=== PATIENT | male | born 1960 | race Caucasian/White ===

== ENCOUNTER 2017-12-27 00:13 | Outpatient (CLI) | payer MEDICAID, SELFPAY ==
--- NOTE | 2017-12-27 11:30 | MERGEMPI_ITS ---
*[facility]* *[facility]* [address] [place] [address] Myocardial Perfusion Imaging - SPECT Regadenoson Date of study: 12/27/2017 *PATIENT PRESENTATION* Height: 172.7cm (68in) Blood Pressure: Weight: 112.7kg (248lb) BSA: 2.37m^2 Referring physician: Gris Dawson Ordering physician: Trevin Kellogg MD Impressions: - Normal perfusion and contraction by Tc99m Sestamibi Imaging. - Poor image quality. Summary: 1. Myocardial perfusion imaging: No myocardial perfusion defects noted. 2. The calculated left ventricular ejection fraction after stress: 58%. LV global systolic function is normal. No left ventricular regional motion abnormality. 3. Stress ECG conclusions: The stress ECG is negative. 4. Stress: The heart rate response to stress is normal. The patient experienced no chest pain during stress. 5. Imaging information: gated. The image quality was poor. Image quality reduced due to mild patient motion and body habitus. Indication: R07.9. History: Patient's presenting symptoms: asymptomatic. Patient's presenting symptoms: asymptomatic. REASON FOR VISIT: PATIENT REPORTS EXPERIENCING 7/10 ACHY STERNAL AND LEFT SIDED CHEST PAIN FOR THE PAST 3-4 MONTHS. CHEST PAIN MOSTLY OCCURS WITH ACTIVITY, THOUGH SOMETIMES AT REST. CHEST PAIN RESOLVES AFTER ABOUT A MINUTE WITHOUT MEDICAL INTERVENTION. PATIENT ALSO NOTICES AN INCREASE IN FATIGUE ALONG WITH CHEST PAIN. PATIENT LAST EXPERIENCED CHEST PAIN YESTERDAY AFTERNOON. STRESS TEST ORDERED FOR FOLLOW UP OF PATIENT SYMPTOMS AND WORKUP FOR PENDING SURGERIES (GASTRIC BIPASS AND LEFT KNEE SURGERY). 09/09/16 ECHOCARDIOGRAM: EF 55-60%. RIGHT VENTRICLE CAVITY SIZE WAS DILATED; SYSTOLIC FUNCTION WAS REDUCED. MODERATE REGURGITATION OF TRICUSPID VALVE. 08/31/16 MPI RESTING AND STRESS TEST: NORMAL MYOCARDIAL PERFUSION AND CONTRACTION AFTER PHARMACOLOGICAL STRESS. LEFT VENTRICULAR EJECTION FRACTION AFTER STRESS 52%. PAST MEDICAL HISTORY: DEPRESSION, CHEST PAIN, KNEE JOINT PAIN, MICROALBUMINURIA, SYNCOPE, DM TYPE II, GOUT, OSTEOARTHRITIS (KNEE), HYPERTENSION, OBESITY, DVT OF RIGHT LEG, BARRETTS ESOPHAGEAL ULCERATION, BILATERAL TOTAL HIP ARTHROPLAYSTY, OBSTRUCTIVE SLEEP APNEA. FAMILY HISTORY: MOTHER, FATHER, AND 2 BROTHERS FROM MYOCARDIAL INFARCTION. THIRD BROTHER HAD MYOCARDIAL INFARCTION. SMOKING STATUS: NEVER SMOKER. EXERCISE ROUTINE: NONE. Risk factors: Family history of coronary artery disease. Hypertension. Diabetes mellitus. Obesity. Dyslipidemia. Cholesterol: 209mg/dl. HDL: 47mg/dl. LDL: 145mg/dl. Triglycerides: 136mg/dl. ALLERGIES: TAGAMET, XARELTO, LATEX, LISINOPRIL. MEDICATIONS: ATORVASTATIN CALCIUM 20MG, HS. TRAZODONE HCL 50MG, HS. MAGNESIUM OXIDE 400MG, DAILY. POTASSIUM CHOLORIDE 20MEQ, BID. HYDROCODONE-ACETAMINOPHEN 10-325MG, PRN. ALLOPURINOL 300MG, DAILY. BUMETANIDE 2MG, BID. INDOMETHACIN 50MG, PRN. RESTATIS 3 DROPS, BID. DICYCLOMINE HCL 10MG, QID. METFORMIN HCL 850MG, BID. LOSARTAN POTASSIUM 25MG, DAILY. GABAPENTIN 300MG, TID. DEXIMANT 60MG, BID. SENEXON 8.6MG, DAILY. NARCAN, PRN. WARFARIN SODIUM, DIRECTED. Imaging Technique: Protocol: Regadenoson. Acquisition: Gated SPECT; 1 day - rest/stress. The patient was imaged in the supine position. Attenuation correction used. Isotope administration: - Rest. Tc[99m]-sestamibi. Dose: 12mCi. Injection time: 11:00 AM. Injection to stress time: 00:45. - Stress. Tc[99m]-sestamibi. Dose: 37mCi. Injection time: 02:00 PM. 1-2 min before end of exercise Baseline ECG: SINUS RHYTHM. HEART RATE 60 BPM. Stress protocol: +--------+--+ + + !Stage !HR!BP (mmHg) !Comments ! +--------+--+ + + !Baseline!60!132/68 (89) ! ! +--------+--+ + + !1 min !80!160/70 (100)!Inject Regadenoson.! +--------+--+ + + !3 min !80!172/80 (111)! ! +--------+--+ + + !6 min !71!152/74 (100)! ! +--------+--+ + + * Stress results: The heart rate response to stress is normal. The rate-pressure product for the peak heart rate and blood pressure was 88790oa Hg/min. The patient experienced no chest pain during stress. Stress ECG: STRESS TEST ENDED IN 6MIN WHEN ALL SYMPTOMS OF REGADENOSON INJECTION SUBSIDED. APPROPRIATE HEART RATE AND BLOOD PRESSURE RESPONSE TO REGADENOSON INJECTION. NO ECTOPY NOTED. NO ANGINA REPORTED. The stress ECG is negative. Myocardial perfusion: Imaging information: gated. The image quality was poor. Image quality reduced due to mild patient motion and body habitus. Left ventricular size is normal. Right ventricular size is normal. No myocardial perfusion defects noted. Ventricular Function (Wall Motion): The calculated left ventricular ejection fraction after stress: 58%. LV global systolic function is normal. No left ventricular regional motion abnormality. Right ventricular function is normal. Study data: Gris Dawson MD supervised and was readily available during the procedure. This study was interpreted by [facility]. Study status: Routine. Consent: The risks, benefits, and alternatives to the procedure were explained to the patient and informed consent was obtained. Procedure: Initial setup. A baseline ECG was recorded. Surface ECG leads and manual cuff blood pressure measurements were monitored. Heart sounds: Normal. Lung sounds: Normal. Regadenoson stress test. Stress testing was performed, with regadenoson by intravenous bolus, for a total dose of 0.4mgover 10.00sec, followed by a 5ml saline flush. The infusion was terminated due to per protocol. Study completion: All catheters inserted during the procedure were removed. The patient tolerated the procedure well and was discharged from the lab. Discharge: The patient left the laboratory in stable condition. Birthdate: Patient birthdate: 1960. Sex: Gender: male. Study date: Study date: 12/27/2017. Study time: 12:30 PM. Signature Documentation: - The imaging portion of this study was interpreted by [facility] Gris Dawson MD. - The Stress ECG portion of this study was interpreted by Gris Dawson MD. Electronically signed by Gris Dawson 12/27/2017 17:30
[2017-12-27] MEDS: Regadenoson 0.4 MG/5 ML SYR IVP (14:15)
== END 2017-12-27 00:33 ==
PROVIDERS: PCP Internal Medicine; Visit Provider Internal Medicine
DX: R07.9 Chest pain, unspecified (principal); E11.9 Type 2 diabetes mellitus without complications; I10 Essential (primary) hypertension; E66.9 Obesity, unspecified; Z82.49 Family history of ischemic heart disease and other diseases of the circulatory system; R53.83 Other fatigue
CPT/HCPCS: 78452; 93017; J2785

== ENCOUNTER 2018-02-02 20:27 | Outpatient (REF) | payer MEDICAID, SELFPAY ==
[2018-02-02 21:54] LABS: Creatinine,Urine 57.72 mg/dL
[2018-02-02 22:00] LABS: Total Volume 2655 ml
[2018-02-05 09:31] LABS: Calcium Urine 12.7 mg/dl; Calcium Urine 24 hr 337 mg/24hr (100-300)
[2018-02-05 09:34] LABS: Uric Acid Urine 20.9 mg/dl; Uric Acid Urine 24hr 555 mg/24h (250-750)
[2018-02-05 17:31] LABS: Oxalate Conc (mmol/L) 0.11 mmol/L; Oxalate Concentration 9.7 mg/L; Oxalate, U 0.29 mmol/24 h (0.11-0.46); Oxalate, U 25.5 mg/24 h (9.7 - 40.5); Urine Volume 2655 mL
== END 2018-02-02 20:47 ==
LOC: NCHCN 20:27
PROVIDERS: PCP Internal Medicine; Visit Provider Internal Medicine
DX: N20.0 Calculus of kidney (principal)
CPT/HCPCS: 81050; 82340; 82570; 83945; 84560

== ENCOUNTER 2022-05-17 15:35 | Inpatient (IN) | payer OTHER, SELFPAY ==
[2022-05-17] VITALS (57 sets, daily range): BP systolic 90–138; BP diastolic 55–81; PULSE 0–81; RESP 10–24; TEMP 36.3–37; O2SAT 95–97
--- NOTE | 2022-05-17 15:52 | RT.EKG_ITS ---
APPROVED REPORT Exam: Resting ECG Reason for Exam: sob Patient Location: E HR:73 bpm ECG Measurements Heart Rate 73 AXIS WV 200 P 37 QRSd 85 QRS 29 QT 398 T 27 QTc 437 Conclusion Sinus rhythm...normal P axis, V-rate 60- 99
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
[2022-05-17 16:41] LABS: Abs Immature Grans 0.04 10^3/uL (0.0-0.06); Absolute Basophil Count 0.07 10^3/uL (0.0-0.2); Absolute Eosinophil Count 0.38 10^3/uL (0.0-0.7); Absolute Lymphocyte Count 2.14 10^3/uL (1.2-3.4); Absolute Monocyte Count 0.59 10^3/uL (0.1-0.8); Basophils % 0.7; Eosinophils % 3.7; HCT 42.7 % (40.0-50.0); HGB 13.9 g/dL (13.5-17.5); Immature Grans % 0.4; Lymphocytes % 20.9; MCHC 32.6 % (32.0-36.0); MCV 89 fL (80-95); MPV 9.3 fL (8.0-11.0); Monocytes % 5.8; Neutrophils % 68.5; Platelet Count 170 10^3/uL (130-400); RDW-SD 49.5 fL; WBC 10.22 10^3/uL (4.4-10.8)
[2022-05-17 16:53] LABS: ALT 16 U/L (16-63); AST 46 U/L (15-37); Alkaline Phosphatase 119 U/L (46-116); Anion Gap 6.3 mmol/L (3-11); BUN 14 mg/dL (7-18); Bilirubin, Direct 0.2 mg/dL (0.0-0.2); Bilirubin, Total 0.6 mg/dL (0.2-1.0); CO2 33.7 mmol/L (21.0-32.0); CREATININE 0.8 mg/dL (0.70-1.30); Calcium 9.5 mg/dL (8.5-10.1); Chloride 101 mmol/L (98-107); Estimated GFR 100.06 (mL/min/1.73m2); Glucose 132 mg/dL (74-106); Magnesium 1.6 mg/dL (1.8-2.4); NT-proBNP 186 pg/mL (<300); Potassium 4.3 mmol/L (3.5-5.1); Sodium 141 mmol/L (136-145); Total Protein 8.4 g/dL (6.4-8.2); Troponin I < 50 ng/L (<or=60)
[2022-05-17 17:01] LABS: INR 1.1 (0.9-1.1); PTT Activated 22.8 sec (21.0-27.5); Prothrombin Time 10.7 sec (9.3-11.0)
[2022-05-17 17:42] LABS: COVID-19 PCR Negative (Negative); Influenza A PCR Negative (Negative); Influenza B PCR Negative (Negative); RSV PCR Negative (Negative)
[2022-05-17 17:44] LABS: Source Nasopharynx
--- NOTE | 2022-05-17 17:58 | DI.CT_ITS ---
Exam(s) CT CHEST PE CTA EXAM: CT CHEST PE CTA CLINICAL HISTORY: Cough, SOB. TECHNIQUE: Imaging Protocol: Axial CT angiography was performed with multi-slice acquisition and mu lti-planar reconstructions as well as axial, coronal and sagittal MIP reconstructions. CONTRAST MATERIAL: Intravenous: Omnipaque 350 Contrast volume:100 ml COMPARISON: No exams were available for comparison FINDINGS: Exam is limited by patient body habitus. Evaluation of the lungs is limited by respiratory motion an d expiratory changes. Pulmonary Arteries: Small branch vessels not well evaluated due to artifact and motion. No evidence of filling defect to suggest pulmonary emboli. Tracheobronchial tree: Patent where visualized. Mediastinum and Ladi: Mild adenopathy, likely reactive.. Pulmonary parenchyma: Bilateral multifocal ground-glass infiltrates. Some areas of air trapping. In terstitial changes. No dominant measurable mass. Pleura: No effusion or pneumothorax. Heart: The heart is mildly dilated. Moderate coronary artery calcifications are seen. Aorta: Thoracic aorta non-dilated. No aneurysm. No dissection. Upper abdomen: Status post cholecystectomy. Liver cyst. Pancreas somewhat atrophic. Bones: Right shoulder prosthesis. Mid thoracic compression fracture appears old. IMPRESSION: Limited exam. No gross evidence of pulmonary embolism. Pulmonary parenchyma limited evaluation due to respiratory motion and expiratory changes. Bilateral infiltrates are suspected. RADIATION DOSE DELIVERED: 616.17mGy.cm Total DLP DATA REPOSITORY: All CT scans at this facility are submitted to the National Radiology Data Registry (NRDR) Dose Index Registry (DIR) with the [employer] (ACR). RADIATION OPTIMIZATION: All CT scans at this facility use at least one of these dose optimization te chniques: automated exposure control; mA and/or kV adjustment per patient size (includes targeted exa ms where dose is matched to clinical indication); or iterative reconstruction.
[2022-05-17] MEDS: Omnipaque 350 MG/ML 100 ML BTL IJ (18:10)
[2022-05-17] MEDS: MAGNESIUM SULFATE 1 GM/100 ML BAG IVPB (18:18)
--- NOTE | 2022-05-17 18:22 | DI.VRAD_ITS ---
PROCEDURE INFORMATION: Exam: CTA Chest With Contrast Exam date and time: 05/17/2022 5:49 PM Age: 61 years old Clinical indication: Other: Cough, SOB TECHNIQUE: Imaging protocol: Computed tomographic angiography of the chest with contrast. 3D rendering (Not supervised by radiologist): MIP and/or 3D reconstructed images were created by the technologist. Radiation optimization: All CT scans at this facility use at least one of these dose optimization techniques: automated exposure control; mA and/or kV adjustment per patient size (includes targeted exams where dose is matched to clinical indication); or iterative reconstruction. Contrast material: OMNIPAQUE 350; Contrast volume: 100 ml; Contrast route: INTRAVENOUS (IV); COMPARISON: No relevant prior studies available. FINDINGS: Pulmonary arteries: No definite pulmonary embolism is seen to the level of the lobar pulmonary arterial branches bilaterally. The heterogeneous or decreased density of some small segmental and subsegmental pulmonary arterial branches may reflect inadequate enhancement, beam hardening, or motion, flow, or partial volume averaging artifact. One or more small segmental or subsegmental pulmonary emboli cannot be excluded. . Aorta: No aortic dissection. No aortic aneurysm. Lungs: Patchy bilateral ground-glass opacities may represent multifocal pneumonia. Pleural spaces: Unremarkable. No pneumothorax. No pleural effusion. Heart: Unremarkable. No cardiomegaly. No pericardial effusion. Coronary arteries: Coronary artery calcifications may indicate coronary artery disease. Lymph nodes: Unremarkable. No enlarged lymph nodes. Bones/joints: Right shoulder arthroplasty. Midthoracic compression fracture of unknown age Soft tissues: Unremarkable. IMPRESSION: 1. No definite pulmonary embolism is seen to the level of the lobar pulmonary arterial branches bilaterally. The heterogeneous or decreased density of some small segmental and subsegmental pulmonary arterial branches may reflect inadequate enhancement, beam hardening, or motion, flow, or partial volume averaging artifact. One or more small segmental or subsegmental pulmonary emboli cannot be excluded. 2. Patchy bilateral ground-glass opacities may represent multifocal pneumonia. 3. No aortic dissection. 4. No aortic aneurysm. Dictated and Authenticated by: Navjot Gutierrez MD. Ordering:ROSELINE Yeh MD
[2022-05-17] MEDS: PIPERACILLIN/TAZO 3.375 GM in Normal Saline 50 ML IVPB (19:27)
--- NOTE | 2022-05-17 19:48 | NUR.NOTE ---
Addendum entered by Radha Justin 05/17/22 19:48: 2nd IV initiated, blood cultures drawn and first antibiotic infusing via pump. Pt provided with meal and drink, awaiting inpatient bed assignment Original Note: Nursing Note:
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
[2022-05-17] MEDS: VANCOMYCIN 2,000 MG in Normal Saline 500 ML 250 MG IVPB (20:47)
[2022-05-17] MEDS: traZODone 50 MG TAB 100 MG PO (22:32)
[2022-05-17] MEDS: Tamsulosin 0.4 MG CAPCR PO (22:32)
[2022-05-17] MEDS: HYDROmorphone 2 MG TAB 1 MG PO (22:33)
[2022-05-17] MEDS: MAGNESIUM SULFATE 2 GM/50 ML BAG IVPB (22:47)
[2022-05-17] MEDS: Zolpidem 5 MG TAB 10 MG PO (22:59)
[2022-05-17] MEDS: Apixaban 5 MG TAB PO (23:00)
[2022-05-18] VITALS (9 sets, daily range): BP systolic 108–153; BP diastolic 64–85; PULSE 63–79; RESP 16–19; TEMP 36.2–37.2; O2SAT 93–95
[2022-05-18] MEDS: Normal Saline 1,000 ML 100 ML IV ×2 (03:02→16:55)
[2022-05-18] MEDS: PIPERACILLIN/TAZO 3.375 GM in Normal Saline 50 ML IVPB ×4 (03:02→20:02)
[2022-05-18] MEDS: Acetaminophen 325 MG TAB PO ×2 (03:48→08:58)
[2022-05-18 06:52] LABS: HCT 37.3 % (40.0-50.0); HGB 12.2 g/dL (13.5-17.5); MCH 29.3 pg (27.0-33.0); MCHC 32.7 % (32.0-36.0); MCV 89 fL (80-95); MPV 8.9 fL (8.0-11.0); Platelet Count 141 10^3/uL (130-400); RBC 4.17 10^6/uL (4.36-5.78); RDW 15.3 % (11.8-14.1); WBC 8.42 10^3/uL (4.4-10.8)
[2022-05-18 07:02] LABS: Prothrombin Time 10.5 sec (9.3-11.0)
[2022-05-18 07:05] LABS: Magnesium 1.9 mg/dL (1.8-2.4)
--- NOTE | 2022-05-18 08:30 | RESPIRATORY ---
RT spoke with patient concerning the use of oxygen at home, patient stated his baseline is 2L and DME is [facility].
[2022-05-18] MEDS: Insulin Aspart 300 UNITS/3 ML PEN SC ×2 (08:38→11:47)
[2022-05-18] MEDS: Multivitamin w/Minerals TAB 1 TAB PO (08:40)
[2022-05-18] MEDS: Apixaban 5 MG TAB PO ×2 (08:40→19:51)
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
[2022-05-18] MEDS: VANCOMYCIN/WATER (PEG) 1.75 GM/350 ML BAG IV ×2 (09:46→21:38)
[2022-05-18] MEDS: Normal Saline Flush 10 ML SYR IVP (11:51)
--- NOTE | 2022-05-18 12:51 | PHA.REVIEW2 ---
Pharmacy Admission Review - Admission Clinical Review (Last Reviewed 05/17/22 @ 21:24 by Wild Black) Compression fracture of lumbar vertebra (Acute) Hypomagnesemia (Acute) Multifocal pneumonia (Acute) cimetidine HCl [From Tagamet] Allergy (Severe, Verified 05/17/22 18:58) Anaphylaxsis rivaroxaban [From Xarelto] Allergy (Severe, Verified 05/17/22 18:58) Latex, Natural Rubber Allergy (Intermediate, Verified 05/17/22 18:58) Skin Rash lisinopril Allergy (Intermediate, Verified 05/17/22 18:58) morphine Allergy (Mild, Verified 05/17/22 18:58) Itching diphenhydramine HCl [From Benadryl] Adverse Reaction (Intermediate, Verified 05/17/22 18:58) palpitations promethazine HCl [From Phenergan] Adverse Reaction (Verified 05/17/22 18:58) Dizziness/Lightheade Resuscitation Status Full Code Height 5 ft 8 in Weight 101.3 kg - Renal Dosing Renal Dosing: BUN 14 mg/dL (7-18) 05/17/22 15:55 Creatinine 0.8 mg/dL (0.70-1.30) 05/17/22 15:55 Medications needing adjustments: Reviewed (Crcl ~88.35 mL/min current meds okay) - Anticoagulation Anticoagulation: Hgb 12.2 g/dL (13.5-17.5) L 05/18/22 06:42 Hct 37.3 % (40.0-50.0) L 05/18/22 06:42 Plt Count 141 10^3/uL (130-400) 05/18/22 06:42 INR 1.0 (0.9-1.1) 05/18/22 06:42 Creatinine 0.8 mg/dL (0.70-1.30) 05/17/22 15:55 DVT Prophylaxis: N/A Therapeutic Anticoagulation: Reviewed Medications: Apixaban - Opiate Usage Evaluate Pain Scale/Pains Meds: Reviewed Scheduled Bowel Reg ordered if on Opiates?: Yes (pts own linzess, prn meds) - Relevant Labs Sodium 141 mmol/L (136-145) 05/17/22 15:55 Potassium 4.3 mmol/L (3.5-5.1) 05/17/22 15:55 Chloride 101 mmol/L (98-107) 05/17/22 15:55 Magnesium 1.9 mg/dL (1.8-2.4) 05/18/22 06:42 Electrolytes, C-Reactive P, ESR: Reviewed - DM Control DM Control: Glucose 132 mg/dL (74-106) H 05/17/22 15:55 Finger Stick Blood Glucose 170 Finger Stick Blood Glucose 170 Finger Stick Blood Glucose 170 Finger Stick Blood Glucose 147 Finger Stick Blood Glucose 147 Finger Stick Blood Glucose 147 Finger Stick Blood Glucose 147 DM Control: Reviewed (sliding scale aspart ordered, pt's home metformin on hold per H&P) - Cardiac Review Cardiac Review: Troponin I < 50 ng/L (<or=60) 05/17/22 15:55 NT-Pro-B Natriuret Pep 186 pg/mL (<300) 05/17/22 15:55 BP, HR, EF%: Reviewed - Qtc Review If Elevated, List meds needing intervention: QTc 437 on admission - IV to PO Switch IV Medications: Reviewed - Home Meds Home Med List reviewed: Reviewed Relevent Home Meds Not ordered & why?: vitamin B complex, metformin (on hold), naloxone (PRN) - Current meds Current Medication Order Review: Intervened (Order for pt's own medihoney to follow pt's home dressing changing instructions. I talked to nursing to see if there was more information so this order could be timed better/adjusted in [facility]. I adjusted the timing of the insulin aspart based on the med surg rn time policy.) - Comments Comments/Follow Ups: Watch VS, BG, labs, for culture results and for med changes. Antibiotic Review - Pharmacy Antibiotic Review Pharmacy Antibiotic Activity: C/S review (BC and MRSA screen pending), Reviewed, no change (Vanco and zosyn ordered to cover for hospital acquired pneumonia per H&P.)
--- NOTE | 2022-05-18 19:10 | W.PM.PROGNOT ---
Date of Service Date of service: 05/18/22 Time of Service: 12:00 Assessment and Plan Assessment and plan (1) Multifocal pneumonia: Status: Acute Assessment and plan: This is a 61-year-old gentleman with a prolonged hospital course at the [facility] over this last year secondary to COVID-19 pneumonia with mechanical ventilation for 4 months of that hospitalization. He more recently had increased cough with sputum production and increased oxygen needs and was found to have multifocal pneumonia on CT scan to rule out PE. Patient is already on Eliquis for previous PE and DVT. He was negative for COVID, RSV or influenza screening in the ED. He will be placed on vancomycin and Zosyn for treatment of hospital-acquired pneumonia. Increased oxygen supplementation as needed and respiratory care as needed. Patient is a full code. (2) Hypomagnesemia: Status: Acute Assessment and plan: Magnesium slightly low with patient to have IV magnesium in the ED and follow-up magnesium level daily with oral supplement if needed as well as IV repletion as indicated. (3) DVT (deep venous thrombosis): Assessment and plan: Continue Eliquis with no evidence of acute DVT or PE. (4) Peripheral neuropathy: Status: Chronic Assessment and plan: Continue pain management as per outpatient. (5) Compression fracture of lumbar vertebra: Status: Acute Assessment and plan: Continue long-acting morphine during the day with Dilaudid at night for pain management. (6) Diabetes mellitus: Assessment and plan: Will hold metformin and check glucometers before meals and at bedtime with short acting insulin coverage as needed. (7) Discharge planning issues: Status: Acute Assessment and plan: SNF v home with HH Discussed with Dr Ramachandran Subjective Subjective Patient reports: no new complaints, pain is less, voiding w/o difficulty, bowel movement and afebrile; denies diarrhea, nausea or vomiting Exam Narrative Exam Narrative: General: Patient appears appropriate for age, short stature and slightly obese having loss a lot of weight over this last year with his illness. He is in no acute distress. He speaks in full sentences. He is alert and oriented x3. HEENT: Normocephalic, eyes with pupils equal and react to light symmetrically, extraocular movement tact and sclera anicteric. Oropharynx with moist mucosa. Good dentition. Neck: Supple without JVD. Back: Stooped posture without CVA tenderness. Lungs: Decreased aeration diffusely with coarse crackles sparsely without focalizing and bilateral. These with inspiration. No expiratory wheeze and no increased expiratory phase. Occasional rhonchi. Heart: Regular rate and rhythm with no murmurs gallops appreciated. Abdomen: Obese contour, soft and nontender except over right lower quadrant intermittently with some guarding but no rebound. No palpable masses. No palpable hepatosplenomegaly. Genitalia/rectal: Exam deferred. Extremity: Without clubbing, cyanosis or pitting edema. Good capillary refill. Skin: Normal color, warm and dry. Neuro: Cranial nerves II through XII gross intact, no focalized motor deficits. Patient does have hyperesthesias over lower extremities especially. Psych: Normal affect and mood. Remote and recent memory intact. No abnormal thought processes. Objective Last Vital Signs Temp 36.9 C 05/18/22 15:30 Pulse 67 05/18/22 15:30 Resp 16 05/18/22 15:30 BP 146/82 H 05/18/22 15:30 Pulse Ox 95 05/18/22 15:30 Laboratory Results - last 24 hr 05/18/22 05/18/22 05/18/22 06:42 06:42 06:42 WBC 8.42 RBC 4.17 L Hgb 12.2 L Hct 37.3 L MCV 89 MCH 29.3 MCHC 32.7 RDW 15.3 H Plt Count 141 MPV 8.9 PT 10.5 INR 1.0 Magnesium 1.9 Time Spent with Patient Time Spent with Patient: 25-34 minutes Time was spent: preparing to see the patient(eg.review tests), obtaining and/or reviewing separately otained hiistory, ordering medications,tests, procedures, referring, communicating with other health acute care certified nursing assistant, indepentently interpreting results, counseling the patient and care coordination
[2022-05-18] MEDS: HYDROmorphone 2 MG TAB 1 MG PO (21:36)
[2022-05-18] MEDS: Tamsulosin 0.4 MG CAPCR PO (21:37)
[2022-05-18] MEDS: Zolpidem 5 MG TAB 10 MG PO (21:37)
[2022-05-18] MEDS: traZODone 50 MG TAB 100 MG PO (21:38)
[2022-05-18] MEDS: guaiFENesin/D-METHORPHAN HB 5 ML CUP 10 ML PO (21:48)
[2022-05-19] VITALS (10 sets, daily range): BP systolic 122–168; BP diastolic 74–82; PULSE 63–85; RESP 16–22; TEMP 36.5–37; O2SAT 81–97
[2022-05-19] MEDS: PIPERACILLIN/TAZO 3.375 GM in Normal Saline 50 ML IVPB ×4 (02:35→21:19)
[2022-05-19] MEDS: Normal Saline 1,000 ML 100 ML IV (05:39)
[2022-05-19 06:24] LABS: Abs Immature Grans 0.04 10^3/uL (0.0-0.06); Absolute Basophil Count 0.05 10^3/uL (0.0-0.2); Absolute Eosinophil Count 0.53 10^3/uL (0.0-0.7); Absolute Lymphocyte Count 2.47 10^3/uL (1.2-3.4); Absolute Monocyte Count 0.64 10^3/uL (0.1-0.8); Basophils % 0.6; Eosinophils % 6.4; HCT 37.8 % (40.0-50.0); HGB 12.3 g/dL (13.5-17.5); Immature Grans % 0.5; Lymphocytes % 29.7; MCHC 32.5 % (32.0-36.0); MCV 89 fL (80-95); MPV 9.2 fL (8.0-11.0); Monocytes % 7.7; Neutrophils % 55.1; Platelet Count 151 10^3/uL (130-400); RBC 4.24 10^6/uL (4.36-5.78); RDW 15.3 % (11.8-14.1); RDW-SD 50.4 fL; WBC 8.33 10^3/uL (4.4-10.8)
[2022-05-19 06:39] LABS: Anion Gap 5.4 mmol/L (3-11); BUN 11 mg/dL (7-18); CO2 30.6 mmol/L (21.0-32.0); CREATININE 0.8 mg/dL (0.70-1.30); Calcium 8.5 mg/dL (8.5-10.1); Chloride 106 mmol/L (98-107); Estimated GFR 100.06 (mL/min/1.73m2); Glucose 117 mg/dL (74-106); Magnesium 1.9 mg/dL (1.8-2.4); Potassium 3.9 mmol/L (3.5-5.1); Sodium 142 mmol/L (136-145)
[2022-05-19 08:09] LABS: Lab Add On Test DONE
[2022-05-19 08:53] LABS: Procalcitonin < 0.1 ng/mL
[2022-05-19] MEDS: Apixaban 5 MG TAB PO ×2 (09:04→20:35)
[2022-05-19] MEDS: Multivitamin w/Minerals TAB 1 TAB PO (09:04)
[2022-05-19] MEDS: Benzonatate 200 MG CAP PO ×3 (09:04→20:37)
[2022-05-19] MEDS: VANCOMYCIN/WATER (PEG) 1.75 GM/350 ML BAG IV (11:01)
--- NOTE | 2022-05-19 14:01 | CHAPLAIN ---
I visited with Vinay yesterday to introduce myself and explain my role. He is from [place] and has been dealing with COVID for the past year. He spent four months on a vent at the [facility]. I will continue to visit.
--- NOTE | 2022-05-19 16:46 | CMPROGNOTE_ITS ---
- If Service Date Differs Date of service: 05/19/22 Time of Service: 16:47 Care Management Progress Note S/O: Vinay was sitting up in his chair when CM met with him. He stated that he is feeling ok, but not at his baseline. He reported that he is on 2LO2 at home, which he is currently on here. He stated that he feels weak. PT has been consulted to work with him while he is at [facility]. CM will continue to follow. A: Vinay is a 61 year old male admitted to [facility] on 05/17/22 with multifocal pn eumonia. P: Vinay is being closely monitored and treated. Anticipate, he will discharge home with resumption of [facility] RN/PT/OT services, when medically cleared per provider. Vinay will follow up with his community providers and discharge plan of care as prescribed. CM will support pt and his discharge considerations.
[2022-05-19] MEDS: Insulin Aspart 300 UNITS/3 ML PEN SC (17:55)
--- NOTE | 2022-05-19 19:06 | TELEP.MEDR_ITS ---
Date of service: 05/19/22 Time of Service: 19:06 Telepharmacy Home Med Rec Allergies Allergies: cimetidine HCl [From Tagamet] Allergy (Severe, Verified 05/17/22 18:58) Anaphylaxsis rivaroxaban [From Xarelto] Allergy (Severe, Verified 05/17/22 18:58) Latex, Natural Rubber Allergy (Intermediate, Verified 05/17/22 18:58) Skin Rash lisinopril Allergy (Intermediate, Verified 05/17/22 18:58) morphine Allergy (Mild, Verified 05/17/22 18:58) Itching diphenhydramine HCl [From Benadryl] Adverse Reaction (Intermediate, Verified 05/17/22 18:58) palpitations promethazine HCl [From Phenergan] Adverse Reaction (Verified 05/17/22 18:58) Dizziness/Lightheade Interview Person Interviewed: * No interview, med list updated from [facility] list and hand written list taken by [facility] staff (as reported by pt's ) Quality Quality of Interview/Accuracy of Medication List: Good Sources Sources used to compile medication list: [employer] Medication List, Patient List and Other ([facility] list) Changes made to Home Medication List: ADDITIONS: * MVI 1 tab PO daily * Senna 8.6mg PO BID * Trazodone 100mg PO qHS * Citalopram 20mg PO daily * Vit C -1000mg PO daily * Tamsulosin 0.4mg PO daily * Apixaban 5mg PO BID * Hydromorphone 1mg PO TID PRN * Morphine ER 45mg PO BID * Atorvastatin 20mg PO qHS * Tums 2 tab PO TID PRN * Carbidopa/Levodopa (25/100mg) - 1 tab PO TID * Cyclobenzaprine 5-10mg PO qHS PRN * Famotidine 20mg PO BID * Meloxicam 15mg PO daily * Metformin 500mg PO BID * Zolpidem 10mg PO qHS * Vit D3 - 2000 units PO daily * Gabapentin 600mg PO TID * Calcium citrate 400mg PO BID * Acetaminophen 650mg PO q4h * Alendronate 70mg PO weekly (SAT) * Calcitonin Nasal- 1 spray daily (alternating nostrils) * Acidophilus 1 cap PO BID * Bisacodyl 10mg PO daily PRN DELETIONS: * none CHANGES: * none Additional Notes Additional Notes: * Bowel regimen discrepancies- miralax and milk of magnesia were on VA list, but not on the 's list (these were not added to [facility]). 's list did have bisacodyl PRN, so [facility] * Ondansetron- not on 's list, but on VA list (Not added to [facility]) * Acetaminophen: per VA it's PRN, per its q4h scheduled * Sinemet- per VA list 1 tab PO TID, per 's list 1.5 tabs * Gabepentin: per VA list: 600mg AM, 600mg q afternoon & 900mg qHS, per 's list: 600mg TID Recommended Changes Recommended Changes(reason for recommendation): * none Attestation: The home medication list is now updated to the best of my knowledge and is ready to be reconciled by the provider. Please contact the TelePharmacy Medication Reconciliation Pharmacist at for any questions.
--- NOTE | 2022-05-19 19:06 | TELEP.MEDREC ---
Date of service: 05/19/22 Time of Service: 19:06 Telepharmacy Home Med Rec Allergies Allergies: cimetidine HCl [From Tagamet] Allergy (Severe, Verified 05/17/22 18:58) Anaphylaxsis rivaroxaban [From Xarelto] Allergy (Severe, Verified 05/17/22 18:58) Latex, Natural Rubber Allergy (Intermediate, Verified 05/17/22 18:58) Skin Rash lisinopril Allergy (Intermediate, Verified 05/17/22 18:58) morphine Allergy (Mild, Verified 05/17/22 18:58) Itching diphenhydramine HCl [From Benadryl] Adverse Reaction (Intermediate, Verified 05/17/22 18:58) palpitations promethazine HCl [From Phenergan] Adverse Reaction (Verified 05/17/22 18:58) Dizziness/Lightheade Interview Person Interviewed: No interview, med list updated from VA list and hand written list taken by [facility] staff (as reported by pt's ) Quality Quality of Interview/Accuracy of Medication List: Good Sources Sources used to compile medication list: [employer] Medication List, Patient List and Other ([facility] list) Changes made to Home Medication List: ADDITIONS: MVI 1 tab PO daily Senna 8.6mg PO BID Trazodone 100mg PO qHS Citalopram 20mg PO daily Vit C -1000mg PO daily Tamsulosin 0.4mg PO daily Apixaban 5mg PO BID Hydromorphone 1mg PO TID PRN Morphine ER 45mg PO BID Atorvastatin 20mg PO qHS Tums 2 tab PO TID PRN Carbidopa/Levodopa (25/100mg) - 1 tab PO TID Cyclobenzaprine 5-10mg PO qHS PRN Famotidine 20mg PO BID Meloxicam 15mg PO daily Metformin 500mg PO BID Zolpidem 10mg PO qHS Vit D3 - 2000 units PO daily Gabapentin 600mg PO TID Calcium citrate 400mg PO BID Acetaminophen 650mg PO q4h Alendronate 70mg PO weekly (SAT) Calcitonin Nasal- 1 spray daily (alternating nostrils) Acidophilus 1 cap PO BID Bisacodyl 10mg PO daily PRN DELETIONS: none CHANGES: none Additional Notes Additional Notes: Bowel regimen discrepancies- miralax and milk of magnesia were on VA list, but not on the 's list (these were not added to [employer]). 's list did have bisacodyl PRN, so this was added to [facility] Ondansetron- not on 's list, but on VA list (Not added to [facility]) Acetaminophen: per VA it's PRN, per its q4h scheduled Sinemet- per VA list 1 tab PO TID, per 's list 1.5 tabs Gabepentin: per VA list: 600mg AM, 600mg q afternoon & 900mg qHS, per 's list: 600mg TID Recommended Changes Recommended Changes(reason for recommendation): none Attestation: The home medication list is now updated to the best of my knowledge and is ready to be reconciled by the provider. Please contact the TelePharmacy Medication Reconciliation Pharmacist at for any questions.
--- NOTE | 2022-05-19 19:45 | W.PM.PROGNOT ---
Date of Service Date of service: 05/19/22 Time of Service: 13:00 Assessment and Plan Assessment and plan (1) Multifocal pneumonia: Status: Acute Assessment and plan: This is a 61-year-old gentleman with a prolonged hospital course at the [facility] over this last year secondary to COVID-19 pneumonia with mechanical ventilation for 4 months of that hospitalization. He more recently had increased cough with sputum production and increased oxygen needs and was found to have multifocal pneumonia on CT scan to rule out PE. Patient is already on Eliquis for previous PE and DVT. He was negative for COVID, RSV or influenza screening in the ED. He will be placed on vancomycin and Zosyn for treatment of hospital-acquired pneumonia. Increased oxygen supplementation as needed and respiratory care as needed. Patient is a full code. (2) Hypomagnesemia: Status: Resolved Assessment and plan: Magnesium slightly low with patient to have IV magnesium in the ED and follow-up magnesium level daily with oral supplement if needed as well as IV repletion as indicated. (3) DVT (deep venous thrombosis): Assessment and plan: Continue Eliquis with no evidence of acute DVT or PE. (4) Peripheral neuropathy: Status: Chronic Assessment and plan: Continue pain management as per outpatient. (5) Compression fracture of lumbar vertebra: Status: Acute Assessment and plan: Continue long-acting morphine during the day with Dilaudid at night for pain management. (6) Diabetes mellitus: Assessment and plan: Will hold metformin and check glucometers before meals and at bedtime with short acting insulin coverage as needed. discussed with Dr Yost Subjective Subjective Patient reports: no new complaints, pain is less, voiding w/o difficulty, bowel movement and afebrile; denies nausea Exam Narrative Exam Narrative: General: Patient appears appropriate for age, short stature and slightly obese having loss a lot of weight over this last year with his illness. He is in no acute distress. He speaks in full sentences. He is alert and oriented x3. HEENT: Normocephalic, eyes with pupils equal and react to light symmetrically, extraocular movement tact and sclera anicteric. Oropharynx with moist mucosa. Good dentition. Neck: Supple without JVD. Back: Stooped posture without CVA tenderness. Lungs: Decreased aeration diffusely with coarse crackles sparsely without focalizing and bilateral. These with inspiration. No expiratory wheeze and no increased expiratory phase. Occasional rhonchi. Heart: Regular rate and rhythm with no murmurs gallops appreciated. Abdomen: Obese contour, soft and nontender except over right lower quadrant intermittently with some guarding but no rebound. No palpable masses. No palpable hepatosplenomegaly. Genitalia/rectal: Exam deferred. Extremity: Without clubbing, cyanosis or pitting edema. Good capillary refill. Skin: Normal color, warm and dry. Neuro: Cranial nerves II through XII gross intact, no focalized motor deficits. Patient does have hyperesthesias over lower extremities especially. Psych: Normal affect and mood. Remote and recent memory intact. No abnormal thought processes. Objective Last Vital Signs Temp 37.0 C 05/19/22 19:30 Pulse 64 05/19/22 19:30 Resp 18 05/19/22 19:30 BP 168/82 H 05/19/22 19:30 Pulse Ox 94 05/19/22 19:30 Laboratory Results - last 24 hr 05/19/22 05/19/22 05/19/22 06:05 06:05 06:05 WBC 8.33 RBC 4.24 L Hgb 12.3 L Hct 37.8 L MCV 89 MCH 29.0 MCHC 32.5 RDW 15.3 H Plt Count 151 MPV 9.2 Immature Gran % 0.5 Neutrophils % 55.1 Lymphocytes % 29.7 Monocytes % 7.7 Eosinophils % 6.4 Basophils % 0.6 Nucleated RBC % 0.0 Absolute Neutrophils 4.60 Absolute Lymphocytes 2.47 Absolute Monocytes 0.64 Absolute Eosinophils 0.53 Absolute Basophils 0.05 Sodium 142 Potassium 3.9 Chloride 106 Carbon Dioxide 30.6 Anion Gap 5.4 BUN 11 Creatinine 0.8 Est GFR (CKD-EPI 2020) 100.06 Glucose 117 H Calcium 8.5 Magnesium 1.9 Procalcitonin Add-On Test Request DONE 05/19/22 06:05 WBC RBC Hgb Hct MCV MCH MCHC RDW Plt Count MPV Immature Gran % Neutrophils % Lymphocytes % Monocytes % Eosinophils % Basophils % Nucleated RBC % Absolute Neutrophils Absolute Lymphocytes Absolute Monocytes Absolute Eosinophils Absolute Basophils Sodium Potassium Chloride Carbon Dioxide Anion Gap BUN Creatinine Est GFR (CKD-EPI 2020) Glucose Calcium Magnesium Procalcitonin < 0.1 Add-On Test Request Time Spent with Patient Time Spent with Patient: 25-34 minutes Time was spent: preparing to see the patient(eg.review tests), obtaining and/or reviewing separately otained hiistory, ordering medications,tests, procedures, referring, communicating with other health health care sanitary technician, indepentently interpreting results, counseling the patient and care coordination
[2022-05-19] MEDS: HYDROmorphone 2 MG TAB 1 MG PO (20:35)
[2022-05-19] MEDS: Tamsulosin 0.4 MG CAPCR PO (20:37)
[2022-05-19] MEDS: Docusate Sodium 100 MG CAP PO (21:18)
[2022-05-19] MEDS: Zolpidem 5 MG TAB 10 MG PO (21:55)
[2022-05-19] MEDS: traZODone 50 MG TAB 100 MG PO (21:55)
--- NOTE | 2022-05-19 21:56 | WOUNDCONS_ITS ---
- If Service Date Differs Date of service: 05/19/22 Time of Service: 21:57 Wound Initial Evaluation Narrative: 61 year old male that has received prolonged care at the [facility], over the last year, secondary to covid-19 pneumonia with mechanical ventalation, for 4 months of that hospitalization. Pt seen at bedside and consents to a wound care consult, consent signed. H &P reviewed labs reviewed. aware that we will be checking this wound. Pt states the wound is healing and does review this with is . Amarjit at the [facility],in the wound team, gave them specific instructions for the care. Partial thickness wound. No open areas. NO redness outside of the wound margins. - Wound right gluteal fold Wound Type: Partial Thickness Pressure Ulcer Stage: II (unknown staging from initial wound available at this time. pt and do not know) Wound General Appearance: Well Approximated, Clean/Dry, Healing Well Wound Surrounding Tissue Appearance: [place], Normal/Healthy Wound Length: 1.57 in Wound Width: 2.36 in Wound Depth: 0.04 in (wound appears closed. with pink scar tissue.) Wound Drainage Amount: None Wound Drainage Odor: None/Absent Wound Drainage Description: No drainage Wound Topical Solution/Irrigant: Other (anasept) - Circulation, Sensation, Motion Skin Temperature: Warm Skin Color: [place] - Pain Pain Level: 0 - Treatment/Dressing Change Topicals/Ointments: Other (medihoney) Cleanse With: Anasept Dressing Types: Mepilex w/Border - Recomendation Recomendation:: Every three days or PRN soiled dressing Remove old dressing Cleanse the wound with anasept. Pat dry. Apply medihoney to the wound. Skin prep around the outer wound edge. Cover with bordered mepilex. Physcian/Nurse Practioner Notified: Yes (email about recomendation) Treatment Time - Time Total Time Spent with Patient: 30
[2022-05-20] MEDS: PIPERACILLIN/TAZO 3.375 GM in Normal Saline 50 ML IVPB ×3 (02:13→14:55)
[2022-05-20] MEDS: Normal Saline 1,000 ML 100 ML IV (02:13)
[2022-05-20 06:32] LABS: Abs Immature Grans 0.03 10^3/uL (0.0-0.06); Absolute Basophil Count 0.07 10^3/uL (0.0-0.2); Absolute Eosinophil Count 0.75 10^3/uL (0.0-0.7); Absolute Lymphocyte Count 2.46 10^3/uL (1.2-3.4); Absolute Monocyte Count 0.69 10^3/uL (0.1-0.8); Absolute Neutrophil Count 5.31 10^3/uL (1.2-6.7); Basophils % 0.8; Eosinophils % 8.1; HGB 12.4 g/dL (13.5-17.5); Immature Grans % 0.3; Lymphocytes % 26.4; MCH 28.6 pg (27.0-33.0); MCHC 31.8 % (32.0-36.0); MCV 90 fL (80-95); MPV 8.6 fL (8.0-11.0); Monocytes % 7.4; Platelet Count 144 10^3/uL (130-400); RBC 4.33 10^6/uL (4.36-5.78); RDW 15.3 % (11.8-14.1); RDW-SD 50.6 fL; WBC 9.31 10^3/uL (4.4-10.8)
[2022-05-20 06:56] LABS: BUN 10 mg/dL (7-18); CREATININE 0.8 mg/dL (0.70-1.30); Calcium 8.8 mg/dL (8.5-10.1); Chloride 104 mmol/L (98-107); Estimated GFR 100.06 (mL/min/1.73m2); Glucose 165 mg/dL (74-106); Magnesium 1.9 mg/dL (1.8-2.4); Potassium 3.6 mmol/L (3.5-5.1); Sodium 141 mmol/L (136-145)
[2022-05-20 07:29] VITALS: BP 126/76; PULSE 66; RESP 16; TEMP 36.5; O2SAT 94
[2022-05-20] MEDS: Apixaban 5 MG TAB PO (07:43)
[2022-05-20] MEDS: Multivitamin w/Minerals TAB 1 TAB PO (07:43)
[2022-05-20] MEDS: Benzonatate 200 MG CAP PO ×2 (07:43→14:45)
--- NOTE | 2022-05-20 10:15 | CMPROGNOTE_ITS ---
- If Service Date Differs Date of service: 05/20/22 Time of Service: 10:15 Care Management Progress Note S/O: Vinay was lying in bed when CM met with him. He reports sob with exertion otherwise he is starting to feel better, but not at his baseline. PT has been consulted to work with him while he is at [facility]. CM will continue to follow. A: Vinay is a 61 year old male admitted to [facility] on 05/17/22 with multifocal pneumonia. P: Vinay is being closely monitored and treated. Anticipate, he will discharge home with resumption of [facility] RN/PT/OT services, when medically cleared per provider. Vinay will follow up with his community providers and discharge plan of care as prescribed. CM will support pt and his discharge considerations.
[2022-05-20] MEDS: Calcium Carbonate *TUMS* 500 MG CHEW PO ×2 (10:28→14:45)
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
[2022-05-20 11:32] VITALS: BP 135/73; PULSE 68; RESP 18; TEMP 37; O2SAT 92
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
--- NOTE | 2022-05-20 12:54 | CHAPLAIN ---
Vinay was resting in bed when I visited. He easily engaged in a conversation. Being at [facility] is different for him as he usually gets his care at the [facility]. He spent a lot of time there last year and was intubated for four months because of COVID. [facility] is closer to his home in [place], so the trip to visit has been easier for his . Vinay said he takes things day by day and with a grain of salt. 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
--- NOTE | 2022-05-20 13:26 | PDOC.CMDIS ---
- If Service Date Differs Date of service: 05/20/22 Time of Service: 13:26 LACE Index Scoring Tool - Questions: Length of Stay (in days): 3 Acuity (Admit via E.D.?): Yes Comorbidities: Cerebrovascular Disease (HX stroke r/t vascular stenosis), Diabetes w/o Complication E.D. Visits: 1 - Answers: Total Score: 9 Risk of Readmission: Low Risk Care Management Discharge Reason for Hospitalization: Multifocal Pneumonia Discharge Plan: Vinay is discharged home with resumption of [facility] services. He is driven via private vehicle with . [facility] and [facility] plan of care as prescribed. Patient/Family Education Needs: Review discharge instructions, limitations, medications and plan to follow up with community providers. Discuss ask me three and goals of self care. Services Needed at Discharge: Home Health Care Services (Resumption O/E [facility] RN/PT/OT. CM notified [facility].)
== END 2022-05-20 16:09 | disposition home or self-care (01) | DRG 195 ==
LOC: ER 20:05 → MS 21:07
PROVIDERS: Internal Medicine; Nurse Practitioner Family; Admitting Provider Family Medicine; Emergency Provider Emergency Medicine; PCP Nurse Practitioner Family; Visit Provider Family Medicine
DX: J18.9 Pneumonia, unspecified organism (principal); E83.42 Hypomagnesemia; I10 Essential (primary) hypertension; E11.42 Type 2 diabetes mellitus with diabetic polyneuropathy; G47.30 Sleep apnea, unspecified; Z86.718 Personal history of other venous thrombosis and embolism; Z79.01 Long term (current) use of anticoagulants; Y95 Nosocomial condition; Z79.84 Long term (current) use of oral hypoglycemic drugs; Z96.643 Presence of artificial hip joint, bilateral; K22.70 Barrett's esophagus without dysplasia; K21.9 Gastro-esophageal reflux disease without esophagitis; F32.A Depression, unspecified; M10.9 Gout, unspecified; Z86.73 Personal history of transient ischemic attack (TIA), and cerebral infarction without residual deficits; Z96.651 Presence of right artificial knee joint; Z96.611 Presence of right artificial shoulder joint; S32.000D Wedge compression fracture of unspecified lumbar vertebra, subsequent encounter for fracture with routine healing; X58.XXXD Exposure to other specified factors, subsequent encounter; L89.312 Pressure ulcer of right buttock, stage 2
CPT/HCPCS: 36415; 71275; 80048; 80053; 80076; 84145; 85027; 87040; 87081; 87637; 93005; 94618; 96365; 96367; 97162; 97530; 99285; 83735; 83880; 84484; 85025; 85610; 85730; 93010; 94640; 99223; 99232; 99239; J2543; J3475; J3490

== ENCOUNTER 2022-07-06 09:15 | Emergency (ER) | payer OTHER, SELFPAY ==
[2022-07-06] VITALS (9 sets, daily range): BP systolic 101–135; BP diastolic 67–79; PULSE 72–88; RESP 4–20; TEMP 36.6–36.9; O2SAT 89–97
--- NOTE | 2022-07-06 09:15 | RT.EKG_ITS ---
APPROVED REPORT Exam: Resting ECG Reason for Exam: dyspnea Patient Location: E HR:69 bpm ECG Measurements Heart Rate 69 AXIS WA 198 P 36 QRSd 94 QRS 22 QT 409 T 31 QTc 440 Conclusion Sinus rhythm...normal P axis, V-rate 60- 99
--- NOTE | 2022-07-06 09:30 | DI.CT_ITS ---
Exam(s) CT CHEST PE ABD PELVIS W EXAM: CT CHEST PE ABD PELVIS W CLINICAL HISTORY: difficulty breathing, upper abdominal discomfort. TECHNIQUE: Imaging Protocol: Axial CT angiography was performed with multi-slice acquisition and mu lti-planar and/or 3D reconstructions. CONTRAST MATERIAL: Intravenous: Omnipaque 350contrast volume:100 mL COMPARISON: CR BILATERAL HIPS ADULT from 07/30/[address] CHEST PE CTA from 05/17/2022 FINDINGS: CHEST: Tracheobronchial tree: Patent where visualized. Pulmonary parenchyma: There are multifocal ground-glass infiltrates again seen without significant ch diego. No focal consolidations are seen. No architectural distortion. Pulmonary Arteries: The segmental and subsegmental pulmonary arteries are inadequately opacified for evaluation of peripheral pulmonary emboli. No large central pulmonary emboli are present. Mediastinum and Ladi: There are enlarged mediastinal and hilar lymph nodes. This is similar to the p rior examination. The esophagus is unremarkable. Visualized thyroid gland: Unremarkable. Pleura: No effusion or pneumothorax. Heart: The heart is not dilated. Coronary artery calcifications are present. No pericardial effusion . There is a normal RV to LV ratio of less than 1. Aorta: Thoracic aorta non-dilated. No evidence of dissection. Bones: Within normal limits for the patient's age. The patient has a right shoulder replacement. Soft tissues: Unremarkable. ABDOMEN: Liver: Normal density. There is again seen a simple cyst in the posterior segment of the right lobe o f the liver. No suspicious hepatic masses are present. Portal, Superior Mesenteric, and Splenic Veins: Unremarkable. Gallbladder and Biliary Tract: Status post cholecystectomy. No biliary ductal dilatation. Pancreas: Normal density, no abnormal calcifications or inflammatory process. Spleen: Normal. Adrenals: No masses seen. Kidneys: Normal size, contour and axis. There are a couple of 2 mm nonobstructing stones in the right kidney. There is a simple 7 mm cyst in the left kidney. No follow-up is recommended. There is no hydronephrosis. Abdominal Aorta: Abdominal portion non-dilated. Atherosclerosis is present. Bowel: There is diverticulosis of the colon, but no evidence of acute diverticulitis. There is no ev idence of bowel obstruction or wall thickening. No evidence of appendicitis. Peritoneal Cavity: No ascites, collection or mesenteric inflammatory response. No free air. Lymph Nodes: Within normal limits. Bones: Within normal limits for the patient's age. There are bilateral total hip replacements. Soft Tissues: There is a small fat containing umbilical hernia. PELVIS: There is limited visualization of the pelvis due to artifact from the patient's orthopedic sullivan rdware. Bladder: Symmetric distention, no gross wall thickening. There is a 2.7 x 1.1 cm urinary bladder ston e. Reproductive Organs: Not well appreciated secondary to artifact from the patient's bilateral hip repl acements. Lymph Nodes: Within normal limits. Bones: Within normal limits. IMPRESSION: 1. No evidence pulmonary embolism, thoracic aortic dissection or aneurysm. 2. Persistent bilateral pulmonary ground-glass infiltrates and in lung mediastinal lymph nodes which are likely reactive. This may represent a pneumonia. 3. No acute abdominal or pelvic process. 4. Findings were discussed with Dr. Harkins of the emergency department at 11:57 a.m. on 07/06/2022. RADIATION DOSE DELIVERED: 2,210.03mGy.cm Total DLP DATA REPOSITORY: All CT scans at this facility are submitted to the National Radiology Data Registry (NRDR) Dose Index Registry (DIR) with the [employer] (ACR). RADIATION OPTIMIZATION: All CT scans at this facility use at least one of these dose optimization te chniques: automated exposure control; mA and/or kV adjustment per patient size (includes targeted exa ms where dose is matched to clinical indication); or iterative reconstruction.
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
[2022-07-06 10:00] LABS: Abs Immature Grans 0.06 10^3/uL (0.0-0.06); Absolute Basophil Count 0.04 10^3/uL (0.0-0.2); Absolute Lymphocyte Count 2.01 10^3/uL (1.2-3.4); Absolute Neutrophil Count 7.68 10^3/uL (1.2-6.7); BE (Venous) 11 mmol/L (-2-3); Basophils % 0.4; Eosinophils % 4.5; HCO3 (Venous) 37 mmol/L (23-28); HCT 42.9 % (40.0-50.0); HGB 13.2 g/dL (13.5-17.5); Immature Grans % 0.5; Lymphocytes % 18.3; MCH 28.8 pg (27.0-33.0); MCHC 30.8 % (32.0-36.0); MCV 94 fL (80-95); Monocytes % 6.5; Neutrophils % 69.8; O2 Sat (Venous) 55 %; Platelet Count 181 10^3/uL (130-400); RBC 4.59 10^6/uL (4.36-5.78); RDW 14.8 % (11.8-14.1); RDW-SD 50.9 fL; TCO2 (Venous) 34 mmol/L (24-29); pH (Venous) 7.31 (7.31-7.41); pO2 (Venous) 31 mmHg
[2022-07-06 10:01] LABS: Absolute Monocyte Count 0.72 10^3/uL (0.1-0.8)
[2022-07-06 10:03] LABS: pCO2 (Venous) 73 mmHg (41-51)
[2022-07-06] MEDS: Albuterol/Ipratropium 3 ML UPD VIAL UPD (10:03)
[2022-07-06] MEDS: methylPREDNISolone SUCC 125 MG VIAL IVP (10:03)
[2022-07-06 10:16] LABS: Lipase 15 U/L (16-77)
[2022-07-06 10:20] LABS: PTT Activated 27.4 sec (21.5-31.9); Prothrombin Time 10.5 sec (9.3-11.0)
[2022-07-06 10:27] LABS: ALT 20 U/L (16-63); AST 33 U/L (15-37); Albumin 3.8 g/dL (3.4-5.0); Alkaline Phosphatase 111 U/L (46-116); Anion Gap 5.2 mmol/L (3-11); BUN 13 mg/dL (7-18); Bilirubin, Total 0.8 mg/dL (0.2-1.0); CO2 36.8 mmol/L (21.0-32.0); CREATININE 0.9 mg/dL (0.70-1.30); Calcium 9.2 mg/dL (8.5-10.1); Chloride 98 mmol/L (98-107); Estimated GFR 95.97 (mL/min/1.73m2); Glucose 185 mg/dL (74-106); Magnesium 1.7 mg/dL (1.8-2.4); NT-proBNP 60 pg/mL (<300); Sodium 140 mmol/L (136-145); TSH (W/Ref FT4) 3.06 uIU/mL (0.36-3.74); Total Protein 7.8 g/dL (6.4-8.2); Troponin I < 50 ng/L (<or=60)
[2022-07-06 10:42] LABS: COVID-19 PCR Negative (Negative); Influenza A PCR Negative (Negative); Influenza B PCR Negative (Negative); RSV PCR Negative (Negative)
[2022-07-06 10:43] LABS: Source Nasopharynx
[2022-07-06 10:49] LABS: Procalcitonin < 0.1 ng/mL
[2022-07-06] MEDS: Omnipaque 350 MG/ML 100 ML BTL IJ (10:59)
[2022-07-06] MEDS: Normal Saline - Diluent 50 ML VIAL IJ (11:00)
[2022-07-06] MEDS: Normal Saline Flush 10 ML SYR IVP (11:01)
[2022-07-06] MEDS: Normal Saline 1,000 ML 1000 ML IV (12:13)
[2022-07-06 12:51] LABS: Bilirubin Negative (Negative); Blood Moderate (Negative); Clarity Clear (Clear); Glucose Negative (Negative); Ketones Negative (Negative); Leukocyte Esterase Negative (Negative); Nitrite Positive (Negative); Urobilinogen 0.2 mg/dL (Up to 0.2)
[2022-07-06 13:09] LABS: Bacteria Rare HPF (Negative); C & S Indicated? Yes; Casts Negative LPF (Negative); Crystals Negative HPF (Negative); Epithelial Cells Rare HPF (Negative); Mucus Trace (Negative)
[2022-07-06 13:30] LABS: Troponin I < 50 ng/L (<or=60)
[2022-07-06] MEDS: levoFLOXacin 500 MG, levoFLOXacin 250 MG 750 MG PO (13:43)
== END 2022-07-06 14:08 | disposition home or self-care (01) ==
PROVIDERS: Emergency Provider Emergency Medicine; PCP Nurse Practitioner Family
DX: N39.0 Urinary tract infection, site not specified (principal); R06.02 Shortness of breath; R10.10 Upper abdominal pain, unspecified; I10 Essential (primary) hypertension; E11.9 Type 2 diabetes mellitus without complications; Z86.73 Personal history of transient ischemic attack (TIA), and cerebral infarction without residual deficits; Z86.718 Personal history of other venous thrombosis and embolism; Z86.711 Personal history of pulmonary embolism; Z79.01 Long term (current) use of anticoagulants; Z20.822 Contact with and (suspected) exposure to COVID-19
CPT/HCPCS: 36415; 71275; 74177; 80053; 82805; 83690; 84145; 87040; 87637; 93005; 94640; 96361; 96374; 99285; 81003; 81015; 83735; 83880; 84443; 84484; 85025; 85610; 85730; 87086; 93010; J2930; J3490; J7620

== ENCOUNTER 2022-10-10 11:25 | Emergency (ER) | payer OTHER, SELFPAY ==
[2022-10-10] VITALS (14 sets, daily range): BP systolic 119–143; BP diastolic 71–107; PULSE 56–68; RESP 16–22; TEMP 36.4–37.3; O2SAT 90–94
--- NOTE | 2022-10-10 11:45 | DI.CT_ITS ---
Exam(s) CT RENAL COLIC WO EXAM: CT RENAL COLIC WO CLINICAL HISTORY: right flank pain. TECHNIQUE: Imaging Protocol: Axial computed tomography images with coronal and sagittal reformatted images were created and reviewed. CONTRAST MATERIAL: Noncontrast COMPARISON: CR BILATERAL HIPS ADULT from 07/30/[address] CHEST PE ABD PELVIS W from 07/06/2022 FINDINGS: ABDOMEN: Lung Bases: Mild scarring and interstitial prominence. Clearing of previously noted infiltrates. Mi ld respiratory motion. Liver: Fatty. Cyst. Gallbladder and biliary tract: Status post cholecystectomy. No radiodense calculus or dilation. Pancreas: Somewhat atrophic., no calcifications or inflammatory process. Spleen: Normal. Kidneys: Moderate right hydronephrosis. Small stone visual visualized in lower right ureter. Stone could be partially obscured by artifact from bilateral hip prostheses. Question all tiny nonobstruct ing stones noted. Mild right perinephric stranding.. No masses seen. Adrenal glands: No masses seen. Abdominal Aorta: Abdominal portion non-dilated. Soft tissues: Unremarkable. PELVIS: Bladder: Obscured by artifact. Question of high density material within the bladder which could repr esent hemorrhage versus previously administered IV contrast.. The large stone seen previously in the longer identified. Bowel: No obstruction or bowel wall thickening. Sigmoid diverticulosis. Increased stool noted in rec martínez. Reproductive: Unremarkable. Peritoneal cavity: No ascites, collection or mesenteric inflammatory response. Bones: Bilateral hip prostheses create artifact in the pelvis. Stable appearance of L4 and T11 compr ession fractures. IMPRESSION: Moderate the right hydronephrosis secondary to a small stone at the distal ureter. The stone may be partially obscured by artifact from the hip prostheses. High-density material within the bladder cou ld represent contrast versus hemorrhage. Previously noted stone in the bladder no longer visible Findings called to Christian Mendoza of the emergency department. RADIATION DOSE DELIVERED: 1,416.68mGy.cm Total DLP DATA REPOSITORY: All CT scans at this facility are submitted to the National Radiology Data Registry (NRDR) Dose Index Registry (DIR) with the [employer] ([employer]). RADIATION OPTIMIZATION: All CT scans at this facility use at least one of these dose optimization te chniques: automated exposure control; mA and/or kV adjustment per patient size (includes targeted exa ms where dose is matched to clinical indication); or iterative reconstruction.
[2022-10-10] MEDS: Acetaminophen 325 MG TAB 650 MG PO (12:28)
[2022-10-10] MEDS: HYDROmorphone 2 MG/ML SYR 1 MG IVP (12:28)
[2022-10-10 12:29] LABS: Abs Immature Grans 0.07 10^3/uL (0.0-0.06); Absolute Basophil Count 0.06 10^3/uL (0.0-0.2); Absolute Lymphocyte Count 1.97 10^3/uL (1.2-3.4); Absolute Monocyte Count 0.67 10^3/uL (0.1-0.8); Basophils % 0.5; Eosinophils % 2.3; HCT 47.7 % (40.0-50.0); HGB 15.6 g/dL (13.5-17.5); Immature Grans % 0.6; Lymphocytes % 15.9; MCH 29.1 pg (27.0-33.0); MCHC 32.7 % (32.0-36.0); MCV 89 fL (80-95); MPV 8.6 fL (8.0-11.0); Monocytes % 5.4; Neutrophils % 75.3; Platelet Count 187 10^3/uL (130-400); RBC 5.37 10^6/uL (4.36-5.78); RDW 13.2 % (11.8-14.1); RDW-SD 42.6 fL; WBC 12.36 10^3/uL (4.4-10.8)
[2022-10-10 12:30] LABS: Absolute Eosinophil Count 0.28 10^3/uL (0.0-0.7); Absolute Neutrophil Count 9.31 10^3/uL (1.2-6.7)
[2022-10-10 12:55] LABS: ALT 25 U/L (16-63); AST 40 U/L (15-37); Albumin 4.1 g/dL (3.4-5.0); Alkaline Phosphatase 121 U/L (46-116); Anion Gap 9.6 mmol/L (3-11); BUN 18 mg/dL (7-18); Bilirubin, Total 0.5 mg/dL (0.2-1.0); CO2 31.4 mmol/L (21.0-32.0); Calcium 9.5 mg/dL (8.5-10.1); Chloride 101 mmol/L (98-107); Estimated GFR 84.57 (mL/min/1.73m2); Glucose 218 mg/dL (74-106); Potassium 4.5 mmol/L (3.5-5.1); Sodium 142 mmol/L (136-145); Total Protein 8.5 g/dL (6.4-8.2)
[2022-10-10] MEDS: fentaNYL 100 MCG/2 ML VIAL IVP (13:00)
[2022-10-10] MEDS: Normal Saline 1,000 ML 1000 ML IV ×2 (14:11→16:55)
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
[2022-10-10 15:51] LABS: Bilirubin Color Interference (Negative); Blood Color Interference (Negative); Clarity Cloudy (Clear); Glucose Color Interference mg/dL (Negative); Ketones Color Interference mg/dL (Negative); Leukocyte Esterase Color Interference (Negative); Nitrite Color Interference (Negative); Specific Gravity 1.025 (1.005-1.025); Urobilinogen Color Interference mg/dL (Up to 0.2)
[2022-10-10 15:58] LABS: C & S Indicated? Yes; RBC >50 HPF (0-2)
[2022-10-10] MEDS: cefTRIAXone 1 GM/50 ML BAG IVPB (16:55)
[2022-10-10] MEDS: fentaNYL 100 MCG/2 ML VIAL 50 MCG IVP (16:55)
[2022-10-10 19:19] LABS: Procalcitonin < 0.1 ng/mL
[2022-10-10 20:34] LABS: Lactate 1.7 mmol/L (0.6-1.4); Source Nasal/Nares
[2022-10-10 20:35] LABS: Abs Immature Grans 0.05 10^3/uL (0.0-0.06); Absolute Basophil Count 0.04 10^3/uL (0.0-0.2); Absolute Eosinophil Count 0.16 10^3/uL (0.0-0.7); Absolute Lymphocyte Count 2.67 10^3/uL (1.2-3.4); Absolute Monocyte Count 0.61 10^3/uL (0.1-0.8); Basophils % 0.4; Eosinophils % 1.4; HCT 39.2 % (40.0-50.0); HGB 12.9 g/dL (13.5-17.5); Immature Grans % 0.4; Lymphocytes % 23.8; MCH 29.4 pg (27.0-33.0); MCHC 32.9 % (32.0-36.0); MCV 89 fL (80-95); MPV 8.9 fL (8.0-11.0); Monocytes % 5.4; Neutrophils % 68.6; Platelet Count 152 10^3/uL (130-400); RBC 4.39 10^6/uL (4.36-5.78); RDW 13.2 % (11.8-14.1); RDW-SD 42.8 fL; WBC 11.22 10^3/uL (4.4-10.8)
[2022-10-10] MEDS: Tamsulosin 0.4 MG CAPCR PO (20:35)
[2022-10-10 20:48] LABS: Bilirubin Negative (Negative); Blood Large (Negative); Clarity Clear (Clear); Glucose Negative (Negative); Ketones Negative (Negative); Leukocyte Esterase Negative (Negative); Nitrite Negative (Negative); Urobilinogen 0.2 mg/dL (Up to 0.2); pH 5.5 (5-8)
[2022-10-10 20:57] LABS: Bacteria Negative HPF (Negative); C & S Indicated? No; Casts Negative LPF (Negative); Crystals Negative HPF (Negative); Epithelial Cells Rare HPF (Negative); Mucus Trace (Negative); RBC >50 HPF (0-2); WBC Negative HPF (0-5)
[2022-10-10 21:13] LABS: COVID-19 PCR Negative (Negative)
--- NOTE | 2022-10-10 22:32 | NUR.NOTE ---
[facility]
--- NOTE | 2022-10-11 10:41 | NUR.NOTE ---
Nursing Note: [facility]
== END 2022-10-10 23:14 | disposition short-term general hospital (02) ==
PROVIDERS: Nurse Practitioner Family; Emergency Provider Physician Assistant; PCP Nurse Practitioner Family
DX: N20.1 Calculus of ureter (principal); N39.0 Urinary tract infection, site not specified
CPT/HCPCS: 80053; 84145; 87635; 96361; 96365; 96375; 99285; 74176; 81003; 81015; 83605; 83735; 84484; 85025; 87086; J0696; J1170; J3010

== ENCOUNTER 2022-11-21 11:20 | Emergency (ER) | payer OTHER, SELFPAY ==
[2022-11-21] VITALS (30 sets, daily range): BP systolic 128–145; BP diastolic 63–92; PULSE 65–74; RESP 15–21; TEMP 36.8; O2SAT 92–98
--- NOTE | 2022-11-21 11:15 | RT.EKG_ITS ---
APPROVED REPORT Exam: Resting ECG Reason for Exam: CP/SOB Patient Location: E HR:72 bpm ECG Measurements Heart Rate 72 AXIS NH 178 P 38 QRSd 87 QRS 7 QT 387 T 42 QTc 425 Conclusion Sinus rhythm...normal P axis, V-rate 60- 99
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
[2022-11-21] MEDS: Albuterol/Ipratropium 3 ML UPD VIAL UPD (12:04)
[2022-11-21 12:34] LABS: Abs Immature Grans 0.01 10^3/uL (0.0-0.06); Absolute Basophil Count 0.03 10^3/uL (0.0-0.2); Absolute Lymphocyte Count 2.57 10^3/uL (1.2-3.4); Absolute Monocyte Count 0.44 10^3/uL (0.1-0.8); Absolute Neutrophil Count 6.27 10^3/uL (1.2-6.7); Basophils % 0.3; Eosinophils % 1.1; HCT 45.2 % (40.0-50.0); HGB 14.7 g/dL (13.5-17.5); Immature Grans % 0.1; Lymphocytes % 27.3; MCH 29.3 pg (27.0-33.0); MCHC 32.5 % (32.0-36.0); MCV 90 fL (80-95); MPV 8.7 fL (8.0-11.0); Monocytes % 4.7; Neutrophils % 66.5; Platelet Count 153 10^3/uL (130-400); RBC 5.01 10^6/uL (4.36-5.78); RDW 13.6 % (11.8-14.1); RDW-SD 45.3 fL; WBC 9.42 10^3/uL (4.4-10.8)
[2022-11-21 12:57] LABS: ALT 60 U/L (16-63); AST 50 U/L (15-37); Albumin 4.1 g/dL (3.4-5.0); Alkaline Phosphatase 131 U/L (46-116); Anion Gap 7.7 mmol/L (3-11); BUN 20 mg/dL (7-18); Bilirubin, Total 0.4 mg/dL (0.2-1.0); CO2 33.3 mmol/L (21.0-32.0); Calcium 9.8 mg/dL (8.5-10.1); Chloride 101 mmol/L (98-107); Estimated GFR 84.57 (mL/min/1.73m2); Glucose 252 mg/dL (74-106); Magnesium 2.1 mg/dL (1.8-2.4); Potassium 4.4 mmol/L (3.5-5.1); Sodium 142 mmol/L (136-145); Total Protein 8.4 g/dL (6.4-8.2); Troponin I < 50 ng/L (<or=60)
[2022-11-21] MEDS: Normal Saline 1,000 ML 250 ML IV (12:59)
[2022-11-21 13:09] LABS: D-Dimer 340 ng/mlFEU (<500)
--- NOTE | 2022-11-21 14:00 | DI.RAD_ITS ---
Exam(s) XR CHEST 2V PA LATERAL EXAM: XR CHEST 2V PA LATERAL CLINICAL HISTORY: SOB. TECHNIQUE: 2D digital imaging was performed. COMPARISON: CT CT RENAL COLIC WO from 10/10/2022 FINDINGS: 2 views: Size upper normal. Mediastinum is not widened. Not increased interstitial markings in the lung fiel ds. No Maya B lines. No pleural effusions. Right shoulder prosthesis noted. No obvious fractures. IMPRESSION: Increased markings throughout both lung waite. No air bronchograms. No pleural effusions. Right shoulder prosthesis. DATA REPOSITORY: RADIATION DOSE DELIVERED:
--- NOTE | 2022-11-21 15:30 | DI.CT_ITS ---
Exam(s) CT CHEST WO EXAM: CT CHEST WO CLINICAL HISTORY: cough. TECHNIQUE: Multi planar reconstructions were performed. CONTRAST MATERIAL: None COMPARISON: CT CT CHEST PE ABD PELVIS W from 07/06/2022 FINDINGS: CHEST: LUNGS: There are still extensive increased markings throughout both lung waite. Mild improvement in some of the ground-glass infiltrates previously described, such as anteriorly in the right upper lob e. No new areas of infiltrate and there are no pleural effusions. MEDIASTINUM: Slightly prominent subcarinal lymph nodes are again noted. Also minimally prominent ant erior mediastinal lymph nodes. Difficult to assess the amount of hilar adenopathy without IV contras t but appears similar to previous. Visualized thyroid unremarkable.No obvious axillary adenopathy CARDIAC: Heart size is normal. There is no pericardial effusion.Caliber of the thoracic aorta is wit hin normal limits. VISUALIZED UPPER ABDOMEN:No adrenal masses. Cyst in the posterior aspect of the right hepatic lobe a gain noted. OSSEOUS: No significant osseous lesions.New fractures.. IMPRESSION: 1. Mild improvement when compared to CT scan 07/06/2022 but there are still extensive increased vladimir ngs throughout both lung waite. Also mildly prominent mediastinal and subcarinal lymph nodes. 2. There are no pleural effusions. RADIATION DOSE DELIVERED: 859.64mGy.cm Total DLP DATA REPOSITORY: All CT scans at this facility are submitted to the National Radiology Data Registry (NRDR) Dose Index Registry (DIR) with the [employer] (ACR). RADIATION OPTIMIZATION: All CT scans at this facility use at least one of these dose optimization te chniques: automated exposure control; mA and/or kV adjustment per patient size (includes targeted exa ms where dose is matched to clinical indication); or iterative reconstruction.
== END 2022-11-21 16:53 | disposition home or self-care (01) ==
PROVIDERS: Emergency Provider Physician Assistant; PCP Nurse Practitioner Family
DX: R06.00 Dyspnea, unspecified (principal); R05.9 Cough, unspecified; I10 Essential (primary) hypertension; E11.9 Type 2 diabetes mellitus without complications; F32.A Depression, unspecified; K21.9 Gastro-esophageal reflux disease without esophagitis; Z86.718 Personal history of other venous thrombosis and embolism; Z86.711 Personal history of pulmonary embolism; Z79.01 Long term (current) use of anticoagulants; Z99.81 Dependence on supplemental oxygen; Z86.73 Personal history of transient ischemic attack (TIA), and cerebral infarction without residual deficits
CPT/HCPCS: 36415; 71250; 80053; 93005; 94640; 96360; 96361; 99284; 71046; 83735; 84484; 85025; 85379; 93010; J7620

== ENCOUNTER 2022-12-11 11:56 | Inpatient (IN) | payer OTHER, SELFPAY ==
[2022-12-11] VITALS (38 sets, daily range): BP systolic 100–132; BP diastolic 62–96; PULSE 75–112; RESP 1–26; TEMP 36.4–36.9; O2SAT 88–98
--- NOTE | 2022-12-11 11:45 | RT.EKG_ITS ---
APPROVED REPORT Exam: Resting ECG Reason for Exam: sob, chest pain Patient Location: E HR:76 bpm ECG Measurements Heart Rate 76 AXIS RI 182 P 45 QRSd 84 QRS 29 QT 372 T 34 QTc 418 Conclusion Sinus rhythm...normal P axis, V-rate 60- 99 sinus rhythm, normal axis, normal intervals, non ischemic
[2022-12-11] MEDS: Albuterol 2.5 MG/3 ML INH SOLN VIAL UPD (12:37)
[2022-12-11 12:39] LABS: Abs Immature Grans 0.05 10^3/uL (0.0-0.06); Absolute Basophil Count 0.06 10^3/uL (0.0-0.2); Absolute Eosinophil Count 0.24 10^3/uL (0.0-0.7); Absolute Monocyte Count 0.88 10^3/uL (0.1-0.8); Absolute Neutrophil Count 9.31 10^3/uL (1.2-6.7); Basophils % 0.5; Eosinophils % 1.9; HCT 45.9 % (40.0-50.0); HGB 15.4 g/dL (13.5-17.5); Immature Grans % 0.4; Lymphocytes % 16.9; MCH 29.9 pg (27.0-33.0); MCHC 33.6 % (32.0-36.0); MCV 89 fL (80-95); Monocytes % 6.9; Neutrophils % 73.4; RBC 5.15 10^6/uL (4.36-5.78); RDW 14.1 % (11.8-14.1); RDW-SD 45.6 fL; WBC 12.69 10^3/uL (4.4-10.8)
[2022-12-11 12:52] LABS: Absolute Lymphocyte Count 2.14 10^3/uL (1.2-3.4)
[2022-12-11 12:57] LABS: Diff Comment Diff Reviewed; RBC Morphology Normal
--- NOTE | 2022-12-11 13:30 | DI.CT_ITS ---
Exam(s) CT CHEST PE CTA EXAM: CT CHEST PE CTA CLINICAL HISTORY: hx of PE, shortness of breath. TECHNIQUE: Imaging Protocol: CT angiography of the chest was performed using pulmonary embolus denisha col. Multi planar reconstructions were performed. CONTRAST MATERIAL: Intravenous: Omnipaque 350 Contrast volume: 100 cc COMPARISON: CT CT CHEST PE CTA from 05/17/[address] RENAL COLIC WO from 10/10/2022 CR XR CHEST 2V PA LATERAL from 11/21/[address] CHEST WO from 11/21/2022 FINDINGS: CHEST: PULMONARY ARTERIES: There are no intraluminal filling defects to suggest acute pulmonary emboli. LUNGS: There are persistent bilateral interstitial-type infiltrates which do not exhibit improvement when compared to 11/21/2022.. There is an element of chronicity here as the appearance is quite madhavi lar to the CT scan of 05/17/2022. There are no new additional prominent areas of infiltrate, new mas s, nor pleural effusions. There is no cavitation. No pneumothorax. No significant mucous in the tr achea and mainstem bronchi. MEDIASTINUM: Slightly prominent bilateral hilar lymph nodes noted. Similar to April 2022. There i s also some mild adenopathy in the sub carinal region of the mediastinum, unchanged. There is no ashvin nopathy in the anterior mediastinal fat and no pretracheal adenopathy. Visualized thyroid unremarkab le. CARDIAC: Mild cardiomegaly. No pericardial effusion.Diameter of the ascending thoracic aorta is enla rged at 4 cm, unchanged. There is no dissection. The left vertebral artery is again noted to arise as an independent vessel off the aortic arch, a common variant. There is no significant shift of th e interventricular septum. PARTIALLY VISUALIZED UPPERMOST ABDOMEN: No adrenal masses. No splenomegaly. Gallbladder surgically absent. There is a cyst in the right hepatic lobe which is unchanged from the CT scan of April, measuring 2.8 x 2.3 cm. OSSEOUS: Right shoulder prosthesis. No acute fractures. No significant osseous lesions. Prominent Schmorl's node invagination T11 noted this has increased in size from CT scan of April 2022. Compr ession fracture of T7 unchanged.. IMPRESSION: 1. No evidence of acute pulmonary emboli nor pulmonary infarction..Dilated 4 cm diameter ascending th oracic aorta again noted, unchanged. There is no evidence of aortic dissection. There is no pericar dial effusion. 2. Persistent bilateral interstitial type infiltrates with an element of chronicity as findings are b asically unchanged from CT scan of 05/17/2022. no evidence of lung mass nor pleural effusions. 3. Increasing size probable Schmorl's node invagination superior endplate of T11. Stable T7 compress ion fracture. RADIATION DOSE DELIVERED: 781.55mGy.cm Total DLP DATA REPOSITORY: All CT scans at this facility are submitted to the National Radiology Data Registry (NRDR) Dose Index Registry (DIR) with the [employer] (ACR). RADIATION OPTIMIZATION: All CT scans at this facility use at least one of these dose optimization te chniques: automated exposure control; mA and/or kV adjustment per patient size (includes targeted exa ms where dose is matched to clinical indication); or iterative reconstruction.
[2022-12-11] MEDS: Albuterol/Ipratropium 3 ML UPD VIAL UPD ×2 (13:47→19:36)
[2022-12-11 13:51] LABS: ALT 34 U/L (16-63); AST 66 U/L (15-37); Alkaline Phosphatase 106 U/L (46-116); Anion Gap 9.9 mmol/L (3-11); BUN 15 mg/dL (7-18); Bilirubin, Total 0.7 mg/dL (0.2-1.0); C-Reactive Protein 0.21 mg/dL (0.0-0.3); CO2 28.1 mmol/L (21.0-32.0); CREATININE 0.9 mg/dL (0.70-1.30); Calcium 9.6 mg/dL (8.5-10.1); Chloride 100 mmol/L (98-107); Estimated GFR 95.97 (mL/min/1.73m2); Glucose 178 mg/dL (74-106); NT-proBNP 19 pg/mL (<300); Potassium 4.3 mmol/L (3.5-5.1); Sodium 138 mmol/L (136-145); Total Protein 7.8 g/dL (6.4-8.2); Troponin I < 50 ng/L (<or=60)
[2022-12-11] MEDS: Omnipaque 350 MG/ML 100 ML BTL IJ (14:23)
[2022-12-11] MEDS: Normal Saline - Diluent 50 ML VIAL IJ (14:26)
[2022-12-11] MEDS: Normal Saline Flush 10 ML SYR IVP (14:27)
--- NOTE | 2022-12-11 14:56 | DI.VRAD_ITS ---
PROCEDURE INFORMATION: Exam: CTA Chest With Contrast Exam date and time: 12/11/2022 2:22 PM Age: 62 years old Clinical indication: Other: HX of pe, shortness of breath TECHNIQUE: Imaging protocol: Computed tomographic angiography of the chest with contrast. Exam focused on the arteries. 3D rendering (Not supervised by radiologist): MIP and/or 3D reconstructed images were created by the technologist. Contrast material: OMNIPAQUE 350; Contrast volume: 100 ml; Contrast route: INTRAVENOUS (IV); COMPARISON: CT CHEST PE ABD PELVIS W 07/06/2022 10:58 AM FINDINGS: Pulmonary arteries: Normal. No pulmonary emboli. Aorta: Unremarkable. No aortic aneurysm. No aortic dissection. Lungs: There are patchy ground-glass densities in the bilateral lungs with mild interstitial septal thickening. There are subpleural linear bands and ground-glass densities in the bilateral lungs which may be sequela of chronic interstitial changes. Pleural spaces: No pneumothorax. No pleural effusion. Heart: The heart at the upper limits of normal in size. Coronary arteries: Mild coronary artery calcifications. Lymph nodes: No enlarged lymph nodes. Diaphragm: There is a small hiatal hernia. Liver: 2.5 x 2.5 cm hypodensity in the posterior right lobe of the liver in segment 7 which may represent cyst. Gallbladder and bile ducts: There is cholecystectomy. Bones/joints: There is minimal loss height of superior endplate of C7, T1, T2, unchanged.. Mild stable loss of height of superior endplate of T7. There is compression fracture of T11 with a focal Schmorl's node in the superior endplate, similar to prior. There is a right-sided shoulder arthroplasty. Soft tissues: Unremarkable. IMPRESSION: 1. No pulmonary embolism or aortic dissection. 2. Interstitial septal thickening and patchy ground-glass densities in the bilateral lungs may represent pulmonary edema versus mild bilateral infiltrate. 3. Stable predominantly subpleural peripheral reticulation and linear bands may represent chronic interstitial changes and could be sequela of post inflammatory scarring. Dictated and Authenticated by: Margarito Tai MD. Ordering:NATALY Gonzalez MD
[2022-12-11 15:23] LABS: Source Nasal/Nares
[2022-12-11 15:41] LABS: Lactate 3.4 mmol/L (0.6-1.4)
[2022-12-11] MEDS: methylPREDNISolone SUCC 125 MG VIAL 80 MG IVP (15:48)
[2022-12-11] MEDS: cefTRIAXone 1 GM/50 ML BAG IVPB ×2 (15:49→18:30)
[2022-12-11] MEDS: Doxycycline Hyclate 100 MG CAP PO (15:50)
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
[2022-12-11 15:52] LABS: COVID-19 PCR Negative (Negative)
[2022-12-11 15:59] LABS: Troponin I < 50 ng/L (<or=60)
[2022-12-11] MEDS: Lactated Ringers 1,000 ML 200 ML IV (16:02)
[2022-12-11 16:51] LABS: Procalcitonin < 0.1 ng/mL
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
[2022-12-11] MEDS: Carbidopa 25/Levodopa 100 TAB PO (18:02)
[2022-12-11 18:47] LABS: Lactate 4.6 mmol/L (0.6-1.4)
[2022-12-11] MEDS: Famotidine 20 MG TAB PO (19:54)
[2022-12-11] MEDS: Gabapentin 300 MG CAP 600 MG PO (19:54)
[2022-12-11] MEDS: Apixaban 5 MG TAB PO (19:54)
[2022-12-11] MEDS: Senna TAB 1 TAB PO (19:54)
[2022-12-11] MEDS: Lactobacillus Acidophilus CAP 1 CAP PO (19:54)
[2022-12-11] MEDS: Lactated Ringers 1,000 ML 150 ML IV (20:43)
[2022-12-11] MEDS: Calcium Citrate 950 MG TAB PO (20:44)
[2022-12-11 21:32] LABS: COVID-19 PCR Negative (Negative); Influenza A PCR Negative (Negative); Influenza B PCR Negative (Negative); RSV PCR Negative (Negative)
[2022-12-11 21:35] LABS: Source Nasopharynx
[2022-12-11] MEDS: Insulin Aspart 300 UNITS/3 ML PEN SC (22:07)
[2022-12-11] MEDS: Atorvastatin 20 MG TAB PO (22:08)
[2022-12-11] MEDS: Zolpidem 10 MG TAB PO (22:08)
[2022-12-11] MEDS: traZODone 100 MG TAB PO (22:08)
[2022-12-11] MEDS: Tamsulosin 0.4 MG CAPCR PO (22:08)
[2022-12-11 22:43] LABS: Lactate 6.1 mmol/L (0.6-1.4)
[2022-12-12] VITALS (15 sets, daily range): BP systolic 107–142; BP diastolic 62–81; PULSE 56–96; RESP 1–20; TEMP 35.6–36.7; O2SAT 94–100
[2022-12-12 01:42] LABS: Lactate 4.7 mmol/L (0.6-1.4)
[2022-12-12] MEDS: DOXYCYCLINE 100 MG in Normal Saline 100 ML IVPB ×2 (03:00→14:09)
[2022-12-12 06:45] LABS: Abs Immature Grans 0.09 10^3/uL (0.0-0.06); Absolute Lymphocyte Count 1.43 10^3/uL (1.2-3.4); Absolute Monocyte Count 0.45 10^3/uL (0.1-0.8); Basophils % 0.2; HCT 40.2 % (40.0-50.0); HGB 13.3 g/dL (13.5-17.5); Immature Grans % 0.7; Lymphocytes % 10.8; MCH 29.4 pg (27.0-33.0); MCHC 33.1 % (32.0-36.0); MCV 89 fL (80-95); Monocytes % 3.4; Neutrophils % 84.9; Platelet Count 161 10^3/uL (130-400); RBC 4.52 10^6/uL (4.36-5.78); RDW 13.9 % (11.8-14.1); RDW-SD 45.3 fL; WBC 13.28 10^3/uL (4.4-10.8)
[2022-12-12 06:49] LABS: Absolute Basophil Count 0.03 10^3/uL (0.0-0.2); Absolute Neutrophil Count 11.27 10^3/uL (1.2-6.7); Lactate 3.2 mmol/L (0.6-1.4)
[2022-12-12 07:10] LABS: Anion Gap 11.9 mmol/L (3-11); BUN 18 mg/dL (7-18); CO2 26.1 mmol/L (21.0-32.0); Chloride 96 mmol/L (98-107); Estimated GFR 84.57 (mL/min/1.73m2); Glucose 295 mg/dL (74-106); Magnesium 1.8 mg/dL (1.8-2.4); Potassium 4.7 mmol/L (3.5-5.1); Sodium 134 mmol/L (136-145)
--- NOTE | 2022-12-12 08:00 | DI.US_ITS ---
APPROVED REPORT EXAM: Comprehensive 2D, Doppler, and color-flow Echocardiogram Patient Location: In-Patient Room/Bed: [facility] Director Of Cath Lab: Shanda Dixon RDCS (AE) Indications: Dyspne, Chest pain, Evaluate LV and RV function, Pulmonary Embolism, HTN Other Information Study Quality: Fair. Technically limited study due to body habitus, inability to position patient exa m done supine. Conclusion Normal left ventricular wall thickness and chamber size. Ejection fraction is 55 to 60%. Wall motio n is normal Right ventricle appears normal in size and systolic function Both atria are normal in size The aortic valve is sclerotic and trileaflet without stenosis or regurgitation Mild mitral annular calcification Right ventricular systolic pressure could not be estimated Dilated ascending aorta measuring 3.84 cm Wall motion Left Ventricle The left ventricle is normal size. The overall left ventricular systolic function appears normal. T here is normal left ventricular wall thickness. There is normal LV segmental wall motion. There is no ventricular septal defect visualized. LVEF is 55%. Right Ventricle Right ventricle is grossly normal in size. Right ventricular systolic function is grossly normal. Atria The left atrium size is normal. The right atrium size is normal. The interatrial septum is intact wit h no evidence for an atrial septal defect. Aortic Valve The Aortic valve is sclerotic. Aortic valve is trileaflet. There is no aortic valvular stenosis. No a ortic regurgitation is present. Mitral Valve Mild mitral annular calcification. No evidence of mitral valve stenosis. Trace mitral regurgitation. Tricuspid Valve The tricuspid valve is normal in structure. There is no tricuspid valve stenosis. Trace tricuspid reg urgitation. Unable to assess PA pressure. Pulmonic Valve The pulmonary valve is normal in structure. There is no pulmonic valvular stenosis. Trace pulmonic re gurgitation. Great Vessels The aortic root is normal in size. The ascending aorta is mildly dilated. Aortic arch is not well vis ualized. The IVC collapses <50% with inspiration. Pericardium There is no pericardial effusion. 2D Dimensions IVSD d PLAX 1.06 cm M: 0.6-1.2 LVPW d PLAX 1.08 cm M: 0.6 - 1.2 LVID d PLAX 4.89 cm M: 4.2 - 5.8 LVDs 3.45 cm M: 2.5 - 4.0 Ao Root d 3.35 cm M: 3.1 - 3.7 RA Area A4C 11.09 cm2 Ao Asc Diam d 3.84 cm M: 2.6 - 3.4 LV EF Paragichholvarsha 55.9 % FS 29.15 % LV Diastology MV E' medial 0.070 (>0.07 m/s) E/A Ratio 0.8 LV E/e MED 7.87 (<14) MV E Vmax 0.55 (0.4-1.3 m/s) MV E' lateral 0.090 (>0.1 m/s) MV A Vmax 0.70 (0.4-1.3 m/s) LV E/e LAT 6.12 (<14) MV E/E' medial 7.87 MV E/E' lateral 6.12 MV (E/E' average) 6.88 Aortic Valve LVOT Vmax 1.08 m/s AoV Area Vmax 1.82 cm2 LVOT Peak Grad 4.7 mmHg LVOT Mean Grad 2.5 mmHg LVOT Diam s 2.00 cm AoV Peak Grad 14.5 mmHg LVOT SV 54.66 mL AoV Mean Grad 7.0 mmHg AoV Area VTI 1.82 cm2 Mitral Valve MV DT 231 (160-240 msec) MV Vmax TIPS 0.64 m/s MV Mean Grad 0.8 (<2mmHg) MV VTI 0.157 m Pulmonary Valve PV Mean Grad 4.6 mmHg RVOT Peak Gr. 4.11 mmHg RVOT Mean Gr. 2.30 mmHg RVOT VTI 0.177 m RVOT Vmax 1.01 m/s
[2022-12-12] MEDS: Lactobacillus Acidophilus CAP 1 CAP PO ×2 (08:08→20:27)
[2022-12-12] MEDS: Apixaban 5 MG TAB PO ×2 (08:09→20:27)
[2022-12-12] MEDS: Famotidine 20 MG TAB PO ×2 (08:09→20:27)
[2022-12-12] MEDS: Multivitamin TAB 1 TAB PO (08:09)
[2022-12-12] MEDS: Carbidopa 25/Levodopa 100 TAB PO ×3 (08:10→17:07)
[2022-12-12] MEDS: Citalopram 20 MG TAB PO (08:10)
[2022-12-12] MEDS: Cholecalciferol (Vitamin D3) 1,000 UNIT TAB 2000 UNITS PO (08:10)
[2022-12-12] MEDS: Gabapentin 300 MG CAP 600 MG PO ×3 (08:10→20:26)
[2022-12-12] MEDS: Senna TAB 1 TAB PO ×2 (08:10→20:27)
[2022-12-12] MEDS: predniSONE 20 MG TAB 40 MG PO (08:10)
[2022-12-12] MEDS: Insulin Aspart 300 UNITS/3 ML PEN SC ×5 (08:11→21:54)
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
[2022-12-12] MEDS: Albuterol/Ipratropium 3 ML UPD VIAL UPD ×4 (08:34→19:08)
[2022-12-12] MEDS: Insulin NPH-Human 300 UNITS/3 ML PEN 20 UNIT SC (10:52)
[2022-12-12] MEDS: Calcium Citrate 950 MG TAB PO ×2 (10:52→20:26)
[2022-12-12] MEDS: Meloxicam 15 MG TAB PO (10:52)
--- NOTE | 2022-12-12 12:37 | RESPIRATORY ---
Patient uses an [id number] VAUTO IPAP 12/ EPAP 5 with 2L of oxygen bled in at night. Patient uses an AirFit F20 size Medium mask and [facility] D[facility] is [facility].
--- NOTE | 2022-12-12 15:25 | W.PM.PROGNOT ---
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 Presents with worsening dyspnea and exertional hypoxemia but no fever and with negative acute inflammatory markers. Patient's white cell count was minimally elevated on admission at 12,000 today is 13,000. I did start him on steroids he was given Solu-Medrol 125 mg IV yesterday I started him on prednisone 40 mg daily today. Per radiologist interpretation of his chest CT he has no evidence of pulmonary emboli or infarction he has an unchanged dilated ascending thoracic aorta 4 cm without dissection no pericardial effusion he has persistent bilateral interstitial type infiltrates that appear to be unchanged since prior CT scan of 05/17/2022. His procalcitonin was less than 0.1 and his CRP was 0.21. Troponin I was negative at less than 50x2 sets yesterday. An echocardiogram was performed today and demonstrated normal left ventricular size and wall thickness with normal wall motion with an EF of 55 to 60%. RV appeared to be normal in size and systolic function atria are normal in size. He has no significant valvular heart disease. Based on his CT findings and lack of evidence for infection I think the most likely explanation is that he is having acute flareup of his COVID lung. I would like pulmonary to see him unfortunately Dr. Howard is off this week. Case management marketing secretary myself with made extensive attempts to try to find his certified hyperbaric technologist. We have been unsuccessful. I did come up with the name of a PCP at the [facility] Rosendo Culver, whom I will reach out to tomorrow morning. For now we will continue the Rocephin and doxycycline and prednisone and recheck his inflammatory markers including CRP and procalcitonin and CBC tomorrow. If CRP and procalcitonin remain normal then I will consider discontinuing antibiotics. The remainder of his studies are still pending including his Fungitell and urine strep antigen as well as his urine histoplasma antigen and Blastomyces antigen. His nasal swab for COVID-19 was negative as was the influenza and RSV. Extended respiratory viral panel is pending and his sputum has been reordere isd. If I am unable to establish that he has a certified hyperbaric technologist through the [facility] or [facility] that I will reach out to either [facility] pulmonary group or to [facility] pulmonary group to discuss his CT findings and obtain their recommendations for further work-up and treatment. (2) Acute and chronic respiratory failure with hypoxia: Status: Acute Assessment and plan: As above (3) Diffuse lung disease: Status: Acute Assessment and plan: As above (4) Pulmonary embolism on long-term anticoagulation therapy: Status: Acute Assessment and plan: on lifelong apixaban in setting of multiple DVT and PE but no evidence of acute PE (5) Benign hypertension: Status: Active Assessment and plan: not currently on any antihypertensives, will monitor but not intiate treatment (6) Gastroesophageal reflux disease: Status: Active Assessment and plan: continue pepcid (7) Diabetes mellitus: Assessment and plan: Continue to withhold his metformin in light of his elevated lactate level. I have adjusted his sliding scale to cover for insulin resistance and have added NPH to compensate for his prednisone. We will also start him on carbohydrate coverage and put him on low-dose Lantus at night. Patient should not resume metformin in light of his elevated blood lactate level which is now declining. (8) Sleep apnea: Status: Active Assessment and plan: patient will use our BIPAP for tonight but his will bring in his own tomorrow Subjective Subjective Interval history since last seen: Patient states that he has been having a rough day. He gets dyspneic w/ very little activity. He says that he is now coughing up some purulent sputum. He showed me a sample but he allowed this to sit in a sputum container for the past 4 hours. I told him that he needs to collect a fresh specimen and to put his call light on immediately so this can be sent to the lab. His WBC, CRP and procalcitonin were normal which suggests that he does not have a bacterial pneumonia. I told him that I will repeat his CRP and procalcitonin tomorrow and if normal then I will dc his antibiotics. I think he is has acute flare up of his COVID lung. I think he would benefit from a short course of high dose corticosteroids but I would want to be sure that he has no fungal or TB involvement before hitting him w/ high dose steroids. I told him that I would have had our certified hyperbaric technologist see him today but she is off all week until . He indicated that he sees a certified hyperbaric technologist at the [facility] in [place], he gave me the name of a Dr. Kenny Woodard but when I have the marketing secretary go through the [facility] she could not find such a certified hyperbaric technologist. She came up with the name of a Dr. Felicia Musa at [facility] [phone], fax [phone]. However, when I called the pulmonary clinic at [facility] they said that Dr. Musa no longer practices at [facility]. The marketing secretary could not find Mr. Sorto listed w/ any certified hyperbaric technologist at [facility]. [facility], the lye peel operator indicated that the pulmonary clinic was closed and eventually I got an RN on the patient call line who looked Mr. Sorto in the system and could not find any pulmonary office visits for him. She did give me the name of his PCP, Rosendo Culver at [phone]. She said that she would forward a message to him and he will return my call tomorrow, otherwise I can call the [facility] back tomorrow. Exam Narrative Exam Narrative: Vinay sitting up at the bedside he is able to talk in complete sentences but he gets dyspneic with any kind of physical activity. Lungs with bronchovesicular sounds at the bases along with fine cellophane type gutierrez no rhonchi or wheezing Heart regular rate and rhythm Abdomen obese soft nontender Extremities with no pitting edema Objective Last Vital Signs Temp 36.4 C L 12/12/22 14:47 Pulse 78 12/12/22 14:47 Resp 20 12/12/22 12:33 BP 120/71 12/12/22 14:47 Pulse Ox 94 12/12/22 14:47 Laboratory Results - last 24 hr 12/11/22 12/11/22 12/11/22 15:18 15:25 15:25 WBC RBC Hgb Hct MCV MCH MCHC RDW Plt Count MPV Immature Gran % Neutrophils % Lymphocytes % Monocytes % Eosinophils % Basophils % Nucleated RBC % Absolute Neutrophils Absolute Lymphocytes Absolute Monocytes Absolute Eosinophils Absolute Basophils VBG Lactate Sodium Potassium Chloride Carbon Dioxide Anion Gap BUN Creatinine Est GFR (CKD-EPI 2020) Glucose Calcium Magnesium Troponin I < 50 Procalcitonin < 0.1 TSH COVID-19 Source SARS-CoV-2 (PCR) Negative Influenza Type A (PCR) Influenza Type B (PCR) RSV (PCR) 12/11/22 12/11/22 12/11/22 15:35 18:36 20:30 WBC RBC Hgb Hct MCV MCH MCHC RDW Plt Count MPV Immature Gran % Neutrophils % Lymphocytes % Monocytes % Eosinophils % Basophils % Nucleated RBC % Absolute Neutrophils Absolute Lymphocytes Absolute Monocytes Absolute Eosinophils Absolute Basophils VBG Lactate 3.4 H* 4.6 H* Sodium Potassium Chloride Carbon Dioxide Anion Gap BUN Creatinine Est GFR (CKD-EPI 2020) Glucose Calcium Magnesium Troponin I Procalcitonin TSH COVID- Source Nasopharynx SARS-CoV-2 (PCR) Negative Influenza Type A (PCR) Negative Influenza Type B (PCR) Negative RSV (PCR) Negative 12/11/22 12/12/22 12/12/22 22:32 01:25 06:30 WBC RBC Hgb Hct MCV MCH MCHC RDW Plt Count MPV Immature Gran % Neutrophils % Lymphocytes % Monocytes % Eosinophils % Basophils % Nucleated RBC % Absolute Neutrophils Absolute Lymphocytes Absolute Monocytes Absolute Eosinophils Absolute Basophils VBG Lactate 6.1 H* 4.7 H* Sodium 134 L Potassium 4.7 Chloride 96 L Carbon Dioxide 26.1 Anion Gap 11.9 H BUN 18 Creatinine 1.0 Est GFR (CKD-EPI 2020) 84.57 Glucose 295 H Calcium 9.0 Magnesium 1.8 Troponin I Procalcitonin TSH 1.10 COVID-19 Source SARS-CoV-2 (PCR) Influenza Type A (PCR) Influenza Type B (PCR) RSV (PCR) 12/12/22 12/12/22 06:30 06:30 WBC 13.28 H RBC 4.52 Hgb 13.3 L D Hct 40.2 MCV 89 MCH 29.4 MCHC 33.1 RDW 13.9 Plt Count 161 MPV 9.0 Immature Gran % 0.7 Neutrophils % 84.9 Lymphocytes % 10.8 Monocytes % 3.4 Eosinophils % 0.0 Basophils % 0.2 Nucleated RBC % 0.0 Absolute Neutrophils 11.27 H Absolute Lymphocytes 1.43 Absolute Monocytes 0.45 Absolute Eosinophils 0.00 Absolute Basophils 0.03 VBG Lactate 3.2 H* Sodium Potassium Chloride Carbon Dioxide Anion Gap BUN Creatinine Est GFR (CKD-EPI 2020) Glucose Calcium Magnesium Troponin I Procalcitonin TSH COVID-19 Source SARS-CoV-2 (PCR) Influenza Type A (PCR) Influenza Type B (PCR) RSV (PCR) Time Spent with Patient Time Spent with Patient: >50 minutes Time was spent: preparing to see the patient(eg.review tests), obtaining and/or reviewing separately otained hiistory, ordering medications,tests, procedures, referring, communicating with other health health care attorney, indepentently interpreting results, counseling the patient and care coordination
[2022-12-12] MEDS: cefTRIAXone 2 GM/50 ML BAG IVPB (17:43)
[2022-12-12] MEDS: Atorvastatin 20 MG TAB PO (21:51)
[2022-12-12] MEDS: Tamsulosin 0.4 MG CAPCR PO (21:51)
[2022-12-12] MEDS: traZODone 100 MG TAB PO (21:52)
[2022-12-12] MEDS: Insulin Glargine 300 UNITS/3 ML PEN 10 UNITS SC (21:52)
[2022-12-12] MEDS: Zolpidem 10 MG TAB PO (21:52)
[2022-12-12 23:28] LABS: Legionella Ag Detection Urine Negative (Negative)
[2022-12-12] MEDS: oxyCODONE 15 MG TAB PO (23:31)
[2022-12-13] VITALS (13 sets, daily range): BP systolic 124–146; BP diastolic 63–79; PULSE 54–86; RESP 1–20; TEMP 35.4–37.2; O2SAT 92–99
[2022-12-13] MEDS: DOXYCYCLINE 100 MG in Normal Saline 100 ML IVPB ×3 (01:52→21:36)
[2022-12-13 07:08] LABS: Abs Immature Grans 0.06 10^3/uL (0.0-0.06); Absolute Basophil Count 0.04 10^3/uL (0.0-0.2); Absolute Eosinophil Count 0.08 10^3/uL (0.0-0.7); Absolute Lymphocyte Count 2.56 10^3/uL (1.2-3.4); Absolute Neutrophil Count 10.15 10^3/uL (1.2-6.7); Basophils % 0.3; Eosinophils % 0.6; HCT 39.6 % (40.0-50.0); Immature Grans % 0.4; Lymphocytes % 18.6; MCH 29.5 pg (27.0-33.0); MCHC 32.8 % (32.0-36.0); MCV 90 fL (80-95); MPV 8.9 fL (8.0-11.0); Monocytes % 6.5; Neutrophils % 73.6; Platelet Count 167 10^3/uL (130-400); RDW 14.1 % (11.8-14.1); RDW-SD 46.5 fL; WBC 13.79 10^3/uL (4.4-10.8)
[2022-12-13 07:09] LABS: Lactate 2.2 mmol/L (0.6-1.4)
[2022-12-13 07:26] LABS: Anion Gap 4.9 mmol/L (3-11); BUN 20 mg/dL (7-18); C-Reactive Protein 0.22 mg/dL (0.0-0.3); CO2 33.1 mmol/L (21.0-32.0); CREATININE 0.9 mg/dL (0.70-1.30); Calcium 9.3 mg/dL (8.5-10.1); Chloride 102 mmol/L (98-107); Estimated GFR 95.97 (mL/min/1.73m2); Glucose 202 mg/dL (74-106); Potassium 4.6 mmol/L (3.5-5.1); Sodium 140 mmol/L (136-145)
[2022-12-13 07:53] LABS: Procalcitonin < 0.1 ng/mL
[2022-12-13] MEDS: Famotidine 20 MG TAB PO ×2 (08:05→19:44)
[2022-12-13] MEDS: Gabapentin 300 MG CAP 600 MG PO ×3 (08:05→19:44)
[2022-12-13] MEDS: Lactobacillus Acidophilus CAP 1 CAP PO ×2 (08:05→19:44)
[2022-12-13] MEDS: Meloxicam 15 MG TAB PO (08:05)
[2022-12-13] MEDS: predniSONE 20 MG TAB 40 MG PO (08:06)
[2022-12-13] MEDS: Apixaban 5 MG TAB PO ×2 (08:06→19:44)
[2022-12-13] MEDS: Carbidopa 25/Levodopa 100 TAB PO ×4 (08:06→21:38)
[2022-12-13] MEDS: Calcium Citrate 950 MG TAB PO ×2 (08:06→19:45)
[2022-12-13] MEDS: Citalopram 20 MG TAB PO (08:06)
[2022-12-13] MEDS: Senna TAB 1 TAB PO ×2 (08:06→19:45)
[2022-12-13] MEDS: Cholecalciferol (Vitamin D3) 1,000 UNIT TAB 2000 UNITS PO (08:10)
[2022-12-13] MEDS: Multivitamin TAB 1 TAB PO (08:10)
[2022-12-13] MEDS: Insulin NPH-Human 300 UNITS/3 ML PEN 20 UNIT SC (08:12)
[2022-12-13] MEDS: Insulin Aspart 300 UNITS/3 ML PEN SC ×7 (08:19→21:40)
[2022-12-13] MEDS: Albuterol/Ipratropium 3 ML UPD VIAL UPD ×4 (08:47→19:48)
--- NOTE | 2022-12-13 10:30 | CMPROGNOTE_ITS ---
Date of service: 12/13/22 Time of Service: 10:30 Care Management Progress Note Progress Note Text Progress Note Text: S/O:Deonte was sitting up in bed visiting with his Christelle when CM met with him. When asked, he stated that he is not feeling any better. He informed CM that he has been told by the provider that he will be transferred to [facility] today for further evaluation. While he admitted that he likes the care at [facility], he understands that there are services and specialists at [facility] that are not available in a critical access hospital. Dr. Dave did contact Pulmonology at [facility] who made some recommendations for changes to his treatment plan. As Dr. Paniagua will return in a couple of days, she will be asked to see Deonte in consultation at that time A: Deonte is a 62 year old man admitted on 12/11/22 with Respiratory failure P: Anticipate Deonte will return home with a resumption of his OP PT. He may need new home health services at first as he is weak and desaturates easily with any activity. Deonte will follow up with his community providers at the [facility] and transport with family. CM will continue to support Deonte and assess for discharge concerns.
--- NOTE | 2022-12-13 11:32 | PHA.REVIEW2 ---
Pharmacy Admission Review - Admission Clinical Review (Last Updated 12/11/22 @ 19:55 by Jurgen Dave MD) Pulmonary embolism on long-term anticoagulation therapy (Acute) Diffuse lung disease (Acute) Acute and chronic respiratory failure with hypoxia (Acute) Dyspnea (Acute) Benign hypertension (Active) Sleep apnea (Active) Gastroesophageal reflux disease (Active) cimetidine HCl [From Tagamet] Allergy (Severe, Verified 12/11/22 12:04) Anaphylaxsis rivaroxaban [From Xarelto] Allergy (Severe, Verified 12/11/22 12:04) Latex, Natural Rubber Allergy (Intermediate, Verified 12/11/22 12:04) Skin Rash lisinopril Allergy (Intermediate, Verified 12/11/22 12:04) morphine Allergy (Mild, Verified 12/11/22 12:04) Itching diphenhydramine HCl [From Benadryl] Adverse Reaction (Intermediate, Verified 12/11/22 12:04) palpitations promethazine HCl [From Phenergan] Adverse Reaction (Verified 12/11/22 12:04) Dizziness/Lightheade Resuscitation Status Full Code Height 5 ft 8 in Weight 103 kg - Comments Comments/Follow Ups: Likely a flare-up from COVID lung vs an infectious process - Renal Dosing Renal Dosing: BUN 20 mg/dL (7-18) H 12/13/22 06:50 Creatinine 0.9 mg/dL (0.70-1.30) 12/13/22 06:50 Medications needing adjustments: Reviewed List of meds needing interventions: eCrCl 88 ml/min, no adjustments needed - Anticoagulation Anticoagulation: Hgb 13.0 g/dL (13.5-17.5) L 12/13/22 06:50 Hct 39.6 % (40.0-50.0) L 12/13/22 06:50 Plt Count 167 10^3/uL (130-400) 12/13/22 06:50 Creatinine 0.9 mg/dL (0.70-1.30) 12/13/22 06:50 Therapeutic Anticoagulation: Reviewed Medications: Apixaban - Opiate Usage Evaluate Pain Scale/Pains Meds: Reviewed Scheduled Bowel Reg ordered if on Opiates?: No (prn only) - Relevant Labs Sodium 140 mmol/L (136-145) 12/13/22 06:50 Potassium 4.6 mmol/L (3.5-5.1) 12/13/22 06:50 Chloride 102 mmol/L (98-107) 12/13/22 06:50 Magnesium 1.8 mg/dL (1.8-2.4) 12/12/22 06:30 C-Reactive Protein 0.22 mg/dL (0.0-0.3) 12/13/22 06:50 Electrolytes, C-Reactive P, ESR: Reviewed - DM Control DM Control: Glucose 202 mg/dL (74-106) H 12/13/22 06:50 Finger Stick Blood Glucose 176 Finger Stick Blood Glucose 176 Finger Stick Blood Glucose 176 Finger Stick Blood Glucose 176 DM Control: Reviewed Insulin Dosing, Diabetic Medication: aspart per SS, lantus, NPH for steroid coverage (all started here, is on metformin at home but that is being held due to elevated lactate) - Cardiac Review Cardiac Review: Troponin I < 50 ng/L (<or=60) 12/11/22 15:25 NT-Pro-B Natriuret Pep 19 pg/mL (<300) 12/11/22 13:17 BP, HR, EF%: Reviewed - Qtc Review QTc: N/A - IV to PO Switch IV Medications: Reviewed - Home Meds Home Med List reviewed: Reviewed Relevent Home Meds Not ordered & why?: metformin (elevated lactate) - Current meds Current Medication Order Review: Reviewed (ceftriaxone + doxy continue day 3, anticipate discontinuation if inflammatory markers remain wnl)
--- NOTE | 2022-12-13 13:44 | PGE_ITS ---
Date of Service Date of service: 12/13/22 Time of Service: 13:45 Assessment and Plan Assessment and plan (1) Dyspnea: Status: Acute Assessment and plan: I discussed the case with [facility] spoke with staff software engineer Dr. Heaton who discussed the patient's case w/ her attending, Dr. Roxane Loza. Their recommendations was to stop the prednisone, treat him for CAP w/ doxycycline and Rocephin and if he does not improve get CTA to rule out PE and call them back if he does not improve in a few days. I explained to them that he is already on apixaban, he had a CTA on admission (which they allegedly looked at and said that there was not change from his prior CT) and that clinically he is not behaving as a CAP, i.e, no purulent sputum, no fever, normal CRP and normal procalcitonin. I thanked them for their opinion. I will continue empiric antibiotic treatment for 5 days (todays is day #3) and repeat inflammatory markers again in couple days and wait for Dr. Paniagua to return on and ask for her consultation. I am still awaiting his fungal and atypical studies i.e. legionella urine antigen, mycoplasma PCR, Fungitell, urine histoplasmosis and extended viral PCR (his Fluvid was negative). I am not stopping the prednisone and in fact have increased to 60 mg daily. I added TMP/SMX for PJP prophylaxis I have explained to the pulmonology fellow that he is not in fluid overload either clinically nor radiologically and his echo is normal but his RVSP could not be estimated. I have reviewed his reports faxed to me from his [facility] in [place], [place]. According to the pulmonology telephone visit the patient had cor pulmonale on his echo from 03/10/21 in which his RV was severely dilated w/ moderate RV systolic dysfunction, akinetic RV free wall and septal dyskinetics and dilated RA w/ RVSP of 35mm However [facility] showed improved RV function (reportedly normal systolic fxn. (2) Acute and chronic respiratory failure with hypoxia: Status: Acute Assessment and plan: As above (3) Diffuse lung disease: Status: Acute Assessment and plan: As above (4) Pulmonary embolism on long-term anticoagulation therapy: Status: Acute Assessment and plan: on lifelong apixaban in setting of multiple DVT and PE but no evidence of acute PE (5) Benign hypertension: Status: Active Assessment and plan: not currently on any antihypertensives, will monitor but not intiate treatment (6) Gastroesophageal reflux disease: Status: Active Assessment and plan: continue pepcid (7) Diabetes mellitus: Assessment and plan: Continue to withhold his metformin in light of his elevated lactate level. I have adjusted his sliding scale to cover for insulin resistance and have added NPH to compensate for his prednisone. We will also start him on carbohydrate coverage and put him on low-dose Lantus at night. Patient should not resume metformin in light of his elevated blood lactate level which is now declining. (8) Sleep apnea: Status: Active Assessment and plan: patient will use our BIPAP for tonight but his will bring in his own tomorrow Subjective Subjective Interval history since last seen: Patient is having a better day. Not dyspneic at rest, SPO2 94% at rest but still desaturates into the 80's w/ activity. Cough is minimally productive. allegedly green mucous but his sputum has scant growth of NOF and gram stain showed few WBC, rare epithelial cells and few mixed gram positive tess and non predominant. His repeat CRP and procalcitonin have been normal. (CRP 0.21, 0.22; procalcitonin <0.1 twice now). I do not feel that clinically nor radiologically nor lab calderon does he have a bacterial CAP. I have made multiple attempts to reach out to the [place] in [facility]. I have not been able to reach the pulmonary clinic. I did reach the [place] [facility] in [place], [place] and spoke w/ the nurse for Rosendo Culver. She reviewed his chart and faxed me his office notes. Apparently the patient is followed by pulmonary at [place]. He had his last visit as telephone follow up on 07/14/22 as the patient could not get ride down to [facility]. Per the note he was hospitalized from 02/03/21 to 08/04/21 for hyoxic respiratory failure from COVID-19 pneumonia. He was not vacccinated either before nor since this for flu or for SARS-COV2. Since his recovery he has suffered from pulmonary fibrosis and has been oxygen dependent. He has had two other hospitalizations since his recovery, 04/2022 at [facility] for Klebsiella pneumonia and another bout of COVID-19 in May 2022 in which he was hospitalized at [facility] for generalized weakness. I have not been able to reach any photographic laboratory supervisor at [facility] but reached out to [facility] [place] and spoke w/ the staff software engineer, Dr. Heaton who consulted w/ her attending Dr. Roxane Loza. Exam Narrative Exam Narrative: Vinay is sitting up in bed he is alert and oriented to person place time circumstance Chest is barrel chested lungs with fine cellophane type rales both bases no rhonchi or wheezing Heart is regular rate and rhythm Abdomen obese soft nontender Neck veins are nondistended Lower extremities without peripheral cyanosis or edema Objective Last Vital Signs Temp 36.7 C 12/13/22 11:12 Pulse 72 12/13/22 11:12 Resp 18 12/13/22 11:12 BP 133/79 12/13/22 11:12 Pulse Ox 96 12/13/22 11:12 Laboratory Results - last 24 hr 12/11/22 12/12/22 12/13/22 22:00 23:37 06:50 WBC RBC Hgb Hct MCV MCH MCHC RDW Plt Count MPV Immature Gran % Neutrophils % Lymphocytes % Monocytes % Eosinophils % Basophils % Nucleated RBC % Absolute Neutrophils Absolute Lymphocytes Absolute Monocytes Absolute Eosinophils Absolute Basophils VBG Lactate Sodium 140 Potassium 4.6 Chloride 102 Carbon Dioxide 33.1 H Anion Gap 4.9 BUN 20 H Creatinine 0.9 Est GFR (CKD-EPI 2020) 95.97 Glucose 202 H Calcium 9.3 C-Reactive Protein 0.22 Procalcitonin Adenovirus DNA Cancelled Human Metapneumovir RNA Cancelled Urine Legionella Ag Negative Parainfluenza 1 (PCR) Cancelled Parainfluenza 2 (PCR) Cancelled Parainfluenza 3 (PCR) Cancelled Parainfluenza 4 (PCR) Cancelled Resp Viral Spec Desc Cancelled Rhinovirus (PCR) Cancelled 12/13/22 12/13/22 12/13/22 06:50 06:50 06:50 WBC 13.79 H RBC 4.40 Hgb 13.0 L Hct 39.6 L MCV 90 MCH 29.5 MCHC 32.8 RDW 14.1 Plt Count 167 MPV 8.9 Immature Gran % 0.4 Neutrophils % 73.6 Lymphocytes % 18.6 Monocytes % 6.5 Eosinophils % 0.6 Basophils % 0.3 Nucleated RBC % 0.0 Absolute Neutrophils 10.15 H Absolute Lymphocytes 2.56 Absolute Monocytes 0.90 H Absolute Eosinophils 0.08 Absolute Basophils 0.04 VBG Lactate 2.2 H* Sodium Potassium Chloride Carbon Dioxide Anion Gap BUN Creatinine Est GFR (CKD-EPI 2020) Glucose Calcium C-Reactive Protein Procalcitonin < 0.1 Adenovirus DNA Human Metapneumovir RNA Urine Legionella Ag Parainfluenza 1 (PCR) Parainfluenza 2 (PCR) Parainfluenza 3 (PCR) Parainfluenza 4 (PCR) Resp Viral Spec Desc Rhinovirus (PCR) Time Spent with Patient Time Spent with Patient: >50 minutes Time was spent: preparing to see the patient(eg.review tests), referring, communicating with other health director day care center (multiple phone conversations / [facility], [facility], and [facility] [place] [place] pulmonology), indepentently interpreting results, counseling the patient and care coordination
[2022-12-13] MEDS: predniSONE 20 MG TAB PO (15:10)
[2022-12-13] MEDS: Pantoprazole 40 MG TABCR PO (15:10)
[2022-12-13] MEDS: Sulfameth/Trimeth DS TAB 1 TAB PO (15:10)
[2022-12-13] MEDS: cefTRIAXone 2 GM/50 ML BAG IVPB (17:00)
[2022-12-13] MEDS: guaiFENesin 600 MG TABCR PO (19:45)
[2022-12-13] MEDS: Atorvastatin 20 MG TAB PO (21:38)
[2022-12-13] MEDS: Zolpidem 10 MG TAB PO (21:38)
[2022-12-13] MEDS: Tamsulosin 0.4 MG CAPCR PO (21:38)
[2022-12-13] MEDS: traZODone 100 MG TAB PO (21:39)
[2022-12-13] MEDS: Insulin Glargine 300 UNITS/3 ML PEN 15 UNITS SC (21:39)
[2022-12-13 23:12] LABS: Streptococcus Pneumoniae Ag, U Negative (Negative)
[2022-12-14] VITALS (16 sets, daily range): BP systolic 117–145; BP diastolic 67–78; PULSE 65–78; RESP 1–22; TEMP 36.5–36.7; O2SAT 93–98
[2022-12-14] MEDS: Gabapentin 300 MG CAP 600 MG PO ×3 (07:49→20:18)
[2022-12-14] MEDS: Citalopram 20 MG TAB PO (07:49)
[2022-12-14] MEDS: Multivitamin TAB 1 TAB PO (07:50)
[2022-12-14] MEDS: Meloxicam 15 MG TAB PO (07:50)
[2022-12-14] MEDS: Calcium Citrate 950 MG TAB PO ×2 (07:50→20:17)
[2022-12-14] MEDS: predniSONE 20 MG TAB 60 MG PO (07:50)
[2022-12-14] MEDS: Cholecalciferol (Vitamin D3) 1,000 UNIT TAB 2000 UNITS PO (07:50)
[2022-12-14] MEDS: Apixaban 5 MG TAB PO (07:51)
[2022-12-14] MEDS: Lactobacillus Acidophilus CAP 1 CAP PO ×2 (07:51→20:17)
[2022-12-14] MEDS: Pantoprazole 20 MG TABCR PO (07:51)
[2022-12-14] MEDS: guaiFENesin 600 MG TABCR PO ×2 (07:51→20:17)
[2022-12-14] MEDS: Senna TAB 1 TAB PO (07:51)
[2022-12-14] MEDS: Famotidine 20 MG TAB PO ×2 (07:51→20:18)
[2022-12-14] MEDS: Sulfameth/Trimeth DS TAB 1 TAB PO (07:51)
[2022-12-14] MEDS: DOXYCYCLINE 100 MG in Normal Saline 100 ML IVPB ×2 (07:52→21:01)
[2022-12-14] MEDS: Calcitonin-Salmon, Synthetic 3.7 ML BTL NS (07:52)
[2022-12-14] MEDS: Carbidopa 25/Levodopa 100 TAB PO ×4 (07:52→21:52)
[2022-12-14] MEDS: Insulin NPH-Human 300 UNITS/3 ML PEN 25 UNIT SC (08:06)
[2022-12-14] MEDS: Insulin Aspart 300 UNITS/3 ML PEN SC ×7 (08:07→23:00)
[2022-12-14] MEDS: Albuterol/Ipratropium 3 ML UPD VIAL UPD ×3 (08:12→20:11)
--- NOTE | 2022-12-14 09:11 | CMPROGNOTE_ITS ---
Date of service: 12/14/22 Time of Service: 09:11 Care Management Progress Note Progress Note Text Progress Note Text: S/O:Deonte was sitting up in bed when CM met with him. He informed CM that he still does not feel any better and that he continues to desaturate with any activity. At rest his oxygen saturation is in the mid to upper 90s on room air. Deonte expressed frustration about not being able to transfer to [facility]. He feels he is not improving here. He does have a consultation with Dr. Paniagua tomorrow and a bronchoscopy is planned to obtain specimens for culture and testing. Deonte did state that he is glad that that will be done. A: Deonte is a 62 year old man admitted on 12/11/22 with Respiratory failure P: Anticipate Deonte will return home with a resumption of his OP PT. He may need new home health services at first as he is weak and desaturates easily with any activity. Deonte will follow up with his community providers at the [place] and transport with family. CM will continue to support Deonte and assess for discharge concerns.
--- NOTE | 2022-12-14 12:48 | W.PM.PROGNOT ---
Date of Service Date of service: 12/14/22 Time of Service: 12:48 Assessment and Plan Assessment and plan (1) Acute and chronic respiratory failure with hypoxia: Status: Acute Assessment and plan: Patient has ILD w/ pulmonary fibrosis diffusely on his CT secondary to his prior COVID-19 infection but has had recent worsening of his symptoms and having increased oxygen requirements. It does not appear to be a typical CAP bacterial pneumonia. His Fluvid was negative. I am still awaiting the rest of his fungal and atypical studies. I texted w/ Dr. Paniagua yesterday and she thinks he would be appropriate for bronchoscopy and she plans to perform this tomorrow. I have orderd him to be NPO after midnight tonight and I have written for his NPH and Novolog to be put on hold after midnight tonight. He remains on prednisone w/ PJP prophylaxis, Ceftriaxone and doxycycline. (2) Dyspnea: Status: Acute (3) Diffuse lung disease: Status: Acute Assessment and plan: As above (4) Pulmonary embolism on long-term anticoagulation therapy: Status: Acute Assessment and plan: on lifelong apixaban in setting of multiple DVT and PE but no evidence of acute PE. will continue apixaban periprocedure as Dr. Paniagua is not planning on any biopsies but is performing a BAL (5) Benign hypertension: Status: Active Assessment and plan: not currently on any antihypertensives, will monitor but not intiate treatment (6) Gastroesophageal reflux disease: Status: Active Assessment and plan: continue pepcid (7) Diabetes mellitus: Assessment and plan: continue basal/bolus insulin and NPH for prednisone coverage. hold sliding scale and NPH tomorrow for procedure (8) Sleep apnea: Status: Active Assessment and plan: patient told to have his bring his BIPAP back in to hospital for his use Subjective Subjective Interval history since last seen: No new complaints. Cough is nonproductive. No fevers overnight. Patient misunderstood thinking that when I called [facility] [place] [facility] pulmonology yesterday that he was going to be transferred so he sent his home BIPAP to his home w/ his . I explained to him that our sweatband flanger, Dr. Paniagua will be back tomorrow and that she and I have conversed about his case and she thinks that he ought to have a bronchoscopy for BAL to rule out opportunistic infections, cancer, etc. He is agreeable to having this done. I told him he will be NPO after midnight tonight. Exam Narrative Exam Narrative: Vinay is sitting up in bed, he does not appear to be acutely dyspneic w/ conversation with either me or his who was on his cell phone Lungs: bilateral fine cellophane rales at his bases; no rhonchi or wheezing Heart: RRR, no m,r,g Abdomen: obese, soft, nontender Extremities: no edema Objective Last Vital Signs Temp 36.5 C 12/14/22 11:14 Pulse 70 12/14/22 11:14 Resp 16 12/14/22 11:14 BP 117/70 12/14/22 11:14 Pulse Ox 95 12/14/22 11:14 Laboratory Results - last 24 hr 12/11/22 22:00 Ur Strep pneumoniae Ag Negative Time Spent with Patient Time Spent with Patient: 25-34 minutes Time was spent: preparing to see the patient(eg.review tests), ordering medications,tests, procedures, referring, communicating with other health day care home provider, indepentently interpreting results, counseling the patient and care coordination
[2022-12-14 15:52] LABS: Fungitell Qualitative Negative (Negative); Fungitell Quantitative Value <31 pg/mL (<60 pg/mL)
[2022-12-14] MEDS: cefTRIAXone 2 GM/50 ML BAG IVPB (15:57)
[2022-12-14] MEDS: oxyCODONE 15 MG TAB PO (18:03)
[2022-12-14] MEDS: Acetaminophen 325 MG TAB PO (20:16)
[2022-12-14] MEDS: Cyclobenzaprine 10 MG TAB 5 MG PO (20:18)
[2022-12-14 21:38] LABS: Adenovirus DNA Result Negative (Negative); Metapneumovirus RNA Result Negative (Negative); Parainfluenza Type1 RNA Result Negative (Negative); Parainfluenza Type2 RNA Result Negative (Negative); Parainfluenza Type3 RNA Result Negative (Negative); Parainfluenza Type4 RNA Result Negative (Negative); Rhinovirus RNA Result Negative (Negative)
[2022-12-14] MEDS: Zolpidem 10 MG TAB PO (21:51)
[2022-12-14] MEDS: Atorvastatin 20 MG TAB PO (21:52)
[2022-12-14] MEDS: Tamsulosin 0.4 MG CAPCR PO (21:52)
[2022-12-14] MEDS: traZODone 100 MG TAB PO (21:52)
[2022-12-14] MEDS: Insulin Glargine 300 UNITS/3 ML PEN 15 UNITS SC (23:00)
--- NOTE | 2022-12-14 23:49 | RESPIRATORY ---
PT PLACED ON BIPAP THIS EVENING WITH SETTINGS 10/5 RR 12 FIO2 30%. TOLERATED WELL WITHOUT ADVERSE REACTION.
[2022-12-15] VITALS (23 sets, daily range): BP systolic 102–148; BP diastolic 57–78; PULSE 57–109; RESP 1–22; TEMP 36–37.6; O2SAT 91–98; BMI 34.7
[2022-12-15] MEDS: DEXTROSE 5%-LACTATED RINGERS 1,000 ML 30 ML IV (01:30)
[2022-12-15] MEDS: LORazepam 1 MG TAB PO (02:09)
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
[2022-12-15 07:02] LABS: C-Reactive Protein < 0.05 mg/dL (0.0-0.3)
[2022-12-15 07:24] LABS: Procalcitonin < 0.1 ng/mL
[2022-12-15] MEDS: Albuterol/Ipratropium 3 ML UPD VIAL UPD ×2 (08:03→15:31)
[2022-12-15] MEDS: Apixaban 5 MG TAB PO ×2 (08:31→19:53)
[2022-12-15] MEDS: Gabapentin 300 MG CAP 600 MG PO ×3 (08:31→19:52)
[2022-12-15] MEDS: predniSONE 20 MG TAB 60 MG PO (08:31)
[2022-12-15] MEDS: Citalopram 20 MG TAB PO (08:31)
[2022-12-15] MEDS: Sulfameth/Trimeth DS TAB 1 TAB PO (08:31)
[2022-12-15] MEDS: Calcitonin-Salmon, Synthetic 3.7 ML BTL NS (08:31)
[2022-12-15] MEDS: Meloxicam 15 MG TAB PO (08:31)
[2022-12-15] MEDS: Famotidine 20 MG TAB PO ×2 (08:32→19:52)
[2022-12-15] MEDS: Carbidopa 25/Levodopa 100 TAB PO ×4 (08:32→21:10)
--- NOTE | 2022-12-15 10:31 | W.PM.PROGNOT ---
Date of Service Date of service: 12/15/22 Time of Service: 10:32 Assessment and Plan Assessment and plan (1) Acute and chronic respiratory failure with hypoxia: Status: Acute Assessment and plan: Patient has ILD w/ pulmonary fibrosis diffusely on his CT secondary to his prior COVID-19 infection but has had recent worsening of his symptoms and having increased oxygen requirements. It does not appear to be a typical CAP bacterial pneumonia. His Fluvid was negative. Fungi tell was negative. Histoplasmosis antigen was negative. Legionella and urine strep antigens were negative. Patient remains on doxycycline and Rocephin pending bronchoscopy and BAL later today. Continue prednisone 60 mg daily along with PJP prophylaxis with Bactrim. Further recommendations per Dr. Howard pending BAL. (2) Dyspnea: Status: Acute Assessment and plan: As above (3) Diffuse lung disease: Status: Acute Assessment and plan: As above (4) Pulmonary embolism on long-term anticoagulation therapy: Status: Acute Assessment and plan: on lifelong apixaban in setting of multiple DVT and PE but no evidence of acute PE. will continue apixaban periprocedure as Dr. Paniagua is not planning on any biopsies but is performing a BAL (5) Benign hypertension: Status: Active Assessment and plan: not currently on any antihypertensives, will monitor but not intiate treatment (6) Gastroesophageal reflux disease: Status: Active Assessment and plan: continue pepcid (7) Diabetes mellitus: Assessment and plan: continue basal/bolus insulin and NPH for prednisone coverage. hold sliding scale and NPH this morning for his bronchoscopy. Resume insulin orders post bronchoscopy. (8) Sleep apnea: Status: Active Assessment and plan: patient told to have his bring his BIPAP back in to hospital for his use Subjective Subjective Interval history since last seen: Patient has no new complaints. Minimal sputum production. No fevers overnight. Currently on baseline oxygen requirements of 2 L/min per nasal cannula at rest. Awaiting bronchoscopy. Exam Narrative Exam Narrative: He is alert and oriented x3 although he was sleeping when I walked in the room but woke up easily. Lungs with bibasilar fine cellophane rales no rhonchi or wheezing Heart is regular rate and rhythm Abdomen obese soft and nontender Extremities without edema Objective Last Vital Signs Temp 36.4 C L 12/15/22 07:15 Pulse 71 12/15/22 08:18 Resp 16 12/15/22 08:18 BP 126/76 12/15/22 07:15 Pulse Ox 98 12/15/22 08:18 Laboratory Results - last 24 hr 12/11/22 12/11/22 12/13/22 17:43 22:00 15:15 C-Reactive Protein Procalcitonin Adenovirus DNA Negative Urine Histoplasma Ag Not Detected U Histoplasma Ag Index Not Detected Human Metapneumovir RNA Negative Parainfluenza 1 (PCR) Negative Parainfluenza 2 (PCR) Negative Parainfluenza 3 (PCR) Negative Parainfluenza 4 (PCR) Negative Resp Viral Spec Desc Not Applicable Rhinovirus (PCR) Negative B-(1,3)-D-Glucan Quant <31 B-(1,3)-D-Glucan Qual Negative 12/15/22 12/15/22 06:15 06:15 C-Reactive Protein < 0.05 Procalcitonin < 0.1 Adenovirus DNA Urine Histoplasma Ag U Histoplasma Ag Index Human Metapneumovir RNA Parainfluenza 1 (PCR) Parainfluenza 2 (PCR) Parainfluenza 3 (PCR) Parainfluenza 4 (PCR) Resp Viral Spec Desc Rhinovirus (PCR) B-(1,3)-D-Glucan Quant B-(1,3)-D-Glucan Qual Time Spent with Patient Time Spent with Patient: 25-34 minutes Time was spent: preparing to see the patient(eg.review tests), ordering medications,tests, procedures, referring, communicating with other health home care specialist (Dr. Paniagua), indepentently interpreting results, counseling the patient and care coordination
--- NOTE | 2022-12-15 10:46 | ANES.PREOP_ITS ---
General Info Date of Service Date Performed: 12/15/22 Height: 5 ft 8 in Weight: 103.6 kg Body Mass Index (BMI): 34.7 Surgical Procedure: Operation Date: 12/15/22 12:10 Proposed Procedure Side Surgeon p Bronchoscopy w/CHIQUITA Paniagua MD Meds Allergies and Home Medications Allergies Allergy/AdvReac Type Severity Reaction Status Date / Time cimetidine HCl [From Tagamet] Allergy Severe Anaphylaxsi Verified 12/11/22 12:04 s rivaroxaban [From Xarelto] Allergy Severe Verified 12/11/22 12:04 Latex, Natural Rubber Allergy Intermediate Skin Rash Verified 12/11/22 12:04 lisinopril Allergy Intermediate Verified 12/11/22 12:04 morphine Allergy Mild Itching Verified 12/11/22 12:04 diphenhydramine HCl AdvReac Intermediate palpitation Verified 12/11/22 12:04 [From Benadryl] s promethazine HCl AdvReac Dizziness/L Verified 12/11/22 12:04 [From Phenergan] ightheade Home Medication Medication Instructions Recorded linaclotide 290 mcg capsule 290 mg PO DAILY 02/04/14 (Linzess) morphine 15 mg tablet,extended 45 mg PO BID 05/17/22 release multivitamin no.51-ferrous 1 cap PO DAILY 05/17/22 fumarate 106.5 mg-folic acid 1 mg capsule naloxone 4 mg/actuation nasal 4 mg intranasal Q2-3M PRN 05/17/22 spray (Narcan) tamsulosin 0.4 mg capsule 0.4 mg PO QHS 05/17/22 zolpidem 10 mg tablet (Ambien) 10 mg PO QHS 05/17/22 Lactobacillus acidophilus 1 cap PO BID 05/19/22 (Acidophilus capsule) acetaminophen 325 mg tablet 650 mg PO Q4H 05/19/22 alendronate 70 mg tablet 70 mg PO QWEEK 05/19/22 apixaban 5 mg tablet 5 mg PO BID 05/19/22 ascorbic acid (vitamin C) 500 mg 1,000 mg PO DAILY 05/19/22 tablet atorvastatin 20 mg tablet 20 mg PO QHS 05/19/22 bisacodyl 5 mg tablet 10 mg PO DAILY PRN 05/19/22 calcitonin (salmon) 200 1 spray intranasal (ALT) DAILY 05/19/22 unit/actuation nasal spray calcium carbonate 400 mg calcium 400 mg PO TID PRN 05/19/22 (1,000 mg) chewable tablet calcium citrate 200 mg (950 mg) 400 mg PO BID 05/19/22 tablet carbidopa 25 mg-levodopa 100 mg 1 tab PO QID 05/19/22 tablet cholecalciferol (vitamin D3) 50 50 mcg PO DAILY 05/19/22 mcg (2,000 unit) tablet citalopram 40 mg tablet 20 mg PO DAILY 05/19/22 cyclobenzaprine 10 mg tablet 5 - 10 mg PO HS PRN 05/19/22 famotidine 20 mg tablet 20 mg PO BID 05/19/22 gabapentin 300 mg capsule 600 mg PO TID 05/19/22 meloxicam 15 mg tablet 15 mg PO DAILY 05/19/22 metformin 500 mg tablet 500 mg PO BIDWMEAL 05/19/22 sennosides 8.6 mg tablet (senna) 8.6 mg PO BID 05/19/22 trazodone 100 mg tablet 100 mg PO HS 05/19/22 oxycodone 15 mg tablet 15 mg TID PRN 11/21/22 Current Visit Medications: Current Medications Generic Name Dose Route Start Last Admin Trade Name Freq PRN Reason Stop Dose Admin Acetaminophen 0 mg 12/11/22 17:21 12/14/22 20:16 Acetaminophen 325 Mg Tab PO 650 mg Q4H PRN PRN Administration Acidophilus/Pectin 1 cap 12/11/22 20:00 12/14/22 20:17 Lactobacillus Acidophilus Cap PO 1 cap BID KANE Administration Al Hydrox/Mg Hydrox/Simethicone 30 ml 12/11/22 17:21 Mylanta Suspension 30 Ml Cup PO Q2H PRN PRN Albuterol Sulfate 2.5 mg 12/11/22 17:21 Albuterol 2.5 Mg/3 Ml Inh Soln Vial UPD Q2H PRN PRN Albuterol/Ipratropium 3 ml 12/11/22 20:00 12/15/22 08:03 Albuterol/Ipratropium 3 Ml Upd Vial UPD 3 ml QID KANE Administration Alendronate Sodium 70 mg 12/17/22 06:00 Alendronate 70 Mg Tab PO Sa@0600 KANE Apixaban 5 mg 12/11/22 20:00 12/15/22 08:31 Apixaban 5 Mg Tab PO 5 mg BID KANE Administration Atorvastatin Calcium 20 mg 12/11/22 22:00 12/14/22 21:52 Atorvastatin 20 Mg Tab PO 20 mg HS [facility] Administration Bisacodyl 10 mg 12/11/22 17:38 Bisacodyl 5 Mg Tabec PO DAILY PRN PRN Calcitonin [place] 0 ml 12/12/22 08:30 12/15/22 08:31 Calcitonin-[place], Synthetic 3.7 Ml Btl NS 1 spray DAILY KANE Administration Calcium Carbonate 500 mg 12/11/22 18:15 Calcium Carbonate *Tums* 500 Mg Chew CH TID PRN PRN Calcium Citrate 950 mg 12/11/22 20:00 12/14/22 20:17 Calcium Citrate 950 Mg Tab PO 950 mg BID KANE Administration Carbidopa/Levodopa 1 tab 12/13/22 17:00 12/15/22 08:32 Carbidopa 25/Levodopa 100 Tab PO 1 tab 0800,1200,1700,2200 KANE Administration Cholecalciferol 2,000 units 12/12/22 08:30 12/14/22 07:50 Cholecalciferol (Vitamin D3) 1,000 Unit Tab PO 2,000 units DAILY [facility] Administration Citalopram Hydrobromide 20 mg 12/12/22 08:30 12/15/22 08:31 Citalopram 20 Mg Tab PO 20 mg DAILY KANE Administration Cyclobenzaprine HCl 5 mg 12/11/22 17:29 12/14/22 20:18 Cyclobenzaprine 10 Mg Tab PO 5 mg HS PRN PRN Administration Muscle Spasm Device 1 each 12/11/22 13:00 Inhaler, Assist Device MC DIRECTED [facility] Dextrose 0 gm 12/11/22 17:54 Glucose Oral Gel 15 Gm/37.5 Gm Tube PO DIRECTED PRN Dextrose/Water 0 gm 12/11/22 17:54 Dextrose 50%-Water 25 Gm/50 Ml Syr IVP DIRECTED PRN Docusate Sodium 100 mg 12/11/22 17:21 Docusate Sodium 100 Mg Cap PO TID PRN PRN Famotidine 20 mg 12/11/22 20:00 12/15/22 08:32 Famotidine 20 Mg Tab PO 20 mg BID KANE Administration Gabapentin 600 mg 12/11/22 20:00 12/15/22 08:31 Gabapentin 300 Mg Cap PO 600 mg TID KANE Administration Guaifenesin 600 mg 12/13/22 20:00 12/14/22 20:17 Guaifenesin 600 Mg Tabcr PO 600 mg BID KANE Administration Sodium Chloride 500 mls @ 0 mls/hr 12/11/22 17:21 Saline 500ml Bag IV PRN PRN As Directed Ceftriaxone Sodium/Dextrose 2 gm in 50 mls @ 100 mls/hr 12/13/22 16:00 12/14/22 21:01 Rocephin IVPB Infused Q24H KANE Infusion Dextrose/Lactated Ringer's 1,000 mls @ 30 mls/hr 12/15/22 01:00 12/15/22 01:30 Dextrose 5%-Lr IV 30 mls/hr INFUSION [facility] Administration Doxycycline Hyclate 100 mg/ 100 mls @ 100 mls/hr 12/15/22 10:00 Sodium Chloride IVPB Q12H [facility] IV Miscellaneous Supplies 1 each 12/11/22 17:30 Iv Access IV DIRECTED [facility] Insulin Aspart 0 units 12/11/22 22:00 12/14/22 23:00 Insulin Aspart 300 Units/3 Ml Pen SC 12 units 0800,1200,1700,2200 [facility] Administration Protocol Insulin Aspart 0 units 12/12/22 17:00 12/14/22 17:31 Insulin Aspart 300 Units/3 Ml Pen SC 16 unit 0800,1200,1700 KANE Administration Insulin Glargine 15 units 12/13/22 22:00 12/14/22 23:00 Insulin Glargine 300 Units/3 Ml Pen SC 15 units HS KANE Administration Insulin Human NPH 25 unit 12/14/22 08:30 12/14/22 08:06 Insulin Nph-Human 300 Units/3 Ml Pen SC 25 units DAILY [facility] Administration Magnesium Hydroxide 30 ml 12/11/22 17:21 Milk Of Magnesia 30 Ml Cup PO DAILY PRN PRN Meloxicam 15 mg 12/12/22 08:30 12/15/22 08:31 Meloxicam 15 Mg Tab PO 15 mg DAILY KANE Administration Morphine Sulfate 45 mg 12/11/22 20:00 12/14/22 20:16 Morphine C.R. 15 Mg Tabcr PO 45 mg BID KANE Administration Multivitamins 1 tab 12/12/22 08:30 12/14/22 07:50 Multivitamin Tab PO 1 tab DAILY KANE Administration Naloxone HCl 4 mg 12/11/22 17:29 Naloxone Nasal 4 Mg/[place] Inhn-Vdh NS PRN PRN Oxycodone HCl 15 mg 12/11/22 17:29 12/14/22 18:03 Oxycodone 15 Mg Tab PO 15 mg TID PRN PRN Administration Pantoprazole Sodium 20 mg 12/14/22 07:30 12/14/22 07:51 Pantoprazole 20 Mg Tabcr PO 20 mg DAILY@0730 KANE Administration Patient's Own 1 each 12/13/22 07:30 12/15/22 08:31 Medication (Linzess PO 1 each 290 Mg Capsule) DAILY@0730 KANE Administration Polyethylene Glycol 17 gm 12/11/22 17:21 Polyethylene Glycol 3350 17 Gm Packet PO DAILY PRN PRN Constipation Prednisone 60 mg 12/14/22 08:30 12/15/22 08:31 Prednisone 20 Mg Tab PO 60 mg DAILY KANE Administration Sennosides 1 tab 12/11/22 20:00 12/14/22 21:46 Senna Tab PO Not Given BID KANE Sodium Chloride 0 ml 12/11/22 17:21 Normal Saline Flush 10 Ml Syr IVP PRN PRN Tamsulosin HCl 0.4 mg 12/11/22 22:00 12/14/22 21:52 Tamsulosin 0.4 Mg Capcr PO 0.4 mg HS KANE Administration Trazodone HCl 100 mg 12/11/22 22:00 12/14/22 21:52 Trazodone 100 Mg Tab PO 100 mg HS KANE Administration Trimethoprim/Sulfamethoxazole 1 tab 12/14/22 08:30 12/15/22 08:31 Sulfameth/Trimeth Ds Tab PO 1 tab DAILY KANE Administration Zolpidem Tartrate 10 mg 12/11/22 22:00 12/14/22 21:51 Zolpidem 10 Mg Tab PO 10 mg HS KANE Administration PFSH Active Problems Active Problems: Problem Status Onset Code History of recurrent pulmonary infection Z86.19 Chronic interstitial lung disease J84.9 Restrictive lung disease J98.4 Pulmonary embolism on long-term anticoagulation therapy I26.99, Z79.01 Diffuse lung disease J98.4 Acute and chronic respiratory failure with hypoxia J96.21 Dyspnea R06.00 Compression fracture of lumbar vertebra S32.000A Multifocal pneumonia J18.9 Osteoarthritis of hip 07/16/12 M16.9 Benign hypertension I10 Sleep apnea G47.30 Gastroesophageal reflux disease K21.9 Cullen's esophagus K22.70 History of surgery Z98.89 Right knee pain M25.561 Peripheral neuropathy G62.9 Medical History Medical History (Updated 12/15/22 @ 08:15 by Ale Paniagua MD) Benign hypertension Depression Diabetes mellitus DVT (deep venous thrombosis) R leg x2; unprovoked Gastroesophageal reflux disease Gout H/O ETOH abuse Stroke due to vascular stenosis Unknown when suspected stroke patient was last well 2017 while on coumadin; had episode of LOC followed by vision loss in one eye lasting 16 hours; work-up included TTE and stress test. Medical History Comments:: H/O tracheostomy. Since removed. Surgical History Surgical History Status post replacement of right shoulder joint 2018 Status post right knee replacement 2016 at [facility]; revision in 2017 at same Total replacement of hip (07/16/12) RIGHT HIP 2012; LEFT DONE ON 08/22/11 Tobacco Smoking/Tobacco Use Status: Never Alcohol Alcohol Intake: former Substance Use Substance use: Never Substance use type: does not use Vital Signs and Lab Results Vital Signs Most Recent Vital Signs in EMR: Most Recent Vital Signs Temp Pulse Resp BP Pulse Ox 36.4 C L 71 16 126/76 98 12/15/22 07:15 12/15/22 08:18 12/15/22 08:18 12/15/22 07:15 12/15/22 08:18 Point of Care Results Point of Care Results: Finger Stick Blood Glucose 135 12/15/22 07:51 Lab Results 12/13/22 06:50 12/13/22 06:50 Blood Type / Crossmatch: No Data to Display Complete Blood Count: White Blood Count 13.79 10^3/uL (4.4-10.8) H 12/13/22 06:50 Red Blood Count 4.40 10^6/uL (4.36-5.78) 12/13/22 06:50 Hemoglobin 13.0 g/dL (13.5-17.5) L 12/13/22 06:50 Hematocrit 39.6 % (40.0-50.0) L 12/13/22 06:50 Platelet Count 167 10^3/uL (130-400) 12/13/22 06:50 Venous Blood Lactate 2.2 mmol/L (0.6-1.4) H* 12/13/22 06:50 Complete Metabolic Panel: Sodium 140 mmol/L (136-145) 12/13/22 06:50 Potassium 4.6 mmol/L (3.5-5.1) 12/13/22 06:50 Chloride 102 mmol/L (98-107) 12/13/22 06:50 Carbon Dioxide 33.1 mmol/L (21.0-32.0) H 12/13/22 06:50 BUN 20 mg/dL (7-18) H 12/13/22 06:50 Creatinine 0.9 mg/dL (0.70-1.30) 12/13/22 06:50 Est GFR (CKD-EPI 2020) 95.97 (mL/min/1.73m2) 12/13/22 06:50 Magnesium 1.8 mg/dL (1.8-2.4) 12/12/22 06:30 Calcium 9.3 mg/dL (8.5-10.1) 12/13/22 06:50 Albumin 4.0 g/dL (3.4-5.0) 12/11/22 13:17 Glucose 202 mg/dL (74-106) H 12/13/22 06:50 C-Reactive Protein < 0.05 mg/dL (0.0-0.3) 12/15/22 06:15 Liver Function Panel: Alanine Aminotransferase (ALT/SGPT) 34 U/L (16-63) 12/11/22 13: 17 Aspartate Amino Transf (AST/SGOT) 66 U/L (15-37) H 12/11/22 13: 17 Coagulation Panel: D-Dimer 340 ng/mlFEU (<500) 11/21/22 12:29 Cardiac Panel: Troponin I < 50 ng/L (<or=60) 12/11/22 NT-Pro-B Natriuret Pep 19 pg/mL (<300) 12/11/22 Arterial Blood Gas: No Data to Display Venous Blood Gas: No Data to Display Pancreas Panel: No Data to Display Thyroid Panel: Thyroid Stimulating Hormone (TSH) 1.10 uIU/mL (0.36-3.74) 12/12 06:30 Infectious Disease: Coronavirus (COVID-19)(PCR) Negative (Negative) 12/11/22 20:30 Coronavirus 2019 Source Nasopharynx 12/11/22 20:30 Influenza Virus Type A (PCR) Negative (Negative) 12/11/22 20:3 0 Influenza Virus Type B (PCR) Negative (Negative) 12/11/22 20:3 0 Respiratory Syncytial Virus (PCR) Negative (Negative) 12/11/22 20:30 HIV (1&2) Ag and Ab, 4th Generation Pending 12/15/22 23: 59 Blood Cultures: No Data to Display Toxicology Panel: No Data to Display Imaging and Studies Imaging and Studies Study information below may be from another EMR and interpreted by another provider. Please see original notes in EMR for more complete details. EKG Summary: EKG PATIENT NAME: Anastasia Sorto SUNIT #: [id number] ORDERING PROVIDER: Joaquin Vargas M.D. PRIMARY CARE PROVIDER:INNA MCCAULEY APRN DATE/TIME OF SERVICE: 12/11/22 1203 : 1960PERFORMING LOCATION: [place] APPROVED REPORT Exam: Resting ECG Reason for Exam: sob, chest pain Patient Location: E HR:76 bpm ECG Measurements Heart Rate 76 AXIS LA 182 P 45 QRSd 84 QRS 29 QT 372 T34 QTc 418 Conclusion Sinus rhythm...normal P axis, V-rate 60- 99 sinus rhythm, normal axis, normal intervals, non ischemic <Electronically signed by Joaquin Vargas M.D. in OV> E-Sign Date: 12/14/22 E-Sign Time: 1611 ADDENDUM APPROVED REPORT Exam: Resting ECG Reason for Exam: sob, chest pain Patient Location: E HR:76 bpm ECG Measurements Heart Rate 76 AXIS LA 182 P 45 QRSd 84 QRS 29 QT 372 T34 QTc 418 Conclusion Sinus rhythm...normal P axis, V-rate 60- 99 sinus rhythm, normal axis, normal intervals, non ischemic I have reviewed and I agree with the emergency room physician's ECG interpretation. Electronically signed by: <Electronically signed by Zabrina Snider M.D. in OV> 12/15/22 0844 Cosigned by: Stress Test Summary: Patient Name: ANASTASIA SORTO #: [id number]: DI Ordering Provider: Trevin Kellogg EAccount #: [id number]: DANISH CLI Primary Care Provider: Trevin Kellogg EDate of Exam: 12/27/17ex: M : 1960Age: 57 Exam(s) a NM:NM MPI rest & stress grp *[facility]* *[facility]* [address] [place] [address] Myocardial Perfusion Imaging - SPECT Regadenoson Date of study: 12/27/2017 *PATIENT PRESENTATION* Height: 172.7cm (68in) Blood Pressure: Weight: 112.7kg (248lb) BSA: 2.37m^2 Referring physician: Jakob Dawson Ordering physician: Trevin Kellogg MD Impressions: - Normal perfusion and contraction by Tc99m Sestamibi Imaging. - Poor image quality. Summary: 1. Myocardial perfusion imaging: No myocardial perfusion defects noted. 2. The calculated left ventricular ejection fraction after stress: 58%. LV global systolic function is normal. No left ventricular regional motion abnormality. 3. Stress ECG conclusions: The stress ECG is negative. 4. Stress: The heart rate response to stress is normal. The patient experienced no chest pain during stress. 5. Imaging information: gated. The image quality was poor. Image quality reduced due to mild patient motion and body habitus. Indication: R07.9. History: Patient's presenting symptoms: asymptomatic. Patient's presenting symptoms: asymptomatic. REASON FOR VISIT: PATIENT REPORTS EXPERIENCING 7/10 ACHY STERNAL AND LEFT SIDED CHEST PAIN FOR THE PAST 3-4 MONTHS. CHEST PAIN MOSTLY OCCURS WITH ACTIVITY, THOUGH SOMETIMES AT REST. CHEST PAIN RESOLVES AFTER ABOUT A MINUTE WITHOUT MEDICAL INTERVENTION. PATIENT ALSO NOTICES AN INCREASE IN FATIGUE ALONG WITH CHEST PAIN. PATIENT LAST EXPERIENCED CHEST PAIN YESTERDAY AFTERNOON. STRESS TEST ORDERED FOR FOLLOW UP OF PATIENT SYMPTOMS AND WORKUP FOR PENDING SURGERIES (GASTRIC BIPASS AND LEFT KNEE SURGERY). 09/09/16 ECHOCARDIOGRAM: EF 55-60%. RIGHT VENTRICLE CAVITY SIZE WAS DILATED; SYSTOLIC FUNCTION WAS REDUCED. MODERATE REGURGITATION OF TRICUSPID VALVE. 08/31/16 MPI RESTING AND STRESS TEST: NORMAL MYOCARDIAL PERFUSION AND CONTRACTION AFTER PHARMACOLOGICAL STRESS. LEFT VENTRICULAR EJECTION FRACTION AFTER STRESS 52%. PAST MEDICAL HISTORY: DEPRESSION, CHEST PAIN, KNEE JOINT PAIN, MICROALBUMINURIA, SYNCOPE, DM TYPE II, GOUT, OSTEOARTHRITIS (KNEE), HYPERTENSION, OBESITY, DVT OF RIGHT LEG, BARRETTS ESOPHAGEAL ULCERATION, BILATERAL TOTAL HIP ARTHROPLAYSTY, OBSTRUCTIVE SLEEP APNEA. FAMILY HISTORY: MOTHER, FATHER, AND 2 BROTHERS FROM MYOCARDIAL INFARCTION. THIRD BROTHER HAD MYOCARDIAL INFARCTION. SMOKING STATUS: NEVER SMOKER. EXERCISE ROUTINE: NONE. Risk factors: Family history of coronary artery disease. Hypertension. Diabetes mellitus. Obesity. Dyslipidemia. Cholesterol: 209mg/dl. HDL: 47mg/dl. LDL: 145mg/dl. Triglycerides: 136mg/dl. ALLERGIES: TAGAMET, XARELTO, LATEX, LISINOPRIL. MEDICATIONS: ATORVASTATIN CALCIUM 20MG, HS. TRAZODONE HCL 50MG, HS. MAGNESIUM OXIDE 400MG, DAILY. POTASSIUM CHOLORIDE 20MEQ, BID. HYDROCODONE-ACETAMINOPHEN 10-325MG, PRN. ALLOPURINOL 300MG, DAILY. BUMETANIDE 2MG, BID. INDOMETHACIN 50MG, PRN. RESTATIS 3 DROPS, BID. DICYCLOMINE HCL 10MG, QID. METFORMIN HCL 850MG, BID. LOSARTAN POTASSIUM 25MG, DAILY. GABAPENTIN 300MG, TID. DEXIMANT 60MG, BID. SENEXON 8.6MG, DAILY. NARCAN, PRN. WARFARIN SODIUM, DIRECTED. Imaging Technique: Protocol: Regadenoson. Acquisition: Gated SPECT; 1 day - rest/stress. The patient was imaged in the supine position. Attenuation correction used. Isotope administration: - Rest. Tc[99m]-sestamibi. Dose: 12mCi. Injection time: 11:00 AM. Injection to stress time: 00:45. - Stress. Tc[99m]-sestamibi. Dose: 37mCi. Injection time: 02:00 PM. 1-2 min before end of exercise Baseline ECG: SINUS RHYTHM. HEART RATE 60 BPM. Stress protocol: +--------+--+ + + !Stage !HR!BP (mmHg) !Comments ! +--------+--+ + + !Baseline!60!132/68 (89) ! ! +--------+--+ + + !1 min !80!160/70 (100)!Inject Regadenoson.! +--------+--+ + + !3 min !80!172/80 (111)! ! +--------+--+ + + !6 min !71!152/74 (100)! ! +--------+--+ + + * Stress results: The heart rate response to stress is normal. The rate-pressure product for the peak heart rate and blood pressure was 03366oy Hg/min. The patient experienced no chest pain during stress. Stress ECG: STRESS TEST ENDED IN 6MIN WHEN ALL SYMPTOMS OF REGADENOSON INJECTION SUBSIDED. APPROPRIATE HEART RATE AND BLOOD PRESSURE RESPONSE TO REGADENOSON INJECTION. NO ECTOPY NOTED. NO ANGINA REPORTED. The stress ECG is negative. Myocardial perfusion: Imaging information: gated. The image quality was poor. Image quality reduced due to mild patient motion and body habitus. Left ventricular size is normal. Right ventricular size is normal. No myocardial perfusion defects noted. Ventricular Function (Wall Motion): The calculated left ventricular ejection fraction after stress: 58%. LV global systolic function is normal. No left ventricular regional motion abnormality. Right ventricular function is normal. Study data: Jakob Dawson MD supervised and was readily available during the procedure. This study was interpreted by [facility]. Study status: Routine. Consent: The risks, benefits, and alternatives to the procedure were explained to the patient and informed consent was obtained. Procedure: Initial setup. A baseline ECG was recorded. Surface ECG leads and manual cuff blood pressure measurements were monitored. Heart sounds: Normal. Lung sounds: Normal. Regadenoson stress test. Stress testing was performed, with regadenoson by intravenous bolus, for a total dose of 0.4mgover 10.00sec, followed by a 5ml saline flush. The infusion was terminated due to per protocol. Study completion: All catheters inserted during the procedure were removed. The patient tolerated the procedure well and was discharged from the lab. Discharge: The patient left the laboratory in stable condition. Birthdate: Patient birthdate: 1960. Sex: Gender: male. Study date: Study date: 12/27/2017. Study time: 12:30 PM. Signature Documentation: - The imaging portion of this study was interpreted by [facility] Rn Jakob Dawson MD. - The Stress ECG portion of this study was interpreted by Jakob Dawson MD. Electronically signed by Jakob Dawson 12/27/2017 17:30 Ordering provider: Trevin Kellogg CC: JAKOB DAWSON MD Dictated by: Liliya Engle M.D.12/28/17 1233 <Electronically signed by Liliya Engle M.D.>12/28/17 1699 Disclaimer: The [facility] radiologist is signing only the Nuclear Medicine MPI Imaging exam portion of the report. Transcribed by: Toan Garvey12/28/17 8618 This is privileged, confidential information intended only for the provider [facility]. Any use or distribution by any person other than this provider is strictly prohibited. If you receive this report in error, please notify us immediately at [phone] and return the original report to us at the address above. Thank- you. Echocardiogram Summary: Patient Name: Anastasia Sorto SUnit #: [id number]: MS Ordering Provider: Jurgen Dave M.D. : ADM IN Primary Care Provider: Julia Mccauley of Exam: 12/12/22Sex: M Admission Date: 12/11/22 : 1960 Age: 62 APPROVED REPORT EXAM: Comprehensive 2D, Doppler, and color-flow Echocardiogram Patient Location: In-Patient Room/Bed: [facility] Loan Collector: Shanda Dixon RDCS (AE) Indications: Dyspne, Chest pain, Evaluate LV and RV function, Pulmonary Embolism, HTN Other Information Study Quality: Fair. Technically limited study due to body habitus, inability to position patient exam done supine. Conclusion Normal left ventricular wall thickness and chamber size. Ejection fraction is 55 to 60%. Wall motion is normal Right ventricle appears normal in size and systolic function Both atria are normal in size The aortic valve is sclerotic and trileaflet without stenosis or regurgitation Mild mitral annular calcification Right ventricular systolic pressure could not be estimated Dilated ascending aorta measuring 3.84 cm Wall motion Left Ventricle The left ventricle is normal size. The overall left ventricular systolic function appears normal. There is normal left ventricular wall thickness. There is normal LV segmental wall motion. There is no ventricular septal defect visualized. LVEF is 55%. Right Ventricle Right ventricle is grossly normal in size. Right ventricular systolic function is grossly normal. Atria The left atrium size is normal. The right atrium size is normal. The interatrial septum is intact with no evidence for an atrial septal defect. Aortic Valve The Aortic valve is sclerotic. Aortic valve is trileaflet. There is no aortic valvular stenosis. No aortic regurgitation is present. Mitral Valve Mild mitral annular calcification. No evidence of mitral valve stenosis. Trace mitral regurgitation. Tricuspid Valve The tricuspid valve is normal in structure. There is no tricuspid valve stenosis. Trace tricuspid regurgitation. Unable to assess PA pressure. Pulmonic Valve The pulmonary valve is normal in structure. There is no pulmonic valvular stenosis. Trace pulmonic regurgitation. Great Vessels The aortic root is normal in size. The ascending aorta is mildly dilated. Aortic arch is not well visualized. The IVC collapses <50% with inspiration. Pericardium There is no pericardial effusion. 2D Dimensions IVSD d PLAX 1.06 cm M: 0.6-1.2 LVPW d PLAX 1.08 cm M: 0.6 - 1.2 LVID d PLAX 4.89 cm M: 4.2 - 5.8 LVDs 3.45 cm M: 2.5 - 4.0 Ao Root d 3.35 cm M: 3.1 - 3.7 RA Area A4C11.09 cm2 Ao Asc Diam d 3.84 cm M: 2.6 - 3.4 LV EF Teichholz 55.9 % FS29.15 % LV Diastology MV E' medial0.070 (>0.07 m/s)E/A Ratio 0.8 LV E/e MED7.87 (<14)MV E Vmax 0.55 (0.4-1.3 m/s) MV E' lateral0.090 (>0.1 m/s)MV A Vmax 0.70 (0.4-1.3 m/s) LV E/e LAT6.12 (<14) MV E/E' medial 7.87 MV E/E' lateral6.12 MV (E/E' average)6.88 Aortic Valve LVOT Vmax 1.08 m/sAoV Area Vmax1.82 cm2 LVOT Peak Grad 4.7 mmHg LVOT Mean Grad 2.5 mmHg LVOT Diam s 2.00 cm AoV Peak Grad14.5 mmHg LVOT SV 54.66 mL AoV Mean Grad7.0 mmHg AoV Area VTI1.82 cm2 Mitral Valve MV DT 231 (160-240 msec) MV Vmax TIPS 0.64 m/s MV Mean Grad 0.8 (<2mmHg) MV VTI 0.157 m Pulmonary Valve PV Mean Grad 4.6 mmHgRVOT Peak Gr.4.11 mmHg RVOT Mean Gr.2.30 mmHg RVOT VTI0.177 m RVOT Vmax 1.01 m/s Ordered By: Jurgen Dave M.D. CC: Dictated By: Zabrina Snider M.D. 12/12/22 1035 <Electronically signed by Zabrina Snider M.D. in OV> 12/12/22 1040 Transcribed By: Zabrina Snider MD Anesthesia Assessment and Plan Anesthesia History Personal History: No History of Anesthesia Complications Family History: No Family History of Anesthesia Complications Exercise Tolerance Exercise Tolerance: Metabolic Equivalents<4 Pertinent Negatives Pertinent Negatives: No Symptoms of GERD Cardiac & Pulmonary Exam Cardiac Exam: Normal S1/S2 [facility] Pulmonary Exam: Rales Present Implantable Cardiac Device Does patient have a Pacemaker or an ICD?: No Airway Exam Known Difficult Airway: No Mallampati Class: 2 Mouth Opening: Normal (> 3cm) Thyromental Distance: Greater than 3 cm Neck Range of Motion: Full ROM Neck Circumference: Normal Teeth Condition: Normal Dentition and Generalized Poor Dentition ASA Classification ASA Score: ASA 3 Emergency Case?: No NPO Status NPO Status: NPO Clears >2 hours, Solids >8 hours Anesthesia Plan Resuscitation Status: Full Code Anesthesia Technique: General Anesthesia Airway Planned: Endotracheal Tube Monitors Used: Standard Monitors Preoperative Comments:: History of tracheostomy in 01/2021. Has not been intubated since his trach was removed in 2021 (glide, bronch, bougie and downsized OETT in room)
--- NOTE | 2022-12-15 10:58 | PDOC.CMPRO ---
Date of service: 12/15/22 Time of Service: 10:58 Care Management Progress Note Progress Note Text Progress Note Text: S/O: Deonte reportedly was frustrated about not being able to transfer to [facility]. Dr. Paniagua consult and bronchoscopy planned today to obtain specimens for culture and testing. CM continues to follow. A: Deonte is a 62 year old man admitted on 12/11/22 with Respiratory failure P: Anticipate Deonte will return home with a resumption of his OP PT. He may need new home health services at first as he is weak and de-saturates easily with any activity; evaluations continue. Deonte will follow [facility] with [facility] and transport with family. CM will continue to support Deonte and assess for discharge concerns.
[2022-12-15] MEDS: DOXYCYCLINE 100 MG in Normal Saline 100 ML IVPB ×2 (11:02→21:14)
--- NOTE | 2022-12-15 11:46 | W.ANESCON ---
General Height: 5 ft 8 in Weight: 103.6 kg Body Mass Index (BMI): 34.7 Meds Allergies and Home Medications Allergies Allergy/AdvReac Type Severity Reaction Status Date / Time cimetidine HCl [From Tagamet] Allergy Severe Anaphylaxsi Verified 12/11/22 12:04 s rivaroxaban [From Xarelto] Allergy Severe Verified 12/11/22 12:04 Latex, Natural Rubber Allergy Intermediate Skin Rash Verified 12/11/22 12:04 lisinopril Allergy Intermediate Verified 12/11/22 12:04 morphine Allergy Mild Itching Verified 12/11/22 12:04 diphenhydramine HCl AdvReac Intermediate palpitation Verified 12/11/22 12:04 [From Benadryl] s promethazine HCl AdvReac Dizziness/L Verified 12/11/22 12:04 [From Phenergan] ightheade Home Medication Medication Instructions Recorded linaclotide 290 mcg capsule 290 mg PO DAILY 02/04/14 (Linzess) morphine 15 mg tablet,extended 45 mg PO BID 05/17/22 release multivitamin no.51-ferrous 1 cap PO DAILY 05/17/22 fumarate 106.5 mg-folic acid 1 mg capsule naloxone 4 mg/actuation nasal 4 mg intranasal Q2-3M PRN 05/17/22 spray (Narcan) tamsulosin 0.4 mg capsule 0.4 mg PO QHS 05/17/22 zolpidem 10 mg tablet (Ambien) 10 mg PO QHS 05/17/22 Lactobacillus acidophilus 1 cap PO BID 05/19/22 (Acidophilus capsule) acetaminophen 325 mg tablet 650 mg PO Q4H 05/19/22 alendronate 70 mg tablet 70 mg PO QWEEK 05/19/22 apixaban 5 mg tablet 5 mg PO BID 05/19/22 ascorbic acid (vitamin C) 500 mg 1,000 mg PO DAILY 05/19/22 tablet atorvastatin 20 mg tablet 20 mg PO QHS 05/19/22 bisacodyl 5 mg tablet 10 mg PO DAILY PRN 05/19/22 calcitonin (salmon) 200 1 spray intranasal (ALT) DAILY 05/19/22 unit/actuation nasal spray calcium carbonate 400 mg calcium 400 mg PO TID PRN 05/19/22 (1,000 mg) chewable tablet calcium citrate 200 mg (950 mg) 400 mg PO BID 05/19/22 tablet carbidopa 25 mg-levodopa 100 mg 1 tab PO QID 05/19/22 tablet cholecalciferol (vitamin D3) 50 50 mcg PO DAILY 05/19/22 mcg (2,000 unit) tablet citalopram 40 mg tablet 20 mg PO DAILY 05/19/22 cyclobenzaprine 10 mg tablet 5 - 10 mg PO HS PRN 05/19/22 famotidine 20 mg tablet 20 mg PO BID 05/19/22 gabapentin 300 mg capsule 600 mg PO TID 05/19/22 meloxicam 15 mg tablet 15 mg PO DAILY 05/19/22 metformin 500 mg tablet 500 mg PO BIDWMEAL 05/19/22 sennosides 8.6 mg tablet (senna) 8.6 mg PO BID 05/19/22 trazodone 100 mg tablet 100 mg PO HS 05/19/22 oxycodone 15 mg tablet 15 mg TID PRN 11/21/22 Current Visit Medications: Current Medications Generic Name Dose Route Start Last Admin Trade Name Freq PRN Reason Stop Dose Admin Acetaminophen 0 mg 12/11/22 17:21 12/14/22 20:16 Acetaminophen 325 Mg Tab PO 650 mg Q4H PRN PRN Administration Acidophilus/Pectin 1 cap 12/11/22 20:00 12/15/22 11:22 Lactobacillus Acidophilus Cap PO Not Given BID KANE Al Hydrox/Mg Hydrox/Simethicone 30 ml 12/11/22 17:21 Mylanta Suspension 30 Ml Cup PO Q2H PRN PRN Albuterol Sulfate 2.5 mg 12/11/22 17:21 Albuterol 2.5 Mg/3 Ml Inh Soln Vial UPD Q2H PRN PRN Albuterol/Ipratropium 3 ml 12/11/22 20:00 12/15/22 08:03 Albuterol/Ipratropium 3 Ml Upd Vial UPD 3 ml QID KANE Administration Alendronate Sodium 70 mg 12/17/22 06:00 Alendronate 70 Mg Tab PO Sa@0600 KANE Apixaban 5 mg 12/11/22 20:00 12/15/22 08:31 Apixaban 5 Mg Tab PO 5 mg BID KANE Administration Atorvastatin Calcium 20 mg 12/11/22 22:00 12/14/22 21:52 Atorvastatin 20 Mg Tab PO 20 mg HS KANE Administration Bisacodyl 10 mg 12/11/22 17:38 Bisacodyl 5 Mg Tabec PO DAILY PRN PRN Calcitonin Campo 0 ml 12/12/22 08:30 12/15/22 08:31 Calcitonin-Campo, Synthetic 3.7 Ml Btl NS 1 spray DAILY KANE Administration Calcium Carbonate 500 mg 12/11/22 18:15 Calcium Carbonate *Tums* 500 Mg Chew CH TID PRN PRN Calcium Citrate 950 mg 12/11/22 20:00 12/15/22 11:21 Calcium Citrate 950 Mg Tab PO Not Given BID KANE Carbidopa/Levodopa 1 tab 12/13/22 17:00 12/15/22 08:32 Carbidopa 25/Levodopa 100 Tab PO 1 tab 0800,1200,1700,2200 KANE Administration Cholecalciferol 2,000 units 12/12/22 08:30 12/15/22 11:21 Cholecalciferol (Vitamin D3) 1,000 Unit Tab PO Not Given DAILY KANE Citalopram Hydrobromide 20 mg 12/12/22 08:30 12/15/22 08:31 Citalopram 20 Mg Tab PO 20 mg DAILY KANE Administration Cyclobenzaprine HCl 5 mg 12/11/22 17:29 12/14/22 20:18 Cyclobenzaprine 10 Mg Tab PO 5 mg HS PRN PRN Administration Muscle Spasm Device 1 each 12/11/22 13:00 Inhaler, Assist Device MC DIRECTED KANE Dextrose 0 gm 12/11/22 17:54 Glucose Oral Gel 15 Gm/37.5 Gm Tube PO DIRECTED PRN Dextrose/Water 0 gm 12/11/22 17:54 Dextrose 50%-Water 25 Gm/50 Ml Syr IVP DIRECTED PRN Docusate Sodium 100 mg 12/11/22 17:21 Docusate Sodium 100 Mg Cap PO TID PRN PRN Famotidine 20 mg 12/11/22 20:00 12/15/22 08:32 Famotidine 20 Mg Tab PO 20 mg BID KANE Administration Gabapentin 600 mg 12/11/22 20:00 12/15/22 08:31 Gabapentin 300 Mg Cap PO 600 mg TID KANE Administration Guaifenesin 600 mg 12/13/22 20:00 12/15/22 11:21 Guaifenesin 600 Mg Tabcr PO Not Given BID [facility] Sodium Chloride 500 mls @ 0 mls/hr 12/11/22 17:21 Saline 500ml Bag IV PRN PRN As Directed Ceftriaxone Sodium/Dextrose 2 gm in 50 mls @ 100 mls/hr 12/13/22 16:00 12/14/22 21:01 Rocephin IVPB Infused Q24H [facility] Infusion Dextrose/Lactated Ringer's 1,000 mls @ 30 mls/hr 12/15/22 01:00 12/15/22 01:30 Dextrose 5%-Lr IV 30 mls/hr INFUSION [facility] Administration Doxycycline Hyclate 100 mg/ 100 mls @ 100 mls/hr 12/15/22 10:00 12/15/22 11:02 Sodium Chloride IVPB 100 mls/hr Q12H [facility] Administration IV Miscellaneous Supplies 1 each 12/11/22 17:30 Iv Access IV DIRECTED [facility] Insulin Aspart 0 units 12/11/22 22:00 12/14/22 23:00 Insulin Aspart 300 Units/3 Ml Pen SC 12 units 0800,1200,1700,2200 [facility] Administration Protocol Insulin Aspart 0 units 12/12/22 17:00 12/15/22 11:20 Insulin Aspart 300 Units/3 Ml Pen SC Not Given 0800,1200,1700 [facility] Insulin Glargine 15 units 12/13/22 22:00 12/14/22 23:00 Insulin Glargine 300 Units/3 Ml Pen SC 15 units [facility] Administration Insulin Human NPH 25 unit 12/14/22 08:30 12/14/22 08:06 Insulin Nph-Human 300 Units/3 Ml Pen SC 25 units DAILY [facility] Administration Magnesium Hydroxide 30 ml 12/11/22 17:21 Milk Of Magnesia 30 Ml Cup PO DAILY PRN PRN Meloxicam 15 mg 12/12/22 08:30 12/15/22 08:31 Meloxicam 15 Mg Tab PO 15 mg DAILY KANE Administration Morphine Sulfate 45 mg 12/11/22 20:00 12/15/22 11:09 Morphine C.R. 15 Mg Tabcr PO 45 mg BID [facility] Administration Multivitamins 1 tab 12/12/22 08:30 12/15/22 11:22 Multivitamin Tab PO Not Given DAILY KANE Naloxone HCl 4 mg 12/11/22 17:29 Naloxone Nasal 4 Mg/Alto Inhn-Vdh NS PRN PRN Oxycodone HCl 15 mg 12/11/22 17:29 12/14/22 18:03 Oxycodone 15 Mg Tab PO 15 mg TID PRN PRN Administration Pantoprazole Sodium 20 mg 12/14/22 07:30 12/15/22 11:22 Pantoprazole 20 Mg Tabcr PO Not Given DAILY@0730 [facility] Patient's Own 1 each 12/13/22 07:30 12/15/22 08:31 Medication (Linzess PO 1 each 290 Mg Capsule) DAILY@0730 [facility] Administration Polyethylene Glycol 17 gm 12/11/22 17:21 Polyethylene Glycol 3350 17 Gm Packet PO DAILY PRN PRN Constipation Prednisone 60 mg 12/14/22 08:30 12/15/22 08:31 Prednisone 20 Mg Tab PO 60 mg DAILY [facility] Administration Sennosides 1 tab 12/11/22 20:00 12/15/22 11:22 Senna Tab PO Not Given BID [facility] Sodium Chloride 0 ml 12/11/22 17:21 Normal Saline Flush 10 Ml Syr IVP PRN PRN Tamsulosin HCl 0.4 mg 12/11/22 22:00 12/14/22 21:52 Tamsulosin 0.4 Mg Capcr PO 0.4 mg HS [facility] Administration Trazodone HCl 100 mg 12/11/22 22:00 12/14/22 21:52 Trazodone 100 Mg Tab PO 100 mg HS [facility] Administration Trimethoprim/Sulfamethoxazole 1 tab 12/14/22 08:30 12/15/22 08:31 Sulfameth/Trimeth Ds Tab PO 1 tab DAILY KANE Administration Zolpidem Tartrate 10 mg 12/11/22 22:00 12/14/22 21:51 Zolpidem 10 Mg Tab PO 10 mg HS [facility] Administration PFSH Active Problems Active Problems: Problem Status Onset Code History of recurrent pulmonary infection Z86.19 Chronic interstitial lung disease J84.9 Restrictive lung disease J98.4 Pulmonary embolism on long-term anticoagulation therapy I26.99, Z79.01 Diffuse lung disease J98.4 Acute and chronic respiratory failure with hypoxia J96.21 Dyspnea R06.00 Compression fracture of lumbar vertebra S32.000A Multifocal pneumonia J18.9 Osteoarthritis of hip 07/16/12 M16.9 Benign hypertension I10 Sleep apnea G47.30 Gastroesophageal reflux disease K21.9 Cullen's esophagus K22.70 History of surgery Z98.89 Right knee pain M25.561 Peripheral neuropathy G62.9 Medical History Medical History (Updated 12/15/22 @ 08:15 by Ale Paniagua MD) Benign hypertension Depression Diabetes mellitus DVT (deep venous thrombosis) R leg x2; unprovoked Gastroesophageal reflux disease Gout H/O ETOH abuse Stroke due to vascular stenosis Unknown when suspected stroke patient was last well 2017 while on coumadin; had episode of LOC followed by vision loss in one eye lasting 16 hours; work-up included TTE and stress test. Surgical History Surgical History Status post replacement of right shoulder joint 2018 Status post right knee replacement 2015 at [facility]; revision in 2017 at same Total replacement of hip (07/16/12) RIGHT HIP 2012; LEFT DONE ON 08/22/11 Tobacco Smoking/Tobacco Use Status: Never Alcohol Alcohol Intake: former Substance Use Substance use: Never Substance use type: does not use Vital Signs & Lab Results Vital Signs Most Recent Vital Signs: Most Recent Vital Signs Temp Pulse Resp BP Pulse Ox 36.0 C L 67 20 124/75 98 12/15/22 11:05 12/15/22 11:05 12/15/22 11:05 12/15/22 11:05 12/15/22 11:05 Point of Care Results Nursing Point of Care Results: Finger Stick Blood Glucose 199 H (70 - 120) 12/15/22 11:20 Lab Results 12/13/22 06:50 12/13/22 06:50 Blood Type / Crossmatch: No Data to Display Complete Blood Count: White Blood Count 13.79 10^3/uL (4.4-10.8) H 12/13/22 06:50 Red Blood Count 4.40 10^6/uL (4.36-5.78) 12/13/22 06:50 Hemoglobin 13.0 g/dL (13.5-17.5) L 12/13/22 06:50 Hematocrit 39.6 % (40.0-50.0) L 12/13/22 06:50 Platelet Count 167 10^3/uL (130-400) 12/13/22 06:50 Venous Blood Lactate 2.2 mmol/L (0.6-1.4) H* 12/13/22 06:50 Complete Metabolic Panel: Sodium 140 mmol/L (136-145) 12/13/22 06:50 Potassium 4.6 mmol/L (3.5-5.1) 12/13/22 06:50 Chloride 102 mmol/L (98-107) 12/13/22 06:50 Carbon Dioxide 33.1 mmol/L (21.0-32.0) H 12/13/22 06:50 BUN 20 mg/dL (7-18) H 12/13/22 06:50 Creatinine 0.9 mg/dL (0.70-1.30) 12/13/22 06:50 Est GFR (CKD-EPI 2020) 95.97 (mL/min/1.73m2) 12/13/22 06:50 Magnesium 1.8 mg/dL (1.8-2.4) 12/12/22 06:30 Calcium 9.3 mg/dL (8.5-10.1) 12/13/22 06:50 Albumin 4.0 g/dL (3.4-5.0) 12/11/22 13:17 Glucose 202 mg/dL (74-106) H 12/13/22 06:50 C-Reactive Protein < 0.05 mg/dL (0.0-0.3) 12/15/22 06:15 Liver Function Panel: Alanine Aminotransferase (ALT/SGPT) 34 U/L (16-63) 12/11/22 13:17 Aspartate Amino Transf (AST/SGOT) 66 U/L (15-37) H 12/11/22 13:17 Coagulation Panel: D-Dimer 340 ng/mlFEU (<500) 11/21/22 12:29 Cardiac Panel: Troponin I < 50 ng/L (<or=60) 12/11/22 NT-Pro-B Natriuret Pep 19 pg/mL (<300) 12/11/22 Arterial Blood Gas: No Data to Display Venous Blood Gas: No Data to Display Pancreas Panel: No Data to Display Thyroid Panel: Thyroid Stimulating Hormone (TSH) 1.10 uIU/mL (0.36-3.74) 12/12/22 06:30 Infectious Disease: Coronavirus (COVID-19)(PCR) Negative (Negative) 12/11/22 20:30 Coronavirus 2019 Source Nasopharynx 12/11/22 20:30 Influenza Virus Type A (PCR) Negative (Negative) 12/11/22 20:30 Influenza Virus Type B (PCR) Negative (Negative) 12/11/22 20:30 Respiratory Syncytial Virus (PCR) Negative (Negative) 12/11/22 20:30 HIV (1&2) Ag and Ab, 4th Generation Pending 12/15/22 23:59 Blood Cultures: No Data to Display Toxicology Panel: No Data to Display Imaging and Studies Imaging and Studies EKG Summary: EKG PATIENT NAME: Anastasia Sorto SUNIT #: [id number] ORDERING PROVIDER: Joaquin Vargas M.D. PRIMARY CARE PROVIDER:INNA MCCAULEY APRN DATE/TIME OF SERVICE: 12/11/22 1203 : 1960PERFORMING LOCATION: [place] APPROVED REPORT Exam: Resting ECG Reason for Exam: sob, chest pain Patient Location: E HR:76 bpm ECG Measurements Heart Rate 76 AXIS WI 182 P 45 QRSd 84 QRS 29 QT 372 T34 QTc 418 Conclusion Sinus rhythm...normal P axis, V-rate 60- 99 sinus rhythm, normal axis, normal intervals, non ischemic <Electronically signed by Joaquin Vargas M.D. in [place]> E-Sign Date: 12/14/22 E-Sign Time: 1611 ADDENDUM APPROVED REPORT Exam: Resting ECG Reason for Exam: sob, chest pain Patient Location: E HR:76 bpm ECG Measurements Heart Rate 76 AXIS WI 182 P 45 QRSd 84 QRS 29 QT 372 T34 QTc 418 Conclusion Sinus rhythm...normal P axis, V-rate 60- 99 sinus rhythm, normal axis, normal intervals, non ischemic I have reviewed and I agree with the emergency room physician's ECG interpretation. Electronically signed by: <Electronically signed by Zabrina Snider M.D. in [place]> 12/15/22 0844 Cosigned by: Stress Test Summary: Patient Name: ANASTASIA SORTO #: [id number]: DI Ordering Provider: Trevin Kellogg EAccount #: [id number]: REG CLI Primary Care Provider: Trevin Kellogg EDate of Exam: 12/27/17ex: M : 1960Age: 57 Exam(s) a NM:NM MPI rest & stress grp *[facility]* *[facility]* [address] [place] [address] Myocardial Perfusion Imaging - SPECT Regadenoson Date of study: 12/27/2017 *PATIENT PRESENTATION* Height: 172.7cm (68in) Blood Pressure: Weight: 112.7kg (248lb) BSA: 2.37m^2 Referring physician: Jakob Dawson Ordering physician: Trevin Kellogg MD Impressions: - Normal perfusion and contraction by Tc99m Sestamibi Imaging. - Poor image quality. Summary: 1. Myocardial perfusion imaging: No myocardial perfusion defects noted. 2. The calculated left ventricular ejection fraction after stress: 58%. LV global systolic function is normal. No left ventricular regional motion abnormality. 3. Stress ECG conclusions: The stress ECG is negative. 4. Stress: The heart rate response to stress is normal. The patient experienced no chest pain during stress. 5. Imaging information: gated. The image quality was poor. Image quality reduced due to mild patient motion and body habitus. Indication: R07.9. History: Patient's presenting symptoms: asymptomatic. Patient's presenting symptoms: asymptomatic. REASON FOR VISIT: PATIENT REPORTS EXPERIENCING 7/10 ACHY STERNAL AND LEFT SIDED CHEST PAIN FOR THE PAST 3-4 MONTHS. CHEST PAIN MOSTLY OCCURS WITH ACTIVITY, THOUGH SOMETIMES AT REST. CHEST PAIN RESOLVES AFTER ABOUT A MINUTE WITHOUT MEDICAL INTERVENTION. PATIENT ALSO NOTICES AN INCREASE IN FATIGUE ALONG WITH CHEST PAIN. PATIENT LAST EXPERIENCED CHEST PAIN YESTERDAY AFTERNOON. STRESS TEST ORDERED FOR FOLLOW UP OF PATIENT SYMPTOMS AND WORKUP FOR PENDING SURGERIES (GASTRIC BIPASS AND LEFT KNEE SURGERY). 09/09/16 ECHOCARDIOGRAM: EF 55-60%. RIGHT VENTRICLE CAVITY SIZE WAS DILATED; SYSTOLIC FUNCTION WAS REDUCED. MODERATE REGURGITATION OF TRICUSPID VALVE. 08/31/16 MPI RESTING AND STRESS TEST: NORMAL MYOCARDIAL PERFUSION AND CONTRACTION AFTER PHARMACOLOGICAL STRESS. LEFT VENTRICULAR EJECTION FRACTION AFTER STRESS 52%. PAST MEDICAL HISTORY: DEPRESSION, CHEST PAIN, KNEE JOINT PAIN, MICROALBUMINURIA, SYNCOPE, DM TYPE II, GOUT, OSTEOARTHRITIS (KNEE), HYPERTENSION, OBESITY, DVT OF RIGHT LEG, BARRETTS ESOPHAGEAL ULCERATION, BILATERAL TOTAL HIP ARTHROPLAYSTY, OBSTRUCTIVE SLEEP APNEA. FAMILY HISTORY: MOTHER, FATHER, AND 2 BROTHERS FROM MYOCARDIAL INFARCTION. THIRD BROTHER HAD MYOCARDIAL INFARCTION. SMOKING STATUS: NEVER SMOKER. EXERCISE ROUTINE: NONE. Risk factors: Family history of coronary artery disease. Hypertension. Diabetes mellitus. Obesity. Dyslipidemia. Cholesterol: 209mg/dl. HDL: 47mg/dl. LDL: 145mg/dl. Triglycerides: 136mg/dl. ALLERGIES: TAGAMET, XARELTO, LATEX, LISINOPRIL. MEDICATIONS: ATORVASTATIN CALCIUM 20MG, HS. TRAZODONE HCL 50MG, HS. MAGNESIUM OXIDE 400MG, DAILY. POTASSIUM CHOLORIDE 20MEQ, BID. HYDROCODONE-ACETAMINOPHEN 10-325MG, PRN. ALLOPURINOL 300MG, DAILY. BUMETANIDE 2MG, BID. INDOMETHACIN 50MG, PRN. RESTATIS 3 DROPS, BID. DICYCLOMINE HCL 10MG, QID. METFORMIN HCL 850MG, BID. LOSARTAN POTASSIUM 25MG, DAILY. GABAPENTIN 300MG, TID. DEXIMANT 60MG, BID. SENEXON 8.6MG, DAILY. NARCAN, PRN. WARFARIN SODIUM, DIRECTED. Imaging Technique: Protocol: Regadenoson. Acquisition: Gated SPECT; 1 day - rest/stress. The patient was imaged in the supine position. Attenuation correction used. Isotope administration: - Rest. Tc[99m]-sestamibi. Dose: 12mCi. Injection time: 11:00 AM. Injection to stress time: 00:45. - Stress. Tc[99m]-sestamibi. Dose: 37mCi. Injection time: 02:00 PM. 1-2 min before end of exercise Baseline ECG: SINUS RHYTHM. HEART RATE 60 BPM. Stress protocol: +--------+--+ + + !Stage !HR!BP (mmHg) !Comments ! +--------+--+ + + !Baseline!60!132/68 (89) ! ! +--------+--+ + + !1 min !80!160/70 (100)!Inject Regadenoson.! +--------+--+ + + !3 min !80!172/80 (111)! ! +--------+--+ + + !6 min !71!152/74 (100)! ! +--------+--+ + + * Stress results: The heart rate response to stress is normal. The rate-pressure product for the peak heart rate and blood pressure was 10937kw Hg/min. The patient experienced no chest pain during stress. Stress ECG: STRESS TEST ENDED IN 6MIN WHEN ALL SYMPTOMS OF REGADENOSON INJECTION SUBSIDED. APPROPRIATE HEART RATE AND BLOOD PRESSURE RESPONSE TO REGADENOSON INJECTION. NO ECTOPY NOTED. NO ANGINA REPORTED. The stress ECG is negative. Myocardial perfusion: Imaging information: gated. The image quality was poor. Image quality reduced due to mild patient motion and body habitus. Left ventricular size is normal. Right ventricular size is normal. No myocardial perfusion defects noted. Ventricular Function (Wall Motion): The calculated left ventricular ejection fraction after stress: 58%. LV global systolic function is normal. No left ventricular regional motion abnormality. Right ventricular function is normal. Study data: Jakob Dawson MD supervised and was readily available during the procedure. This study was interpreted by [facility]. Study status: Routine. Consent: The risks, benefits, and alternatives to the procedure were explained to the patient and informed consent was obtained. Procedure: Initial setup. A baseline ECG was recorded. Surface ECG leads and manual cuff blood pressure measurements were monitored. Heart sounds: Normal. Lung sounds: Normal. Regadenoson stress test. Stress testing was performed, with regadenoson by intravenous bolus, for a total dose of 0.4mgover 10.00sec, followed by a 5ml saline flush. The infusion was terminated due to per protocol. Study completion: All catheters inserted during the procedure were removed. The patient tolerated the procedure well and was discharged from the lab. Discharge: The patient left the laboratory in stable condition. Birthdate: Patient birthdate: 1960. Sex: Gender: male. Study date: Study date: 12/27/2017. Study time: 12:30 PM. Signature Documentation: - The imaging portion of this study was interpreted by Nuclear Registered Nurse Obstetrics Jakob Dawson MD. - The Stress ECG portion of this study was interpreted by Jakob Dawson MD. Electronically signed by Jakob Dawson 12/27/2017 17:30 Ordering provider: Trevin Kellogg CC: JAKOB DAWSON MD Dictated by: Liliya Engle M.D.12/28/17 1233 <Electronically signed by Liliya Engle M.D.>12/28/17 5633 Disclaimer: The [facility] radiologist is signing only the Nuclear Medicine MPI Imaging exam portion of the report. Transcribed by: Toan Garvey12/28/17 1314 This is privileged, confidential information intended only for the provider named. Any use or distribution by any person other than this provider is strictly prohibited. If you receive this report in error, please notify us immediately at [phone] and return the original report to us at the address above. Thank-you. Echocardiogram Summary: Patient Name: Anastasia Sorto SUnit #: [id number]: MS Ordering Provider: Jurgen Dave M.D. : ADM IN Primary Care Provider: Julia Mccauley of Exam: 12/12/22Sex: M Admission Date: 12/11/22 : 1960 Age: 62 APPROVED REPORT EXAM: Comprehensive 2D, Doppler, and color-flow Echocardiogram Patient Location: In-Patient Room/Bed: [facility] [employer] Chief: Shanda Dixon RDCS (AE) Indications: Dyspne, Chest pain, Evaluate LV and RV function, Pulmonary Embolism, HTN Other Information Study Quality: Fair. Technically limited study due to body habitus, inability to position patient exam done supine. Conclusion Normal left ventricular wall thickness and chamber size. Ejection fraction is 55 to 60%. Wall motion is normal Right ventricle appears normal in size and systolic function Both atria are normal in size The aortic valve is sclerotic and trileaflet without stenosis or regurgitation Mild mitral annular calcification Right ventricular systolic pressure could not be estimated Dilated ascending aorta measuring 3.84 cm Wall motion Left Ventricle The left ventricle is normal size. The overall left ventricular systolic function appears normal. There is normal left ventricular wall thickness. There is normal LV segmental wall motion. There is no ventricular septal defect visualized. LVEF is 55%. Right Ventricle Right ventricle is grossly normal in size. Right ventricular systolic function is grossly normal. Atria The left atrium size is normal. The right atrium size is normal. The interatrial septum is intact with no evidence for an atrial septal defect. Aortic Valve The Aortic valve is sclerotic. Aortic valve is trileaflet. There is no aortic valvular stenosis. No aortic regurgitation is present. Mitral Valve Mild mitral annular calcification. No evidence of mitral valve stenosis. Trace mitral regurgitation. Tricuspid Valve The tricuspid valve is normal in structure. There is no tricuspid valve stenosis. Trace tricuspid regurgitation. Unable to assess PA pressure. Pulmonic Valve The pulmonary valve is normal in structure. There is no pulmonic valvular stenosis. Trace pulmonic regurgitation. Great Vessels The aortic root is normal in size. The ascending aorta is mildly dilated. Aortic arch is not well visualized. The IVC collapses <50% with inspiration. Pericardium There is no pericardial effusion. 2D Dimensions IVSD d PLAX 1.06 cm M: 0.6-1.2 LVPW d PLAX 1.08 cm M: 0.6 - 1.2 LVID d PLAX 4.89 cm M: 4.2 - 5.8 LVDs 3.45 cm M: 2.5 - 4.0 Ao Root d 3.35 cm M: 3.1 - 3.7 RA Area A4C11.09 cm2 Ao Asc Diam d 3.84 cm M: 2.6 - 3.4 LV EF [facility] 55.9 % FS29.15 % LV Diastology MV E' medial0.070 (>0.07 m/s)E/A Ratio 0.8 LV E/e MED7.87 (<14)MV E Vmax 0.55 (0.4-1.3 m/s) MV E' lateral0.090 (>0.1 m/s)MV A Vmax 0.70 (0.4-1.3 m/s) LV E/e LAT6.12 (<14) MV E/E' medial 7.87 MV E/E' lateral6.12 MV (E/E' average)6.88 Aortic Valve LVOT Vmax 1.08 m/sAoV Area Vmax1.82 cm2 LVOT Peak Grad 4.7 mmHg LVOT Mean Grad 2.5 mmHg LVOT Diam s 2.00 cm AoV Peak Grad14.5 mmHg LVOT SV 54.66 mL AoV Mean Grad7.0 mmHg AoV Area VTI1.82 cm2 Mitral Valve MV DT 231 (160-240 msec) MV Vmax TIPS 0.64 m/s MV Mean Grad 0.8 (<2mmHg) MV VTI 0.157 m Pulmonary Valve PV Mean Grad 4.6 mmHgRVOT Peak Gr.4.11 mmHg RVOT Mean Gr.2.30 mmHg RVOT VTI0.177 m RVOT Vmax 1.01 m/s Ordered By: Jurgen Dave M.D. CC: Dictated By: Zabrina Snider M.D. 12/12/22 1035 <Electronically signed by Zabrina Snider M.D. in [place]> 12/12/22 1040 Transcribed By: Zabrina Snider MD Anesthesia Assessment and Plan Anesthesia History Personal History: No History of Anesthesia Complications Family History: No Family History of Anesthesia Complications Exercise Tolerance Exercise Tolerance: Metabolic Equivalents<4 Pertinent Negatives Pertinent Negatives: No Major Cardiovascular Symptoms or Complaints Cardiac & Pulmonary Exam Cardiac Exam: Normal S1/S2 Heart Sounds Pulmonary Exam: Rales Present Does patient have a Pacemaker or an ICD?: No Airway Exam Known Difficult Airway: No Mallampati Class: 2 Mouth Opening: Normal (> 3cm) Thyromental Distance: Greater than 3 cm Neck Range of Motion: Full ROM Neck Circumference: Normal Teeth Condition: Normal Dentition ASA Classification ASA Score: ASA 2 NPO Status NPO Status: NPO Clears >2 hours, Solids >8 hours Anesthesia Plan Resuscitation Status: Full Code Anesthesia Technique: General Anesthesia Airway Planned: Endotracheal Tube Monitors Used: Standard Monitors
[2022-12-15] MEDS: Lactated Ringers 1,000 ML 30 ML IV (12:16)
[2022-12-15] MEDS: Lidocaine 1% Pres-Free 30 ML VIAL (12:30)
--- NOTE | 2022-12-15 12:37 | PAPNONF_PTH ---
PATIENT: Vinay Sorto LOC: U#:[id number] AGE/SX: 62/M [facility]: Jurgen Dave : 1960 BED: A DIS: 12/20/2022 SPEC #: [id number] RECD: 12/15/22 13:14 STATUS: JANKI REQ #: [id number] TEENA: 12/15/22 12:[address]: Jurgen Dave DEPT: [facility] Cytology RECD BY: Lisa Burleson ENTERED: 12/15/22 13:20 SP TYPE: SANDY MOSS DR: MD Abiola Enriquez John Tissues: 1 - BODY FLUID CYTO(NOT S/U/N/EM)[facility] Procedures: BODY FLUID CYTO(NOT SPU/UR/NIP/ENDOM)[facility] Comments: [id number] (TOTAL VOLUME = 20 ml, SENT FRESH) (REFRIGERATED)
--- NOTE | 2022-12-15 12:52 | W.PM.OP ---
Date of service: 12/15/22 Time of Service: 12:15 Operative Note Operative Note PRE-OP DIAGNOSIS: Non resolving pneumonia Refer to Anesthesia Record Procedure Description: Bronchoscopy Indication:Non-resolving PNA, ILD Procedure performed: Flexible bronchoscopy with BAL Sedation plan: General Informed consent was obtained after the risks and benefits or the procedure were discussed. A proper and complete OR compliant time out was performed. The therapeutic 6.2mm Olympus bronchoscope was inserted into the airways, were 3cc in total of 1% topical lidocaine was used the anesthetize the airways. The trachea was midline and without lesion or injury. The mucosa appeared normal and there were no signs of tracheomalacia. The syeda was sharp. All bronchial subsegments were visualized within each lobe and showed no lesions, injuries or abnormalities. There was minimal white, thick secretions more predominantly in the RLL. A bronchoalveolar lavage was performed in the RUL . A total of 120 cc of saline was administered with a return of 60 cc. The fluid was slightly cloudy in appearance with visible mucus plugs. The bronchoscope was then removed and the case terminated. The patient was taken to PACU in stable condition. Samples collected:RUL BAL, bronchial washings Testing ordered:cell diff, bacterial, fungal and AFB cultures, cytopathology, extended viral panel, silver stain Complications:None Ale Paniagua MD Pulmonary & Critical Care Medicine
--- NOTE | 2022-12-15 13:49 | W.ANESPOSTOP ---
Postoperative Evaluation Date, Time and Location Date Performed: 12/15/22 Time Performed: 13:49 Patient Location: Day Surgery Unit Vital Signs Most Recent Imported Vital Signs: Most Recent Vital Signs Temp Pulse Resp BP Pulse Ox 37 C 74 15 128/66 94 12/15/22 13:45 12/15/22 13:45 12/15/22 13:45 12/15/22 13:45 12/15/22 13:45 Pain Score Most Recent Pain Score: Most Recent Pain Score Pain Level [substernal] 5 12/14/22 08:00 Pain Level 5 12/15/22 11:05 Assessment Mental Status: Awake (Alert & Oriented to Patient Baseline) Airway and Respiratory Function: Abnormal Respiratory exam (See explanation) (Patient remains on higher O2 requirements than prior to bronchoscopy (4lpm). Titratable O2 order is in place and can be continued to be downtitrated on the floor. ) and Patient has been admitted and is receiving care as an inpatient Cardiovascular Function: Hemodynamically Stable Hydration Status: Adequately Hydrated Nausea & Vomiting: No Nausea or Vomiting Pain: Pain is tolerable per patient Peripheral Nerve Block: Patient did not receive a nerve block
[2022-12-15 15:13] LABS: Blastomyces Ag Result Not Detected; Blastomyces Ag Value Not Detected
[2022-12-15] MEDS: cefTRIAXone 2 GM/50 ML BAG IVPB (15:13)
[2022-12-15] MEDS: Insulin Aspart 300 UNITS/3 ML PEN SC ×3 (17:19→21:14)
[2022-12-15] MEDS: Cyclobenzaprine 10 MG TAB 5 MG PO (19:52)
[2022-12-15] MEDS: guaiFENesin 600 MG TABCR PO (19:52)
[2022-12-15] MEDS: Lactobacillus Acidophilus CAP 1 CAP PO (19:52)
[2022-12-15] MEDS: Acetaminophen 325 MG TAB PO (19:52)
[2022-12-15] MEDS: Senna TAB 1 TAB PO (19:52)
[2022-12-15] MEDS: Calcium Citrate 950 MG TAB PO (19:52)
[2022-12-15] MEDS: traZODone 100 MG TAB PO (21:10)
[2022-12-15] MEDS: Tamsulosin 0.4 MG CAPCR PO (21:10)
[2022-12-15] MEDS: Zolpidem 10 MG TAB PO (21:11)
[2022-12-15] MEDS: Atorvastatin 20 MG TAB PO (21:11)
[2022-12-15] MEDS: Insulin Glargine 300 UNITS/3 ML PEN 15 UNITS SC (21:14)
[2022-12-16] VITALS (10 sets, daily range): BP systolic 113–126; BP diastolic 63–75; PULSE 62–81; RESP 1–19; TEMP 36–36.9; O2SAT 92–97
[2022-12-16] MEDS: Carbidopa 25/Levodopa 100 TAB PO ×4 (07:29→21:16)
[2022-12-16] MEDS: Pantoprazole 20 MG TABCR PO (07:29)
[2022-12-16] MEDS: predniSONE 20 MG TAB 60 MG PO (07:49)
[2022-12-16] MEDS: guaiFENesin 600 MG TABCR PO ×2 (07:50→20:05)
[2022-12-16] MEDS: Lactobacillus Acidophilus CAP 1 CAP PO ×2 (07:50→20:05)
[2022-12-16] MEDS: Cholecalciferol (Vitamin D3) 1,000 UNIT TAB 2000 UNITS PO (07:50)
[2022-12-16] MEDS: Apixaban 5 MG TAB PO ×2 (07:50→20:05)
[2022-12-16] MEDS: Calcium Citrate 950 MG TAB PO ×2 (07:50→20:05)
[2022-12-16] MEDS: Gabapentin 300 MG CAP 600 MG PO ×3 (07:50→20:04)
[2022-12-16] MEDS: Citalopram 20 MG TAB PO (07:51)
[2022-12-16] MEDS: Multivitamin TAB 1 TAB PO (07:52)
[2022-12-16] MEDS: Sulfameth/Trimeth DS TAB 1 TAB PO (07:52)
[2022-12-16] MEDS: Meloxicam 15 MG TAB PO (07:52)
[2022-12-16] MEDS: Famotidine 20 MG TAB PO ×2 (07:52→20:04)
[2022-12-16] MEDS: Albuterol/Ipratropium 3 ML UPD VIAL UPD ×3 (08:27→20:38)
--- NOTE | 2022-12-16 08:32 | W.PULMPROG ---
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 He is not clinically improving despite being on ceftriaxone and doxycycline. His bronchoscopy did not find anything anatomically concerning. There were minimal secretions, certainly an exam that is not consistent with a pneumonia. I have sent a BAL and bronchial washings for analysis. The only result thus fair is no bacteria on gram stain, which is not surprising. he significantly desaturated with any movement - I will get an ABG today to assess his A-a gradient to help narrow down the cause for his worsening exertional hypoxia. ILD - CYN, RF, anti-CCP - prednisone 60mg daily - Bactrim for PJP ppx - f/u bronchoscopy results Hypoxic respiratory failure - at rest on home O2, but desaturating with exertion - ABG today Recurrent respiratory infections - immunoglobulins pending - HIV pending ALEX - on BiPAP General Date Of Service Date of service: 12/16/22 Time of Service: 08:32 Reason for Consult: Pneumonia, ILD Subjective Note Note: He is feeling well after his procedure. He does have a sore throat today. He has coughed up blood streaked sputum, but no clots or large volumes. He is still getting very short of breath and hypoxic with ambulation. Exam Narrative Exam Narrative: Gen:?NAD, normal respiratory effort, well-nourished HENT:?PERRL Chest:?No respiratory distress, normal appearance of chest, bilateral crackles Heart:?regular rate and rhythym, no murmurs, rubs or gallops Abdomen:?Non-distended, soft, non tender Extremities:?No clubbing, edema, cyanosis, rashes Neuro:?AAOx3 , non focal Psych:?cooperative, appropriate mental affect Objective Last Vital Signs Temp 36.0 C L 12/16/22 07:19 Pulse 62 12/16/22 08:27 Resp 18 12/16/22 08:27 BP 115/71 12/16/22 07:19 Pulse Ox 96 12/16/22 08:27 Laboratory Results - last 24 hr 12/11/22 22:00 Blastomyces Ag Result Not Detected Blastomyces Ag Comment Not Detected Results Medications Medications: Active Medications Generic Name Dose Route Start Last Admin Trade Name Freq PRN Reason Stop Dose Admin Acetaminophen 0 mg 12/11/22 17:21 12/15/22 19:52 Acetaminophen 325 Mg Tab PO 650 mg Q4H PRN PRN Administration Acidophilus/Pectin 1 cap 12/11/22 20:00 12/16/22 07:50 Lactobacillus Acidophilus Cap PO 1 cap BID KANE Administration Al Hydrox/Mg Hydrox/Simethicone 30 ml 12/11/22 17:21 Mylanta Suspension 30 Ml Cup PO Q2H PRN PRN Albuterol Sulfate 2.5 mg 12/11/22 17:21 Albuterol 2.5 Mg/3 Ml Inh Soln Vial UPD Q2H PRN PRN Albuterol/Ipratropium 3 ml 12/11/22 20:00 12/16/22 08:27 Albuterol/Ipratropium 3 Ml Upd Vial UPD 3 ml QID KANE Administration Albuterol/Ipratropium 3 ml 12/15/22 12:38 12/15/22 15:31 Albuterol/Ipratropium 3 Ml Upd Vial UPD 3 ml .X1 DOSE PRN Administration Alendronate Sodium 70 mg 12/17/22 06:00 Alendronate 70 Mg Tab PO Sa@0600 [facility] Apixaban 5 mg 12/11/22 20:00 12/16/22 07:50 Apixaban 5 Mg Tab PO 5 mg BID KANE Administration Atorvastatin Calcium 20 mg 12/11/22 22:00 12/15/22 21:11 Atorvastatin 20 Mg Tab PO 20 mg HS KANE Administration Benzocaine/Menthol 1 each 12/15/22 15:58 12/16/22 07:53 Benzocaine/Menthol-Sf Lozg 16/Box SUC 1 lozenge Q4H PRN PRN Administration Bisacodyl 10 mg 12/11/22 17:38 Bisacodyl 5 Mg Tabec PO DAILY PRN PRN Calcitonin Dobson 0 ml 12/12/22 08:30 12/15/22 08:31 Calcitonin-Dobson, Synthetic 3.7 Ml Btl NS 1 spray DAILY KANE Administration Calcium Carbonate 500 mg 12/11/22 18:15 Calcium Carbonate *Tums* 500 Mg Chew CH TID PRN PRN Calcium Citrate 950 mg 12/11/22 20:00 12/16/22 07:50 Calcium Citrate 950 Mg Tab PO 950 mg BID KANE Administration Carbidopa/Levodopa 1 tab 12/13/22 17:00 12/16/22 07:29 Carbidopa 25/Levodopa 100 Tab PO 1 tab 0800,1200,1700,2200 KANE Administration Cholecalciferol 2,000 units 12/12/22 08:30 12/16/22 07:50 Cholecalciferol (Vitamin D3) 1,000 Unit Tab PO 2,000 units DAILY KANE Administration Citalopram Hydrobromide 20 mg 12/12/22 08:30 12/16/22 07:51 Citalopram 20 Mg Tab PO 20 mg DAILY KANE Administration Cyclobenzaprine HCl 5 mg 12/11/22 17:29 12/15/22 19:52 Cyclobenzaprine 10 Mg Tab PO 5 mg HS PRN PRN Administration Muscle Spasm Device 1 each 12/11/22 13:00 Inhaler, Assist Device MC DIRECTED KANE Dextrose 0 gm 12/11/22 17:54 Glucose Oral Gel 15 Gm/37.5 Gm Tube PO DIRECTED PRN Dextrose/Water 0 gm 12/11/22 17:54 Dextrose 50%-Water 25 Gm/50 Ml Syr IVP DIRECTED PRN Docusate Sodium 100 mg 12/11/22 17:21 Docusate Sodium 100 Mg Cap PO TID PRN PRN Famotidine 20 mg 12/11/22 20:00 12/16/22 07:52 Famotidine 20 Mg Tab PO 20 mg BID KANE Administration Gabapentin 600 mg 12/11/22 20:00 12/16/22 07:50 Gabapentin 300 Mg Cap PO 600 mg TID KANE Administration Guaifenesin 600 mg 12/13/22 20:00 12/16/22 07:50 Guaifenesin 600 Mg Tabcr PO 600 mg BID KANE Administration Sodium Chloride 500 mls @ 0 mls/hr 12/11/22 17:21 Saline 500ml Bag IV PRN PRN As Directed Ceftriaxone Sodium/Dextrose 2 gm in 50 mls @ 100 mls/hr 12/13/22 16:00 12/15/22 18:29 Rocephin IVPB Infused Q24H KANE Infusion Doxycycline Hyclate 100 mg/ 100 mls @ 100 mls/hr 12/15/22 10:00 12/15/22 22:30 Sodium Chloride IVPB Infused Q12H [facility] Infusion IV Miscellaneous Supplies 1 each 12/11/22 17:30 Iv Access IV DIRECTED KANE Insulin Aspart 0 units 12/11/22 22:00 12/16/22 07:32 Insulin Aspart 300 Units/3 Ml Pen SC Not Given 0800,1200,1700,2200 [facility] Protocol Insulin Aspart 0 units 12/12/22 17:00 12/15/22 18:29 Insulin Aspart 300 Units/3 Ml Pen SC 8 unit 0800,1200,1700 [facility] Administration Insulin Glargine 15 units 12/13/22 22:00 12/15/22 21:14 Insulin Glargine 300 Units/3 Ml Pen SC 15 units HS KANE Administration Insulin Human NPH 25 unit 12/14/22 08:30 12/16/22 07:32 Insulin Nph-Human 300 Units/3 Ml Pen SC 25 units DAILY KANE Administration Lorazepam 0.5 mg 12/15/22 12:38 Lorazepam 2 Mg/Ml Vial IVP DIRECTED PRN Magnesium Hydroxide 30 ml 12/11/22 17:21 Milk Of Magnesia 30 Ml Cup PO DAILY PRN PRN Meloxicam 15 mg 12/12/22 08:30 12/16/22 07:52 Meloxicam 15 Mg Tab PO 15 mg DAILY KANE Administration Morphine Sulfate 45 mg 12/11/22 20:00 12/15/22 19:52 Morphine C.R. 15 Mg Tabcr PO 45 mg BID KANE Administration Multivitamins 1 tab 12/12/22 08:30 12/16/22 07:52 Multivitamin Tab PO 1 tab DAILY KANE Administration Naloxone HCl 4 mg 12/11/22 17:29 Naloxone Nasal 4 Mg/Cameron Inhn-Vdh NS PRN PRN Oxycodone HCl 15 mg 12/11/22 17:29 12/14/22 18:03 Oxycodone 15 Mg Tab PO 15 mg TID PRN PRN Administration Pantoprazole Sodium 20 mg 12/14/22 07:30 12/16/22 07:29 Pantoprazole 20 Mg Tabcr PO 20 mg DAILY@0730 KANE Administration Patient's Own 1 each 12/13/22 07:30 12/16/22 07:30 Medication (Linzess PO 1 each 290 Mg Capsule) DAILY@0730 KANE Administration Polyethylene Glycol 17 gm 12/11/22 17:21 Polyethylene Glycol 3350 17 Gm Packet PO DAILY PRN PRN Constipation Prednisone 60 mg 12/14/22 08:30 12/16/22 07:49 Prednisone 20 Mg Tab PO 60 mg DAILY KANE Administration Sennosides 1 tab 12/11/22 20:00 12/15/22 19:52 Senna Tab PO 1 tab BID KANE Administration Sodium Chloride 0 ml 12/11/22 17:21 Normal Saline Flush 10 Ml Syr IVP PRN PRN Tamsulosin HCl 0.4 mg 12/11/22 22:00 12/15/22 21:10 Tamsulosin 0.4 Mg Capcr PO 0.4 mg HS KANE Administration Trazodone HCl 100 mg 12/11/22 22:00 12/15/22 21:10 Trazodone 100 Mg Tab PO 100 mg HS KANE Administration Trimethoprim/Sulfamethoxazole 1 tab 12/14/22 08:30 12/16/22 07:52 Sulfameth/Trimeth Ds Tab PO 1 tab DAILY KANE Administration Zolpidem Tartrate 10 mg 12/11/22 22:00 12/15/22 21:11 Zolpidem 10 Mg Tab PO 10 mg HS KANE Administration Allergies cimetidine HCl [From Tagamet] Allergy (Severe, Verified 12/11/22 12:04) Anaphylaxsis rivaroxaban [From Xarelto] Allergy (Severe, Verified 12/11/22 12:04) Latex, Natural Rubber Allergy (Intermediate, Verified 12/11/22 12:04) Skin Rash lisinopril Allergy (Intermediate, Verified 12/11/22 12:04) morphine Allergy (Mild, Verified 12/11/22 12:04) Itching diphenhydramine HCl [From Benadryl] Adverse Reaction (Intermediate, Verified 12/11/22 12:04) palpitations promethazine HCl [From Phenergan] Adverse Reaction (Verified 12/11/22 12:04) Dizziness/Lightheade Labs 12/13/22 06:50 12/13/22 06:50 Labs: 12/11/22 15:35 Blood Blood Culture - Preliminary NO GROWTH 96 HOURS 12/11/22 15:25 Blood Blood Culture - Preliminary NO GROWTH 96 HOURS 12/12/22 19:25 Sputum Sputum Culture - Final Normal Anitra 12/12/22 19:25 Sputum Gram Stain - Final Laboratory Tests Range/Units 12/11/22 12/11/22 12/11/22 12:30 12:30 13:17 WBC (4.4-10.8) 10^3/uL 12.69 H RBC (4.36-5.78) 10^6/uL 5.15 Hgb (13.5-17.5) g/dL 15.4 Hct (40.0-50.0) % 45.9 MCV (80-95) fL 89 MCH (27.0-33.0) pg 29.9 MCHC (32.0-36.0) % 33.6 RDW (11.8-14.1) % 14.1 Plt Count (130-400) 10^3/uL MPV (8.0-11.0) fL Immature Gran % 0.4 Neutrophils % 73.4 Lymphocytes % 16.9 Monocytes % 6.9 Eosinophils % 1.9 Basophils % 0.5 Nucleated RBC % (0.0-0.3) % 0.0 Absolute Neutrophils (1.2-6.7) 10^3/uL 9.31 H Absolute Lymphocytes (1.2-3.4) 10^3/uL 2.14 Absolute Monocytes (0.1-0.8) 10^3/uL 0.88 H Absolute Eosinophils (0.0-0.7) 10^3/uL 0.24 Absolute Basophils (0.0-0.2) 10^3/uL 0.06 RBC Morphology Normal VBG Lactate (0.6-1.4) mmol/L Sodium Cancelled 138 Potassium Cancelled 4.3 Chloride Cancelled 100 Carbon Dioxide Cancelled 28.1 Anion Gap Cancelled 9.9 BUN Cancelled 15 Creatinine Cancelled 0.9 Est GFR (CKD-EPI 2020) Cancelled 95.97 Glucose Cancelled 178 H Calcium Cancelled 9.6 Magnesium (1.8-2.4) mg/dL Total Bilirubin Cancelled 0.7 AST Cancelled 66 H ALT Cancelled 34 Alkaline Phosphatase Cancelled 106 Troponin I Cancelled < 50 C-Reactive Protein Cancelled 0.21 NT-Pro-B Natriuret Pep Cancelled 19 Total Protein Cancelled 7.8 Albumin Cancelled 4.0 Procalcitonin ng/mL TSH (0.36-3.74) uIU/mL Adenovirus DNA Blastomyces Ag Result Blastomyces Ag Comment ng/mL COVID-19 Source SARS-CoV-2 (PCR) (Negative) Urine Histoplasma Ag U Histoplasma Ag Index ng/mL Human Metapneumovir RNA Influenza Type A (PCR) (Negative) Influenza Type B (PCR) (Negative) Urine Legionella Ag (Negative) Parainfluenza 1 (PCR) Parainfluenza 2 (PCR) Parainfluenza 3 (PCR) Parainfluenza 4 (PCR) RSV (PCR) (Negative) Resp Viral Spec Desc Rhinovirus (PCR) Ur Strep pneumoniae Ag (Negative) B-(1,3)-D-Glucan Quant (<60 pg/mL) pg/mL B-(1,3)-D-Glucan Qual (Negative) Range/Units 12/11/22 12/11/22 12/11/22 15:18 15:25 15:25 WBC (4.4-10.8) 10^3/uL RBC (4.36-5.78) 10^6/uL Hgb (13.5-17.5) g/dL Hct (40.0-50.0) % MCV (80-95) fL MCH (27.0-33.0) pg MCHC (32.0-36.0) % RDW (11.8-14.1) % Plt Count (130-400) 10^3/uL MPV (8.0-11.0) fL Immature Gran % Neutrophils % Lymphocytes % Monocytes % Eosinophils % Basophils % Nucleated RBC % (0.0-0.3) % Absolute Neutrophils (1.2-6.7) 10^3/uL Absolute Lymphocytes (1.2-3.4) 10^3/uL Absolute Monocytes (0.1-0.8) 10^3/uL Absolute Eosinophils (0.0-0.7) 10^3/uL Absolute Basophils (0.0-0.2) 10^3/uL RBC Morphology VBG Lactate (0.6-1.4) mmol/L Sodium Potassium Chloride Carbon Dioxide Anion Gap BUN Creatinine Est GFR (CKD-EPI 2020) Glucose Calcium Magnesium (1.8-2.4) mg/dL Total Bilirubin AST ALT Alkaline Phosphatase Troponin I < 50 C-Reactive Protein NT-Pro-B Natriuret Pep Total Protein Albumin Procalcitonin ng/mL < 0.1 TSH (0.36-3.74) uIU/mL Adenovirus DNA Blastomyces Ag Result Blastomyces Ag Comment ng/mL COVID-19 Source Nasal/Nares SARS-CoV-2 (PCR) (Negative) Negative Urine Histoplasma Ag U Histoplasma Ag Index ng/mL Human Metapneumovir RNA Influenza Type A (PCR) (Negative) Influenza Type B (PCR) (Negative) Urine Legionella Ag (Negative) Parainfluenza 1 (PCR) Parainfluenza 2 (PCR) Parainfluenza 3 (PCR) Parainfluenza 4 (PCR) RSV (PCR) (Negative) Resp Viral Spec Desc Rhinovirus (PCR) Ur Strep pneumoniae Ag (Negative) B-(1,3)-D-Glucan Quant (<60 pg/mL) pg/mL B-(1,3)-D-Glucan Qual (Negative) Range/Units 12/11/22 12/11/22 12/11/22 15:35 17:43 18:36 WBC (4.4-10.8) 10^3/uL RBC (4.36-5.78) 10^6/uL Hgb (13.5-17.5) g/dL Hct (40.0-50.0) % MCV (80-95) fL MCH (27.0-33.0) pg MCHC (32.0-36.0) % RDW (11.8-14.1) % Plt Count (130-400) 10^3/uL MPV (8.0-11.0) fL Immature Gran % Neutrophils % Lymphocytes % Monocytes % Eosinophils % Basophils % Nucleated RBC % (0.0-0.3) % Absolute Neutrophils (1.2-6.7) 10^3/uL Absolute Lymphocytes (1.2-3.4) 10^3/uL Absolute Monocytes (0.1-0.8) 10^3/uL Absolute Eosinophils (0.0-0.7) 10^3/uL Absolute Basophils (0.0-0.2) 10^3/uL RBC Morphology VBG Lactate (0.6-1.4) mmol/L 3.4 H* 4.6 H* Sodium Potassium Chloride Carbon Dioxide Anion Gap BUN Creatinine Est GFR (CKD-EPI 2020) Glucose Calcium Magnesium (1.8-2.4) mg/dL Total Bilirubin AST ALT Alkaline Phosphatase Troponin I C-Reactive Protein NT-Pro-B Natriuret Pep Total Protein Albumin Procalcitonin ng/mL TSH (0.36-3.74) uIU/mL Adenovirus DNA Blastomyces Ag Result Blastomyces Ag Comment ng/mL COVID-19 Source SARS-CoV-2 (PCR) (Negative) Urine Histoplasma Ag U Histoplasma Ag Index ng/mL Human Metapneumovir RNA Influenza Type A (PCR) (Negative) Influenza Type B (PCR) (Negative) Urine Legionella Ag (Negative) Parainfluenza 1 (PCR) Parainfluenza 2 (PCR) Parainfluenza 3 (PCR) Parainfluenza 4 (PCR) RSV (PCR) (Negative) Resp Viral Spec Desc Rhinovirus (PCR) Ur Strep pneumoniae Ag (Negative) B-(1,3)-D-Glucan Quant (<60 pg/mL) pg/mL <31 B-(1,3)-D-Glucan Qual (Negative) Negative Range/Units 12/11/22 12/11/22 12/11/22 20:30 22:00 22:00 WBC (4.4-10.8) 10^3/uL RBC (4.36-5.78) 10^6/uL Hgb (13.5-17.5) g/dL Hct (40.0-50.0) % MCV (80-95) fL MCH (27.0-33.0) pg MCHC (32.0-36.0) % RDW (11.8-14.1) % Plt Count (130-400) 10^3/uL MPV (8.0-11.0) fL Immature Gran % Neutrophils % Lymphocytes % Monocytes % Eosinophils % Basophils % Nucleated RBC % (0.0-0.3) % Absolute Neutrophils (1.2-6.7) 10^3/uL Absolute Lymphocytes (1.2-3.4) 10^3/uL Absolute Monocytes (0.1-0.8) 10^3/uL Absolute Eosinophils (0.0-0.7) 10^3/uL Absolute Basophils (0.0-0.2) 10^3/uL RBC Morphology VBG Lactate (0.6-1.4) mmol/L Sodium Potassium Chloride Carbon Dioxide Anion Gap BUN Creatinine Est GFR (CKD-EPI 2020) Glucose Calcium Magnesium (1.8-2.4) mg/dL Total Bilirubin AST ALT Alkaline Phosphatase Troponin I C-Reactive Protein NT-Pro-B Natriuret Pep Total Protein Albumin Procalcitonin ng/mL TSH (0.36-3.74) uIU/mL Adenovirus DNA Blastomyces Ag Result Not Detected Blastomyces Ag Comment ng/mL Not Detected COVID-19 Source Nasopharynx SARS-CoV-2 (PCR) (Negative) Negative Urine Histoplasma Ag U Histoplasma Ag Index ng/mL Human Metapneumovir RNA Influenza Type A (PCR) (Negative) Negative Influenza Type B (PCR) (Negative) Negative Urine Legionella Ag (Negative) Negative Parainfluenza 1 (PCR) Parainfluenza 2 (PCR) Parainfluenza 3 (PCR) Parainfluenza 4 (PCR) RSV (PCR) (Negative) Negative Resp Viral Spec Desc Rhinovirus (PCR) Ur Strep pneumoniae Ag (Negative) Negative B-(1,3)-D-Glucan Quant (<60 pg/mL) pg/mL B-(1,3)-D-Glucan Qual (Negative) Range/Units 12/11/22 12/11/22 12/12/22 22:00 22:32 01:25 WBC (4.4-10.8) 10^3/uL RBC (4.36-5.78) 10^6/uL Hgb (13.5-17.5) g/dL Hct (40.0-50.0) % MCV (80-95) fL MCH (27.0-33.0) pg MCHC (32.0-36.0) % RDW (11.8-14.1) % Plt Count (130-400) 10^3/uL MPV (8.0-11.0) fL Immature Gran % Neutrophils % Lymphocytes % Monocytes % Eosinophils % Basophils % Nucleated RBC % (0.0-0.3) % Absolute Neutrophils (1.2-6.7) 10^3/uL Absolute Lymphocytes (1.2-3.4) 10^3/uL Absolute Monocytes (0.1-0.8) 10^3/uL Absolute Eosinophils (0.0-0.7) 10^3/uL Absolute Basophils (0.0-0.2) 10^3/uL RBC Morphology VBG Lactate (0.6-1.4) mmol/L 6.1 H* 4.7 H* Sodium Potassium Chloride Carbon Dioxide Anion Gap BUN Creatinine Est GFR (CKD-EPI 2020) Glucose Calcium Magnesium (1.8-2.4) mg/dL Total Bilirubin AST ALT Alkaline Phosphatase Troponin I C-Reactive Protein NT-Pro-B Natriuret Pep Total Protein Albumin Procalcitonin ng/mL TSH (0.36-3.74) uIU/mL Adenovirus DNA Blastomyces Ag Result Blastomyces Ag Comment ng/mL COVID-19 Source SARS-CoV-2 (PCR) (Negative) Urine Histoplasma Ag Not Detected U Histoplasma Ag Index ng/mL Not Detected Human Metapneumovir RNA Influenza Type A (PCR) (Negative) Influenza Type B (PCR) (Negative) Urine Legionella Ag (Negative) Parainfluenza 1 (PCR) Parainfluenza 2 (PCR) Parainfluenza 3 (PCR) Parainfluenza 4 (PCR) RSV (PCR) (Negative) Resp Viral Spec Desc Rhinovirus (PCR) Ur Strep pneumoniae Ag (Negative) B-(1,3)-D-Glucan Quant (<60 pg/mL) pg/mL B-(1,3)-D-Glucan Qual (Negative) Range/Units 12/12/22 12/12/22 12/12/22 06:30 06:30 06:30 WBC (4.4-10.8) 10^3/uL 13.28 H RBC (4.36-5.78) 10^6/uL 4.52 Hgb (13.5-17.5) g/dL 13.3 L D Hct (40.0-50.0) % 40.2 MCV (80-95) fL 89 MCH (27.0-33.0) pg 29.4 MCHC (32.0-36.0) % 33.1 RDW (11.8-14.1) % 13.9 Plt Count (130-400) 10^3/uL 161 MPV (8.0-11.0) fL 9.0 Immature Gran % 0.7 Neutrophils % 84.9 Lymphocytes % 10.8 Monocytes % 3.4 Eosinophils % 0.0 Basophils % 0.2 Nucleated RBC % (0.0-0.3) % 0.0 Absolute Neutrophils (1.2-6.7) 10^3/uL 11.27 H Absolute Lymphocytes (1.2-3.4) 10^3/uL 1.43 Absolute Monocytes (0.1-0.8) 10^3/uL 0.45 Absolute Eosinophils (0.0-0.7) 10^3/uL 0.00 Absolute Basophils (0.0-0.2) 10^3/uL 0.03 RBC Morphology VBG Lactate (0.6-1.4) mmol/L 3.2 H* Sodium 134 L Potassium 4.7 Chloride 96 L Carbon Dioxide 26.1 Anion Gap 11.9 H BUN 18 Creatinine 1.0 Est GFR (CKD-EPI 2020) 84.57 Glucose 295 H Calcium 9.0 Magnesium (1.8-2.4) mg/dL 1.8 Total Bilirubin AST ALT Alkaline Phosphatase Troponin I C-Reactive Protein NT-Pro-B Natriuret Pep Total Protein Albumin Procalcitonin ng/mL TSH (0.36-3.74) uIU/mL 1.10 Adenovirus DNA Blastomyces Ag Result Blastomyces Ag Comment ng/mL COVID-19 Source SARS-CoV-2 (PCR) (Negative) Urine Histoplasma Ag U Histoplasma Ag Index ng/mL Human Metapneumovir RNA Influenza Type A (PCR) (Negative) Influenza Type B (PCR) (Negative) Urine Legionella Ag (Negative) Parainfluenza 1 (PCR) Parainfluenza 2 (PCR) Parainfluenza 3 (PCR) Parainfluenza 4 (PCR) RSV (PCR) (Negative) Resp Viral Spec Desc Rhinovirus (PCR) Ur Strep pneumoniae Ag (Negative) B-(1,3)-D-Glucan Quant (<60 pg/mL) pg/mL B-(1,3)-D-Glucan Qual (Negative) Range/Units 12/12/22 12/13/22 12/13/22 23:37 06:50 06:50 WBC (4.4-10.8) 10^3/uL RBC (4.36-5.78) 10^6/uL Hgb (13.5-17.5) g/dL Hct (40.0-50.0) % MCV (80-95) fL MCH (27.0-33.0) pg MCHC (32.0-36.0) % RDW (11.8-14.1) % Plt Count (130-400) 10^3/uL MPV (8.0-11.0) fL Immature Gran % Neutrophils % Lymphocytes % Monocytes % Eosinophils % Basophils % Nucleated RBC % (0.0-0.3) % Absolute Neutrophils (1.2-6.7) 10^3/uL Absolute Lymphocytes (1.2-3.4) 10^3/uL Absolute Monocytes (0.1-0.8) 10^3/uL Absolute Eosinophils (0.0-0.7) 10^3/uL Absolute Basophils (0.0-0.2) 10^3/uL RBC Morphology VBG Lactate (0.6-1.4) mmol/L Sodium 140 Potassium 4.6 Chloride 102 Carbon Dioxide 33.1 H Anion Gap 4.9 BUN 20 H Creatinine 0.9 Est GFR (CKD-EPI 2020) 95.97 Glucose 202 H Calcium 9.3 Magnesium (1.8-2.4) mg/dL Total Bilirubin AST ALT Alkaline Phosphatase Troponin I C-Reactive Protein 0.22 NT-Pro-B Natriuret Pep Total Protein Albumin Procalcitonin ng/mL < 0.1 TSH (0.36-3.74) uIU/mL Adenovirus DNA Cancelled Blastomyces Ag Result Blastomyces Ag Comment ng/mL COVID-19 Source SARS-CoV-2 (PCR) (Negative) Urine Histoplasma Ag U Histoplasma Ag Index ng/mL Human Metapneumovir RNA Cancelled Influenza Type A (PCR) (Negative) Influenza Type B (PCR) (Negative) Urine Legionella Ag (Negative) Parainfluenza 1 (PCR) Cancelled Parainfluenza 2 (PCR) Cancelled Parainfluenza 3 (PCR) Cancelled Parainfluenza 4 (PCR) Cancelled RSV (PCR) (Negative) Resp Viral Spec Desc Cancelled Rhinovirus (PCR) Cancelled Ur Strep pneumoniae Ag (Negative) B-(1,3)-D-Glucan Quant (<60 pg/mL) pg/mL B-(1,3)-D-Glucan Qual (Negative) Range/Units 12/13/22 12/13/22 12/13/22 06:50 06:50 15:15 WBC (4.4-10.8) 10^3/uL 13.79 H RBC (4.36-5.78) 10^6/uL 4.40 Hgb (13.5-17.5) g/dL 13.0 L Hct (40.0-50.0) % 39.6 L MCV (80-95) fL 90 MCH (27.0-33.0) pg 29.5 MCHC (32.0-36.0) % 32.8 RDW (11.8-14.1) % 14.1 Plt Count (130-400) 10^3/uL 167 MPV (8.0-11.0) fL 8.9 Immature Gran % 0.4 Neutrophils % 73.6 Lymphocytes % 18.6 Monocytes % 6.5 Eosinophils % 0.6 Basophils % 0.3 Nucleated RBC % (0.0-0.3) % 0.0 Absolute Neutrophils (1.2-6.7) 10^3/uL 10.15 H Absolute Lymphocytes (1.2-3.4) 10^3/uL 2.56 Absolute Monocytes (0.1-0.8) 10^3/uL 0.90 H Absolute Eosinophils (0.0-0.7) 10^3/uL 0.08 Absolute Basophils (0.0-0.2) 10^3/uL 0.04 RBC Morphology VBG Lactate (0.6-1.4) mmol/L 2.2 H* Sodium Potassium Chloride Carbon Dioxide Anion Gap BUN Creatinine Est GFR (CKD-EPI 2020) Glucose Calcium Magnesium (1.8-2.4) mg/dL Total Bilirubin AST ALT Alkaline Phosphatase Troponin I C-Reactive Protein NT-Pro-B Natriuret Pep Total Protein Albumin Procalcitonin ng/mL TSH (0.36-3.74) uIU/mL Adenovirus DNA Negative Blastomyces Ag Result Blastomyces Ag Comment ng/mL COVID-19 Source SARS-CoV-2 (PCR) (Negative) Urine Histoplasma Ag U Histoplasma Ag Index ng/mL Human Metapneumovir RNA Negative Influenza Type A (PCR) (Negative) Influenza Type B (PCR) (Negative) Urine Legionella Ag (Negative) Parainfluenza 1 (PCR) Negative Parainfluenza 2 (PCR) Negative Parainfluenza 3 (PCR) Negative Parainfluenza 4 (PCR) Negative RSV (PCR) (Negative) Resp Viral Spec Desc Not Applicable Rhinovirus (PCR) Negative Ur Strep pneumoniae Ag (Negative) B-(1,3)-D-Glucan Quant (<60 pg/mL) pg/mL B-(1,3)-D-Glucan Qual (Negative) Range/Units 12/15/22 12/15/22 06:15 06:15 WBC (4.4-10.8) 10^3/uL RBC (4.36-5.78) 10^6/uL Hgb (13.5-17.5) g/dL Hct (40.0-50.0) % MCV (80-95) fL MCH (27.0-33.0) pg MCHC (32.0-36.0) % RDW (11.8-14.1) % Plt Count (130-400) 10^3/uL MPV (8.0-11.0) fL Immature Gran % Neutrophils % Lymphocytes % Monocytes % Eosinophils % Basophils % Nucleated RBC % (0.0-0.3) % Absolute Neutrophils (1.2-6.7) 10^3/uL Absolute Lymphocytes (1.2-3.4) 10^3/uL Absolute Monocytes (0.1-0.8) 10^3/uL Absolute Eosinophils (0.0-0.7) 10^3/uL Absolute Basophils (0.0-0.2) 10^3/uL RBC Morphology VBG Lactate (0.6-1.4) mmol/L Sodium Potassium Chloride Carbon Dioxide Anion Gap BUN Creatinine Est GFR (CKD-EPI 2020) Glucose Calcium Magnesium (1.8-2.4) mg/dL Total Bilirubin AST ALT Alkaline Phosphatase Troponin I C-Reactive Protein < 0.05 NT-Pro-B Natriuret Pep Total Protein Albumin Procalcitonin ng/mL < 0.1 TSH (0.36-3.74) uIU/mL Adenovirus DNA Blastomyces Ag Result Blastomyces Ag Comment ng/mL COVID-19 Source SARS-CoV-2 (PCR) (Negative) Urine Histoplasma Ag U Histoplasma Ag Index ng/mL Human Metapneumovir RNA Influenza Type A (PCR) (Negative) Influenza Type B (PCR) (Negative) Urine Legionella Ag (Negative) Parainfluenza 1 (PCR) Parainfluenza 2 (PCR) Parainfluenza 3 (PCR) Parainfluenza 4 (PCR) RSV (PCR) (Negative) Resp Viral Spec Desc Rhinovirus (PCR) Ur Strep pneumoniae Ag (Negative) B-(1,3)-D-Glucan Quant (<60 pg/mL) pg/mL B-(1,3)-D-Glucan Qual (Negative)
--- NOTE | 2022-12-16 09:29 | PDOC.CMPRO ---
Date of service: 12/16/22 Time of Service: 09:29 Care Management Progress Note Progress Note Text Progress Note Text: S/O: Deonte was sitting up in bed when CM met with him. He continues to desaturate with any activity and becomes short of breath. He had a bronchoscopy yesterday and specimens were sent for analysis. Dr. Paniagua also ordered ABGs to be done today. CM will follow. A: Deonte is a 62 year old man admitted on 12/11/22 with Respiratory failure P: Anticipate Deonte will return home with a resumption of his OP PT. He may need new home health services at first as he is weak and de-saturates easily with any activity; evaluations continue. De[facility] and [facility] with [facility]. CM will continue to support Deonte and assess for discharge concerns.
[2022-12-16] MEDS: Insulin Aspart 300 UNITS/3 ML PEN SC ×6 (09:33→21:26)
[2022-12-16] MEDS: Calcitonin-Salmon, Synthetic 3.7 ML BTL NS (09:34)
--- NOTE | 2022-12-16 09:50 | NUR.NOTE ---
Nursing Note: Patient is AO x 4. scheduled for morphine po this morning, verified w/ him because morphine is one of his allergies on his lists, Patient stated that it's been a long time ago, I'd been morphine few years now Charge Nurse made aware and with go signal to give morphine as scheduled with a pain level of 6/10. Also patient requested to have a shower but discussed w/ other nurses, since unable to stand on shower room without oxygen r/t SOB. Shower will not be rendered atthis time. We will continue to monitor his respiratory issues. Call bright at reach.
[2022-12-16] MEDS: DOXYCYCLINE 100 MG in Normal Saline 100 ML IVPB ×2 (09:51→21:25)
[2022-12-16 10:44] LABS: BE 4 mmol/L (-2-3); HCO3 29 mmol/L (22-26); pCO2 50 mmHg (35-45); pH 7.38 (7.35-7.45); pO2 46 mmHg (80-105); sO2 83 % (95-98); tCO2 27 mmol/L (23-27)
[2022-12-16 10:46] LABS: Site Right Radial
[2022-12-16 10:47] LABS: FIO2L 2 L
[2022-12-16 11:22] LABS: Adenovirus DNA Result Negative (Negative); Metapneumovirus RNA Result Negative (Negative); Parainfluenza Type1 RNA Result Negative (Negative); Parainfluenza Type2 RNA Result Negative (Negative); Parainfluenza Type3 RNA Result Negative (Negative); Parainfluenza Type4 RNA Result Negative (Negative); Rhinovirus RNA Result Negative (Negative)
[2022-12-16] MEDS: cefTRIAXone 2 GM/50 ML BAG IVPB (15:31)
--- NOTE | 2022-12-16 17:58 | PGE_ITS ---
Date of Service Date of service: 12/16/22 Time of Service: 17:58 Assessment and Plan Assessment and plan (1) Acute and chronic respiratory failure with hypoxia: Status: Acute Assessment and plan: Patient has ILD w/ pulmonary fibrosis diffusely on his CT secondary to his prior COVID-19 infection but has had recent worsening of his symptoms and having increased oxygen requirements. It does not appear to be a typical CAP bacterial pneumonia. His Fluvid was negative. Fungi tell was negative. Histoplasmosis antigen was negative. Legionella and urine strep antigens were negative. Patient remains on doxycycline and Rocephin. Bronchoscopy: Yesterday. BAL pending. Continue prednisone 60 mg daily along with PJP prophylaxis with Bactrim. Further recommendations per Dr. Howard pending BAL. (2) Dyspnea: Status: Acute Assessment and plan: As above (3) Diffuse lung disease: Status: Acute Assessment and plan: As above (4) Pulmonary embolism on long-term anticoagulation therapy: Status: Acute Assessment and plan: on lifelong apixaban in setting of multiple DVT and PE but no evidence of acute PE. will continue apixaban periprocedure as Dr. Paniagua is not planning on any biopsies but is performing a BAL (5) Benign hypertension: Status: Active Assessment and plan: not currently on any antihypertensives, will monitor but not intiate treatment (6) Gastroesophageal reflux disease: Status: Active Assessment and plan: continue pepcid (7) Diabetes mellitus: Assessment and plan: continue basal/bolus insulin and NPH for prednisone coverage. Adjust as necessary. (8) Sleep apnea: Status: Active Assessment and plan: patient told to have his bring his BIPAP back in to hospital for his use Subjective Subjective Patient reports: no new complaints, shortness of breath and afebrile; denies nausea or vomiting Exam Narrative Exam Narrative: Gen: sitting up in bed. Conversant. Lungs with bibasilar fine rales no rhonchi or wheezing Heart is regular rate and rhythm Abdomen obese soft and nontender Extremities without edema Objective Last Vital Signs Temp 36.9 C 12/16/22 15:15 Pulse 74 12/16/22 16:05 Resp 16 12/16/22 16:05 BP 126/71 12/16/22 15:15 Pulse Ox 97 12/16/22 16:05 Laboratory Results - last 24 hr 12/12/22 12/15/22 12/16/22 19:25 12:37 10:35 ABG Sample Site Right Radial ABG pH 7.38 ABG pCO2 50 H ABG pO2 46 L ABG HCO3 29 H ABG Total CO2 27 ABG O2 Saturation 83 L ABG Base Excess 4 H Oxygen Liter Flow 2 Adenovirus DNA Negative Human Metapneumovir RNA Negative M. pneumoniae Source Not Applicable M. pneumoniae (PCR) TNP Parainfluenza 1 (PCR) Negative Parainfluenza 2 (PCR) Negative Parainfluenza 3 (PCR) Negative Parainfluenza 4 (PCR) Negative Resp Viral Spec Desc Not Applicable Rhinovirus (PCR) Negative Time Spent with Patient Time Spent with Patient: 25-34 minutes Time was spent: preparing to see the patient(eg.review tests), obtaining and/or reviewing separately otained hiistory, ordering medications,tests, procedures, referring, communicating with other health urgent care nurse practitioner, indepentently interpreting results and counseling the patient
[2022-12-16 18:49] LABS: Rheumatoid Factor 10.6 IU/mL (<12.0)
[2022-12-16] MEDS: oxyCODONE 15 MG TAB PO (20:04)
[2022-12-16] MEDS: Cyclobenzaprine 10 MG TAB 5 MG PO (20:05)
[2022-12-16] MEDS: Tamsulosin 0.4 MG CAPCR PO (21:16)
[2022-12-16] MEDS: Atorvastatin 20 MG TAB PO (21:16)
[2022-12-16] MEDS: traZODone 100 MG TAB PO (21:16)
[2022-12-16] MEDS: Zolpidem 10 MG TAB PO (21:16)
[2022-12-16] MEDS: Insulin Glargine 300 UNITS/3 ML PEN 20 UNITS SC (21:27)
[2022-12-17] VITALS (9 sets, daily range): BP systolic 111–125; BP diastolic 61–81; PULSE 60–74; RESP 1–18; TEMP 35.7–37; O2SAT 93–99
[2022-12-17 06:58] LABS: Absolute Basophil Count 0.04 10^3/uL (0.0-0.2); Absolute Lymphocyte Count 3.03 10^3/uL (1.2-3.4); Absolute Monocyte Count 0.88 10^3/uL (0.1-0.8); Absolute Neutrophil Count 8.24 10^3/uL (1.2-6.7); Basophils % 0.3; Eosinophils % 1.4; HCT 37.8 % (40.0-50.0); HGB 12.4 g/dL (13.5-17.5); Immature Grans % 1.6; Lymphocytes % 24.1; MCH 29.5 pg (27.0-33.0); MCHC 32.8 % (32.0-36.0); MCV 90 fL (80-95); Neutrophils % 65.6; Platelet Count 151 10^3/uL (130-400); RBC 4.21 10^6/uL (4.36-5.78); RDW 14.6 % (11.8-14.1); RDW-SD 47.5 fL; WBC 12.56 10^3/uL (4.4-10.8)
[2022-12-17 07:08] LABS: Absolute Eosinophil Count 0.18 10^3/uL (0.0-0.7)
[2022-12-17 07:09] LABS: Anion Gap 7.5 mmol/L (3-11); BUN 27 mg/dL (7-18); CO2 30.5 mmol/L (21.0-32.0); CREATININE 0.8 mg/dL (0.70-1.30); Calcium 8.9 mg/dL (8.5-10.1); Chloride 101 mmol/L (98-107); Estimated GFR 99.44 (mL/min/1.73m2); Glucose 130 mg/dL (74-106); Potassium 4.1 mmol/L (3.5-5.1); Sodium 139 mmol/L (136-145)
[2022-12-17] MEDS: Alendronate 70 MG TAB PO (07:26)
[2022-12-17] MEDS: Albuterol/Ipratropium 3 ML UPD VIAL UPD (07:28)
[2022-12-17 07:48] LABS: Gram Smear Result Neutrophils Present
[2022-12-17] MEDS: Gabapentin 300 MG CAP 600 MG PO ×3 (08:01→21:16)
[2022-12-17] MEDS: Calcium Citrate 950 MG TAB PO ×2 (08:02→21:16)
[2022-12-17] MEDS: Cholecalciferol (Vitamin D3) 1,000 UNIT TAB 2000 UNITS PO (08:03)
[2022-12-17] MEDS: Calcitonin-Salmon, Synthetic 3.7 ML BTL NS (08:03)
[2022-12-17] MEDS: Carbidopa 25/Levodopa 100 TAB PO ×4 (08:04→21:16)
[2022-12-17] MEDS: Lactobacillus Acidophilus CAP 1 CAP PO ×2 (08:04→21:17)
[2022-12-17] MEDS: Famotidine 20 MG TAB PO ×2 (08:04→21:16)
[2022-12-17] MEDS: Meloxicam 15 MG TAB PO (08:04)
[2022-12-17] MEDS: guaiFENesin 600 MG TABCR PO ×2 (08:04→21:17)
[2022-12-17] MEDS: Multivitamin TAB 1 TAB PO (08:04)
[2022-12-17] MEDS: Pantoprazole 20 MG TABCR PO (08:05)
[2022-12-17] MEDS: Apixaban 5 MG TAB PO ×2 (08:05→21:17)
[2022-12-17] MEDS: predniSONE 20 MG TAB 60 MG PO (08:05)
[2022-12-17] MEDS: Citalopram 20 MG TAB PO (08:05)
[2022-12-17] MEDS: Sulfameth/Trimeth DS TAB 1 TAB PO (08:05)
[2022-12-17] MEDS: Insulin NPH-Human 300 UNITS/3 ML PEN 25 UNIT SC (08:10)
[2022-12-17] MEDS: Insulin Aspart 300 UNITS/3 ML PEN SC ×6 (08:44→21:17)
[2022-12-17] MEDS: Normal Saline Flush 10 ML SYR IVP ×2 (09:37→15:28)
[2022-12-17] MEDS: DOXYCYCLINE 100 MG in Normal Saline 100 ML IVPB ×2 (09:39→21:16)
[2022-12-17 11:05] LABS: HIV-1/2 Ag & Ab Screen Negative (Negative)
[2022-12-17] MEDS: cefTRIAXone 2 GM/50 ML BAG IVPB (15:30)
--- NOTE | 2022-12-17 16:04 | PGE_ITS ---
Date of Service Date of service: 12/17/22 Time of Service: 16:05 Assessment and Plan Assessment and plan (1) Acute and chronic respiratory failure with hypoxia: Status: Acute Assessment and plan: Patient has ILD w/ pulmonary fibrosis diffusely on his CT secondary to his prior COVID-19 infection but has had recent worsening of his symptoms and having increased oxygen requirements. Now stable back on his baseline supplemental O2 needs of 2L per NC. He does desaturate with walking in room to bathroom. It does not appear to be a typical CAP bacterial pneumonia. His Fluvid was negative. Fungi tell was negative. Histoplasmosis antigen was negative. Legionella and urine strep antigens were negative. Patient remains on doxycycline and Rocephin. Bronchoscopy: Yesterday. BAL pending. Continue prednisone 60 mg daily along with PJP prophylaxis with Bactrim. Further recommendations per Dr. Howard pending BAL. (2) Dyspnea: Status: Acute Assessment and plan: As above (3) Diffuse lung disease: Status: Acute Assessment and plan: As above (4) Pulmonary embolism on long-term anticoagulation therapy: Status: Acute Assessment and plan: Continue on lifelong apixaban in setting of multiple DVT and PE but no evidence of acute PE. (5) Benign hypertension: Status: Active Assessment and plan: not currently on any antihypertensives, will monitor but not intiate treatment (6) Gastroesophageal reflux disease: Status: Active Assessment and plan: continue pepcid (7) Diabetes mellitus: Assessment and plan: continue basal/bolus insulin and NPH for prednisone coverage. Improved control today Adjust as necessary. (8) Sleep apnea: Status: Active Assessment and plan: patient told to have his bring his BIPAP back in to hospital for his use Subjective Subjective Patient reports: no new complaints, feels better, tolerating a regular diet, shortness of breath (with ambulating to bathroom.) and afebrile; denies nausea or vomiting Exam Narrative Exam Narrative: Gen: sitting up in bed. Conversant. Friends and family in room. NAD Lungs with bibasilar fine rales no rhonchi or wheezing Heart is regular rate and rhythm Abdomen obese soft and nontender Extremities without edema Objective Last Vital Signs Temp 35.7 C L 12/17/22 15:31 Pulse 65 12/17/22 15:31 Resp 17 12/17/22 07:30 BP 111/61 12/17/22 15:31 Pulse Ox 93 12/17/22 15:31 Laboratory Results - last 24 hr 12/17/22 12/17/22 06:40 06:40 WBC 12.56 H RBC 4.21 L Hgb 12.4 L Hct 37.8 L MCV 90 MCH 29.5 MCHC 32.8 RDW 14.6 H Plt Count 151 MPV 9.0 Immature Gran % 1.6 Neutrophils % 65.6 Lymphocytes % 24.1 Monocytes % 7.0 Eosinophils % 1.4 Basophils % 0.3 Nucleated RBC % 0.0 Absolute Neutrophils 8.24 H Absolute Lymphocytes 3.03 Absolute Monocytes 0.88 H Absolute Eosinophils 0.18 Absolute Basophils 0.04 Sodium 139 Potassium 4.1 Chloride 101 Carbon Dioxide 30.5 Anion Gap 7.5 BUN 27 H Creatinine 0.8 Est GFR (CKD-EPI 2020) 99.44 Glucose 130 H Calcium 8.9 Magnesium 2.0 Time Spent with Patient Time Spent with Patient: 25-34 minutes Time was spent: preparing to see the patient(eg.review tests), obtaining and/or reviewing separately otained hiistory, ordering medications,tests, procedures, referring, communicating with other health residential care officer, indepentently interpreting results and counseling the patient
[2022-12-17] MEDS: Tamsulosin 0.4 MG CAPCR PO (21:16)
[2022-12-17] MEDS: Atorvastatin 20 MG TAB PO (21:16)
[2022-12-17] MEDS: Zolpidem 10 MG TAB PO (21:17)
[2022-12-17] MEDS: Senna TAB 1 TAB PO (21:17)
[2022-12-17] MEDS: traZODone 100 MG TAB PO (21:17)
[2022-12-17] MEDS: Insulin Glargine 300 UNITS/3 ML PEN 20 UNITS SC (21:18)
[2022-12-18] VITALS (8 sets, daily range): BP systolic 99–137; BP diastolic 64–73; PULSE 60–75; RESP 10–18; TEMP 36.1–36.8; O2SAT 86–97
[2022-12-18 07:05] LABS: Abs Immature Grans 0.25 10^3/uL (0.0-0.06); Absolute Basophil Count 0.04 10^3/uL (0.0-0.2); Absolute Eosinophil Count 0.11 10^3/uL (0.0-0.7); Absolute Lymphocyte Count 2.53 10^3/uL (1.2-3.4); Absolute Monocyte Count 0.95 10^3/uL (0.1-0.8); Absolute Neutrophil Count 9.37 10^3/uL (1.2-6.7); Basophils % 0.3; Eosinophils % 0.8; HCT 37.3 % (40.0-50.0); HGB 12.3 g/dL (13.5-17.5); Immature Grans % 1.9; Lymphocytes % 19.1; MCH 29.8 pg (27.0-33.0); MCV 90 fL (80-95); MPV 9.2 fL (8.0-11.0); Monocytes % 7.2; Neutrophils % 70.7; Platelet Count 160 10^3/uL (130-400); RBC 4.13 10^6/uL (4.36-5.78); RDW 14.6 % (11.8-14.1); RDW-SD 48.5 fL; WBC 13.25 10^3/uL (4.4-10.8)
[2022-12-18] MEDS: Calcitonin-Salmon, Synthetic 3.7 ML BTL NS (08:25)
[2022-12-18] MEDS: Insulin NPH-Human 300 UNITS/3 ML PEN 25 UNIT SC (08:26)
[2022-12-18] MEDS: Normal Saline Flush 10 ML SYR IVP (08:26)
[2022-12-18] MEDS: Insulin Aspart 300 UNITS/3 ML PEN SC ×7 (08:27→21:32)
[2022-12-18] MEDS: Apixaban 5 MG TAB PO ×2 (08:31→21:18)
[2022-12-18] MEDS: predniSONE 20 MG TAB 60 MG PO (08:31)
[2022-12-18] MEDS: Senna TAB 1 TAB PO ×2 (08:31→21:21)
[2022-12-18] MEDS: Cholecalciferol (Vitamin D3) 1,000 UNIT TAB 2000 UNITS PO (08:31)
[2022-12-18] MEDS: guaiFENesin 600 MG TABCR PO ×2 (08:31→21:18)
[2022-12-18] MEDS: Lactobacillus Acidophilus CAP 1 CAP PO ×2 (08:31→21:18)
[2022-12-18] MEDS: Sulfameth/Trimeth DS TAB 1 TAB PO (08:31)
[2022-12-18] MEDS: Multivitamin TAB 1 TAB PO (08:32)
[2022-12-18] MEDS: Citalopram 20 MG TAB PO (08:32)
[2022-12-18] MEDS: Meloxicam 15 MG TAB PO (08:32)
[2022-12-18] MEDS: Gabapentin 300 MG CAP 600 MG PO ×3 (08:32→21:18)
[2022-12-18] MEDS: Calcium Citrate 950 MG TAB PO ×2 (08:32→21:18)
[2022-12-18] MEDS: Carbidopa 25/Levodopa 100 TAB PO ×4 (08:32→21:18)
[2022-12-18] MEDS: Pantoprazole 20 MG TABCR PO (08:33)
[2022-12-18] MEDS: Famotidine 20 MG TAB PO ×2 (08:33→21:18)
[2022-12-18] MEDS: DOXYCYCLINE 100 MG in Normal Saline 100 ML IVPB ×2 (10:03→21:18)
[2022-12-18] MEDS: Albuterol/Ipratropium 3 ML UPD VIAL UPD (12:43)
[2022-12-18] MEDS: cefTRIAXone 2 GM/50 ML BAG IVPB (14:46)
[2022-12-18] MEDS: Magic Mouthwash 119 ML BTL 10 ML PO (14:47)
--- NOTE | 2022-12-18 15:23 | PGE_ITS ---
Date of Service Date of service: 12/18/22 Time of Service: 15:34 Assessment and Plan Assessment and plan (1) Acute and chronic respiratory failure with hypoxia: Status: Acute Assessment and plan: Patient has ILD w/ pulmonary fibrosis diffusely on his CT secondary to his prior COVID-19 infection but has had recent worsening of his symptoms and having increased oxygen requirements. Now stable back on his baseline supplemental O2 needs of 2L per NC. He does desaturate with walking in room to bathroom. It does not appear to be a typical CAP bacterial pneumonia. His Fluvid was negative. Fungi tell was negative. Histoplasmosis antigen was negative. Legionella and urine strep antigens were negative. Patient remains on doxycycline and Rocephin. Bronchoscopy: BAL pending. Continue prednisone taper along with PJP prophylaxis with Bactrim. Day 1 of 50mg/daily. Further recommendations per Dr. Howard pending BAL. (2) Dyspnea: Status: Acute Assessment and plan: As above (3) Diffuse lung disease: Status: Acute Assessment and plan: As above (4) Pulmonary embolism on long-term anticoagulation therapy: Status: Acute Assessment and plan: Continue on lifelong apixaban in setting of multiple DVT and PE but no evidence of acute PE. (5) Benign hypertension: Status: Active Assessment and plan: not currently on any antihypertensives, will monitor but not intiate treatment (6) Gastroesophageal reflux disease: Status: Active Assessment and plan: continue pepcid Episode of distal substernal pressure. GI cocktail did not relieve the discomfort. Troponin neg. (7) Diabetes mellitus: Assessment and plan: continue basal/bolus insulin and NPH for prednisone coverage. Adjust as necessary. (8) Sleep apnea: Status: Active Assessment and plan: patient told to have his bring his BIPAP back in to hospital for his use Subjective Subjective Patient reports: tolerating a regular diet and afebrile; denies nausea or vomiting Interval history since last seen: Substernal pressure today. Exam Narrative Exam Narrative: Gen: sitting up in bed. Conversant. NAD Lungs with bibasilar fine rales no rhonchi or wheezing Heart is regular rate and rhythm Abdomen obese soft and nontender Extremities without edema Objective Last Vital Signs Temp 36.8 C 12/18/22 14:50 Pulse 75 12/18/22 14:50 Resp 18 12/18/22 06:30 BP 123/68 12/18/22 14:50 Pulse Ox 95 12/18/22 14:54 Laboratory Results - last 24 hr 12/18/22 06:16 WBC 13.25 H RBC 4.13 L Hgb 12.3 L Hct 37.3 L MCV 90 MCH 29.8 MCHC 33.0 RDW 14.6 H Plt Count 160 MPV 9.2 Immature Gran % 1.9 Neutrophils % 70.7 Lymphocytes % 19.1 Monocytes % 7.2 Eosinophils % 0.8 Basophils % 0.3 Nucleated RBC % 0.0 Absolute Neutrophils 9.37 H Absolute Lymphocytes 2.53 Absolute Monocytes 0.95 H Absolute Eosinophils 0.11 Absolute Basophils 0.04 Time Spent with Patient Time Spent with Patient: 25-34 minutes Time was spent: preparing to see the patient(eg.review tests), obtaining and/or reviewing separately otained hiistory, ordering medications,tests, procedures, referring, communicating with other health nursing care attendant, indepentently interpreting results and counseling the patient
[2022-12-18 16:41] LABS: Troponin I < 50 ng/L (<or=60)
[2022-12-18] MEDS: oxyCODONE 15 MG TAB PO (18:36)
[2022-12-18] MEDS: traZODone 100 MG TAB PO (21:18)
[2022-12-18] MEDS: Tamsulosin 0.4 MG CAPCR PO (21:18)
[2022-12-18] MEDS: Atorvastatin 20 MG TAB PO (21:18)
[2022-12-18] MEDS: Zolpidem 10 MG TAB PO (21:18)
[2022-12-18] MEDS: Insulin Glargine 300 UNITS/3 ML PEN 20 UNITS SC (21:19)
[2022-12-19] VITALS (10 sets, daily range): BP systolic 116–132; BP diastolic 66–82; PULSE 62–81; RESP 1–25; TEMP 36.1–36.9; O2SAT 86–98
[2022-12-19 07:48] LABS: Abs Immature Grans 0.24 10^3/uL (0.0-0.06); Absolute Basophil Count 0.04 10^3/uL (0.0-0.2); Absolute Lymphocyte Count 2.89 10^3/uL (1.2-3.4); Absolute Monocyte Count 0.91 10^3/uL (0.1-0.8); Basophils % 0.3; Eosinophils % 0.7; HCT 38.2 % (40.0-50.0); HGB 12.7 g/dL (13.5-17.5); Immature Grans % 1.8; Lymphocytes % 21.2; MCH 29.7 pg (27.0-33.0); MCHC 33.2 % (32.0-36.0); MCV 90 fL (80-95); MPV 9.3 fL (8.0-11.0); Monocytes % 6.7; Neutrophils % 69.3; Platelet Count 165 10^3/uL (130-400); RBC 4.27 10^6/uL (4.36-5.78); RDW 14.6 % (11.8-14.1); RDW-SD 47.3 fL; WBC 13.61 10^3/uL (4.4-10.8)
[2022-12-19 07:58] LABS: Absolute Neutrophil Count 9.43 10^3/uL (1.2-6.7)
[2022-12-19 08:13] LABS: ALT 86 U/L (16-63); AST 71 U/L (15-37); Albumin 3.1 g/dL (3.4-5.0); Alkaline Phosphatase 80 U/L (46-116); Anion Gap 4.6 mmol/L (3-11); BUN 22 mg/dL (7-18); Bilirubin, Total 0.4 mg/dL (0.2-1.0); CO2 31.4 mmol/L (21.0-32.0); CREATININE 0.9 mg/dL (0.70-1.30); Calcium 8.8 mg/dL (8.5-10.1); Chloride 102 mmol/L (98-107); Estimated GFR 95.97 (mL/min/1.73m2); Glucose 151 mg/dL (74-106); Potassium 4.3 mmol/L (3.5-5.1); Sodium 138 mmol/L (136-145); Total Protein 6.1 g/dL (6.4-8.2)
[2022-12-19 08:27] LABS: Cyclic Citrullinated Peptide <2.5 U/mL (<5.0)
[2022-12-19] MEDS: Normal Saline Flush 10 ML SYR IVP (08:36)
[2022-12-19 08:37] LABS: IgA 296 mg/dL (85-499); IgG 817 mg/dL (610-1616); IgM 80 mg/dL (35-242)
[2022-12-19] MEDS: Apixaban 5 MG TAB PO ×2 (08:37→20:50)
[2022-12-19] MEDS: Calcitonin-Salmon, Synthetic 3.7 ML BTL NS (08:38)
[2022-12-19] MEDS: Cholecalciferol (Vitamin D3) 1,000 UNIT TAB 2000 UNITS PO (08:38)
[2022-12-19] MEDS: Gabapentin 300 MG CAP 600 MG PO ×3 (08:38→20:53)
[2022-12-19] MEDS: Calcium Citrate 950 MG TAB PO ×2 (08:38→20:49)
[2022-12-19] MEDS: guaiFENesin 600 MG TABCR PO ×2 (08:38→20:50)
[2022-12-19] MEDS: Famotidine 20 MG TAB PO ×2 (08:38→20:50)
[2022-12-19] MEDS: Insulin Aspart 300 UNITS/3 ML PEN SC ×7 (08:38→22:44)
[2022-12-19] MEDS: Citalopram 20 MG TAB PO (08:38)
[2022-12-19] MEDS: Carbidopa 25/Levodopa 100 TAB PO ×4 (08:38→20:50)
[2022-12-19] MEDS: Insulin NPH-Human 300 UNITS/3 ML PEN 30 UNIT SC (08:39)
[2022-12-19] MEDS: Multivitamin TAB 1 TAB PO (08:40)
[2022-12-19] MEDS: Pantoprazole 20 MG TABCR PO (08:40)
[2022-12-19] MEDS: predniSONE 10 MG, predniSONE 40 MG 50 MG PO (08:40)
[2022-12-19] MEDS: Senna TAB 1 TAB PO ×2 (08:40→20:49)
[2022-12-19] MEDS: Meloxicam 15 MG TAB PO (08:40)
[2022-12-19] MEDS: Lactobacillus Acidophilus CAP 1 CAP PO ×2 (08:40→20:49)
[2022-12-19] MEDS: Sulfameth/Trimeth DS TAB 1 TAB PO (08:41)
[2022-12-19] MEDS: DOXYCYCLINE 100 MG in Normal Saline 100 ML IVPB ×2 (09:22→22:00)
--- NOTE | 2022-12-19 09:55 | PDOC.CMPRO ---
Date of service: 12/19/22 Time of Service: 09:55 Care Management Progress Note Progress Note Text Progress Note Text: S/O: Deonte was sitting up in bed when CM met with him. He informed CM that there has been no change in his tendency to desaturate with activity. The provider ordered and exercise oximetry test today and it documented that Deonte's baseline need for oxygen is now 3L/min instead of the 2L/min he has been on. RT completed the appropriate paperwork [facility]. A: Deonte is a 62 year old man admitted on 12/11/22 with Respiratory failure P: Anticipate Deonte will return home with a resumption of his OP PT. He may need new home health services at first as he is weak and de-saturates easily with any activity; evaluations continue. Deonte will follow up with his community providers at the [place] and transport with family. CM will continue to support Deonte and assess for discharge concerns.
[2022-12-19 10:06] LABS: IgE 96 IU/mL (<158)
[2022-12-19 10:57] LABS: Myeloperoxidase Ab IgG <0.2 U; Proteinase 3 Ab (PR3) <0.2 U
[2022-12-19 10:59] LABS: Lymphocytes Fluid Relative 5 %; Mono/Macrophage Fluid Relative 79 %; Neutrophils Fluid Relative 5 %
[2022-12-19 11:00] LABS: Other Cells Fluid Relative 11 %
[2022-12-19] MEDS: Albuterol/Ipratropium 3 ML UPD VIAL UPD (11:00)
[2022-12-19 14:24] LABS: ANA Interpretation Negative (Negative)
[2022-12-19] MEDS: cefTRIAXone 2 GM/50 ML BAG IVPB (16:59)
--- NOTE | 2022-12-19 17:45 | PGE_ITS ---
Date of Service Date of service: 12/19/22 Time of Service: 17:45 Assessment and Plan Assessment and plan (1) Acute and chronic respiratory failure with hypoxia: Status: Acute Assessment and plan: Patient has ILD w/ pulmonary fibrosis diffusely on his CT secondary to his prior COVID-19 infection but has had recent worsening of his symptoms and having increased oxygen requirements. Now stable back on his baseline supplemental O2 needs of 2L per [place]. He does desaturate with walking in room to bathroom. It does not appear to be a typical CAP bacterial pneumonia. His Fluvid was negative. Fungi tell was negative. Histoplasmosis antigen was negative. Legionella and urine strep antigens were negative. Patient remains on doxycycline and Rocephin. Bronchoscopy: BAL unremarkable. Continue prednisone taper along with PJP prophylaxis with Bactrim. Day 2 of 50mg/daily. Planning d/c tomorrow. (2) Dyspnea: Status: Acute Assessment and plan: As above (3) Diffuse lung disease: Status: Acute Assessment and plan: As above (4) Pulmonary embolism on long-term anticoagulation therapy: Status: Acute Assessment and plan: Continue on lifelong apixaban in setting of multiple DVT and PE but no evidence of acute PE. (5) Benign hypertension: Status: Active Assessment and plan: not currently on any antihypertensives, will monitor but not intiate treatment (6) Gastroesophageal reflux disease: Status: Active Assessment and plan: continue pepcid Episode of distal substernal pressure. GI cocktail did not relieve the discomfort. Troponin neg. (7) Diabetes mellitus: Assessment and plan: Afternoon readings running high. D/C NPH and change glargine to BID. Cont bolus dosing. Monitor. (8) Sleep apnea: Status: Active Assessment and plan: patient told to have his bring his BIPAP back in to hospital for his use; this hasn't occured as of yet. Subjective Subjective Patient reports: no new complaints, tolerating a regular diet, shortness of breath (With exertion / similar to his baseline status now) and afebrile; denies nausea or vomiting Exam Narrative Exam Narrative: Gen: sitting up in bed. Conversant. NAD Lungs with bibasilar fine rales no rhonchi or wheezing Heart is regular rate and rhythm Abdomen obese soft and nontender Extremities without edema Objective Last Vital Signs Temp 36.9 C 12/19/22 14:56 Pulse 71 12/19/22 14:56 Resp 18 12/19/22 11:27 BP 116/66 12/19/22 14:56 Pulse Ox 93 12/19/22 14:56 Laboratory Results - last 24 hr 12/15/22 12/15/22 12/15/22 06:15 12:37 12:53 WBC RBC Hgb Hct MCV MCH MCHC RDW Plt Count MPV Immature Gran % Neutrophils % Lymphocytes % Monocytes % Eosinophils % Basophils % Nucleated RBC % Absolute Neutrophils Absolute Lymphocytes Absolute Monocytes Absolute Eosinophils Absolute Basophils Sodium Potassium Chloride Carbon Dioxide Anion Gap BUN Creatinine Est GFR (CKD-EPI 2020) Glucose Calcium Total Bilirubin AST ALT Alkaline Phosphatase Total Protein Albumin Bronchial Other Cells 11 BAL Neutrophils 5 BAL Lymphocytes 5 BAL Eosinophils Not Applicable BAL Monocyte/Macrophage 79 IgG IgA IgM IgE Rheumatoid Factor Cyclic Citrull Peptide <2.5 CYN Titer Not Applicable CYN Titer 2 Not Applicable CYN Titer 3 Not Applicable CYN Interpretation Negative Proteinase 3 (PR3) Myeloperoxidase Ab Gram Stain Neutrophils Present A No Neutrophils Seen HIV 1&2 Ag/Ab, 4th Gen Aerobic Culture No Growth No Growth Ref Test Specimen Type Not Applicable Not Applicable Ref Report Verification Not Applicable Not Applicable 12/15/22 12/15/22 12/15/22 20:12 20:12 20:12 WBC RBC Hgb Hct MCV MCH MCHC RDW Plt Count MPV Immature Gran % Neutrophils % Lymphocytes % Monocytes % Eosinophils % Basophils % Nucleated RBC % Absolute Neutrophils Absolute Lymphocytes Absolute Monocytes Absolute Eosinophils Absolute Basophils Sodium Potassium Chloride Carbon Dioxide Anion Gap BUN Creatinine Est GFR (CKD-EPI 2020) Glucose Calcium Total Bilirubin AST ALT Alkaline Phosphatase Total Protein Albumin Bronchial Other Cells BAL Neutrophils BAL Lymphocytes BAL Eosinophils BAL Monocyte/Macrophage IgG 817 IgA 296 IgM 80 IgE 96 Rheumatoid Factor 10.6 Cyclic Citrull Peptide CYN Titer CYN Titer 2 CYN Titer 3 CYN Interpretation Proteinase 3 (PR3) <0.2 Myeloperoxidase Ab <0.2 Gram Stain HIV 1&2 Ag/Ab, 4th Gen Negative Aerobic Culture Ref Test Specimen Type Ref Report Verification 12/19/22 12/19/22 06:57 06:57 WBC 13.61 H RBC 4.27 L Hgb 12.7 L Hct 38.2 L MCV 90 MCH 29.7 MCHC 33.2 RDW 14.6 H Plt Count 165 MPV 9.3 Immature Gran % 1.8 Neutrophils % 69.3 Lymphocytes % 21.2 Monocytes % 6.7 Eosinophils % 0.7 Basophils % 0.3 Nucleated RBC % 0.0 Absolute Neutrophils 9.43 H Absolute Lymphocytes 2.89 Absolute Monocytes 0.91 H Absolute Eosinophils 0.10 Absolute Basophils 0.04 Sodium 138 Potassium 4.3 Chloride 102 Carbon Dioxide 31.4 Anion Gap 4.6 BUN 22 H Creatinine 0.9 Est GFR (CKD-EPI 2020) 95.97 Glucose 151 H Calcium 8.8 Total Bilirubin 0.4 AST 71 H ALT 86 H Alkaline Phosphatase 80 Total Protein 6.1 L Albumin 3.1 L Bronchial Other Cells BAL Neutrophils BAL Lymphocytes BAL Eosinophils BAL Monocyte/Macrophage IgG IgA IgM IgE Rheumatoid Factor Cyclic Citrull Peptide CYN Titer CYN Titer 2 CYN Titer 3 CYN Interpretation Proteinase 3 (PR3) Myeloperoxidase Ab Gram Stain HIV 1&2 Ag/Ab, 4th Gen Aerobic Culture Ref Test Specimen Type Ref Report Verification Time Spent with Patient Time Spent with Patient: 25-34 minutes Time was spent: preparing to see the patient(eg.review tests), obtaining and/or reviewing separately otained hiistory, ordering medications,tests, procedures, referring, communicating with other health career center advisor, indepentently interpreting results, counseling the patient and care coordination
[2022-12-19] MEDS: Zolpidem 10 MG TAB PO (20:49)
[2022-12-19] MEDS: Cyclobenzaprine 10 MG TAB 5 MG PO (20:50)
[2022-12-19] MEDS: Atorvastatin 20 MG TAB PO (20:50)
[2022-12-19] MEDS: traZODone 100 MG TAB PO (20:50)
[2022-12-19] MEDS: Tamsulosin 0.4 MG CAPCR PO (20:50)
[2022-12-19] MEDS: Insulin Glargine 300 UNITS/3 ML PEN 20 UNITS SC (22:56)
[2022-12-20 06:32] VITALS: BP 119/72; PULSE 57; RESP 16; TEMP 36.3; O2SAT 95
--- NOTE | 2022-12-20 06:40 | W.PULMPROG ---
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 His bronchoscopy BAL results were bland with no indication for infection. It seems most likely that he is having an ILD flare. He will continue with a taper and he should follow up with his granulating machine operator at the [place]. We discussed increasing his Inogen setting until he can have a titration study with the Inogen completed with his granulating machine operator as an outpatient. ILD - CYN, RF, anti-CCP negative - prednisone 50mg - recommend to decrease dose by 10mg per week until he is off - Bactrim for PJP ppx while on 20mg of prednisone or greater - follow up with his [place] granulating machine operator Hypoxic respiratory failure - adjust O2 with exertion to maintain sats 88% or higher - recommend using level 5 on Inogen until he can have an Inogen titrate walk test completed with his granulating machine operator Recurrent respiratory infections - immunoglobulins normal - HIV negative ALEX - on BiPAP General Date Of Service Date of service: 12/20/22 Time of Service: 06:40 Reason for Consult: Pneumonia, ILD Subjective 24 Hour Events: BAL returned bland with a normal cell diff. Silver stain negative, no malignant cells seen, negative cultures and negative respiratory viral panel. Note Note: He is feeling well today and thinks he is getting better. He is using the VibraPEP which he states works very well and he is able to clear out yellow secretions with it. He mentions that he bought an Inogen at home that is a pulse dose but he was setting it to only 2LPM with exertion as well. We discussed how with the pulse dose concentrators, they need to be set usually 2 levels higher than what is needed continuous. Exam Narrative Exam Narrative: Gen:?NAD, normal respiratory effort, well-nourished HENT:?PERRL Chest:?No respiratory distress, normal appearance of chest, bilateral crackles Heart:?regular rate and rhythym, no murmurs, rubs or gallops Abdomen:?Non-distended, soft, non tender Extremities:?No clubbing, edema, cyanosis, rashes Neuro:?AAOx3 , non focal Psych:?cooperative, appropriate mental affect Objective Last Vital Signs Temp 36.3 C L 12/20/22 06:32 Pulse 57 L 12/20/22 06:32 Resp 16 12/20/22 06:32 BP 119/72 12/20/22 06:32 Pulse Ox 95 12/20/22 06:32 Laboratory Results - last 24 hr 12/15/22 12/15/22 12/15/22 06:15 12:37 12:53 WBC RBC Hgb Hct MCV MCH MCHC RDW Plt Count MPV Immature Gran % Neutrophils % Lymphocytes % Monocytes % Eosinophils % Basophils % Nucleated RBC % Absolute Neutrophils Absolute Lymphocytes Absolute Monocytes Absolute Eosinophils Absolute Basophils Sodium Potassium Chloride Carbon Dioxide Anion Gap BUN Creatinine Est GFR (CKD-EPI 2020) Glucose Calcium Total Bilirubin AST ALT Alkaline Phosphatase Total Protein Albumin Bronchial Other Cells 11 BAL Neutrophils 5 BAL Lymphocytes 5 BAL Eosinophils Not Applicable BAL Monocyte/Macrophage 79 IgG IgA IgM IgE Rheumatoid Factor Cyclic Citrull Peptide <2.5 CYN Titer Not Applicable CYN Titer 2 Not Applicable CYN Titer 3 Not Applicable CYN Interpretation Negative Proteinase 3 (PR3) Myeloperoxidase Ab Gram Stain Neutrophils Present A No Neutrophils Seen HIV 1&2 Ag/Ab, 4th Gen Aerobic Culture No Growth No Growth Ref Test Specimen Type Not Applicable Not Applicable Ref Report Verification Not Applicable Not Applicable 12/15/22 12/15/22 12/15/22 20:12 20:12 20:12 WBC RBC Hgb Hct MCV MCH MCHC RDW Plt Count MPV Immature Gran % Neutrophils % Lymphocytes % Monocytes % Eosinophils % Basophils % Nucleated RBC % Absolute Neutrophils Absolute Lymphocytes Absolute Monocytes Absolute Eosinophils Absolute Basophils Sodium Potassium Chloride Carbon Dioxide Anion Gap BUN Creatinine Est GFR (CKD-EPI 2020) Glucose Calcium Total Bilirubin AST ALT Alkaline Phosphatase Total Protein Albumin Bronchial Other Cells BAL Neutrophils BAL Lymphocytes BAL Eosinophils BAL Monocyte/Macrophage IgG 817 IgA 296 IgM 80 IgE 96 Rheumatoid Factor 10.6 Cyclic Citrull Peptide CYN Titer CYN Titer 2 CYN Titer 3 CYN Interpretation Proteinase 3 (PR3) <0.2 Myeloperoxidase Ab <0.2 Gram Stain HIV 1&2 Ag/Ab, 4th Gen Negative Aerobic Culture Ref Test Specimen Type Ref Report Verification 12/19/22 12/19/22 06:57 06:57 WBC 13.61 H RBC 4.27 L Hgb 12.7 L Hct 38.2 L MCV 90 MCH 29.7 MCHC 33.2 RDW 14.6 H Plt Count 165 MPV 9.3 Immature Gran % 1.8 Neutrophils % 69.3 Lymphocytes % 21.2 Monocytes % 6.7 Eosinophils % 0.7 Basophils % 0.3 Nucleated RBC % 0.0 Absolute Neutrophils 9.43 H Absolute Lymphocytes 2.89 Absolute Monocytes 0.91 H Absolute Eosinophils 0.10 Absolute Basophils 0.04 Sodium 138 Potassium 4.3 Chloride 102 Carbon Dioxide 31.4 Anion Gap 4.6 BUN 22 H Creatinine 0.9 Est GFR (CKD-EPI 2020) 95.97 Glucose 151 H Calcium 8.8 Total Bilirubin 0.4 AST 71 H ALT 86 H Alkaline Phosphatase 80 Total Protein 6.1 L Albumin 3.1 L Bronchial Other Cells BAL Neutrophils BAL Lymphocytes BAL Eosinophils BAL Monocyte/Macrophage IgG IgA IgM IgE Rheumatoid Factor Cyclic Citrull Peptide CYN Titer CYN Titer 2 CYN Titer 3 CYN Interpretation Proteinase 3 (PR3) Myeloperoxidase Ab Gram Stain HIV 1&2 Ag/Ab, 4th Gen Aerobic Culture Ref Test Specimen Type Ref Report Verification Results Medications Medications: Active Medications Generic Name Dose Route Start Last Admin Trade Name Freq PRN Reason Stop Dose Admin Acetaminophen 0 mg 12/11/22 17:21 12/15/22 19:52 Acetaminophen 325 Mg Tab PO 650 mg Q4H PRN PRN Administration Acidophilus/Pectin 1 cap 12/11/22 20:00 12/19/22 20:49 Lactobacillus Acidophilus Cap PO 1 cap BID KANE Administration Al Hydrox/Mg Hydrox/Simethicone 30 ml 12/11/22 17:21 Mylanta Suspension 30 Ml Cup PO Q2H PRN PRN Albuterol Sulfate 2.5 mg 12/11/22 17:21 Albuterol 2.5 Mg/3 Ml Inh Soln Vial UPD Q2H PRN PRN Albuterol/Ipratropium 3 ml 12/17/22 09:15 12/19/22 11:00 Albuterol/Ipratropium 3 Ml Upd Vial UPD 3 ml Q6H PRN PRN Administration Alendronate Sodium 70 mg 12/17/22 06:00 12/17/22 07:26 Alendronate 70 Mg Tab PO 70 mg Sa@0600 KANE Administration Apixaban 5 mg 12/11/22 20:00 12/19/22 20:50 Apixaban 5 Mg Tab PO 5 mg BID KANE Administration Atorvastatin Calcium 20 mg 08/20/23 22:00 12/19/22 20:50 Atorvastatin 20 Mg Tab PO 20 mg HS KANE Administration Benzocaine/Menthol 1 each 12/15/22 15:58 12/18/22 08:34 Benzocaine/Menthol-Sf Lozg 16/Box SUC 1 lozenge Q4H PRN PRN Administration Bisacodyl 10 mg 12/11/22 17:38 Bisacodyl 5 Mg Tabec PO DAILY PRN PRN Calcitonin [place] 0 ml 12/12/22 08:30 12/19/22 08:38 Calcitonin-[place], Synthetic 3.7 Ml Btl NS 1 spray DAILY KANE Administration Calcium Carbonate 500 mg 12/11/22 18:15 Calcium Carbonate *Tums* 500 Mg Chew CH TID PRN PRN Calcium Citrate 950 mg 12/11/22 20:00 12/19/22 20:49 Calcium Citrate 950 Mg Tab PO 950 mg BID KANE Administration Carbidopa/Levodopa 1 tab 12/13/22 17:00 12/19/22 20:50 Carbidopa 25/Levodopa 100 Tab PO 1 tab 0800,1200,1700,2200 KANE Administration Cholecalciferol 2,000 units 12/12/22 08:30 12/19/22 08:38 Cholecalciferol (Vitamin D3) 1,000 Unit Tab PO 2,000 units DAILY KANE Administration Citalopram Hydrobromide 20 mg 12/12/22 08:30 12/19/22 08:38 Citalopram 20 Mg Tab PO 20 mg DAILY KANE Administration Cyclobenzaprine HCl 5 mg 12/11/22 17:29 12/19/22 20:50 Cyclobenzaprine 10 Mg Tab PO 5 mg HS PRN PRN Administration Muscle Spasm Device 1 each 12/11/22 13:00 Inhaler, Assist Device MC DIRECTED KANE Dextrose 0 gm 12/11/22 17:54 Glucose Oral Gel 15 Gm/37.5 Gm Tube PO DIRECTED PRN Dextrose/Water 0 gm 12/11/22 17:54 Dextrose 50%-Water 25 Gm/50 Ml Syr IVP DIRECTED PRN Docusate Sodium 100 mg 12/11/22 17:21 Docusate Sodium 100 Mg Cap PO TID PRN PRN Famotidine 20 mg 12/11/22 20:00 12/19/22 20:50 Famotidine 20 Mg Tab PO 20 mg BID KANE Administration Gabapentin 600 mg 12/11/22 20:00 12/19/22 20:53 Gabapentin 300 Mg Cap PO 600 mg TID KANE Administration Guaifenesin 600 mg 12/13/22 20:00 12/19/22 20:50 Guaifenesin 600 Mg Tabcr PO 600 mg BID KANE Administration Sodium Chloride 500 mls @ 0 mls/hr 12/11/22 17:21 Saline 500ml Bag IV PRN PRN As Directed Ceftriaxone Sodium/Dextrose 2 gm in 50 mls @ 100 mls/hr 12/13/22 16:00 12/19/22 16:59 Rocephin IVPB 100 mls/hr Q24H [facility] Administration Doxycycline Hyclate 100 mg/ 100 mls @ 100 mls/hr 12/15/22 10:00 12/19/22 23:30 Sodium Chloride IVPB Infused Q12H KANE Infusion IV Miscellaneous Supplies 1 each 12/11/22 17:30 Iv Access IV DIRECTED KANE Insulin Aspart 0 units 12/11/22 22:00 12/19/22 22:44 Insulin Aspart 300 Units/3 Ml Pen SC 6 units 0800,1200,1700,2200 [facility] Administration Protocol Insulin Aspart 0 units 12/12/22 17:00 12/19/22 17:01 Insulin Aspart 300 Units/3 Ml Pen SC 8 unit 0800,1200,1700 [facility] Administration Insulin Glargine 20 units 12/19/22 20:00 12/19/22 22:56 Insulin Glargine 300 Units/3 Ml Pen SC 20 units BID [facility] Administration Magnesium Hydroxide 30 ml 12/11/22 17:21 Milk Of Magnesia 30 Ml Cup PO DAILY PRN PRN Meloxicam 15 mg 12/12/22 08:30 12/19/22 08:40 Meloxicam 15 Mg Tab PO 15 mg DAILY KANE Administration Morphine Sulfate 45 mg 12/11/22 20:00 12/19/22 20:52 Morphine C.R. 15 Mg Tabcr PO 45 mg BID [facility] Administration Multivitamins 1 tab 12/12/22 08:30 12/19/22 08:40 Multivitamin Tab PO 1 tab DAILY KANE Administration Naloxone HCl 4 mg 12/11/22 17:29 Naloxone Nasal 4 Mg/[facility] Inhn-Vdh NS PRN PRN Oxycodone HCl 15 mg 12/11/22 17:29 12/18/22 18:36 Oxycodone 15 Mg Tab PO 15 mg TID PRN PRN Administration Pantoprazole Sodium 20 mg 12/14/22 07:30 12/19/22 08:40 Pantoprazole 20 Mg Tabcr PO 20 mg DAILY@0730 KANE Administration Patient's Own 1 each 12/13/22 07:30 12/19/22 08:40 Medication (Linzess PO 1 each 290 Mg Capsule) DAILY@0730 KANE Administration Polyethylene Glycol 17 gm 12/11/22 17:21 Polyethylene Glycol 3350 17 Gm Packet PO DAILY PRN PRN Constipation Prednisone 10 mg/ Prednisone 50 mg 12/19/22 08:30 12/19/22 08:40 40 mg PO 50 mg DAILY KANE Administration Sennosides 1 tab 12/11/22 20:00 12/19/22 20:49 Senna Tab PO 1 tab BID KANE Administration Sodium Chloride 0 ml 12/11/22 17:21 12/19/22 08:36 Normal Saline Flush 10 Ml Syr IVP 10 ml PRN PRN Administration Tamsulosin HCl 0.4 mg 12/11/22 22:00 12/19/22 20:50 Tamsulosin 0.4 Mg Capcr PO 0.4 mg HS KANE Administration Trazodone HCl 100 mg 12/11/22 22:00 12/19/22 20:50 Trazodone 100 Mg Tab PO 100 mg HS KANE Administration Trimethoprim/Sulfamethoxazole 1 tab 12/14/22 08:30 12/19/22 08:41 Sulfameth/Trimeth Ds Tab PO 1 tab DAILY KANE Administration Zolpidem Tartrate 10 mg 12/11/22 22:00 12/19/22 20:49 Zolpidem 10 Mg Tab PO 10 mg HS KANE Administration Allergies cimetidine HCl [From Tagamet] Allergy (Severe, Verified 12/11/22 12:04) Anaphylaxsis rivaroxaban [From Xarelto] Allergy (Severe, Verified 12/11/22 12:04) Latex, Natural Rubber Allergy (Intermediate, Verified 12/11/22 12:04) Skin Rash lisinopril Allergy (Intermediate, Verified 12/11/22 12:04) morphine Allergy (Mild, Verified 12/11/22 12:04) Itching diphenhydramine HCl [From Benadryl] Adverse Reaction (Intermediate, Verified 12/11/22 12:04) palpitations promethazine HCl [From Phenergan] Adverse Reaction (Verified 12/11/22 12:04) Dizziness/Lightheade Labs 12/19/22 06:57 12/20/22 06:04 Labs: 12/11/22 15:35 Blood Blood Culture - Final NO GROWTH 120 HOURS 12/11/22 15:25 Blood Blood Culture - Final NO GROWTH 120 HOURS 12/12/22 19:25 Sputum Sputum Culture - Final Normal Anitra 12/12/22 19:25 Sputum Gram Stain - Final Laboratory Tests Range/Units 12/11/22 12/11/22 12/11/22 12:30 12:30 13:17 WBC (4.4-10.8) 10^3/uL 12.69 H RBC (4.36-5.78) 10^6/uL 5.15 Hgb (13.5-17.5) g/dL 15.4 Hct (40.0-50.0) % 45.9 MCV (80-95) fL 89 MCH (27.0-33.0) pg 29.9 MCHC (32.0-36.0) % 33.6 RDW (11.8-14.1) % 14.1 Plt Count (130-400) 10^3/uL MPV (8.0-11.0) fL Immature Gran % 0.4 Neutrophils % 73.4 Lymphocytes % 16.9 Monocytes % 6.9 Eosinophils % 1.9 Basophils % 0.5 Nucleated RBC % (0.0-0.3) % 0.0 Absolute Neutrophils (1.2-6.7) 10^3/uL 9.31 H Absolute Lymphocytes (1.2-3.4) 10^3/uL 2.14 Absolute Monocytes (0.1-0.8) 10^3/uL 0.88 H Absolute Eosinophils (0.0-0.7) 10^3/uL 0.24 Absolute Basophils (0.0-0.2) 10^3/uL 0.06 RBC Morphology Normal ABG Sample Site ABG pH (7.35-7.45) ABG pCO2 (35-45) mmHg ABG pO2 (80-105) mmHg ABG HCO3 (22-26) mmol/L ABG Total CO2 (23-27) mmol/L ABG O2 Saturation (95-98) % ABG Base Excess (-2-3) mmol/L VBG Lactate (0.6-1.4) mmol/L Oxygen Liter Flow L Sodium Cancelled 138 Potassium Cancelled 4.3 Chloride Cancelled 100 Carbon Dioxide Cancelled 28.1 Anion Gap Cancelled 9.9 BUN Cancelled 15 Creatinine Cancelled 0.9 Est GFR (CKD-EPI 2020) Cancelled 95.97 Glucose Cancelled 178 H Calcium Cancelled 9.6 Magnesium (1.8-2.4) mg/dL Total Bilirubin Cancelled 0.7 AST Cancelled 66 H ALT Cancelled 34 Alkaline Phosphatase Cancelled 106 Troponin I Cancelled < 50 C-Reactive Protein Cancelled 0.21 NT-Pro-B Natriuret Pep Cancelled 19 Total Protein Cancelled 7.8 Albumin Cancelled 4.0 Procalcitonin ng/mL TSH (0.36-3.74) uIU/mL Bronchial Other Cells % BAL Neutrophils % BAL Lymphocytes % BAL Eosinophils BAL Monocyte/Macrophage % IgG (610-1616) mg/dL IgA (85-499) mg/dL IgM (35-242) mg/dL IgE (<158) IU/mL Rheumatoid Factor (<12.0) IU/mL Cyclic Citrull Peptide (<5.0) U/mL CYN Titer CYN Titer 2 CYN Titer 3 CYN Interpretation (Negative) Proteinase 3 (PR3) U Myeloperoxidase Ab U Gram Stain Adenovirus DNA Blastomyces Ag Result Blastomyces Ag Comment ng/mL COVID-19 Source SARS-CoV-2 (PCR) (Negative) Urine Histoplasma Ag U Histoplasma Ag Index ng/mL HIV 1&2 Ag/Ab, 4th Gen (Negative) Human Metapneumovir RNA Influenza Type A (PCR) (Negative) Influenza Type B (PCR) (Negative) Urine Legionella Ag (Negative) M. pneumoniae Source M. pneumoniae (PCR) Parainfluenza 1 (PCR) Parainfluenza 2 (PCR) Parainfluenza 3 (PCR) Parainfluenza 4 (PCR) RSV (PCR) (Negative) Resp Viral Spec Desc Rhinovirus (PCR) Ur Strep pneumoniae Ag (Negative) Aerobic Culture B-(1,3)-D-Glucan Quant (<60 pg/mL) pg/mL B-(1,3)-D-Glucan Qual (Negative) Ref Test Specimen Type Ref Report Verification Range/Units 12/11/22 12/11/22 12/11/22 15:18 15:25 15:25 WBC (4.4-10.8) 10^3/uL RBC (4.36-5.78) 10^6/uL Hgb (13.5-17.5) g/dL Hct (40.0-50.0) % MCV (80-95) fL MCH (27.0-33.0) pg MCHC (32.0-36.0) % RDW (11.8-14.1) % Plt Count (130-400) 10^3/uL MPV (8.0-11.0) fL Immature Gran % Neutrophils % Lymphocytes % Monocytes % Eosinophils % Basophils % Nucleated RBC % (0.0-0.3) % Absolute Neutrophils (1.2-6.7) 10^3/uL Absolute Lymphocytes (1.2-3.4) 10^3/uL Absolute Monocytes (0.1-0.8) 10^3/uL Absolute Eosinophils (0.0-0.7) 10^3/uL Absolute Basophils (0.0-0.2) 10^3/uL RBC Morphology ABG Sample Site ABG pH (7.35-7.45) ABG pCO2 (35-45) mmHg ABG pO2 (80-105) mmHg ABG HCO3 (22-26) mmol/L ABG Total CO2 (23-27) mmol/L ABG O2 Saturation (95-98) % ABG Base Excess (-2-3) mmol/L VBG Lactate (0.6-1.4) mmol/L Oxygen Liter Flow L Sodium Potassium Chloride Carbon Dioxide Anion Gap BUN Creatinine Est GFR (CKD-EPI 2020) Glucose Calcium Magnesium (1.8-2.4) mg/dL Total Bilirubin AST ALT Alkaline Phosphatase Troponin I < 50 C-Reactive Protein NT-Pro-B Natriuret Pep Total Protein Albumin Procalcitonin ng/mL < 0.1 TSH (0.36-3.74) uIU/mL Bronchial Other Cells % BAL Neutrophils % BAL Lymphocytes % BAL Eosinophils BAL Monocyte/Macrophage % IgG (610-1616) mg/dL IgA (85-499) mg/dL IgM (35-242) mg/dL IgE (<158) IU/mL Rheumatoid Factor (<12.0) IU/mL Cyclic Citrull Peptide (<5.0) U/mL CYN Titer CYN Titer 2 CYN Titer 3 CYN Interpretation (Negative) Proteinase 3 (PR3) U Myeloperoxidase Ab U Gram Stain Adenovirus DNA Blastomyces Ag Result Blastomyces Ag Comment ng/mL COVID-19 Source Nasal/Nares SARS-CoV-2 (PCR) (Negative) Negative Urine Histoplasma Ag U Histoplasma Ag Index ng/mL HIV 1&2 Ag/Ab, 4th Gen (Negative) Human Metapneumovir RNA Influenza Type A (PCR) (Negative) Influenza Type B (PCR) (Negative) Urine Legionella Ag (Negative) M. pneumoniae Source M. pneumoniae (PCR) Parainfluenza 1 (PCR) Parainfluenza 2 (PCR) Parainfluenza 3 (PCR) Parainfluenza 4 (PCR) RSV (PCR) (Negative) Resp Viral Spec Desc Rhinovirus (PCR) Ur Strep pneumoniae Ag (Negative) Aerobic Culture B-(1,3)-D-Glucan Quant (<60 pg/mL) pg/mL B-(1,3)-D-Glucan Qual (Negative) Ref Test Specimen Type Ref Report Verification Range/Units 12/11/22 12/11/22 12/11/22 15:35 17:43 18:36 WBC (4.4-10.8) 10^3/uL RBC (4.36-5.78) 10^6/uL Hgb (13.5-17.5) g/dL Hct (40.0-50.0) % MCV (80-95) fL MCH (27.0-33.0) pg MCHC (32.0-36.0) % RDW (11.8-14.1) % Plt Count (130-400) 10^3/uL MPV (8.0-11.0) fL Immature Gran % Neutrophils % Lymphocytes % Monocytes % Eosinophils % Basophils % Nucleated RBC % (0.0-0.3) % Absolute Neutrophils (1.2-6.7) 10^3/uL Absolute Lymphocytes (1.2-3.4) 10^3/uL Absolute Monocytes (0.1-0.8) 10^3/uL Absolute Eosinophils (0.0-0.7) 10^3/uL Absolute Basophils (0.0-0.2) 10^3/uL RBC Morphology ABG Sample Site ABG pH (7.35-7.45) ABG pCO2 (35-45) mmHg ABG pO2 (80-105) mmHg ABG HCO3 (22-26) mmol/L ABG Total CO2 (23-27) mmol/L ABG O2 Saturation (95-98) % ABG Base Excess (-2-3) mmol/L VBG Lactate (0.6-1.4) mmol/L 3.4 H* 4.6 H* Oxygen Liter Flow L Sodium Potassium Chloride Carbon Dioxide Anion Gap BUN Creatinine Est GFR (CKD-EPI 2020) Glucose Calcium Magnesium (1.8-2.4) mg/dL Total Bilirubin AST ALT Alkaline Phosphatase Troponin I C-Reactive Protein NT-Pro-B Natriuret Pep Total Protein Albumin Procalcitonin ng/mL TSH (0.36-3.74) uIU/mL Bronchial Other Cells % BAL Neutrophils % BAL Lymphocytes % BAL Eosinophils BAL Monocyte/Macrophage % IgG (610-1616) mg/dL IgA (85-499) mg/dL IgM (35-242) mg/dL IgE (<158) IU/mL Rheumatoid Factor (<12.0) IU/mL Cyclic Citrull Peptide (<5.0) U/mL CYN Titer CYN Titer 2 CYN Titer 3 CYN Interpretation (Negative) Proteinase 3 (PR3) U Myeloperoxidase Ab U Gram Stain Adenovirus DNA Blastomyces Ag Result Blastomyces Ag Comment ng/mL COVID-19 Source SARS-CoV-2 (PCR) (Negative) Urine Histoplasma Ag U Histoplasma Ag Index ng/mL HIV 1&2 Ag/Ab, 4th Gen (Negative) Human Metapneumovir RNA Influenza Type A (PCR) (Negative) Influenza Type B (PCR) (Negative) Urine Legionella Ag (Negative) M. pneumoniae Source M. pneumoniae (PCR) Parainfluenza 1 (PCR) Parainfluenza 2 (PCR) Parainfluenza 3 (PCR) Parainfluenza 4 (PCR) RSV (PCR) (Negative) Resp Viral Spec Desc Rhinovirus (PCR) Ur Strep pneumoniae Ag (Negative) Aerobic Culture B-(1,3)-D-Glucan Quant (<60 pg/mL) pg/mL <31 B-(1,3)-D-Glucan Qual (Negative) Negative Ref Test Specimen Type Ref Report Verification Range/Units 12/11/22 12/11/22 12/11/22 20:30 22:00 22:00 WBC (4.4-10.8) 10^3/uL RBC (4.36-5.78) 10^6/uL Hgb (13.5-17.5) g/dL Hct (40.0-50.0) % MCV (80-95) fL MCH (27.0-33.0) pg MCHC (32.0-36.0) % RDW (11.8-14.1) % Plt Count (130-400) 10^3/uL MPV (8.0-11.0) fL Immature Gran % Neutrophils % Lymphocytes % Monocytes % Eosinophils % Basophils % Nucleated RBC % (0.0-0.3) % Absolute Neutrophils (1.2-6.7) 10^3/uL Absolute Lymphocytes (1.2-3.4) 10^3/uL Absolute Monocytes (0.1-0.8) 10^3/uL Absolute Eosinophils (0.0-0.7) 10^3/uL Absolute Basophils (0.0-0.2) 10^3/uL RBC Morphology ABG Sample Site ABG pH (7.35-7.45) ABG pCO2 (35-45) mmHg ABG pO2 (80-105) mmHg ABG HCO3 (22-26) mmol/L ABG Total CO2 (23-27) mmol/L ABG O2 Saturation (95-98) % ABG Base Excess (-2-3) mmol/L VBG Lactate (0.6-1.4) mmol/L Oxygen Liter Flow L Sodium Potassium Chloride Carbon Dioxide Anion Gap BUN Creatinine Est GFR (CKD-EPI 2020) Glucose Calcium Magnesium (1.8-2.4) mg/dL Total Bilirubin AST ALT Alkaline Phosphatase Troponin I C-Reactive Protein NT-Pro-B Natriuret Pep Total Protein Albumin Procalcitonin ng/mL TSH (0.36-3.74) uIU/mL Bronchial Other Cells % BAL Neutrophils % BAL Lymphocytes % BAL Eosinophils BAL Monocyte/Macrophage % IgG (610-1616) mg/dL IgA (85-499) mg/dL IgM (35-242) mg/dL IgE (<158) IU/mL Rheumatoid Factor (<12.0) IU/mL Cyclic Citrull Peptide (<5.0) U/mL CYN Titer CYN Titer 2 CYN Titer 3 CYN Interpretation (Negative) Proteinase 3 (PR3) U Myeloperoxidase Ab U Gram Stain Adenovirus DNA Blastomyces Ag Result Not Detected Blastomyces Ag Comment ng/mL Not Detected COVID-19 Source Nasopharynx SARS-CoV-2 (PCR) (Negative) Negative Urine Histoplasma Ag U Histoplasma Ag Index ng/mL HIV 1&2 Ag/Ab, 4th Gen (Negative) Human Metapneumovir RNA Influenza Type A (PCR) (Negative) Negative Influenza Type B (PCR) (Negative) Negative Urine Legionella Ag (Negative) Negative M. pneumoniae Source M. pneumoniae (PCR) Parainfluenza 1 (PCR) Parainfluenza 2 (PCR) Parainfluenza 3 (PCR) Parainfluenza 4 (PCR) RSV (PCR) (Negative) Negative Resp Viral Spec Desc Rhinovirus (PCR) Ur Strep pneumoniae Ag (Negative) Negative Aerobic Culture B-(1,3)-D-Glucan Quant (<60 pg/mL) pg/mL B-(1,3)-D-Glucan Qual (Negative) Ref Test Specimen Type Ref Report Verification Range/Units 12/11/22 12/11/22 12/12/22 22:00 22:32 01:25 WBC (4.4-10.8) 10^3/uL RBC (4.36-5.78) 10^6/uL Hgb (13.5-17.5) g/dL Hct (40.0-50.0) % MCV (80-95) fL MCH (27.0-33.0) pg MCHC (32.0-36.0) % RDW (11.8-14.1) % Plt Count (130-400) 10^3/uL MPV (8.0-11.0) fL Immature Gran % Neutrophils % Lymphocytes % Monocytes % Eosinophils % Basophils % Nucleated RBC % (0.0-0.3) % Absolute Neutrophils (1.2-6.7) 10^3/uL Absolute Lymphocytes (1.2-3.4) 10^3/uL Absolute Monocytes (0.1-0.8) 10^3/uL Absolute Eosinophils (0.0-0.7) 10^3/uL Absolute Basophils (0.0-0.2) 10^3/uL RBC Morphology ABG Sample Site ABG pH (7.35-7.45) ABG pCO2 (35-45) mmHg ABG pO2 (80-105) mmHg ABG HCO3 (22-26) mmol/L ABG Total CO2 (23-27) mmol/L ABG O2 Saturation (95-98) % ABG Base Excess (-2-3) mmol/L VBG Lactate (0.6-1.4) mmol/L 6.1 H* 4.7 H* Oxygen Liter Flow L Sodium Potassium Chloride Carbon Dioxide Anion Gap BUN Creatinine Est GFR (CKD-EPI 2020) Glucose Calcium Magnesium (1.8-2.4) mg/dL Total Bilirubin AST ALT Alkaline Phosphatase Troponin I C-Reactive Protein NT-Pro-B Natriuret Pep Total Protein Albumin Procalcitonin ng/mL TSH (0.36-3.74) uIU/mL Bronchial Other Cells % BAL Neutrophils % BAL Lymphocytes % BAL Eosinophils BAL Monocyte/Macrophage % IgG (610-1616) mg/dL IgA (85-499) mg/dL IgM (35-242) mg/dL IgE (<158) IU/mL Rheumatoid Factor (<12.0) IU/mL Cyclic Citrull Peptide (<5.0) U/mL CYN Titer CYN Titer 2 CYN Titer 3 CYN Interpretation (Negative) Proteinase 3 (PR3) U Myeloperoxidase Ab U Gram Stain Adenovirus DNA Blastomyces Ag Result Blastomyces Ag Comment ng/mL COVID-19 Source SARS-CoV-2 (PCR) (Negative) Urine Histoplasma Ag Not Detected U Histoplasma Ag Index ng/mL Not Detected HIV 1&2 Ag/Ab, 4th Gen (Negative) Human Metapneumovir RNA Influenza Type A (PCR) (Negative) Influenza Type B (PCR) (Negative) Urine Legionella Ag (Negative) M. pneumoniae Source M. pneumoniae (PCR) Parainfluenza 1 (PCR) Parainfluenza 2 (PCR) Parainfluenza 3 (PCR) Parainfluenza 4 (PCR) RSV (PCR) (Negative) Resp Viral Spec Desc Rhinovirus (PCR) Ur Strep pneumoniae Ag (Negative) Aerobic Culture B-(1,3)-D-Glucan Quant (<60 pg/mL) pg/mL B-(1,3)-D-Glucan Qual (Negative) Ref Test Specimen Type Ref Report Verification Range/Units 12/12/22 12/12/22 12/12/22 06:30 06:30 06:30 WBC (4.4-10.8) 10^3/uL 13.28 H RBC (4.36-5.78) 10^6/uL 4.52 Hgb (13.5-17.5) g/dL 13.3 L D Hct (40.0-50.0) % 40.2 MCV (80-95) fL 89 MCH (27.0-33.0) pg 29.4 MCHC (32.0-36.0) % 33.1 RDW (11.8-14.1) % 13.9 Plt Count (130-400) 10^3/uL 161 MPV (8.0-11.0) fL 9.0 Immature Gran % 0.7 Neutrophils % 84.9 Lymphocytes % 10.8 Monocytes % 3.4 Eosinophils % 0.0 Basophils % 0.2 Nucleated RBC % (0.0-0.3) % 0.0 Absolute Neutrophils (1.2-6.7) 10^3/uL 11.27 H Absolute Lymphocytes (1.2-3.4) 10^3/uL 1.43 Absolute Monocytes (0.1-0.8) 10^3/uL 0.45 Absolute Eosinophils (0.0-0.7) 10^3/uL 0.00 Absolute Basophils (0.0-0.2) 10^3/uL 0.03 RBC Morphology ABG Sample Site ABG pH (7.35-7.45) ABG pCO2 (35-45) mmHg ABG pO2 (80-105) mmHg ABG HCO3 (22-26) mmol/L ABG Total CO2 (23-27) mmol/L ABG O2 Saturation (95-98) % ABG Base Excess (-2-3) mmol/L VBG Lactate (0.6-1.4) mmol/L 3.2 H* Oxygen Liter Flow L Sodium 134 L Potassium 4.7 Chloride 96 L Carbon Dioxide 26.1 Anion Gap 11.9 H BUN 18 Creatinine 1.0 Est GFR (CKD-EPI 2020) 84.57 Glucose 295 H Calcium 9.0 Magnesium (1.8-2.4) mg/dL 1.8 Total Bilirubin AST ALT Alkaline Phosphatase Troponin I C-Reactive Protein NT-Pro-B Natriuret Pep Total Protein Albumin Procalcitonin ng/mL TSH (0.36-3.74) uIU/mL 1.10 Bronchial Other Cells % BAL Neutrophils % BAL Lymphocytes % BAL Eosinophils BAL Monocyte/Macrophage % IgG (610-1616) mg/dL IgA (85-499) mg/dL IgM (35-242) mg/dL IgE (<158) IU/mL Rheumatoid Factor (<12.0) IU/mL Cyclic Citrull Peptide (<5.0) U/mL CYN Titer CYN Titer 2 CYN Titer 3 CYN Interpretation (Negative) Proteinase 3 (PR3) U Myeloperoxidase Ab U Gram Stain Adenovirus DNA Blastomyces Ag Result Blastomyces Ag Comment ng/mL COVID-19 Source SARS-CoV-2 (PCR) (Negative) Urine Histoplasma Ag U Histoplasma Ag Index ng/mL HIV 1&2 Ag/Ab, 4th Gen (Negative) Human Metapneumovir RNA Influenza Type A (PCR) (Negative) Influenza Type B (PCR) (Negative) Urine Legionella Ag (Negative) M. pneumoniae Source M. pneumoniae (PCR) Parainfluenza 1 (PCR) Parainfluenza 2 (PCR) Parainfluenza 3 (PCR) Parainfluenza 4 (PCR) RSV (PCR) (Negative) Resp Viral Spec Desc Rhinovirus (PCR) Ur Strep pneumoniae Ag (Negative) Aerobic Culture B-(1,3)-D-Glucan Quant (<60 pg/mL) pg/mL B-(1,3)-D-Glucan Qual (Negative) Ref Test Specimen Type Ref Report Verification Range/Units 12/12/22 12/12/22 12/13/22 19:25 23:37 06:50 WBC (4.4-10.8) 10^3/uL RBC (4.36-5.78) 10^6/uL Hgb (13.5-17.5) g/dL Hct (40.0-50.0) % MCV (80-95) fL MCH (27.0-33.0) pg MCHC (32.0-36.0) % RDW (11.8-14.1) % Plt Count (130-400) 10^3/uL MPV (8.0-11.0) fL Immature Gran % Neutrophils % Lymphocytes % Monocytes % Eosinophils % Basophils % Nucleated RBC % (0.0-0.3) % Absolute Neutrophils (1.2-6.7) 10^3/uL Absolute Lymphocytes (1.2-3.4) 10^3/uL Absolute Monocytes (0.1-0.8) 10^3/uL Absolute Eosinophils (0.0-0.7) 10^3/uL Absolute Basophils (0.0-0.2) 10^3/uL RBC Morphology ABG Sample Site ABG pH (7.35-7.45) ABG pCO2 (35-45) mmHg ABG pO2 (80-105) mmHg ABG HCO3 (22-26) mmol/L ABG Total CO2 (23-27) mmol/L ABG O2 Saturation (95-98) % ABG Base Excess (-2-3) mmol/L VBG Lactate (0.6-1.4) mmol/L Oxygen Liter Flow L Sodium 140 Potassium 4.6 Chloride 102 Carbon Dioxide 33.1 H Anion Gap 4.9 BUN 20 H Creatinine 0.9 Est GFR (CKD-EPI 2020) 95.97 Glucose 202 H Calcium 9.3 Magnesium (1.8-2.4) mg/dL Total Bilirubin AST ALT Alkaline Phosphatase Troponin I C-Reactive Protein 0.22 NT-Pro-B Natriuret Pep Total Protein Albumin Procalcitonin ng/mL TSH (0.36-3.74) uIU/mL Bronchial Other Cells % BAL Neutrophils % BAL Lymphocytes % BAL Eosinophils BAL Monocyte/Macrophage % IgG (610-1616) mg/dL IgA (85-499) mg/dL IgM (35-242) mg/dL IgE (<158) IU/mL Rheumatoid Factor (<12.0) IU/mL Cyclic Citrull Peptide (<5.0) U/mL CYN Titer CYN Titer 2 CYN Titer 3 CYN Interpretation (Negative) Proteinase 3 (PR3) U Myeloperoxidase Ab U Gram Stain Adenovirus DNA Cancelled Blastomyces Ag Result Blastomyces Ag Comment ng/mL COVID-19 Source SARS-CoV-2 (PCR) (Negative) Urine Histoplasma Ag U Histoplasma Ag Index ng/mL HIV 1&2 Ag/Ab, 4th Gen (Negative) Human Metapneumovir RNA Cancelled Influenza Type A (PCR) (Negative) Influenza Type B (PCR) (Negative) Urine Legionella Ag (Negative) M. pneumoniae Source Not Applicable M. pneumoniae (PCR) TNP Parainfluenza 1 (PCR) Cancelled Parainfluenza 2 (PCR) Cancelled Parainfluenza 3 (PCR) Cancelled Parainfluenza 4 (PCR) Cancelled RSV (PCR) (Negative) Resp Viral Spec Desc Cancelled Rhinovirus (PCR) Cancelled Ur Strep pneumoniae Ag (Negative) Aerobic Culture B-(1,3)-D-Glucan Quant (<60 pg/mL) pg/mL B-(1,3)-D-Glucan Qual (Negative) Ref Test Specimen Type Ref Report Verification Range/Units 12/13/22 12/13/22 12/13/22 06:50 06:50 06:50 WBC (4.4-10.8) 10^3/uL 13.79 H RBC (4.36-5.78) 10^6/uL 4.40 Hgb (13.5-17.5) g/dL 13.0 L Hct (40.0-50.0) % 39.6 L MCV (80-95) fL 90 MCH (27.0-33.0) pg 29.5 MCHC (32.0-36.0) % 32.8 RDW (11.8-14.1) % 14.1 Plt Count (130-400) 10^3/uL 167 MPV (8.0-11.0) fL 8.9 Immature Gran % 0.4 Neutrophils % 73.6 Lymphocytes % 18.6 Monocytes % 6.5 Eosinophils % 0.6 Basophils % 0.3 Nucleated RBC % (0.0-0.3) % 0.0 Absolute Neutrophils (1.2-6.7) 10^3/uL 10.15 H Absolute Lymphocytes (1.2-3.4) 10^3/uL 2.56 Absolute Monocytes (0.1-0.8) 10^3/uL 0.90 H Absolute Eosinophils (0.0-0.7) 10^3/uL 0.08 Absolute Basophils (0.0-0.2) 10^3/uL 0.04 RBC Morphology ABG Sample Site ABG pH (7.35-7.45) ABG pCO2 (35-45) mmHg ABG pO2 (80-105) mmHg ABG HCO3 (22-26) mmol/L ABG Total CO2 (23-27) mmol/L ABG O2 Saturation (95-98) % ABG Base Excess (-2-3) mmol/L VBG Lactate (0.6-1.4) mmol/L 2.2 H* Oxygen Liter Flow L Sodium Potassium Chloride Carbon Dioxide Anion Gap BUN Creatinine Est GFR (CKD-EPI 2020) Glucose Calcium Magnesium (1.8-2.4) mg/dL Total Bilirubin AST ALT Alkaline Phosphatase Troponin I C-Reactive Protein NT-Pro-B Natriuret Pep Total Protein Albumin Procalcitonin ng/mL < 0.1 TSH (0.36-3.74) uIU/mL Bronchial Other Cells % BAL Neutrophils % BAL Lymphocytes % BAL Eosinophils BAL Monocyte/Macrophage % IgG (610-1616) mg/dL IgA (85-499) mg/dL IgM (35-242) mg/dL IgE (<158) IU/mL Rheumatoid Factor (<12.0) IU/mL Cyclic Citrull Peptide (<5.0) U/mL CYN Titer CYN Titer 2 CYN Titer 3 CYN Interpretation (Negative) Proteinase 3 (PR3) U Myeloperoxidase Ab U Gram Stain Adenovirus DNA Blastomyces Ag Result Blastomyces Ag Comment ng/mL COVID-19 Source SARS-CoV-2 (PCR) (Negative) Urine Histoplasma Ag U Histoplasma Ag Index ng/mL HIV 1&2 Ag/Ab, 4th Gen (Negative) Human Metapneumovir RNA Influenza Type A (PCR) (Negative) Influenza Type B (PCR) (Negative) Urine Legionella Ag (Negative) M. pneumoniae Source M. pneumoniae (PCR) Parainfluenza 1 (PCR) Parainfluenza 2 (PCR) Parainfluenza 3 (PCR) Parainfluenza 4 (PCR) RSV (PCR) (Negative) Resp Viral Spec Desc Rhinovirus (PCR) Ur Strep pneumoniae Ag (Negative) Aerobic Culture B-(1,3)-D-Glucan Quant (<60 pg/mL) pg/mL B-(1,3)-D-Glucan Qual (Negative) Ref Test Specimen Type Ref Report Verification Range/Units 12/13/22 12/15/22 12/15/22 15:15 06:15 06:15 WBC (4.4-10.8) 10^3/uL RBC (4.36-5.78) 10^6/uL Hgb (13.5-17.5) g/dL Hct (40.0-50.0) % MCV (80-95) fL MCH (27.0-33.0) pg MCHC (32.0-36.0) % RDW (11.8-14.1) % Plt Count (130-400) 10^3/uL MPV (8.0-11.0) fL Immature Gran % Neutrophils % Lymphocytes % Monocytes % Eosinophils % Basophils % Nucleated RBC % (0.0-0.3) % Absolute Neutrophils (1.2-6.7) 10^3/uL Absolute Lymphocytes (1.2-3.4) 10^3/uL Absolute Monocytes (0.1-0.8) 10^3/uL Absolute Eosinophils (0.0-0.7) 10^3/uL Absolute Basophils (0.0-0.2) 10^3/uL RBC Morphology ABG Sample Site ABG pH (7.35-7.45) ABG pCO2 (35-45) mmHg ABG pO2 (80-105) mmHg ABG HCO3 (22-26) mmol/L ABG Total CO2 (23-27) mmol/L ABG O2 Saturation (95-98) % ABG Base Excess (-2-3) mmol/L VBG Lactate (0.6-1.4) mmol/L Oxygen Liter Flow L Sodium Potassium Chloride Carbon Dioxide Anion Gap BUN Creatinine Est GFR (CKD-EPI 2020) Glucose Calcium Magnesium (1.8-2.4) mg/dL Total Bilirubin AST ALT Alkaline Phosphatase Troponin I C-Reactive Protein < 0.05 NT-Pro-B Natriuret Pep Total Protein Albumin Procalcitonin ng/mL < 0.1 TSH (0.36-3.74) uIU/mL Bronchial Other Cells % BAL Neutrophils % BAL Lymphocytes % BAL Eosinophils BAL Monocyte/Macrophage % IgG (610-1616) mg/dL IgA (85-499) mg/dL IgM (35-242) mg/dL IgE (<158) IU/mL Rheumatoid Factor (<12.0) IU/mL Cyclic Citrull Peptide (<5.0) U/mL CYN Titer CYN Titer 2 CYN Titer 3 CYN Interpretation (Negative) Proteinase 3 (PR3) U Myeloperoxidase Ab U Gram Stain Adenovirus DNA Negative Blastomyces Ag Result Blastomyces Ag Comment ng/mL COVID-19 Source SARS-CoV-2 (PCR) (Negative) Urine Histoplasma Ag U Histoplasma Ag Index ng/mL HIV 1&2 Ag/Ab, 4th Gen (Negative) Human Metapneumovir RNA Negative Influenza Type A (PCR) (Negative) Influenza Type B (PCR) (Negative) Urine Legionella Ag (Negative) M. pneumoniae Source M. pneumoniae (PCR) Parainfluenza 1 (PCR) Negative Parainfluenza 2 (PCR) Negative Parainfluenza 3 (PCR) Negative Parainfluenza 4 (PCR) Negative RSV (PCR) (Negative) Resp Viral Spec Desc Not Applicable Rhinovirus (PCR) Negative Ur Strep pneumoniae Ag (Negative) Aerobic Culture B-(1,3)-D-Glucan Quant (<60 pg/mL) pg/mL B-(1,3)-D-Glucan Qual (Negative) Ref Test Specimen Type Ref Report Verification Range/Units 12/15/22 12/15/22 12/15/22 06:15 12:37 12:53 WBC (4.4-10.8) 10^3/uL RBC (4.36-5.78) 10^6/uL Hgb (13.5-17.5) g/dL Hct (40.0-50.0) % MCV (80-95) fL MCH (27.0-33.0) pg MCHC (32.0-36.0) % RDW (11.8-14.1) % Plt Count (130-400) 10^3/uL MPV (8.0-11.0) fL Immature Gran % Neutrophils % Lymphocytes % Monocytes % Eosinophils % Basophils % Nucleated RBC % (0.0-0.3) % Absolute Neutrophils (1.2-6.7) 10^3/uL Absolute Lymphocytes (1.2-3.4) 10^3/uL Absolute Monocytes (0.1-0.8) 10^3/uL Absolute Eosinophils (0.0-0.7) 10^3/uL Absolute Basophils (0.0-0.2) 10^3/uL RBC Morphology ABG Sample Site ABG pH (7.35-7.45) ABG pCO2 (35-45) mmHg ABG pO2 (80-105) mmHg ABG HCO3 (22-26) mmol/L ABG Total CO2 (23-27) mmol/L ABG O2 Saturation (95-98) % ABG Base Excess (-2-3) mmol/L VBG Lactate (0.6-1.4) mmol/L Oxygen Liter Flow L Sodium Potassium Chloride Carbon Dioxide Anion Gap BUN Creatinine Est GFR (CKD-EPI 2020) Glucose Calcium Magnesium (1.8-2.4) mg/dL Total Bilirubin AST ALT Alkaline Phosphatase Troponin I C-Reactive Protein NT-Pro-B Natriuret Pep Total Protein Albumin Procalcitonin ng/mL TSH (0.36-3.74) uIU/mL Bronchial Other Cells % 11 BAL Neutrophils % 5 BAL Lymphocytes % 5 BAL Eosinophils Not Applicable BAL Monocyte/Macrophage % 79 IgG (610-1616) mg/dL IgA (85-499) mg/dL IgM (35-242) mg/dL IgE (<158) IU/mL Rheumatoid Factor (<12.0) IU/mL Cyclic Citrull Peptide (<5.0) U/mL <2.5 CYN Titer Not Applicable CYN Titer 2 Not Applicable CYN Titer 3 Not Applicable CYN Interpretation (Negative) Negative Proteinase 3 (PR3) U Myeloperoxidase Ab U Gram Stain Neutrophils Present A No Neutrophils Seen Adenovirus DNA Negative Blastomyces Ag Result Blastomyces Ag Comment ng/mL COVID-19 Source SARS-CoV-2 (PCR) (Negative) Urine Histoplasma Ag U Histoplasma Ag Index ng/mL HIV 1&2 Ag/Ab, 4th Gen (Negative) Human Metapneumovir RNA Negative Influenza Type A (PCR) (Negative) Influenza Type B (PCR) (Negative) Urine Legionella Ag (Negative) M. pneumoniae Source M. pneumoniae (PCR) Parainfluenza 1 (PCR) Negative Parainfluenza 2 (PCR) Negative Parainfluenza 3 (PCR) Negative Parainfluenza 4 (PCR) Negative RSV (PCR) (Negative) Resp Viral Spec Desc Not Applicable Rhinovirus (PCR) Negative Ur Strep pneumoniae Ag (Negative) Aerobic Culture No Growth No Growth B-(1,3)-D-Glucan Quant (<60 pg/mL) pg/mL B-(1,3)-D-Glucan Qual (Negative) Ref Test Specimen Type Not Applicable Not Applicable Ref Report Verification Not Applicable Not Applicable Range/Units 12/15/22 12/15/22 12/15/22 20:12 20:12 20:12 WBC (4.4-10.8) 10^3/uL RBC (4.36-5.78) 10^6/uL Hgb (13.5-17.5) g/dL Hct (40.0-50.0) % MCV (80-95) fL MCH (27.0-33.0) pg MCHC (32.0-36.0) % RDW (11.8-14.1) % Plt Count (130-400) 10^3/uL MPV (8.0-11.0) fL Immature Gran % Neutrophils % Lymphocytes % Monocytes % Eosinophils % Basophils % Nucleated RBC % (0.0-0.3) % Absolute Neutrophils (1.2-6.7) 10^3/uL Absolute Lymphocytes (1.2-3.4) 10^3/uL Absolute Monocytes (0.1-0.8) 10^3/uL Absolute Eosinophils (0.0-0.7) 10^3/uL Absolute Basophils (0.0-0.2) 10^3/uL RBC Morphology ABG Sample Site ABG pH (7.35-7.45) ABG pCO2 (35-45) mmHg ABG pO2 (80-105) mmHg ABG HCO3 (22-26) mmol/L ABG Total CO2 (23-27) mmol/L ABG O2 Saturation (95-98) % ABG Base Excess (-2-3) mmol/L VBG Lactate (0.6-1.4) mmol/L Oxygen Liter Flow L Sodium Potassium Chloride Carbon Dioxide Anion Gap BUN Creatinine Est GFR (CKD-EPI 2020) Glucose Calcium Magnesium (1.8-2.4) mg/dL Total Bilirubin AST ALT Alkaline Phosphatase Troponin I C-Reactive Protein NT-Pro-B Natriuret Pep Total Protein Albumin Procalcitonin ng/mL TSH (0.36-3.74) uIU/mL Bronchial Other Cells % BAL Neutrophils % BAL Lymphocytes % BAL Eosinophils BAL Monocyte/Macrophage % IgG (610-1616) mg/dL 817 IgA (85-499) mg/dL 296 IgM (35-242) mg/dL 80 IgE (<158) IU/mL 96 Rheumatoid Factor (<12.0) IU/mL 10.6 Cyclic Citrull Peptide (<5.0) U/mL CYN Titer CYN Titer 2 CYN Titer 3 CYN Interpretation (Negative) Proteinase 3 (PR3) U <0.2 Myeloperoxidase Ab U <0.2 Gram Stain Adenovirus DNA Blastomyces Ag Result Blastomyces Ag Comment ng/mL COVID-19 Source SARS-CoV-2 (PCR) (Negative) Urine Histoplasma Ag U Histoplasma Ag Index ng/mL HIV 1&2 Ag/Ab, 4th Gen (Negative) Negative Human Metapneumovir RNA Influenza Type A (PCR) (Negative) Influenza Type B (PCR) (Negative) Urine Legionella Ag (Negative) M. pneumoniae Source M. pneumoniae (PCR) Parainfluenza 1 (PCR) Parainfluenza 2 (PCR) Parainfluenza 3 (PCR) Parainfluenza 4 (PCR) RSV (PCR) (Negative) Resp Viral Spec Desc Rhinovirus (PCR) Ur Strep pneumoniae Ag (Negative) Aerobic Culture B-(1,3)-D-Glucan Quant (<60 pg/mL) pg/mL B-(1,3)-D-Glucan Qual (Negative) Ref Test Specimen Type Ref Report Verification Range/Units 12/16/22 12/17/22 12/17/22 10:35 06:40 06:40 WBC (4.4-10.8) 10^3/uL 12.56 H RBC (4.36-5.78) 10^6/uL 4.21 L Hgb (13.5-17.5) g/dL 12.4 L Hct (40.0-50.0) % 37.8 L MCV (80-95) fL 90 MCH (27.0-33.0) pg 29.5 MCHC (32.0-36.0) % 32.8 RDW (11.8-14.1) % 14.6 H Plt Count (130-400) 10^3/uL 151 MPV (8.0-11.0) fL 9.0 Immature Gran % 1.6 Neutrophils % 65.6 Lymphocytes % 24.1 Monocytes % 7.0 Eosinophils % 1.4 Basophils % 0.3 Nucleated RBC % (0.0-0.3) % 0.0 Absolute Neutrophils (1.2-6.7) 10^3/uL 8.24 H Absolute Lymphocytes (1.2-3.4) 10^3/uL 3.03 Absolute Monocytes (0.1-0.8) 10^3/uL 0.88 H Absolute Eosinophils (0.0-0.7) 10^3/uL 0.18 Absolute Basophils (0.0-0.2) 10^3/uL 0.04 RBC Morphology ABG Sample Site Right Radial ABG pH (7.35-7.45) 7.38 ABG pCO2 (35-45) mmHg 50 H ABG pO2 (80-105) mmHg 46 L ABG HCO3 (22-26) mmol/L 29 H ABG Total CO2 (23-27) mmol/L 27 ABG O2 Saturation (95-98) % 83 L ABG Base Excess (-2-3) mmol/L 4 H VBG Lactate (0.6-1.4) mmol/L Oxygen Liter Flow L 2 Sodium 139 Potassium 4.1 Chloride 101 Carbon Dioxide 30.5 Anion Gap 7.5 BUN 27 H Creatinine 0.8 Est GFR (CKD-EPI 2020) 99.44 Glucose 130 H Calcium 8.9 Magnesium (1.8-2.4) mg/dL 2.0 Total Bilirubin AST ALT Alkaline Phosphatase Troponin I C-Reactive Protein NT-Pro-B Natriuret Pep Total Protein Albumin Procalcitonin ng/mL TSH (0.36-3.74) uIU/mL Bronchial Other Cells % BAL Neutrophils % BAL Lymphocytes % BAL Eosinophils BAL Monocyte/Macrophage % IgG (610-1616) mg/dL IgA (85-499) mg/dL IgM (35-242) mg/dL IgE (<158) IU/mL Rheumatoid Factor (<12.0) IU/mL Cyclic Citrull Peptide (<5.0) U/mL CYN Titer CYN Titer 2 CYN Titer 3 CYN Interpretation (Negative) Proteinase 3 (PR3) U Myeloperoxidase Ab U Gram Stain Adenovirus DNA Blastomyces Ag Result Blastomyces Ag Comment ng/mL COVID-19 Source SARS-CoV-2 (PCR) (Negative) Urine Histoplasma Ag U Histoplasma Ag Index ng/mL HIV 1&2 Ag/Ab, 4th Gen (Negative) Human Metapneumovir RNA Influenza Type A (PCR) (Negative) Influenza Type B (PCR) (Negative) Urine Legionella Ag (Negative) M. pneumoniae Source M. pneumoniae (PCR) Parainfluenza 1 (PCR) Parainfluenza 2 (PCR) Parainfluenza 3 (PCR) Parainfluenza 4 (PCR) RSV (PCR) (Negative) Resp Viral Spec Desc Rhinovirus (PCR) Ur Strep pneumoniae Ag (Negative) Aerobic Culture B-(1,3)-D-Glucan Quant (<60 pg/mL) pg/mL B-(1,3)-D-Glucan Qual (Negative) Ref Test Specimen Type Ref Report Verification Range/Units 12/18/22 12/18/22 12/19/22 06:16 16:14 06:57 WBC (4.4-10.8) 10^3/uL 13.25 H RBC (4.36-5.78) 10^6/uL 4.13 L Hgb (13.5-17.5) g/dL 12.3 L Hct (40.0-50.0) % 37.3 L MCV (80-95) fL 90 MCH (27.0-33.0) pg 29.8 MCHC (32.0-36.0) % 33.0 RDW (11.8-14.1) % 14.6 H Plt Count (130-400) 10^3/uL 160 MPV (8.0-11.0) fL 9.2 Immature Gran % 1.9 Neutrophils % 70.7 Lymphocytes % 19.1 Monocytes % 7.2 Eosinophils % 0.8 Basophils % 0.3 Nucleated RBC % (0.0-0.3) % 0.0 Absolute Neutrophils (1.2-6.7) 10^3/uL 9.37 H Absolute Lymphocytes (1.2-3.4) 10^3/uL 2.53 Absolute Monocytes (0.1-0.8) 10^3/uL 0.95 H Absolute Eosinophils (0.0-0.7) 10^3/uL 0.11 Absolute Basophils (0.0-0.2) 10^3/uL 0.04 RBC Morphology ABG Sample Site ABG pH (7.35-7.45) ABG pCO2 (35-45) mmHg ABG pO2 (80-105) mmHg ABG HCO3 (22-26) mmol/L ABG Total CO2 (23-27) mmol/L ABG O2 Saturation (95-98) % ABG Base Excess (-2-3) mmol/L VBG Lactate (0.6-1.4) mmol/L Oxygen Liter Flow L Sodium 138 Potassium 4.3 Chloride 102 Carbon Dioxide 31.4 Anion Gap 4.6 BUN 22 H Creatinine 0.9 Est GFR (CKD-EPI 2020) 95.97 Glucose 151 H Calcium 8.8 Magnesium (1.8-2.4) mg/dL Total Bilirubin 0.4 AST 71 H ALT 86 H Alkaline Phosphatase 80 Troponin I < 50 C-Reactive Protein NT-Pro-B Natriuret Pep Total Protein 6.1 L Albumin 3.1 L Procalcitonin ng/mL TSH (0.36-3.74) uIU/mL Bronchial Other Cells % BAL Neutrophils % BAL Lymphocytes % BAL Eosinophils BAL Monocyte/Macrophage % IgG (610-1616) mg/dL IgA (85-499) mg/dL IgM (35-242) mg/dL IgE (<158) IU/mL Rheumatoid Factor (<12.0) IU/mL Cyclic Citrull Peptide (<5.0) U/mL CYN Titer CYN Titer 2 CYN Titer 3 CYN Interpretation (Negative) Proteinase 3 (PR3) U Myeloperoxidase Ab U Gram Stain Adenovirus DNA Blastomyces Ag Result Blastomyces Ag Comment ng/mL COVID-19 Source SARS-CoV-2 (PCR) (Negative) Urine Histoplasma Ag U Histoplasma Ag Index ng/mL HIV 1&2 Ag/Ab, 4th Gen (Negative) Human Metapneumovir RNA Influenza Type A (PCR) (Negative) Influenza Type B (PCR) (Negative) Urine Legionella Ag (Negative) M. pneumoniae Source M. pneumoniae (PCR) Parainfluenza 1 (PCR) Parainfluenza 2 (PCR) Parainfluenza 3 (PCR) Parainfluenza 4 (PCR) RSV (PCR) (Negative) Resp Viral Spec Desc Rhinovirus (PCR) Ur Strep pneumoniae Ag (Negative) Aerobic Culture B-(1,3)-D-Glucan Quant (<60 pg/mL) pg/mL B-(1,3)-D-Glucan Qual (Negative) Ref Test Specimen Type Ref Report Verification Range/Units 12/19/22 06:57 WBC (4.4-10.8) 10^3/uL 13.61 H RBC (4.36-5.78) 10^6/uL 4.27 L Hgb (13.5-17.5) g/dL 12.7 L Hct (40.0-50.0) % 38.2 L MCV (80-95) fL 90 MCH (27.0-33.0) pg 29.7 MCHC (32.0-36.0) % 33.2 RDW (11.8-14.1) % 14.6 H Plt Count (130-400) 10^3/uL 165 MPV (8.0-11.0) fL 9.3 Immature Gran % 1.8 Neutrophils % 69.3 Lymphocytes % 21.2 Monocytes % 6.7 Eosinophils % 0.7 Basophils % 0.3 Nucleated RBC % (0.0-0.3) % 0.0 Absolute Neutrophils (1.2-6.7) 10^3/uL 9.43 H Absolute Lymphocytes (1.2-3.4) 10^3/uL 2.89 Absolute Monocytes (0.1-0.8) 10^3/uL 0.91 H Absolute Eosinophils (0.0-0.7) 10^3/uL 0.10 Absolute Basophils (0.0-0.2) 10^3/uL 0.04 RBC Morphology ABG Sample Site ABG pH (7.35-7.45) ABG pCO2 (35-45) mmHg ABG pO2 (80-105) mmHg ABG HCO3 (22-26) mmol/L ABG Total CO2 (23-27) mmol/L ABG O2 Saturation (95-98) % ABG Base Excess (-2-3) mmol/L VBG Lactate (0.6-1.4) mmol/L Oxygen Liter Flow L Sodium Potassium Chloride Carbon Dioxide Anion Gap BUN Creatinine Est GFR (CKD-EPI 2020) Glucose Calcium Magnesium (1.8-2.4) mg/dL Total Bilirubin AST ALT Alkaline Phosphatase Troponin I C-Reactive Protein NT-Pro-B Natriuret Pep Total Protein Albumin Procalcitonin ng/mL TSH (0.36-3.74) uIU/mL Bronchial Other Cells % BAL Neutrophils % BAL Lymphocytes % BAL Eosinophils BAL Monocyte/Macrophage % IgG (610-1616) mg/dL IgA (85-499) mg/dL IgM (35-242) mg/dL IgE (<158) IU/mL Rheumatoid Factor (<12.0) IU/mL Cyclic Citrull Peptide (<5.0) U/mL CYN Titer CYN Titer 2 CYN Titer 3 CYN Interpretation (Negative) Proteinase 3 (PR3) U Myeloperoxidase Ab U Gram Stain Adenovirus DNA Blastomyces Ag Result Blastomyces Ag Comment ng/mL COVID-19 Source SARS-CoV-2 (PCR) (Negative) Urine Histoplasma Ag U Histoplasma Ag Index ng/mL HIV 1&2 Ag/Ab, 4th Gen (Negative) Human Metapneumovir RNA Influenza Type A (PCR) (Negative) Influenza Type B (PCR) (Negative) Urine Legionella Ag (Negative) M. pneumoniae Source M. pneumoniae (PCR) Parainfluenza 1 (PCR) Parainfluenza 2 (PCR) Parainfluenza 3 (PCR) Parainfluenza 4 (PCR) RSV (PCR) (Negative) Resp Viral Spec Desc Rhinovirus (PCR) Ur Strep pneumoniae Ag (Negative) Aerobic Culture B-(1,3)-D-Glucan Quant (<60 pg/mL) pg/mL B-(1,3)-D-Glucan Qual (Negative) Ref Test Specimen Type Ref Report Verification
[2022-12-20 06:58] VITALS: BP 110/67; PULSE 60; RESP 16; TEMP 36.5; O2SAT 97
[2022-12-20 07:18] LABS: ALT 75 U/L (16-63); AST 53 U/L (15-37); Albumin 3.1 g/dL (3.4-5.0); Alkaline Phosphatase 82 U/L (46-116); BUN 23 mg/dL (7-18); Bilirubin, Total 0.3 mg/dL (0.2-1.0); CREATININE 0.9 mg/dL (0.70-1.30); Calcium 8.6 mg/dL (8.5-10.1); Chloride 101 mmol/L (98-107); Estimated GFR 95.97 (mL/min/1.73m2); Glucose 123 mg/dL (74-106); Potassium 4.3 mmol/L (3.5-5.1); Sodium 138 mmol/L (136-145); Total Protein 6.2 g/dL (6.4-8.2)
[2022-12-20] MEDS: Apixaban 5 MG TAB PO (08:45)
[2022-12-20] MEDS: Calcitonin-Salmon, Synthetic 3.7 ML BTL NS (08:46)
[2022-12-20] MEDS: Calcium Citrate 950 MG TAB PO (08:46)
[2022-12-20] MEDS: guaiFENesin 600 MG TABCR PO (08:47)
[2022-12-20] MEDS: Citalopram 20 MG TAB PO (08:47)
[2022-12-20] MEDS: Cholecalciferol (Vitamin D3) 1,000 UNIT TAB 2000 UNITS PO (08:47)
[2022-12-20] MEDS: Famotidine 20 MG TAB PO (08:47)
[2022-12-20] MEDS: Carbidopa 25/Levodopa 100 TAB PO ×2 (08:47→12:11)
[2022-12-20] MEDS: Gabapentin 300 MG CAP 600 MG PO (08:47)
[2022-12-20] MEDS: Meloxicam 15 MG TAB PO (08:48)
[2022-12-20] MEDS: Pantoprazole 20 MG TABCR PO (08:48)
[2022-12-20] MEDS: Multivitamin TAB 1 TAB PO (08:48)
[2022-12-20] MEDS: Lactobacillus Acidophilus CAP 1 CAP PO (08:48)
[2022-12-20] MEDS: predniSONE 10 MG, predniSONE 40 MG 50 MG PO (08:49)
[2022-12-20] MEDS: Sulfameth/Trimeth DS TAB 1 TAB PO (08:49)
[2022-12-20] MEDS: Senna TAB 1 TAB PO (08:49)
[2022-12-20] MEDS: Insulin Glargine 300 UNITS/3 ML PEN 20 UNITS SC (08:51)
--- NOTE | 2022-12-20 08:54 | PDOC.CMPRO ---
Date of service: 12/20/22 Time of Service: 08:54 Care Management Progress Note Progress Note Text Progress Note Text: S/O: Liz was awake and lying in bed when CM met with him. He is pleasant and easily engages in conversation. He shares that he loves [place] and already has most of his shopping done. Liz is eager to discharge home and is planning on going home today if medically ready and is having his bring his portable O2. Per yesterdays documentation: RT completed the appropriate paperwork [facility]. CM will follow. A: Deonte is a 62 year old man admitted on 12/11/22 with Respiratory failure P: Anticipate Deonte will return home with a resumption of his OP PT. He may need new home health services at first as he is weak and de-saturates easily with any activity; evaluations continue. Deonte will follow up with [facility] providers [facility] and transport with family. CM will continue to support Deonte and assess for discharge concerns.
[2022-12-20 09:01] VITALS: RESP 10; RESP 12
[2022-12-20] MEDS: DOXYCYCLINE 100 MG in Normal Saline 100 ML IVPB (10:14)
[2022-12-20 11:00] VITALS: BP 124/76; PULSE 62; RESP 16; TEMP 36.4; O2SAT 97
[2022-12-20] MEDS: Insulin Aspart 300 UNITS/3 ML PEN SC ×2 (12:10)
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
--- NOTE | 2022-12-20 14:25 | PDOC.CMDIS ---
Date of service: 12/20/22 Time of Service: 14:25 LACE Index Scoring Tool Questions: Length of Stay (in days): 7 - 13 Was the patient admitted via the E.D.?: Yes Comorbidities: Chronic Pulmonary Disease E.D. Visits: 4 Answers: Total Score: 14 Risk of Readmission: High Risk Care Management Discharge Plan Reason for Hospitalization: Dyspnea Discharge Plan: Vinay is discharged home via private vehicle with family. He will follow up with community providers and his discharge plan of care as instructed. PCP follow up is recommended in 1-2 weeks and patient will resume outpatient PT as previously scheduled. No new services are ordered prior to discharge. Patient/Family Education Needs: Review discharge instructions, limitations, medications and plan to follow up with community providers. Discuss ask me three and goals of self care.
[2023-01-12 08:22] LABS: Fungus Smear No Fungi Seen
[2023-01-12 08:22] LABS: Fungus Smear No Fungi Seen
== END 2022-12-20 15:26 | disposition home or self-care (01) | DRG 196 ==
LOC: ER 12:15 → MS 16:33
PROVIDERS: Family Medicine; Internal Medicine; Student in an Organized Health Care Education/Training Program; Admitting Provider Internal Medicine; Emergency Provider Physician Assistant; PCP Nurse Practitioner Family; Visit Provider Internal Medicine
PROC: 0BJ08ZZ Inspection of Tracheobronchial Tree, Via Natural or Artificial Opening Endoscopic (ICD-10-PCS; CPT 31622; principal; 2022-12-15 12:00)
DX: J84.10 Pulmonary fibrosis, unspecified (principal); J96.21 Acute and chronic respiratory failure with hypoxia; F32.A Depression, unspecified; Z79.01 Long term (current) use of anticoagulants; K21.9 Gastro-esophageal reflux disease without esophagitis; Z99.81 Dependence on supplemental oxygen; Z79.4 Long term (current) use of insulin; G47.30 Sleep apnea, unspecified; Z96.643 Presence of artificial hip joint, bilateral; K22.70 Barrett's esophagus without dysplasia; E11.42 Type 2 diabetes mellitus with diabetic polyneuropathy; Z86.718 Personal history of other venous thrombosis and embolism; M10.9 Gout, unspecified; F10.11 Alcohol abuse, in remission; Z86.73 Personal history of transient ischemic attack (TIA), and cerebral infarction without residual deficits; Z86.711 Personal history of pulmonary embolism; J98.4 Other disorders of lung; U09.9 Post COVID-19 condition, unspecified
CPT/HCPCS: 31624; 36415; 71275; 80048; 80053; 80162; 82784; 82805; 84145; 86200; 87040; 87070; 87102; 87116; 87205; 87206; 87389; 87426; 87449; 87632; 87635; 87637; 93005; 94618; 94640; 96365; 96375; 99291; 36600; 82785; 83516; 83605; 83735; 83880; 84443; 84484; 85025; 86038; 86140; 86431; 87385; 87581; 87899; 88104; 93010; 93306; 94660; 94667; 94668; 94760; 99223; 99232; 99233; 99239; J0696; J2704; J2930; J3490; J7512; J7613; J7620

== ENCOUNTER 2023-01-30 05:07 | Outpatient (CLI) | payer OTHER, SELFPAY ==
[2023-01-30] MEDS: Inhaler, Assist Device 1 EACH MC (14:22)
[2023-01-30] MEDS: Levalbuterol HFA 15 GM INH 4 PUFF IH (14:22)
--- NOTE | 2023-02-03 15:59 | W.PFT ---
Date of service: 01/30/23 Time of Service: 12:49 Pulmonary Function Test Result Indications: ILD Interpretation Spirometry: There is restrictive spirometry. There is no bronchodilator response. Lung Volumes: There is moderate-severe restrictive lung disease Diffusion Capacity: There is a decreased diffusion. Airway Pressure: Normal airways resistance Impression Moderate to severe restrictive lung disease with a decreased diffusion. Clinical Correlation therefore is recommended.
== END 2023-01-30 05:08 | disposition home or self-care (01) ==
LOC: RT 05:07
PROVIDERS: PCP Nurse Practitioner Family; Visit Provider Student in an Organized Health Care Education/Training Program
DX: J84.9 Interstitial pulmonary disease, unspecified (principal)
CPT/HCPCS: 94060; 94726; 94729

== ENCOUNTER 2023-02-06 12:45 | Inpatient (IN) | payer OTHER, SELFPAY ==
[2023-02-06] VITALS (34 sets, daily range): BP systolic 108–145; BP diastolic 52–96; PULSE 65–82; RESP 12–26; TEMP 36.8–37.2; O2SAT 93–100
--- NOTE | 2023-02-06 13:00 | DI.RAD_ITS ---
Exam(s) XR PORTABLE CHEST AP EXAM: XR PORTABLE CHEST AP CLINICAL HISTORY: cough TECHNIQUE: 2D digital imaging was performed of the chest. One image was obtained. An AP view was ob tained. COMPARISON: CR XR CHEST 2V PA LATERAL from 11/21/2022 FINDINGS: There are low lung volumes. MEDIASTINUM: Normal. HEART: Normal. PULMONARY VASCULATURE: Normal. LUNGS: No focal consolidating infiltrates are seen. PLEURAL SPACE: No pleural effusion or pneumothorax. BONE:Within normal limits for the patient's age. A right shoulder prosthesis is incompletely imaged. OTHER FINDINGS:Normal. IMPRESSION: 1. Examination limited by low lung volumes. 2. No focal infiltrates are seen. DATA REPOSITORY: RADIATION DOSE DELIVERED:
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
[2023-02-06 13:37] LABS: Abs Immature Grans 0.08 10^3/uL (0.0-0.06); Absolute Basophil Count 0.05 10^3/uL (0.0-0.2); Absolute Eosinophil Count 0.11 10^3/uL (0.0-0.7); Absolute Lymphocyte Count 1.51 10^3/uL (1.2-3.4); Absolute Monocyte Count 0.59 10^3/uL (0.1-0.8); Absolute Neutrophil Count 7.38 10^3/uL (1.2-6.7); Basophils % 0.5; Eosinophils % 1.1; HCT 45.9 % (40.0-50.0); HGB 15.2 g/dL (13.5-17.5); Immature Grans % 0.8; Lymphocytes % 15.5; MCH 29.7 pg (27.0-33.0); MCHC 33.1 % (32.0-36.0); MCV 90 fL (80-95); MPV 9.2 fL (8.0-11.0); Monocytes % 6.1; Platelet Count 177 10^3/uL (130-400); RBC 5.11 10^6/uL (4.36-5.78); RDW 13.6 % (11.8-14.1); RDW-SD 45.1 fL; WBC 9.72 10^3/uL (4.4-10.8)
[2023-02-06] MEDS: methylPREDNISolone SUCC 125 MG VIAL IVP (13:52)
[2023-02-06] MEDS: PIPERACILLIN/TAZO 4.5 GM in Normal Saline 100 ML IVPB ×2 (13:52→19:37)
[2023-02-06] MEDS: Normal Saline Flush 10 ML SYR IVP ×2 (13:52→19:37)
[2023-02-06 14:04] LABS: NT-proBNP 36 pg/mL (<300); Troponin I < 50 ng/L (<or=60)
[2023-02-06] MEDS: Albuterol/Ipratropium 3 ML UPD VIAL UPD (14:06)
[2023-02-06 14:25] LABS: COVID-19 PCR Negative (Negative); Influenza A PCR Negative (Negative); Influenza B PCR Negative (Negative); RSV PCR Negative (Negative); Source Nasopharynx
[2023-02-06] MEDS: VANCOMYCIN/WATER (PEG) 1.5 GM/300 ML BAG IV (14:25)
[2023-02-06 14:35] LABS: BE (Venous) 6 mmol/L (-2-3); HCO3 (Venous) 31 mmol/L (23-28); O2 Sat (Venous) 70 %; TCO2 (Venous) 28 mmol/L (24-29); pCO2 (Venous) 58 mmHg (41-51); pH (Venous) 7.34 (7.31-7.41); pO2 (Venous) 37 mmHg
[2023-02-06] MEDS: Ibuprofen 600 MG TAB PO (15:42)
[2023-02-06 16:56] LABS: Troponin I < 50 ng/L (<or=60)
[2023-02-06] MEDS: Carbidopa 25/Levodopa 100 TAB PO ×2 (17:15→21:44)
[2023-02-06] MEDS: Acetaminophen 325 MG TAB 650 MG PO (17:17)
[2023-02-06] MEDS: Insulin Aspart 300 UNITS/3 ML PEN SC (17:47)
[2023-02-06] MEDS: metFORMIN 500 MG TAB PO (17:48)
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
[2023-02-06] MEDS: Budesonide/Formoterol 160/4.5 6 GM 60 PUFF INH IH (19:10)
[2023-02-06] MEDS: Apixaban 5 MG TAB PO (19:38)
[2023-02-06] MEDS: Calcium Citrate 950 MG TAB PO (19:38)
[2023-02-06] MEDS: Famotidine 20 MG TAB PO (19:38)
[2023-02-06] MEDS: Senna TAB 1 TAB PO (19:38)
[2023-02-06] MEDS: oxyCODONE 15 MG TAB PO (19:47)
[2023-02-06] MEDS: Insulin Glargine 300 UNITS/3 ML PEN 20 UNITS SC (20:45)
[2023-02-06] MEDS: Zolpidem 5 MG TAB 10 MG PO (21:44)
[2023-02-06] MEDS: traZODone 100 MG TAB PO (21:44)
[2023-02-06] MEDS: Tamsulosin 0.4 MG CAPCR PO (21:44)
[2023-02-06] MEDS: Atorvastatin 20 MG TAB PO (21:44)
--- NOTE | 2023-02-07 | DI.CT_ITS ---
Exam(s) CT NECK W EXAM: CT NECK W INDICATION: dysphagia, stridor. COMPARISON: CR XR PORTABLE CHEST AP from 02/06/2023 TECHNIQUE: FINDINGS: VISUALIZED PARANASAL SINUSES: Unremarkable. NASOPHARYNX: Unremarkable ORODENTAL: Unremarkable. OROPHARYNX: Unremarkable. No masses evident. HYPOPHARYNX: Unremarkable. Valleculae and epiglottis and aryepiglottic folds appear normal. VOCAL CORDS: Unremarkable. No masses evident. Subglottic airway appears unremarkable. THYROID GLAND: Unremarkable. Normal size and no obvious nodules. SALIVARY GLANDS: Unremarkable. No significant findings in the parotid and submandibular glands. LYMPH NODES: There is no adenopathy evident in the neck and supraclavicular regions. OTHER: VISUALIZED LUNG APICES: Significant infiltrate in the upper lobes noted. Consider chest CT scan. IMPRESSION: 1. No evidence of airway obstruction nor other significant focal findings in soft tissues neck. 2. Incidentally noted are significant infiltrates in the partially visualized upper lungs. This is more than suspected when looking at yesterday's portable chest x-ray. Consider chest CT scan. RADIATION DOSE DELIVERED: Total DLP DATA REPOSITORY: All CT scans at this facility are submitted to the National Radiology Data Registry (NRDR) Dose Index Registry (DIR) with the [place] [employer] (ACR). RADIATION OPTIMIZATION: All CT scans at this facility use at least one of these dose optimization te chniques: automated exposure control; mA and/or kV adjustment per patient size (includes targeted exa ms where dose is matched to clinical indication); or iterative reconstruction.
[2023-02-07 00:12] VITALS: BP 123/74; PULSE 82; RESP 15; TEMP 37; O2SAT 95
[2023-02-07] MEDS: Acetaminophen 325 MG TAB 650 MG PO ×2 (00:31→20:11)
[2023-02-07] MEDS: PIPERACILLIN/TAZO 4.5 GM in Normal Saline 100 ML IVPB ×2 (02:51→08:43)
[2023-02-07 08:11] VITALS: BP 119/70; PULSE 70; RESP 20; TEMP 36.3; O2SAT 97
[2023-02-07] MEDS: Budesonide/Formoterol 160/4.5 6 GM 60 PUFF INH IH ×2 (08:17→19:18)
[2023-02-07] MEDS: Tiotropium Bromide-Respimat 10 PUFF INH 2 PUFF IH (08:18)
[2023-02-07] MEDS: Calcium Citrate 950 MG TAB PO ×2 (08:38→20:12)
[2023-02-07] MEDS: Cholecalciferol (Vitamin D3) 1,000 UNIT TAB 2000 UNITS PO (08:38)
[2023-02-07] MEDS: Famotidine 20 MG TAB PO ×2 (08:38→20:12)
[2023-02-07] MEDS: metFORMIN 500 MG TAB PO ×2 (08:38→16:54)
[2023-02-07] MEDS: Carbidopa 25/Levodopa 100 TAB PO ×4 (08:39→22:21)
[2023-02-07] MEDS: Multivitamin TAB 1 TAB PO (08:39)
[2023-02-07] MEDS: Citalopram 20 MG TAB PO (08:39)
[2023-02-07] MEDS: predniSONE 20 MG TAB 40 MG PO (08:39)
[2023-02-07] MEDS: Meloxicam 15 MG TAB PO (08:39)
[2023-02-07] MEDS: Apixaban 5 MG TAB PO ×2 (08:40→20:12)
[2023-02-07] MEDS: Senna TAB 1 TAB PO ×2 (08:40→20:12)
[2023-02-07] MEDS: Insulin Glargine 300 UNITS/3 ML PEN 20 UNITS SC ×2 (08:41→20:10)
[2023-02-07] MEDS: Insulin Aspart 300 UNITS/3 ML PEN SC ×3 (08:42→16:54)
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
[2023-02-07 11:02] LABS: Procalcitonin < 0.1 ng/mL
[2023-02-07 13:40] LABS: Estimated GFR 84.57 (mL/min/1.73m2)
[2023-02-07 13:44] LABS: C-Reactive Protein 0.33 mg/dL (0.0-0.3)
[2023-02-07] MEDS: Butalbital/Acetaminophen/Caffeine 50/325/40 TAB PO (14:18)
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
[2023-02-07] MEDS: Normal Saline - Diluent 50 ML VIAL IJ (14:48)
[2023-02-07] MEDS: Omnipaque 350 MG/ML 100 ML BTL IJ (14:49)
[2023-02-07 15:12] VITALS: BP 121/73; PULSE 70; RESP 19; TEMP 37; O2SAT 96
[2023-02-07 17:10] LABS: ESR (LRH) 8 mm/hr
--- NOTE | 2023-02-07 17:51 | PGE_ITS ---
Date of Service Date of service: 02/07/23 Time of Service: 17:51 Assessment and Plan Assessment and plan (1) Acute and chronic respiratory failure: Status: Acute Assessment and plan: Underlying IDL secondary to Covid-19 pneumonia. He relates symptoms began appx 1 week ago. He was dxd [facility] and started oral antibiotics but has not improved. He recently completed a long steroid taper initiated at his last hospitalization; discharged on 12/20/22 Solumedrol IV in the ED Start prednisone 40mg daily in the AM Consult pulmonary medicine. Supplemental O2 to maintain O2 sat. > 88%. No fever, elevated WBC count; antibiotics stopped by Dr Paniagua. (2) Chronic interstitial lung disease: Status: Acute Assessment and plan: Cont home Spiriva and Breztri. PRN Duonebs, albuterol. (3) Stridor: Status: Acute Assessment and plan: [place] today. Neck CT w/o airway obstruction. (4) Pulmonary embolism on long-term anticoagulation therapy: Assessment and plan: Cont apixiban. (5) Headache: Status: Acute Assessment and plan: Not relieved by acetaminophen. Fioricet administered and headache improved. Second dose given and will monitor. (6) Diabetes mellitus: Assessment and plan: Cont lantus SS correction insulin dosing. Diabetic diet. (7) Sleep apnea: Status: Active Assessment and plan: Has home CPAP but has been wearing recently because of a sore throat. Subjective Subjective Patient reports: tolerating a regular diet and afebrile; denies nausea, vomiting or shortness of breath (at rest.) Interval history since last seen: + headache that tylenol did not relieve. Exam Narrative Exam Narrative: Gen: Sitting in chair. Pleasant. NAD HENT:Sclera clear, inspiratory wheezing in upper airway. Chest: Bibasilar crackles. inspiratory wheeze. Nonlabored breathing. Heart: regular rate and rhythym, no murmurs Abdomen: Non-distended, soft, non tender Extremities: No edema or calf tenderness Neuro: AAOx3 , no focal motor deficits. Psych: Grossly normal appearance, speech. Appropriate affect. Objective Last Vital Signs Temp 37 C 02/07/23 15:12 Pulse 70 02/07/23 15:12 Resp 19 02/07/23 15:12 BP 121/73 02/07/23 15:12 Pulse Ox 96 02/07/23 15:12 Laboratory Results - last 24 hr 02/07/23 02/07/23 09:52 13:14 ESR 8 Creatinine 1.0 Est GFR (CKD-EPI 2020) 84.57 C-Reactive Protein 0.33 H Procalcitonin < 0.1 Time Spent with Patient Time Spent with Patient: 25-34 minutes Time was spent: preparing to see the patient(eg.review tests), obtaining and/or reviewing separately otained hiistory, ordering medications,tests, procedures, referring, communicating with other health care transitions nurse, indepentently interpreting results and care coordination
[2023-02-07 19:20] VITALS: O2SAT 95
[2023-02-07] MEDS: Normal Saline Flush 10 ML SYR IVP (20:12)
[2023-02-07] MEDS: Tamsulosin 0.4 MG CAPCR PO (22:21)
[2023-02-07] MEDS: Zolpidem 5 MG TAB 10 MG PO (22:21)
[2023-02-07] MEDS: Atorvastatin 20 MG TAB PO (22:22)
[2023-02-07] MEDS: traZODone 100 MG TAB PO (22:22)
[2023-02-07 23:09] VITALS: BP 123/70; PULSE 59; RESP 18; TEMP 36.3; O2SAT 96
--- NOTE | 2023-02-08 | DI.CT_ITS ---
Exam(s) CT CHEST PE CTA EXAM: CT CHEST PE CTA CLINICAL HISTORY: pleuritic chest pain. TECHNIQUE: Imaging Protocol: Axial CT angiography was performed with multi-slice acquisition and mu lti-planar and/or 3D reconstructions. CONTRAST MATERIAL: Intravenous: Omnipaque 350 contrast volume:100 mL COMPARISON: CT CT RENAL COLIC WO from 10/10/[address] CHEST PE CTA from 12/11/2022 FINDINGS: Tracheobronchial tree: Patent where visualized. Pulmonary parenchyma: Diffuse interstitial thickening which may represent interstitial edema. No foc al consolidating infiltrates are present. No architectural distortion. Pulmonary Arteries: No evidence of filling defect to suggest pulmonary emboli. Mediastinum and Ladi: No dominant adenopathy or fluid collection. The esophagus is unremarkable. Visualized thyroid gland: Unremarkable. Pleura: No effusion or pneumothorax. Heart: Cardiomegaly. Coronary artery calcifications are present. No pericardial effusion. Aorta: Thoracic aorta non-dilated. No evidence of dissection. Atherosclerosis. Upper abdomen: There is a hepatic cyst present. Status post cholecystectomy. Soft tissues: Unremarkable. Bones: Within normal limits for the patient's age.Right total shoulder replacement. No significant c hange. IMPRESSION: 1. No evidence of pulmonary embolism, thoracic aortic dissection or aneurysm. 2. Cardiomegaly. 3. Diffuse interstitial thickening suggesting interstitial edema. RADIATION DOSE DELIVERED: Total DLP DATA REPOSITORY: All CT scans at this facility are submitted to the National Radiology Data Registry (NRDR) Dose Index Registry (DIR) with the [employer] [place] [employer] (ACR). RADIATION OPTIMIZATION: All CT scans at this facility use at least one of these dose optimization te chniques: automated exposure control; mA and/or kV adjustment per patient size (includes targeted exa ms where dose is matched to clinical indication); or iterative reconstruction.
[2023-02-08 06:59] LABS: Absolute Lymphocyte Count 2.16 10^3/uL (1.2-3.4); Absolute Monocyte Count 0.73 10^3/uL (0.1-0.8); Basophils % 0.2; Eosinophils % 0.2; Immature Grans % 0.8; Lymphocytes % 17.2; MCH 30.4 pg (27.0-33.0); MCHC 34.1 % (32.0-36.0); MCV 89 fL (80-95); MPV 9.6 fL (8.0-11.0); Monocytes % 5.8; Neutrophils % 75.8; Platelet Count 151 10^3/uL (130-400); RBC 4.61 10^6/uL (4.36-5.78); RDW 13.6 % (11.8-14.1); RDW-SD 44.1 fL; WBC 12.58 10^3/uL (4.4-10.8)
[2023-02-08 07:05] LABS: Absolute Basophil Count 0.03 10^3/uL (0.0-0.2); Absolute Eosinophil Count 0.03 10^3/uL (0.0-0.7); Absolute Neutrophil Count 9.54 10^3/uL (1.2-6.7)
[2023-02-08 07:11] LABS: Anion Gap 5.9 mmol/L (3-11); BUN 19 mg/dL (7-18); C-Reactive Protein 0.08 mg/dL (0.0-0.3); CO2 28.1 mmol/L (21.0-32.0); CREATININE 0.7 mg/dL (0.70-1.30); Calcium 9.6 mg/dL (8.5-10.1); Chloride 103 mmol/L (98-107); Estimated GFR 103.53 (mL/min/1.73m2); Glucose 187 mg/dL (74-106); Magnesium 1.7 mg/dL (1.8-2.4); Sodium 137 mmol/L (136-145)
[2023-02-08 07:24] VITALS: BP 128/79; PULSE 63; RESP 16; TEMP 36.6; O2SAT 94
[2023-02-08 07:30] VITALS: RESP 12
[2023-02-08] MEDS: Calcium Citrate 950 MG TAB PO ×2 (08:10→21:05)
[2023-02-08] MEDS: Famotidine 20 MG TAB PO ×2 (08:10→21:06)
[2023-02-08] MEDS: Meloxicam 15 MG TAB PO (08:10)
[2023-02-08] MEDS: Cholecalciferol (Vitamin D3) 1,000 UNIT TAB 2000 UNITS PO (08:10)
[2023-02-08] MEDS: predniSONE 20 MG TAB 40 MG PO (08:11)
[2023-02-08] MEDS: Carbidopa 25/Levodopa 100 TAB PO ×4 (08:11→21:06)
[2023-02-08] MEDS: Senna TAB 1 TAB PO ×2 (08:11→21:05)
[2023-02-08] MEDS: Apixaban 5 MG TAB PO ×2 (08:12→21:06)
[2023-02-08] MEDS: Citalopram 20 MG TAB PO (08:12)
[2023-02-08] MEDS: Multivitamin TAB 1 TAB PO (08:12)
[2023-02-08] MEDS: Insulin Aspart 300 UNITS/3 ML PEN SC ×3 (08:13→16:51)
[2023-02-08] MEDS: Insulin Glargine 300 UNITS/3 ML PEN 20 UNITS SC ×2 (08:14→21:15)
--- NOTE | 2023-02-08 10:46 | CMPROGNOTE_ITS ---
Date of service: 02/08/23 Time of Service: 10:46 Care Management Progress Note Progress Note Text Progress Note Text: S/O: Vinay was lying in bed watching TV when CM met with him. He does not feel like he is getting any better and is planning on going down for a CT scan today and getting a quality assurance monitor final. A MPI stress test is planned for tomorrow if he is still inpatient. His is on her way to the hospital with his Cpap, which he hasn't been using because it gives him a sore throat. He is planning to have RT look at it's settings and humidification. A:62 year old male admitted to [facility] on 02/06/23 with Acute and chronic respiratory failure P:Anticipate, Vinay will return home with new home health, if needed. He will follow up with his community providers at the [facility] and transport with family. CM will continue to support patient and assess for discharge concerns.
[2023-02-08] MEDS: Budesonide/Formoterol 160/4.5 6 GM 60 PUFF INH IH ×2 (11:44→19:18)
[2023-02-08] MEDS: Tiotropium Bromide-Respimat 10 PUFF INH 2 PUFF IH (11:45)
--- NOTE | 2023-02-08 11:55 | PHA.REVIEW2 ---
Pharmacy Admission Review Admission Clinical Review Admission Pharmacy Review: (Updated 02/07/23 @ 17:57 by Joaquin Ramachandran MD) Headache (Acute) Stridor (Acute) Acute and chronic respiratory failure (Acute) Cough (Acute) Chronic respiratory failure (Acute) Shortness of breath (Acute) Chronic interstitial lung disease (Acute) Sleep apnea (Active) cimetidine HCl [From Tagamet] Allergy (Severe, Verified 02/06/23 12:58) Anaphylaxsis rivaroxaban [From Xarelto] Allergy (Severe, Verified 02/06/23 12:58) Latex, Natural Rubber Allergy (Intermediate, Verified 02/06/23 12:58) Skin Rash lisinopril Allergy (Intermediate, Verified 02/06/23 12:58) pantoprazole Allergy (Unknown, Verified 02/06/23 12:58) semaglutide Allergy (Unknown, Verified 02/06/23 12:58) promethazine HCl [From Phenergan] Adverse Reaction (Verified 02/06/23 12:58) Dizziness/Lightheade ancef injection Allergy (Unknown, Uncoded 02/06/23 12:58) bactrim DS Allergy (Unknown, Uncoded 02/06/23 12:58) Resuscitation Status Full Code Height 5 ft 8 in Weight 99.337 kg Comments Comments/Follow Ups: ExOx prior to DC to assess any increase oxygen requirements with exertion Pharmacy Admission Review Renal Dosing Renal Dosing: BUN Cancelled 02/08/23 08:00 Creatinine Cancelled 02/08/23 08:00 Medications needing adjustments: Reviewed (eCrCl 86 ml/min) List of meds needing interventions: all orders ok Anticoagulation Anticoagulation: Hgb Cancelled 02/08/23 08:00 Hct Cancelled 02/08/23 08:00 Plt Count Cancelled 02/08/23 08:00 Creatinine Cancelled 02/08/23 08:00 Therapeutic Anticoagulation: Reviewed Medications: Apixaban Relevant Labs Relevant Labs: ESR 8 mm/hr 02/07/23 13:14 Sodium Cancelled 02/08/23 08:00 Potassium Cancelled 02/08/23 08:00 Chloride Cancelled 02/08/23 08:00 Magnesium Cancelled 02/08/23 08:00 C-Reactive Protein 0.08 mg/dL (0.0-0.3) 02/08/23 06:30 Electrolytes, C-Reactive P, ESR: Reviewed (2 grams IV mag today) Cardiac Review Cardiac Review: Troponin I < 50 ng/L (<or=60) 02/06/23 16:23 NT-Pro-B Natriuret Pep 36 pg/mL (<300) 02/06/23 13:25 NT-Pro-B Natriuret Pep Cancelled 02/06/23 13:25 BP, HR, EF%: Reviewed QTc Review QTc: N/A IV to PO Switch IV Medications: Reviewed Home Meds Home Med List reviewed: Reviewed Relevent Home Meds Not ordered & why?: all ordered Medication adherence barriers identified?: [facility] patient Current Meds Current Medication Order Review: Reviewed Pharmacy Antibiotic Review Relevant Labs: Relevant Labs 02/08/23 02/07/23 06:30 13:14 C-Reactive Protein 0.08 0.33 H Comments Comments/Follow Ups: ExOx prior to DC to assess any increase oxygen requirements with exertion
[2023-02-08 12:12] VITALS: PULSE 16; PULSE 66; PULSE 90; RESP 24; RESP 26; RESP 73; O2SAT 88; O2SAT 92; O2SAT 93
[2023-02-08] MEDS: Magnesium Oxide 400 MG TAB PO (12:38)
--- NOTE | 2023-02-08 12:46 | RESPIRATORY ---
RT spoke with patient's Christelle this morning inquiring if she could bring his home BiPAP machine in. asked if patient had told us he never uses that at home. She said he is not compliant and states that one provider told him he didn't need it.
--- NOTE | 2023-02-08 13:28 | PGE_ITS ---
Date of Service Date of service: 02/08/23 Time of Service: 13:28 Assessment and Plan Assessment and plan (1) Acute and chronic respiratory failure: Status: Acute Assessment and plan: Underlying IDL secondary to Covid-19 pneumonia in the past (not on this admission), in addition to asthma. 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 Obtain a CTA of the chest. His O2 requirement is near baseline. Continue prednisone 40mg daily. Supplemental O2 to maintain O2 sat. > 88%. (2) Chronic interstitial lung disease: Status: Acute Assessment and plan: Continue Spiriva and Breztri as well as nebulizer treatments. (3) Pleuritic chest pain: Status: Acute Assessment and plan: Ruled out for ACS. Check CTA. Schedule tylenol. Encourage IS/acapella. Add mucinex. Place on tele. This does not appear cardiac in nature. I see that there is a stress test ordered, but I am not sure that we will be doing it tomrorow. Depends on the results of the CTA. (4) Stridor: Status: Resolved Assessment and plan: Clinically resolved on my exam today. Neck CT negative. I wonder if this was not due to a vocal cord spasm. Might benefit from an ID consult. (5) Pulmonary embolism on long-term anticoagulation therapy: Assessment and plan: Continue apixiban. Check a CTA. (6) Headache: Status: Acute Assessment and plan: Continue prn fioricet. (7) Diabetes mellitus: Assessment and plan: Continue sliding scale insulin and carb consistent diet. (8) Sleep apnea: Status: Chronic Assessment and plan: Has home BiPAP which is being brought in today. (9) Asthma: Status: Chronic Assessment and plan: As above (10) Dysphagia: Status: Chronic Assessment and plan: C/s speech therapy (11) DVT prophylaxis: Status: Acute Assessment and plan: On therapeutic apixaban (12) Discharge planning issues: Status: Acute Assessment and plan: Full code Continues to require hospitalization Subjective Subjective Interval history since last seen: Mr Sorto states that he has had a chest pain (central, worse with inspiration/coughing/movement) for about a week. He states he had a blood clot happen to him in the past while on apixaban. He feels lightheaded when he stands up. Reports SOB. Wonders if his portable concentrator (pulse) provides the same amount of oxygen as regular continuous tanks. Denies n/v. Reports difficulty swallowing which has been ongoing since getting extubated but is getting worse with nearly every texture, but especially bread. Had previously worked with speech therapy and is open to seeing them again. He is also wondering about an ENT consult which was discussed with Dr Paniagua, per patient. Desaturated to 88% while walking on 2L. Exam Narrative Exam Narrative: General: Pleasant obese middle-aged male who is A&Ox3, appears to be very mildly dyspneic in bed, no tachypnea or cyanosis HEENT: EOMI, MMM, no neck stridor today Heart: RRR, no m/r/g Lungs: CTAB Abdomen: soft, nontender, nondistended Extremities: no edema BLEs Objective Last Vital Signs Temp 36.6 C 02/08/23 07:24 Pulse 63 02/08/23 07:24 Resp 16 02/08/23 07:24 BP 128/79 02/08/23 07:24 Pulse Ox 94 02/08/23 07:24 Laboratory Results - last 24 hr 02/07/23 02/08/23 02/08/23 13:14 06:30 08:00 WBC 12.58 H Cancelled RBC 4.61 Cancelled Hgb 14.0 Cancelled Hct 41.0 Cancelled MCV 89 Cancelled MCH 30.4 Cancelled MCHC 34.1 Cancelled RDW 13.6 Cancelled Plt Count 151 Cancelled MPV 9.6 Cancelled Immature Gran % 0.8 Cancelled Neutrophils % 75.8 Cancelled Band Neutrophils % Cancelled Lymphocytes % 17.2 Cancelled Atypical Lymphs % Cancelled Monocytes % 5.8 Cancelled Eosinophils % 0.2 Cancelled Basophils % 0.2 Cancelled Metamyelocytes % Cancelled Myelocytes % Cancelled Promyelocytes % Cancelled Other Cells % Cancelled Nucleated RBC % 0.0 Cancelled Absolute Neutrophils 9.54 H Cancelled Absolute Lymphocytes 2.16 Cancelled Absolute Monocytes 0.73 Cancelled Absolute Eosinophils 0.03 Cancelled Absolute Basophils 0.03 Cancelled RBC Morphology Cancelled Polychromasia Cancelled Hypochromasia Cancelled Poikilocytosis Cancelled Basophilic Stippling Cancelled Anisocytosis Cancelled Microcytosis Cancelled Macrocytosis Cancelled Spherocytes Cancelled Tear Drop Cells Cancelled Ovalocytes Cancelled Stomatocytes Cancelled [place] Bodies Cancelled William Cells/Echinocytes Cancelled Acanthocytes (Spur) Cancelled Schistocytes Cancelled ESR 8 Sodium 137 Cancelled Potassium 4.0 Cancelled Chloride 103 Cancelled Carbon Dioxide 28.1 Cancelled Anion Gap 5.9 Cancelled BUN 19 H Cancelled Creatinine 1.0 0.7 Cancelled Est GFR (CKD-EPI 2020) 84.57 103.53 Cancelled Glucose 187 H Cancelled Calcium 9.6 Cancelled Magnesium 1.7 L Cancelled C-Reactive Protein 0.33 H 0.08 Time Spent with Patient Time Spent with Patient: 35-49 minutes Time was spent: preparing to see the patient(eg.review tests), obtaining and/or reviewing separately otained hiistory, ordering medications,tests, procedures, referring, communicating with other health campground caretaker, indepentently interpreting results, counseling the patient and care coordination
[2023-02-08] MEDS: Acetaminophen 500 MG TAB 1000 MG PO ×2 (13:33→21:05)
[2023-02-08] MEDS: guaiFENesin 600 MG TABCR PO ×2 (13:34→21:06)
[2023-02-08] MEDS: Benzonatate 200 MG CAP PO ×2 (13:34→21:05)
[2023-02-08 15:14] VITALS: BP 157/91; PULSE 63; RESP 16; TEMP 36.7; O2SAT 96
[2023-02-08] MEDS: Normal Saline - Diluent 50 ML VIAL IJ (15:34)
[2023-02-08] MEDS: Omnipaque 350 MG/ML 100 ML BTL IJ (15:36)
[2023-02-08] MEDS: oxyCODONE 15 MG TAB PO (18:22)
[2023-02-08 19:35] VITALS: O2SAT 89
[2023-02-08] MEDS: Tamsulosin 0.4 MG CAPCR PO (21:05)
[2023-02-08] MEDS: Atorvastatin 20 MG TAB PO (21:05)
[2023-02-08] MEDS: Zolpidem 5 MG TAB 10 MG PO (21:06)
[2023-02-08] MEDS: traZODone 100 MG TAB PO (21:06)
[2023-02-08 23:38] VITALS: PULSE 60
[2023-02-09] VITALS (10 sets, daily range): BP systolic 116–142; BP diastolic 66–82; PULSE 57–75; RESP 2–58; TEMP 36.5–36.8; O2SAT 95–99
[2023-02-09] MEDS: Acetaminophen 250 mg/Aspirin 250 mg/Caffeine 65 mg TAB 2 EACH PO (03:26)
--- NOTE | 2023-02-09 06:50 | PGE_ITS ---
Assessment and Plan Assessment and plan (1) Shortness of breath: Status: Acute (2) Asthma: Status: Chronic (3) Chronic interstitial lung disease: Status: Acute Assessment and plan: This is a 62 yo admitted for dyspnea in the setting of ILD. I do not think he has a pneumonia. CT chest reads interstitial edema, but this is clearly stable ILD when compared to his prior scan. With resolution of the stridor, this was likely a vocal cord spasm. ENT does not do inpatient laryngoscopy, so will refer to ENT for laryngoscopy assessment. The reason for his dyspnea is unclear. If his MPI is negative, there is not a clear cause of his symptoms. He may benefit from an outpatient cardiopulmonary exercise test (CPET) to help elucidate the etiology. He is open to this so will send the order. He may also benefit from a [id number] given his exertional dyspnea. He is open to coming for a trial of this device in clinic. He is not having clinical improvement from the prednisone and it is causing bad headaches, so will discontinue this. Dyspnea - MPI today - outpatient CPET - will order - outpatient ENT referral - I will order Stridor - resolved ILD - stop prednisone Asthma - continue home inhalers - add standing albuterol [facility] today General Date Of Service Date of service: 02/09/23 Time of Service: 06:51 Subjective 24 Hour Events: Neck CT returned with no significant stenosis CTA ordered? stable interstitial lung disease, no PE Note Note: He is doing well today. Complaining of a headache which he attributes to the prednisone. The prednisone is not helpful with his breathing currently. He still is having issues with dyspnea with exertion and wondering if his Inogen is contributing since it is pulse dosed. He is getting MPI today. Exam Narrative Exam Narrative: Gen:?NAD, normal respiratory effort, well-nourished HENT:?PERRL Chest:?No respiratory distress, normal appearance of chest, bilateral crackles Heart:?regular rate and rhythym, no murmurs, rubs or gallops Abdomen:?Non-distended, soft, non tender Extremities:?No clubbing, edema, cyanosis, rashes Neuro:?AAOx3 , non focal Psych:?cooperative, appropriate mental affect Objective Last Vital Signs Temp 36.6 C 02/09/23 03:19 Pulse 58 L 02/09/23 03:19 Resp 58 H 02/09/23 03:19 BP 116/66 02/09/23 03:19 Pulse Ox 97 02/09/23 03:19 Laboratory Results - last 24 hr 02/08/23 02/08/23 06:30 08:00 WBC 12.58 H Cancelled RBC 4.61 Cancelled Hgb 14.0 Cancelled Hct 41.0 Cancelled MCV 89 Cancelled MCH 30.4 Cancelled MCHC 34.1 Cancelled RDW 13.6 Cancelled Plt Count 151 Cancelled MPV 9.6 Cancelled Immature Gran % 0.8 Cancelled Neutrophils % 75.8 Cancelled Band Neutrophils % Cancelled Lymphocytes % 17.2 Cancelled Atypical Lymphs % Cancelled Monocytes % 5.8 Cancelled Eosinophils % 0.2 Cancelled Basophils % 0.2 Cancelled Metamyelocytes % Cancelled Myelocytes % Cancelled Promyelocytes % Cancelled Other Cells % Cancelled Nucleated RBC % 0.0 Cancelled Absolute Neutrophils 9.54 H Cancelled Absolute Lymphocytes 2.16 Cancelled Absolute Monocytes 0.73 Cancelled Absolute Eosinophils 0.03 Cancelled Absolute Basophils 0.03 Cancelled RBC Morphology Cancelled Polychromasia Cancelled Hypochromasia Cancelled Poikilocytosis Cancelled Basophilic Stippling Cancelled Anisocytosis Cancelled Microcytosis Cancelled Macrocytosis Cancelled Spherocytes Cancelled Tear Drop Cells Cancelled Ovalocytes Cancelled Stomatocytes Cancelled [place] Bodies Cancelled William Cells/Echinocytes Cancelled Acanthocytes (Spur) Cancelled Schistocytes Cancelled Sodium 137 Cancelled Potassium 4.0 Cancelled Chloride 103 Cancelled Carbon Dioxide 28.1 Cancelled Anion Gap 5.9 Cancelled BUN 19 H Cancelled Creatinine 0.7 Cancelled Est GFR (CKD-EPI 2020) 103.53 Cancelled Glucose 187 H Cancelled Calcium 9.6 Cancelled Magnesium 1.7 L Cancelled C-Reactive Protein 0.08 Results Medications Medications: Active Medications Generic Name Dose Route Start Last Admin Trade Name Freq PRN Reason Stop Dose Admin Acetaminophen 1,000 mg 02/08/23 14:00 02/09/23 05:44 Acetaminophen 500 Mg Tab PO Not Given Q8H KANE Acetaminophen/Aspirin/Caffeine 2 each 02/08/23 22:47 02/09/23 03:26 Acetaminophen 250 Mg/Aspirin 250 Mg/Caffeine 65 Mg Tab PO 2 each Q6H PRN PRN Administration Albuterol Sulfate 2 puff 02/06/23 16:45 Albuterol Hfa 8 Gm 60 Puff Inh IH Q4H PRN PRN shortness of breath or wheezing Apixaban 5 mg 02/06/23 20:00 02/08/23 21:06 Apixaban 5 Mg Tab PO 5 mg BID KNAE Administration Atorvastatin Calcium 20 mg 02/06/23 22:00 02/08/23 21:05 Atorvastatin 20 Mg Tab PO 20 mg HS KANE Administration Benzonatate 200 mg 02/08/23 14:00 02/08/23 21:05 Benzonatate 200 Mg Cap PO 200 mg TID KANE Administration Bisacodyl 10 mg 02/06/23 17:00 Bisacodyl 5 Mg Tabec PO DAILY PRN PRN Budesonide/Formoterol Fumarate 2 puff 02/06/23 20:00 02/08/23 19:18 Budesonide/Formoterol 160/4.5 6 Gm 60 Puff Inh IH 2 puff BID KANE Administration Calcium Citrate 950 mg 02/06/23 20:00 02/08/23 21:05 Calcium Citrate 950 Mg Tab PO 950 mg BID KANE Administration Carbidopa/Levodopa 1 tab 02/06/23 17:05 02/08/23 21:06 Carbidopa 25/Levodopa 100 Tab PO 1 tab QID@0800,1200,1700,2200 KANE Administration Cholecalciferol 2,000 units 02/07/23 08:30 02/08/23 08:10 Cholecalciferol (Vitamin D3) 1,000 Unit Tab PO 2,000 units DAILY KANE Administration Citalopram Hydrobromide 20 mg 02/07/23 08:30 02/08/23 08:12 Citalopram 20 Mg Tab PO 20 mg DAILY KANE Administration Cyclobenzaprine HCl 5 mg 02/06/23 17:01 Cyclobenzaprine 10 Mg Tab PO HS PRN PRN Dextrose 0 gm 02/06/23 16:45 Glucose Oral Gel 15 Gm/37.5 Gm Tube PO DIRECTED PRN Dextrose/Water 0 gm 02/06/23 16:45 Dextrose 50%-Water 25 Gm/50 Ml Syr IVP DIRECTED PRN Famotidine 20 mg 02/06/23 20:00 02/08/23 21:06 Famotidine 20 Mg Tab PO 20 mg BID KANE Administration Guaifenesin 600 mg 10/18/23 20:00 02/08/23 21:06 Guaifenesin 600 Mg Tabcr PO 600 mg BID KANE Administration Insulin Aspart 0 units 02/06/23 17:00 02/08/23 16:51 Insulin Aspart 300 Units/3 Ml Pen SC 10 units 0800,1200,1700 KANE Administration Protocol Insulin Glargine 20 units 02/06/23 20:00 02/08/23 21:15 Insulin Glargine 300 Units/3 Ml Pen SC 20 units BID KANE Administration Magnesium Oxide 400 mg 02/09/23 08:30 Magnesium Oxide 400 Mg Tab PO DAILY KANE Meloxicam 15 mg 02/07/23 08:30 02/08/23 08:10 Meloxicam 15 Mg Tab PO 15 mg DAILY KANE Administration Metformin HCl 500 mg 02/06/23 18:00 02/07/23 16:54 Metformin 500 Mg Tab PO 500 mg BID@0800,1700 KANE Administration Morphine Sulfate 45 mg 02/06/23 20:00 02/08/23 21:05 Morphine C.R. 15 Mg Tabcr PO 45 mg BID KANE Administration Multivitamins 1 tab 02/07/23 08:30 02/08/23 08:12 Multivitamin Tab PO 1 tab DAILY KANE Administration Oxycodone HCl 15 mg 02/06/23 16:45 02/08/23 18:22 Oxycodone 15 Mg Tab PO 15 mg TID PRN PRN Administration Patient's Own 1 each 02/07/23 08:30 02/08/23 08:13 Medication (Linzess PO 1 each 290 Mcg Capsule) DAILY KANE Administration Prednisone 40 mg 02/07/23 08:30 02/08/23 08:11 Prednisone 20 Mg Tab PO 40 mg DAILY KANE Administration Sennosides 1 tab 02/06/23 20:00 02/08/23 21:05 Senna Tab PO 1 tab BID KANE Administration Sodium Chloride 0 ml 02/06/23 13:09 02/07/23 20:12 Normal Saline Flush 10 Ml Syr IVP 10 ml PRN PRN Administration Tamsulosin HCl 0.4 mg 02/06/23 22:00 02/08/23 21:05 Tamsulosin 0.4 Mg Capcr PO 0.4 mg HS KANE Administration Tiotropium [place] 2 puff 02/07/23 08:30 02/08/23 11:45 Tiotropium [place]-Respimat 10 Puff Inh IH 2 puffs DAILY KANE Administration Trazodone HCl 100 mg 02/06/23 22:00 02/08/23 21:06 Trazodone 100 Mg Tab PO 100 mg HS KANE Administration Zolpidem Tartrate 10 mg 02/06/23 22:00 02/08/23 21:06 Zolpidem 5 Mg Tab PO 10 mg HS KANE Administration Allergies cimetidine HCl [From Tagamet] Allergy (Severe, Verified 02/06/23 12:58) Anaphylaxsis rivaroxaban [From Xarelto] Allergy (Severe, Verified 02/06/23 12:58) Latex, Natural Rubber Allergy (Intermediate, Verified 02/06/23 12:58) Skin Rash lisinopril Allergy (Intermediate, Verified 02/06/23 12:58) pantoprazole Allergy (Unknown, Verified 02/06/23 12:58) semaglutide Allergy (Unknown, Verified 02/06/23 12:58) promethazine HCl [From Phenergan] Adverse Reaction (Verified 02/06/23 12:58) Dizziness/Lightheade ancef injection Allergy (Unknown, Uncoded 02/06/23 12:58) bactrim DS Allergy (Unknown, Uncoded 02/06/23 12:58) Labs 02/09/23 06:26 02/09/23 06:26 Labs: 02/06/23 13:35 Blood Blood Culture - Preliminary NO GROWTH 48 HOURS 02/06/23 13:25 Blood Blood Culture - Preliminary NO GROWTH 48 HOURS Laboratory Tests Range/Units 02/06/23 02/06/23 02/06/23 13:09 13:25 13:25 WBC (4.4-10.8) 10^3/uL 9.72 RBC (4.36-5.78) 10^6/uL 5.11 Hgb (13.5-17.5) g/dL 15.2 Hct (40.0-50.0) % 45.9 MCV (80-95) fL 90 MCH (27.0-33.0) pg 29.7 MCHC (32.0-36.0) % 33.1 RDW (11.8-14.1) % 13.6 Plt Count (130-400) 10^3/uL 177 MPV (8.0-11.0) fL 9.2 Immature Gran % 0.8 Neutrophils % 76.0 Band Neutrophils % Lymphocytes % 15.5 Atypical Lymphs % Monocytes % 6.1 Eosinophils % 1.1 Basophils % 0.5 Metamyelocytes % Myelocytes % Promyelocytes % Other Cells % Nucleated RBC % (0.0-0.3) % 0.0 Absolute Neutrophils (1.2-6.7) 10^3/uL 7.38 H Absolute Lymphocytes (1.2-3.4) 10^3/uL 1.51 Absolute Monocytes (0.1-0.8) 10^3/uL 0.59 Absolute Eosinophils (0.0-0.7) 10^3/uL 0.11 Absolute Basophils (0.0-0.2) 10^3/uL 0.05 RBC Morphology Polychromasia Hypochromasia Poikilocytosis Basophilic Stippling Anisocytosis Microcytosis Macrocytosis Spherocytes Tear Drop Cells Ovalocytes Stomatocytes [place] Bodies Cecilia Cells/Echinocytes Acanthocytes (Spur) Schistocytes ESR mm/hr VBG pH (7.31-7.41) VBG pCO2 (41-51) mmHg VBG pO2 mmHg VBG HCO3 (23-28) mmol/L VBG Total CO2 (24-29) mmol/L VBG O2 Saturation % VBG Base Excess (-2-3) mmol/L Sodium Cancelled Potassium Cancelled Chloride Cancelled Carbon Dioxide Cancelled Anion Gap Cancelled BUN Cancelled Creatinine Cancelled Est GFR (CKD-EPI 2020) Cancelled Glucose Cancelled Calcium Cancelled Magnesium (1.8-2.4) mg/dL Total Bilirubin Cancelled AST Cancelled ALT Cancelled Alkaline Phosphatase Cancelled Troponin I (<or=60) ng/L < 50 C-Reactive Protein (0.0-0.3) mg/dL NT-Pro-B Natriuret Pep (<300) pg/mL 36 Cancelled Total Protein Cancelled Albumin Cancelled Procalcitonin ng/mL COVID-19 Source SARS-CoV-2 (PCR) (Negative) Influenza Type A (PCR) (Negative) Influenza Type B (PCR) (Negative) RSV (PCR) (Negative) Range/Units 02/06/23 02/06/23 02/06/23 13:29 14:28 16:23 WBC (4.4-10.8) 10^3/uL RBC (4.36-5.78) 10^6/uL Hgb (13.5-17.5) g/dL Hct (40.0-50.0) % MCV (80-95) fL MCH (27.0-33.0) pg MCHC (32.0-36.0) % RDW (11.8-14.1) % Plt Count (130-400) 10^3/uL MPV (8.0-11.0) fL Immature Gran % Neutrophils % Band Neutrophils % Lymphocytes % Atypical Lymphs % Monocytes % Eosinophils % Basophils % Metamyelocytes % Myelocytes % Promyelocytes % Other Cells % Nucleated RBC % (0.0-0.3) % Absolute Neutrophils (1.2-6.7) 10^3/uL Absolute Lymphocytes (1.2-3.4) 10^3/uL Absolute Monocytes (0.1-0.8) 10^3/uL Absolute Eosinophils (0.0-0.7) 10^3/uL Absolute Basophils (0.0-0.2) 10^3/uL RBC Morphology Polychromasia Hypochromasia Poikilocytosis Basophilic Stippling Anisocytosis Microcytosis Macrocytosis Spherocytes Tear Drop Cells Ovalocytes Stomatocytes [place] Bodies Cecilia Cells/Echinocytes Acanthocytes (Spur) Schistocytes ESR mm/hr VBG pH (7.31-7.41) 7.34 VBG pCO2 (41-51) mmHg 58 H VBG pO2 mmHg 37 VBG HCO3 (23-28) mmol/L 31 H VBG Total CO2 (24-29) mmol/L 28 VBG O2 Saturation % 70 VBG Base Excess (-2-3) mmol/L 6 H Sodium Potassium Chloride Carbon Dioxide Anion Gap BUN Creatinine Est GFR (CKD-EPI 2020) Glucose Calcium Magnesium (1.8-2.4) mg/dL Total Bilirubin AST ALT Alkaline Phosphatase Troponin I (<or=60) ng/L < 50 C-Reactive Protein (0.0-0.3) mg/dL NT-Pro-B Natriuret Pep (<300) pg/mL Total Protein Albumin Procalcitonin ng/mL COVID-19 Source Nasopharynx SARS-CoV-2 (PCR) (Negative) Negative Influenza Type A (PCR) (Negative) Negative Influenza Type B (PCR) (Negative) Negative RSV (PCR) (Negative) Negative Range/Units 02/07/23 02/07/23 02/08/23 09:52 13:14 06:30 WBC (4.4-10.8) 10^3/uL 12.58 H RBC (4.36-5.78) 10^6/uL 4.61 Hgb (13.5-17.5) g/dL 14.0 Hct (40.0-50.0) % 41.0 MCV (80-95) fL 89 MCH (27.0-33.0) pg 30.4 MCHC (32.0-36.0) % 34.1 RDW (11.8-14.1) % 13.6 Plt Count (130-400) 10^3/uL 151 MPV (8.0-11.0) fL 9.6 Immature Gran % 0.8 Neutrophils % 75.8 Band Neutrophils % Lymphocytes % 17.2 Atypical Lymphs % Monocytes % 5.8 Eosinophils % 0.2 Basophils % 0.2 Metamyelocytes % Myelocytes % Promyelocytes % Other Cells % Nucleated RBC % (0.0-0.3) % 0.0 Absolute Neutrophils (1.2-6.7) 10^3/uL 9.54 H Absolute Lymphocytes (1.2-3.4) 10^3/uL 2.16 Absolute Monocytes (0.1-0.8) 10^3/uL 0.73 Absolute Eosinophils (0.0-0.7) 10^3/uL 0.03 Absolute Basophils (0.0-0.2) 10^3/uL 0.03 RBC Morphology Polychromasia Hypochromasia Poikilocytosis Basophilic Stippling Anisocytosis Microcytosis Macrocytosis Spherocytes Tear Drop Cells Ovalocytes Stomatocytes [place] Bodies Cecilia Cells/Echinocytes Acanthocytes (Spur) Schistocytes ESR mm/hr 8 VBG pH (7.31-7.41) VBG pCO2 (41-51) mmHg VBG pO2 mmHg VBG HCO3 (23-28) mmol/L VBG Total CO2 (24-29) mmol/L VBG O2 Saturation % VBG Base Excess (-2-3) mmol/L Sodium 137 Potassium 4.0 Chloride 103 Carbon Dioxide 28.1 Anion Gap 5.9 BUN 19 H Creatinine 1.0 0.7 Est GFR (CKD-EPI 2020) 84.57 103.53 Glucose 187 H Calcium 9.6 Magnesium (1.8-2.4) mg/dL 1.7 L Total Bilirubin AST ALT Alkaline Phosphatase Troponin I (<or=60) ng/L C-Reactive Protein (0.0-0.3) mg/dL 0.33 H 0.08 NT-Pro-B Natriuret Pep (<300) pg/mL Total Protein Albumin Procalcitonin ng/mL < 0.1 COVID-19 Source SARS-CoV-2 (PCR) (Negative) Influenza Type A (PCR) (Negative) Influenza Type B (PCR) (Negative) RSV (PCR) (Negative) Range/Units 02/08/23 08:00 WBC (4.4-10.8) 10^3/uL Cancelled RBC (4.36-5.78) 10^6/uL Cancelled Hgb (13.5-17.5) g/dL Cancelled Hct (40.0-50.0) % Cancelled MCV (80-95) fL Cancelled MCH (27.0-33.0) pg Cancelled MCHC (32.0-36.0) % Cancelled RDW (11.8-14.1) % Cancelled Plt Count (130-400) 10^3/uL Cancelled MPV (8.0-11.0) fL Cancelled Immature Gran % Cancelled Neutrophils % Cancelled Band Neutrophils % Cancelled Lymphocytes % Cancelled Atypical Lymphs % Cancelled Monocytes % Cancelled Eosinophils % Cancelled Basophils % Cancelled Metamyelocytes % Cancelled Myelocytes % Cancelled Promyelocytes % Cancelled Other Cells % Cancelled Nucleated RBC % (0.0-0.3) % Cancelled Absolute Neutrophils (1.2-6.7) 10^3/uL Cancelled Absolute Lymphocytes (1.2-3.4) 10^3/uL Cancelled Absolute Monocytes (0.1-0.8) 10^3/uL Cancelled Absolute Eosinophils (0.0-0.7) 10^3/uL Cancelled Absolute Basophils (0.0-0.2) 10^3/uL Cancelled RBC Morphology Cancelled Polychromasia Cancelled Hypochromasia Cancelled Poikilocytosis Cancelled Basophilic Stippling Cancelled Anisocytosis Cancelled Microcytosis Cancelled Macrocytosis Cancelled Spherocytes Cancelled Tear Drop Cells Cancelled Ovalocytes Cancelled Stomatocytes Cancelled [place] Bodies Cancelled Cecilia Cells/Echinocytes Cancelled Acanthocytes (Spur) Cancelled Schistocytes Cancelled ESR mm/hr VBG pH (7.31-7.41) VBG pCO2 (41-51) mmHg VBG pO2 mmHg VBG HCO3 (23-28) mmol/L VBG Total CO2 (24-29) mmol/L VBG O2 Saturation % VBG Base Excess (-2-3) mmol/L Sodium Cancelled Potassium Cancelled Chloride Cancelled Carbon Dioxide Cancelled Anion Gap Cancelled BUN Cancelled Creatinine Cancelled Est GFR (CKD-EPI 2020) Cancelled Glucose Cancelled Calcium Cancelled Magnesium (1.8-2.4) mg/dL Cancelled Total Bilirubin AST ALT Alkaline Phosphatase Troponin I (<or=60) ng/L C-Reactive Protein (0.0-0.3) mg/dL NT-Pro-B Natriuret Pep (<300) pg/mL Total Protein Albumin Procalcitonin ng/mL COVID-19 Source SARS-CoV-2 (PCR) (Negative) Influenza Type A (PCR) (Negative) Influenza Type B (PCR) (Negative) RSV (PCR) (Negative)
[2023-02-09 06:54] LABS: Abs Immature Grans 0.19 10^3/uL (0.0-0.06); Absolute Basophil Count 0.05 10^3/uL (0.0-0.2); Absolute Eosinophil Count 0.08 10^3/uL (0.0-0.7); Absolute Lymphocyte Count 2.84 10^3/uL (1.2-3.4); Absolute Monocyte Count 0.76 10^3/uL (0.1-0.8); Absolute Neutrophil Count 5.79 10^3/uL (1.2-6.7); Basophils % 0.5; Eosinophils % 0.8; HCT 38.2 % (40.0-50.0); HGB 13.1 g/dL (13.5-17.5); Lymphocytes % 29.2; MCH 30.6 pg (27.0-33.0); MCHC 34.3 % (32.0-36.0); MCV 89 fL (80-95); MPV 9.3 fL (8.0-11.0); Monocytes % 7.8; Neutrophils % 59.7; Platelet Count 144 10^3/uL (130-400); RBC 4.28 10^6/uL (4.36-5.78); RDW 13.9 % (11.8-14.1); RDW-SD 44.8 fL; WBC 9.71 10^3/uL (4.4-10.8)
[2023-02-09 07:09] LABS: Anion Gap 9.4 mmol/L (3-11); BUN 17 mg/dL (7-18); CO2 28.6 mmol/L (21.0-32.0); CREATININE 0.9 mg/dL (0.70-1.30); Calcium 9.2 mg/dL (8.5-10.1); Chloride 102 mmol/L (98-107); Estimated GFR 95.97 (mL/min/1.73m2); Glucose 221 mg/dL (74-106); Sodium 140 mmol/L (136-145)
[2023-02-09] MEDS: Carbidopa 25/Levodopa 100 TAB PO ×4 (08:36→21:00)
--- NOTE | 2023-02-09 08:45 | DI.NM_ITS ---
APPROVED REPORT Exam: Pharmacologic Patient Location: Out-Patient Room/Bed: Stress Nurse: Mary Arellano RN Ordering Provider:JORGE TIJERINA, Contact Number: [phone] BMI: 33.29 Baseline Rhythm: Sinus Rhythm Indications: Chest pain Medical History Medical History: Hx. pulmonary infection (recurrent), PE on intermediate anticoagulant therapy, stroke du e to vascular stenosis, h/o DVT, gout, depression, DM, GERD, HTN Cardiac Medications: Albuterol sulfate, alendronate, apixaban, vitamin C, atorvastatin, breztri aeros phere, calcium citrate, carbidopa-levodopa, citalopram, doxycycline, famotidine, insulin aspart, insu maria g glargine, insulin lispro, linzess, meloxicam, metformin, morphine, trazodone, ambien Allergies: Cimetindine HCL, xarelto, latex, lisinopril, pantoprazole, semaglutide, phenergan , ancef, bactrim Cardiac Risk Factors: Family hx, HTN, diabetes Previous Cardiac Procedures: None Pretest Chest Pain Characteristics: 4/10 ache Exercise History: Sedentary Physical Disabilities: Back Lung Sounds: Rhonci right mid Heart Sounds: Regular Stress Test Details Test: Pharmacologic stress testing performed using 0.4 mg of regadenoson per 5 mL given IV over 10 s econds. Nuclear Acquisition: Rest Tc-99m/Stress Tc-99m 1 day Rest Isotope: Tc-99m Sestamibi. Dose: 11.0 Date: 02/09/2023 Injection Time: 0900 Stress Isotope: Tc-99m Sestamibi. Dose: 35.0 Date: 02/09/2023 Injection Time: 1142 HR Resting HR Supine: 54 bpm Max Heart Rate (APMHR): 157.139906 bpm Target HR (85% APMHR): 133.644435 bpm Max HR Achieved: 82 bpm % of APMHR: 52.23 Recovery HR: 62 bpm BP Resting BP Supine: 140/80 mmHg Max BP: 160/80 mmHg Recovery BP: 136/80 mmHg ECG Resting ECG: Sinus Rhythm Ectopy: None Stress ECG: Sinus Rhythm ST Change: Nondiagnostic low heart rate Arrhythmia: None Recovery ECG: Sinus Rhythm Recovery ST Change: Nondiagnostic low heart rate Recovery Arrhythmia: None Clinical Stress Symptoms: Moderate SOB Angina Score: Non-Limiting Rate Pressure Product: 52109 Stress ECG Conclusion 1. The resting electrocardiogram was within normal limits 2. Patient underwent testing using pharmacologic stress with regadenoson 3. Peak heart rate achieved was 52% of predicted for age 4. The electrocardiographic portion of the test was nondiagnostic 5. See MPI report Stress Test Summary STAGE HR BP SpO2 Symptoms NOTES Supine 54 140/80 96 1 min post Lexiscan injection 56 160/80 96 Moderate SOB 3 min post Lexiscan injection 68 138/80 97 6 min post Lexiscan injection 62 136/80 62 All symptoms resolved MPI Conclusion Myocardial perfusion is normal without ischemia or evidence of prior infarction Ejection fraction is 52% with normal wall motion Radiologist Interpretation Radiologist agrees with Glassware Defect Repairer's Interpretation. Radiologist Interpretation by: Alexis Hamlin MD Interpretation Date/Time: 02/13/2023 15:14:21
[2023-02-09] MEDS: Budesonide/Formoterol 160/4.5 6 GM 60 PUFF INH IH ×2 (08:54→19:15)
[2023-02-09] MEDS: Tiotropium Bromide-Respimat 10 PUFF INH 2 PUFF IH (08:55)
[2023-02-09] MEDS: Regadenoson 0.4 MG/5 ML SYR IVP (11:01)
--- NOTE | 2023-02-09 11:17 | PDOC.CMPRO ---
Date of service: 02/09/23 Time of Service: 11:17 Care Management Progress Note Progress Note Text Progress Note Text: S/O: Vinay continues to feel short of breath and does not feel like he is getting any better. Pulmonary is consulted. Per Dr. Howard, predisone has not been effective and is causing headaches so it is discontinued. Per provider further respiratory work up is being done as the etiology of his dyspnea is unclear. MPI stress test is ordered, depending on the results he may need an outpatient cardiopulmonary exercise test (CPET). In addition, Dr Howard is recommending [id number] machine. RT to discuss with Pulmonology. CM will continue to follow. A:62 year old male admitted to [facility] on 02/06/23 with Acute and chronic respiratory failure P:Anticipate, Vinay will return home with new home health, if needed. [facility] and [facility] with family. CM will continue to support patient and assess for discharge concerns.
[2023-02-09] MEDS: Meloxicam 15 MG TAB PO (13:21)
[2023-02-09] MEDS: Magnesium Oxide 400 MG TAB PO (13:21)
[2023-02-09] MEDS: Citalopram 20 MG TAB PO (13:22)
[2023-02-09] MEDS: Cholecalciferol (Vitamin D3) 1,000 UNIT TAB 2000 UNITS PO (13:22)
[2023-02-09] MEDS: Acetaminophen 500 MG TAB 1000 MG PO ×2 (13:22→21:00)
[2023-02-09] MEDS: Benzonatate 200 MG CAP PO ×2 (13:22→19:05)
[2023-02-09] MEDS: Multivitamin TAB 1 TAB PO (13:22)
[2023-02-09] MEDS: Albuterol 2.5 MG/3 ML INH SOLN VIAL UPD ×3 (13:30→19:13)
[2023-02-09] MEDS: Insulin Aspart 300 UNITS/3 ML PEN SC ×2 (13:35→16:52)
--- NOTE | 2023-02-09 14:58 | STREC_ITS ---
Date of service: 02/09/23 Time of Service: 12:30 Speech Therapy Recommendations Report ST Recommendations: LENS GRINDER APPRENTICE consultation received and attempted x 3 on 02/09/23 (9:30- NPO for stress test, 11:00 & 12:30 pt off the floor). Brief interview completed with patient. He states history of dysphagia since lengthy intubation in January 2021 due to COVID pneumonia. He states he was in a coma for several months. He reports he worked with LENS GRINDER APPRENTICE for swallowing rehabilitation and returned to a regular diet, though has noticed more difficulty swallowing solids (breads, dry texture) over the last couple of months. LENS GRINDER APPRENTICE to attempt to evaluate tomorrow (02/10/23). Pending length of admission/LENS GRINDER APPRENTICE findings, may benefit from outpatient LENS GRINDER APPRENTICE services, including possible outpatient MBS. Coding
--- NOTE | 2023-02-09 14:58 | PDOC.STREC ---
Date of service: 02/09/23 Time of Service: 12:30 Speech Therapy Recommendations Report ST Recommendations: EMERGENCY SERVICES DISPATCHER consultation received and attempted x 3 on 02/09/23 (9:30- NPO for stress test, 11:00 & 12:30 pt off the floor). Brief interview completed with patient. He states history of dysphagia since lengthy intubation in January 2021 due to COVID pneumonia. He states he was in a coma for several months. He reports he worked with EMERGENCY SERVICES DISPATCHER for swallowing rehabilitation and returned to a regular diet, though has noticed more difficulty swallowing solids (breads, dry texture) over the last couple of months. EMERGENCY SERVICES DISPATCHER to attempt to evaluate tomorrow (02/10/23). Pending length of admission/EMERGENCY SERVICES DISPATCHER findings, may benefit from outpatient EMERGENCY SERVICES DISPATCHER services, including possible outpatient MBS. Coding
[2023-02-09] MEDS: oxyCODONE 15 MG TAB PO (16:27)
--- NOTE | 2023-02-09 18:44 | W.PM.PROGNOT ---
Date of Service Date of service: 02/09/23 Time of Service: 18:45 Assessment and Plan Assessment and plan (1) Acute and chronic respiratory failure: Status: Acute Assessment and plan: Underlying IDL secondary to Covid-19 pneumonia in the past (not on this admission), in addition to asthma. PE ruled out. The steroids were not helpful, per my discussion with Dr Paniagua, so we stopped prednisone. It may also have been contributing to his headache. His O2 requirement is near baseline. Supplemental O2 to maintain O2 sat. > 88%. Dr Paniagua will work on arranging a [id number] for the patient. The patient did describe a change in the sputum color so I will obtain a sputum sample. (2) Chronic interstitial lung disease: Status: Acute Assessment and plan: Continue Spiriva and Breztri as well as nebulizer treatments. (3) Pleuritic chest pain: Status: Acute Assessment and plan: Ruled out for ACS and acute PE. Continue Scheduled tylenol. Encourage IS/acapella. Await MPI results. (4) Stridor: Status: Resolved Assessment and plan: Neck CT negative. I wonder if this was not due to a vocal cord spasm. Might benefit from an ENT consult. (5) Pulmonary embolism on long-term anticoagulation therapy: Assessment and plan: Continue apixiban. (6) Headache: Status: Acute Assessment and plan: Continue prn fioricet. (7) Diabetes mellitus: Assessment and plan: Continue sliding scale insulin and carb consistent diet. (8) Sleep apnea: Status: Chronic Assessment and plan: Has home BiPAP The patient states he does not have sleep apnea. Obtaining records to review. (9) Asthma: Status: Chronic Assessment and plan: As above (10) Dysphagia: Status: Chronic Assessment and plan: Speech therapy will see the patient again tomorrow. (11) DVT prophylaxis: Status: Acute Assessment and plan: On therapeutic apixaban (12) Discharge planning issues: Status: Acute Assessment and plan: Full code Continues to require hospitalization Discussed with Dr Paniagua. Subjective Subjective Interval history since last seen: Continues to report chest pain primarily on inspiration. The pain is in the upper chest and is central. Denies dizziness, nausea. Still SOB. s/p MPI today - the read is not yet available. Exam Narrative Exam Narrative: General: Pleasant obese middle-aged male who is A&Ox3, appears to be very mildly dyspneic in bed, no tachypnea or cyanosis; to me he looks a little bit worse today HEENT: EOMI, MMM, no neck stridor today Heart: RRR, no m/r/g Lungs: slightly coarse respiratory sounds B Abdomen: soft, nontender, nondistended Extremities: no edema BLEs Objective Last Vital Signs Temp 36.5 C 02/09/23 15:02 Pulse 72 02/09/23 17:39 Resp 16 02/09/23 17:39 BP 124/78 02/09/23 15:02 Pulse Ox 98 02/09/23 17:39 Laboratory Results - last 24 hr 02/07/23 02/09/23 12:26 06:26 WBC 9.71 RBC 4.28 L Hgb 13.1 L Hct 38.2 L MCV 89 MCH 30.6 MCHC 34.3 RDW 13.9 Plt Count 144 MPV 9.3 Immature Gran % 2.0 Neutrophils % 59.7 Lymphocytes % 29.2 Monocytes % 7.8 Eosinophils % 0.8 Basophils % 0.5 Nucleated RBC % 0.0 Absolute Neutrophils 5.79 Absolute Lymphocytes 2.84 Absolute Monocytes 0.76 Absolute Eosinophils 0.08 Absolute Basophils 0.05 Sodium 140 Potassium 4.0 Chloride 102 Carbon Dioxide 28.6 Anion Gap 9.4 BUN 17 Creatinine 0.9 Estimated GFR/1.73 m2 Cancelled Est GFR (CKD-EPI 2020) 95.97 Glucose 221 H Calcium 9.2 Magnesium 2.0 Objective Narrative Objective Narrative: CTA chest; 1. No evidence of pulmonary embolism, thoracic aortic dissection or aneurysm. 2. Cardiomegaly. 3. Diffuse interstitial thickening suggesting interstitial edema. MPI stress test: read pending Time Spent with Patient Time Spent with Patient: 25-34 minutes Time was spent: preparing to see the patient(eg.review tests), obtaining and/or reviewing separately otained hiistory, ordering medications,tests, procedures, referring, communicating with other health patient care technician, indepentently interpreting results, counseling the patient and care coordination
[2023-02-09] MEDS: Famotidine 20 MG TAB PO (19:05)
[2023-02-09] MEDS: Calcium Citrate 950 MG TAB PO (19:05)
[2023-02-09] MEDS: guaiFENesin 600 MG TABCR PO (19:06)
[2023-02-09] MEDS: Senna TAB 1 TAB PO (19:06)
[2023-02-09] MEDS: Cyclobenzaprine 10 MG TAB 5 MG PO (19:06)
[2023-02-09] MEDS: Apixaban 5 MG TAB PO (19:06)
[2023-02-09] MEDS: traZODone 100 MG TAB PO (21:00)
[2023-02-09] MEDS: Pregabalin 25 MG CAP PO (21:00)
[2023-02-09] MEDS: Tamsulosin 0.4 MG CAPCR PO (21:00)
[2023-02-09] MEDS: Zolpidem 5 MG TAB 10 MG PO (21:00)
[2023-02-09] MEDS: Atorvastatin 20 MG TAB PO (21:00)
[2023-02-09] MEDS: Insulin Glargine 300 UNITS/3 ML PEN 20 UNITS SC (21:01)
[2023-02-10] VITALS (10 sets, daily range): BP systolic 115–151; BP diastolic 71–91; PULSE 61–77; RESP 2–18; TEMP 36.1–36.9; O2SAT 94–98
[2023-02-10 06:48] LABS: Abs Immature Grans 0.14 10^3/uL (0.0-0.06); Absolute Basophil Count 0.08 10^3/uL (0.0-0.2); Absolute Eosinophil Count 0.19 10^3/uL (0.0-0.7); Absolute Lymphocyte Count 2.79 10^3/uL (1.2-3.4); Absolute Monocyte Count 0.67 10^3/uL (0.1-0.8); Absolute Neutrophil Count 5.47 10^3/uL (1.2-6.7); Basophils % 0.9; HCT 37.8 % (40.0-50.0); Immature Grans % 1.5; Lymphocytes % 29.9; MCH 30.8 pg (27.0-33.0); MCHC 34.4 % (32.0-36.0); MCV 90 fL (80-95); Monocytes % 7.2; Neutrophils % 58.5; Platelet Count 142 10^3/uL (130-400); RBC 4.22 10^6/uL (4.36-5.78); RDW 14.1 % (11.8-14.1); RDW-SD 46.1 fL; WBC 9.34 10^3/uL (4.4-10.8)
[2023-02-10 07:06] LABS: Anion Gap 5.6 mmol/L (3-11); BUN 17 mg/dL (7-18); CO2 30.4 mmol/L (21.0-32.0); CREATININE 0.7 mg/dL (0.70-1.30); Calcium 8.9 mg/dL (8.5-10.1); Chloride 104 mmol/L (98-107); Estimated GFR 103.53 (mL/min/1.73m2); Glucose 148 mg/dL (74-106); Potassium 3.7 mmol/L (3.5-5.1); Sodium 140 mmol/L (136-145)
[2023-02-10] MEDS: Tiotropium Bromide-Respimat 10 PUFF INH 2 PUFF IH (08:06)
[2023-02-10] MEDS: Albuterol 2.5 MG/3 ML INH SOLN VIAL UPD ×4 (08:06→19:11)
[2023-02-10] MEDS: Budesonide/Formoterol 160/4.5 6 GM 60 PUFF INH IH ×2 (08:06→19:15)
[2023-02-10] MEDS: Insulin Aspart 300 UNITS/3 ML PEN SC ×3 (08:20→17:30)
[2023-02-10] MEDS: Famotidine 20 MG TAB PO ×2 (08:21→21:16)
[2023-02-10] MEDS: Cholecalciferol (Vitamin D3) 1,000 UNIT TAB 2000 UNITS PO (08:21)
[2023-02-10] MEDS: Multivitamin TAB 1 TAB PO (08:21)
[2023-02-10] MEDS: guaiFENesin 600 MG TABCR PO ×2 (08:21→21:17)
[2023-02-10] MEDS: Calcium Citrate 950 MG TAB PO ×2 (08:21→21:17)
[2023-02-10] MEDS: Benzonatate 200 MG CAP PO ×3 (08:21→21:16)
[2023-02-10] MEDS: Insulin Glargine 300 UNITS/3 ML PEN 20 UNITS SC ×2 (08:21→21:30)
[2023-02-10] MEDS: Meloxicam 15 MG TAB PO (08:21)
[2023-02-10] MEDS: Apixaban 5 MG TAB PO ×2 (08:22→21:16)
[2023-02-10] MEDS: Carbidopa 25/Levodopa 100 TAB PO ×4 (08:22→21:17)
[2023-02-10] MEDS: Senna TAB 1 TAB PO ×2 (08:22→21:17)
[2023-02-10] MEDS: Citalopram 20 MG TAB PO (08:23)
[2023-02-10] MEDS: Magnesium Oxide 400 MG TAB PO (08:23)
[2023-02-10] MEDS: Normal Saline Flush 10 ML SYR IVP (08:23)
--- NOTE | 2023-02-10 08:36 | PDOC.CMPRO ---
Date of service: 02/10/23 Time of Service: 08:39 Care Management Progress Note Progress Note Text Progress Note Text: S/O: Vinay continues to feel short of breath and does not feel like he is getting any better. Pulmonary is consulted. Vinay c/o increased SOB which he relates to D/C his Prednisone, yesterday . Dr. Yost is reaching out to Dr. Howard again today. MPI stress test was done, result are pending. Depending on the results Liz may need an outpatient cardiopulmonary exercise test (CPET). In addition, Dr Howard is recommending [id number] machine. RT to discuss with Pulmonology. CM will continue to follow. A:62 year old male admitted to [facility] on 02/06/23 with Acute and chronic respiratory failure P:Anticipate, Vinay will return home with new home health, if needed. He will [facility] and [facility] with family. CM will continue to support patient and assess for discharge concerns.
[2023-02-10] MEDS: Pregabalin 25 MG CAP PO ×2 (13:45→21:16)
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
[2023-02-10] MEDS: Acetaminophen 250 mg/Aspirin 250 mg/Caffeine 65 mg TAB 2 EACH PO (13:49)
--- NOTE | 2023-02-10 16:45 | RT.EKG_ITS ---
APPROVED REPORT Exam: Resting ECG Reason for Exam: positive stress test Patient Location: I HR:79 bpm ECG Measurements Heart Rate 79 AXIS TX 177 P 29 QRSd 84 QRS 7 QT 374 T 3 QTc 429 Conclusion Sinus rhythm...normal P axis, V-rate 50- 99 Normal Electrocardiogram
[2023-02-10] MEDS: predniSONE 20 MG TAB 40 MG PO (17:06)
[2023-02-10] MEDS: Furosemide 40 MG/4 ML VIAL IVP (17:07)
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
--- NOTE | 2023-02-10 17:38 | PGE_ITS ---
Date of Service Date of service: 02/10/23 Time of Service: 17:38 Assessment and Plan Assessment and plan (1) Acute and chronic respiratory failure: Status: Acute Assessment and plan: Underlying IDL secondary to Covid-19 pneumonia in the past (not on this admission), in addition to asthma. PE ruled out. Resume steroids as the patient feels worse today. I think he would need a very lengthy taper - he needed that in the past. His O2 requirement is near baseline. Supplemental O2 to maintain O2 sat. > 88%. Dr Paniagua is arranging [id number] for the patient. Await sputum sample. Will also give a dose of furosemide. (2) Positive cardiac stress test: Status: Acute Assessment and plan: Await opinion of cardiology at [facility]. (3) Chronic interstitial lung disease: Status: Acute Assessment and plan: Continue Spiriva and Breztri (only being brought in tonight) as well as nebulizer treatments. (4) Pleuritic chest pain: Status: Acute Assessment and plan: Ruled out for ACS and acute PE. Continue Scheduled tylenol. Encourage IS/acapella. Try addition of carafate. Read #2 (5) Stridor: Status: Resolved Assessment and plan: Neck CT negative. I wonder if this was not due to a vocal cord spasm. Reflux could be contributing. ENT consult as outpatient. (6) Pulmonary embolism on long-term anticoagulation therapy: Assessment and plan: Continue apixiban. (7) Headache: Status: Resolved Assessment and plan: Continue prn fioricet. I think this was due to steroids. (8) Diabetes mellitus: Assessment and plan: Continue sliding scale insulin and carb consistent diet. (9) Sleep apnea: Status: Chronic Assessment and plan: Has home BiPAP The patient states he does not have sleep apnea. We have received outside records, still pending my review. (10) Asthma: Status: Chronic Assessment and plan: As above (11) Dysphagia: Status: Chronic Assessment and plan: Speech therapy recommended trialing tx for reflux: already on H2 josé miguel. I am adding carafate. (12) DVT prophylaxis: Status: Acute Assessment and plan: On therapeutic apixaban (13) Discharge planning issues: Status: Acute Assessment and plan: Full code Continues to require hospitalization Discussed with Dr Paniagua. The patient is not interested in doing inpatient rehab. Subjective Subjective Interval history since last seen: Mr Sorto feels worse today. His chest pain and breathing are worse. He thinks it's because his steroids were stopped. Denies dizziness, n/v. Met with speech therapy: there is a quesiton of the discomfort being esophageal due to reflux. Discussed results of stress test with Dr Hamlin who feels the MPI stress test was positive for ischemia in the apical and lateral gutierrez. Cardiology here had read the test as negative. I am reaching out to [facility] cardiology to have them review the images and provide a their opinion. Exam Narrative Exam Narrative: General: Pleasant obese middle-aged male who is A&Ox3, looks about the same as yesterday HEENT: EOMI, MMM, no neck stridor today Heart: RRR, no m/r/g Lungs: CTAB Abdomen: soft, nontender, nondistended Extremities: no edema BLEs Objective Last Vital Signs Temp 36.7 C 02/10/23 15:07 Pulse 75 02/10/23 16:11 Resp 16 02/10/23 16:11 BP 125/72 02/10/23 15:07 Pulse Ox 95 02/10/23 16:11 Laboratory Results - last 24 hr 02/10/23 06:11 WBC 9.34 RBC 4.22 L Hgb 13.0 L Hct 37.8 L MCV 90 MCH 30.8 MCHC 34.4 RDW 14.1 Plt Count 142 MPV 9.0 Immature Gran % 1.5 Neutrophils % 58.5 Lymphocytes % 29.9 Monocytes % 7.2 Eosinophils % 2.0 Basophils % 0.9 Nucleated RBC % 0.0 Absolute Neutrophils 5.47 Absolute Lymphocytes 2.79 Absolute Monocytes 0.67 Absolute Eosinophils 0.19 Absolute Basophils 0.08 Sodium 140 Potassium 3.7 Chloride 104 Carbon Dioxide 30.4 Anion Gap 5.6 BUN 17 Creatinine 0.7 Est GFR (CKD-EPI 2020) 103.53 Glucose 148 H Calcium 8.9 Magnesium 2.0 Objective Narrative Objective Narrative: Read subjective re my conversation with Dr Hamlin re the stress test. Time Spent with Patient Time Spent with Patient: 35-49 minutes Time was spent: preparing to see the patient(eg.review tests), obtaining and/or reviewing separately otained hiistory, ordering medications,tests, procedures, referring, communicating with other health complex care nurse practitioner, indepentently interpreting results, counseling the patient and care coordination
[2023-02-10] MEDS: Acetaminophen 500 MG TAB 1000 MG PO (21:16)
[2023-02-10] MEDS: Sucralfate 1 GM TAB PO (21:16)
[2023-02-10] MEDS: Atorvastatin 20 MG TAB PO (21:17)
[2023-02-10] MEDS: traZODone 100 MG TAB PO (21:17)
[2023-02-10] MEDS: Zolpidem 5 MG TAB 10 MG PO (21:17)
[2023-02-10] MEDS: Tamsulosin 0.4 MG CAPCR PO (21:17)
[2023-02-11 02:18] VITALS: BP 110/79; PULSE 71; RESP 16; TEMP 36.5; O2SAT 97
[2023-02-11 07:11] LABS: Absolute Basophil Count 0.05 10^3/uL (0.0-0.2); Absolute Eosinophil Count 0.03 10^3/uL (0.0-0.7); Absolute Lymphocyte Count 1.26 10^3/uL (1.2-3.4); Absolute Monocyte Count 0.64 10^3/uL (0.1-0.8); Basophils % 0.4; Eosinophils % 0.3; HGB 13.7 g/dL (13.5-17.5); Immature Grans % 1.7; MCH 30.5 pg (27.0-33.0); MCHC 34.3 % (32.0-36.0); MCV 89 fL (80-95); MPV 9.3 fL (8.0-11.0); Monocytes % 5.6; Platelet Count 161 10^3/uL (130-400); RBC 4.49 10^6/uL (4.36-5.78); RDW 14.1 % (11.8-14.1); RDW-SD 45.9 fL; WBC 11.44 10^3/uL (4.4-10.8)
[2023-02-11 07:17] LABS: Absolute Neutrophil Count 9.27 10^3/uL (1.2-6.7)
[2023-02-11 07:28] LABS: Anion Gap 4.9 mmol/L (3-11); BUN 18 mg/dL (7-18); CO2 32.1 mmol/L (21.0-32.0); CREATININE 0.8 mg/dL (0.70-1.30); Calcium 9.4 mg/dL (8.5-10.1); Chloride 103 mmol/L (98-107); Estimated GFR 99.44 (mL/min/1.73m2); Glucose 227 mg/dL (74-106); Magnesium 2.1 mg/dL (1.8-2.4); Potassium 4.2 mmol/L (3.5-5.1); Sodium 140 mmol/L (136-145)
[2023-02-11 07:46] VITALS: BP 136/79; PULSE 68; RESP 16; TEMP 36.6; O2SAT 98
[2023-02-11] MEDS: Normal Saline Flush 10 ML SYR IVP (07:54)
[2023-02-11] MEDS: Insulin Glargine 300 UNITS/3 ML PEN 20 UNITS SC (07:54)
[2023-02-11] MEDS: Insulin Aspart 300 UNITS/3 ML PEN SC ×2 (07:54→11:44)
[2023-02-11] MEDS: Magnesium Oxide 400 MG TAB PO (07:55)
[2023-02-11] MEDS: Senna TAB 1 TAB PO (07:55)
[2023-02-11] MEDS: Benzonatate 200 MG CAP PO ×2 (07:55→13:17)
[2023-02-11] MEDS: Apixaban 5 MG TAB PO (07:55)
[2023-02-11] MEDS: Pregabalin 25 MG CAP PO ×2 (07:55→13:17)
[2023-02-11] MEDS: Carbidopa 25/Levodopa 100 TAB PO ×2 (07:56→11:44)
[2023-02-11] MEDS: Meloxicam 15 MG TAB PO (07:56)
[2023-02-11] MEDS: Cholecalciferol (Vitamin D3) 1,000 UNIT TAB 2000 UNITS PO (07:56)
[2023-02-11] MEDS: Multivitamin TAB 1 TAB PO (07:56)
[2023-02-11] MEDS: Calcium Citrate 950 MG TAB PO (07:56)
[2023-02-11] MEDS: predniSONE 20 MG TAB 40 MG PO (07:56)
[2023-02-11] MEDS: Acetaminophen 250 mg/Aspirin 250 mg/Caffeine 65 mg TAB 2 EACH PO ×2 (07:57→13:17)
[2023-02-11] MEDS: Famotidine 20 MG TAB PO (07:57)
[2023-02-11] MEDS: Citalopram 20 MG TAB PO (07:57)
[2023-02-11] MEDS: guaiFENesin 600 MG TABCR PO (07:57)
[2023-02-11] MEDS: Sucralfate 1 GM TAB PO ×2 (07:57→11:44)
[2023-02-11] MEDS: Budesonide/Formoterol 160/4.5 6 GM 60 PUFF INH IH (08:01)
[2023-02-11] MEDS: Albuterol 2.5 MG/3 ML INH SOLN VIAL UPD ×3 (08:01→15:24)
[2023-02-11] MEDS: Tiotropium Bromide-Respimat 10 PUFF INH 2 PUFF IH (08:01)
[2023-02-11 08:05] VITALS: RESP 12; O2SAT 92
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
[2023-02-11 11:01] VITALS: BP 135/76; PULSE 70; RESP 17; TEMP 36.6; O2SAT 96
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
[2023-02-11 15:19] VITALS: BP 122/81; PULSE 87; RESP 18; TEMP 37; O2SAT 95
[2023-02-11 15:24] VITALS: PULSE 122; PULSE 98; RESP 23; RESP 26; O2SAT 90; O2SAT 96
--- NOTE | 2023-02-11 15:27 | RESPIRATORY ---
Pt's baseline O2 requirements are 2L continuous O2 at rest, and 5L pulse-dose with ambulation. Pt has portable pulse-dose concentrator for this. RT is sending patient home with nebulizer from [facility] and extra nebulizer kits. PPt was instructed on how to use nebulizer at home, and RT had patient demonstrate how to put machine together and give himself a treatment successfully before discharge from this admission.
--- NOTE | 2023-02-11 15:39 | PDOC.CMDIS ---
Date of service: 02/11/23 Time of Service: 15:43 LACE Index Scoring Tool Questions: Length of Stay (in days): 4 - 6 Was the patient admitted via the E.D.?: Yes Comorbidities: Chronic Pulmonary Disease E.D. Visits: 5 Answers: Total Score: 13 Risk of Readmission: High Risk Care Management Discharge Plan Reason for Hospitalization: Pneumonia Discharge Plan: Vinay will return home today with no new services. His will drive him home via private vehicle. [facility]. He will follow up with his PCP and discharge plan of care. He is happy to be going home. Patient/Family Education Needs: Review discharge instructions and limitations, discussion of self care needs including ask me three.
--- NOTE | 2023-02-16 14:24 | PT.INDS ---
PT Notes Visit Reasons: Pneumonia, acute on chronic respiratory failure Patient seen for initial evaluation only, then deemed medically stable for return home with no services. Please see initial evaluation for current functional status.
== END 2023-02-11 16:08 | disposition home or self-care (01) | DRG 189 ==
LOC: ER 15:57 → MS 16:44
PROVIDERS: Internal Medicine; Student in an Organized Health Care Education/Training Program; Admitting Provider Family Medicine; Emergency Provider Emergency Medicine; PCP Nurse Practitioner Family; Visit Provider Family Medicine
DX: J96.20 Acute and chronic respiratory failure, unspecified whether with hypoxia or hypercapnia (principal); J84.89 Other specified interstitial pulmonary diseases; E11.42 Type 2 diabetes mellitus with diabetic polyneuropathy; Z79.01 Long term (current) use of anticoagulants; I10 Essential (primary) hypertension; G47.33 Obstructive sleep apnea (adult) (pediatric); Z99.81 Dependence on supplemental oxygen; R13.12 Dysphagia, oropharyngeal phase; K22.70 Barrett's esophagus without dysplasia; Z96.643 Presence of artificial hip joint, bilateral; K21.9 Gastro-esophageal reflux disease without esophagitis; Z96.611 Presence of right artificial shoulder joint; Z96.651 Presence of right artificial knee joint; Z86.73 Personal history of transient ischemic attack (TIA), and cerebral infarction without residual deficits; F10.11 Alcohol abuse, in remission; M10.9 Gout, unspecified; F32.A Depression, unspecified; Z86.711 Personal history of pulmonary embolism; Z79.4 Long term (current) use of insulin; J45.909 Unspecified asthma, uncomplicated; U09.9 Post COVID-19 condition, unspecified; J38.5 Laryngeal spasm; R51.9 Headache, unspecified; R07.81 Pleurodynia
CPT/HCPCS: 00123; 36415; 70491; 71275; 78452; 80048; 80053; 82805; 84145; 85652; 87040; 87637; 92610; 94618; 94640; 96365; 96367; 96376; 97162; 99285; 71045; 82565; 83735; 83880; 84484; 85025; 86140; 93005; 93010; 93017; 94664; 94667; 94668; 94760; 99223; 99232; 99233; 99239; J1940; J2543; J2785; J2930; J3490; J7512; J7613; J7620

== ENCOUNTER 2023-02-16 04:13 | Outpatient (CLI) | payer MEDICARE, MEDICAID, SELFPAY ==
[2023-02-16 15:56] LABS: Anion Gap 10.5 mmol/L (3-11); BUN 19 mg/dL (7-18); CO2 27.5 mmol/L (21.0-32.0); CREATININE 1.1 mg/dL (0.70-1.30); Chloride 100 mmol/L (98-107); Estimated GFR 75.43 (mL/min/1.73m2); Glucose 257 mg/dL (74-106); Potassium 3.9 mmol/L (3.5-5.1); Sodium 138 mmol/L (136-145)
== END 2023-02-16 04:14 | disposition home or self-care (01) ==
LOC: LBO 04:14
PROVIDERS: PCP Nurse Practitioner Family; Visit Provider Internal Medicine
DX: I10 Essential (primary) hypertension (principal)
CPT/HCPCS: 36415; 80048

== ENCOUNTER 2023-02-24 11:03 | Outpatient (CLI) | payer MEDICARE, MEDICAID, SELFPAY ==
--- NOTE | 2023-02-24 11:00 | RT.EKG_ITS ---
APPROVED REPORT Exam: Resting ECG Reason for Exam: cardiac evaluation Patient Location: O HR:82 bpm ECG Measurements Heart Rate 82 AXIS DE 167 P 34 QRSd 86 QRS 9 QT 366 T 45 QTc 428 Conclusion Sinus rhythm...normal P axis, V-rate 50- 99 Normal Electrocardiogram
== END 2023-02-24 11:04 | disposition home or self-care (01) ==
LOC: DI.CARD 11:04
PROVIDERS: PCP Nurse Practitioner Family; Visit Provider Internal Medicine Cardiovascular Disease
DX: I10 Essential (primary) hypertension (principal); J96.11 Chronic respiratory failure with hypoxia; R07.81 Pleurodynia
CPT/HCPCS: 93010

== ENCOUNTER → 2023-02-24 12:46 | Outpatient (BNVA) | payer MEDICARE, MEDICAID, SELFPAY | PROVIDERS: PCP Nurse Practitioner Family; Referring Provider Nurse Practitioner Family; Visit Provider Internal Medicine Cardiovascular Disease | DX: Z86.16 Personal history of COVID-19 (principal); R07.81 Pleurodynia; I10 Essential (primary) hypertension; J96.11 Chronic respiratory failure with hypoxia | CPT/HCPCS: 93005; 99214 ==

== ENCOUNTER → 2023-03-01 13:05 | Outpatient (BNVA) | payer MEDICARE, MEDICAID, SELFPAY | PROVIDERS: PCP Nurse Practitioner Family; Referring Provider Nurse Practitioner Family; Visit Provider Physician Assistant Surgical | DX: J84.9 Interstitial pulmonary disease, unspecified (principal); U09.9 Post COVID-19 condition, unspecified; J96.11 Chronic respiratory failure with hypoxia; Z71.89 Other specified counseling; R05.9 Cough, unspecified; Z71.9 Counseling, unspecified | CPT/HCPCS: 99213 ==

== ENCOUNTER 2023-03-06 10:59 | Emergency (ER) | payer MEDICARE, MEDICAID, SELFPAY ==
[2023-03-06] VITALS (11 sets, daily range): BP systolic 140; BP diastolic 77; PULSE 70–83; RESP 12–20; TEMP 36.8; O2SAT 85–97
--- NOTE | 2023-03-06 11:00 | RT.EKG_ITS ---
APPROVED REPORT Exam: Resting ECG Reason for Exam: CHEST PAIN, SOB Patient Location: E HR:79 bpm ECG Measurements Heart Rate 79 AXIS [place] 164 P 23 QRSd 82 QRS 44 QT 385 T -3 QTc 442 Conclusion Sinus rhythm..., V-rate 60- [address] segment or T wave abnormalities to suggest occlusive [place]
--- NOTE | 2023-03-06 11:00 | DI.RAD_ITS ---
Exam(s) XR CHEST 2V PA LATERAL EXAM: XR CHEST 2V PA LATERAL CLINICAL HISTORY: SOB. TECHNIQUE: 2D digital imaging was performed. COMPARISON: CR XR PORTABLE CHEST AP from 02/06/[address] CHEST PE CTA from 02/08/2023 FINDINGS: 2 views: Heart size is upper normal, unchanged. The mediastinum is not widened. Increased markings throughout both lung waite is unchanged from prior study and consistent with mild interstitial-patchy infiltrates. No pleural effusions. No pneumothorax. Right shoulder prosthesis again noted. IMPRESSION: Bilateral interstitial disease with subtle suggestion of possible ground-glass infiltrates. No pleur al effusions DATA REPOSITORY: RADIATION DOSE DELIVERED:
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
[2023-03-06 11:37] LABS: Source Nasal/Nares
[2023-03-06 11:37] LABS: BE (Venous) 7 mmol/L (-2-3); HCO3 (Venous) 32 mmol/L (23-28); O2 Sat (Venous) 42 %; TCO2 (Venous) 29 mmol/L (24-29); pH (Venous) 7.33 (7.31-7.41); pO2 (Venous) 24 mmHg
[2023-03-06 11:38] LABS: Abs Immature Grans 0.03 10^3/uL (0.0-0.06); Absolute Basophil Count 0.05 10^3/uL (0.0-0.2); Absolute Eosinophil Count 0.35 10^3/uL (0.0-0.7); Absolute Lymphocyte Count 1.62 10^3/uL (1.2-3.4); Absolute Monocyte Count 0.56 10^3/uL (0.1-0.8); Absolute Neutrophil Count 6.61 10^3/uL (1.2-6.7); Basophils % 0.5; Eosinophils % 3.8; HCT 44.4 % (40.0-50.0); HGB 14.9 g/dL (13.5-17.5); Immature Grans % 0.3; Lymphocytes % 17.6; MCH 30.2 pg (27.0-33.0); MCHC 33.6 % (32.0-36.0); MCV 90 fL (80-95); MPV 8.7 fL (8.0-11.0); Monocytes % 6.1; Neutrophils % 71.7; Platelet Count 146 10^3/uL (130-400); RBC 4.93 10^6/uL (4.36-5.78); RDW 14.1 % (11.8-14.1); WBC 9.22 10^3/uL (4.4-10.8)
[2023-03-06 11:39] LABS: pCO2 (Venous) 61 mmHg (41-51)
[2023-03-06 12:01] LABS: ALT 25 U/L (16-63); AST 50 U/L (15-37); Albumin 3.9 g/dL (3.4-5.0); Alkaline Phosphatase 94 U/L (46-116); Anion Gap 8.9 mmol/L (3-11); BUN 9 mg/dL (7-18); Bilirubin, Total 0.9 mg/dL (0.2-1.0); CO2 32.1 mmol/L (21.0-32.0); CREATININE 0.9 mg/dL (0.70-1.30); Calcium 9.7 mg/dL (8.5-10.1); Chloride 99 mmol/L (98-107); Estimated GFR 95.97 (mL/min/1.73m2); Glucose 210 mg/dL (74-106); NT-proBNP 47 pg/mL (<300); Sodium 140 mmol/L (136-145); Total Protein 7.7 g/dL (6.4-8.2); Troponin I < 50 ng/L (<or=60)
[2023-03-06 12:08] LABS: COVID-19 PCR Negative (Negative)
[2023-03-06 14:25] LABS: Troponin I < 50 ng/L (<or=60)
== END 2023-03-06 14:30 | disposition home or self-care (01) ==
PROVIDERS: Emergency Provider Registered Nurse Emergency; PCP Nurse Practitioner Family
DX: R06.00 Dyspnea, unspecified (principal); R05.9 Cough, unspecified; R07.9 Chest pain, unspecified; E11.9 Type 2 diabetes mellitus without complications; I10 Essential (primary) hypertension; J84.9 Interstitial pulmonary disease, unspecified; Z79.01 Long term (current) use of anticoagulants; Z79.84 Long term (current) use of oral hypoglycemic drugs; Z20.822 Contact with and (suspected) exposure to COVID-19
CPT/HCPCS: 80053; 82805; 87635; 93005; 99283; 71046; 83735; 83880; 84484; 85025; 93010

== ENCOUNTER → 2023-03-14 13:00 | Outpatient (BNVA) | payer MEDICARE, MEDICAID, SELFPAY | PROVIDERS: PCP Nurse Practitioner Family; Referring Provider Nurse Practitioner Family; Visit Provider Physician Assistant Surgical | DX: J84.9 Interstitial pulmonary disease, unspecified (principal); G47.33 Obstructive sleep apnea (adult) (pediatric); J96.11 Chronic respiratory failure with hypoxia | CPT/HCPCS: 99214 ==

== ENCOUNTER 2023-03-18 10:45 | Emergency (ER) | payer MEDICARE, MEDICAID, SELFPAY ==
[2023-03-18] VITALS (13 sets, daily range): BP systolic 115–136; BP diastolic 57–87; PULSE 63–81; RESP 16–22; TEMP 36.7; O2SAT 94–96
--- NOTE | 2023-03-18 12:15 | DI.RAD_ITS ---
Exam(s) XR CHEST 2V PA LATERAL EXAM: XR CHEST 2V PA LATERAL CLINICAL HISTORY: SOB TECHNIQUE: 2D digital imaging was performed of the chest. Two images were obtained. PA and lateral views were obtained. COMPARISON: CR XR CHEST 2V PA LATERAL from 03/06/2023 FINDINGS: There is poor inspiration. MEDIASTINUM: Normal. HEART: Normal. PULMONARY VASCULATURE: Normal. LUNGS: There are increased bilateral perihilar interstitial markings without focal consolidation. PLEURAL SPACE: No pleural effusion or pneumothorax. BONE:Within normal limits for the patient's age. There is again seen a right shoulder prosthesis. OTHER FINDINGS:There is unchanged elevation of the right hemidiaphragm. IMPRESSION: Bilateral interstitial and perihilar infiltrates which may represent atelectasis, interstitial edema or pneumonia. DATA REPOSITORY: RADIATION DOSE DELIVERED:
--- NOTE | 2023-03-18 13:32 | DI.VRAD_ITS ---
PROCEDURE INFORMATION: Exam: XR Chest Exam date and time: 03/18/2023 12:54 PM Age: 62 years old Clinical indication: Shortness of breath TECHNIQUE: Imaging protocol: Radiologic exam of the chest. Views: 2 views. COMPARISON: CR XR CHEST 2V PA LATERAL 06/03/2023 12:37 FINDINGS: Limitations: Limited clinical history. Prior chest x-ray reports are not available. Lungs: Low lung volumes. Persistent increased bilateral perihilar and interstitial markings without focal consolidation. Pleural spaces: Mild blunting of the right lateral costophrenic angle. Heart/Mediastinum: Unremarkable. No cardiomegaly. Bones/joints: Right shoulder arthroplasty with superior migration of the humeral prosthesis. Multilevel degenerative changes of the spine. Compression deformity of midthoracic vertebra similar to prior study. IMPRESSION: Low lung volumes with bilateral atelectasis versus interstitial infiltrates, unchanged from prior study. Dictated and Authenticated by: Anita Liu MD. Ordering:RAZ Bond MD
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
--- NOTE | 2023-03-18 15:20 | NUR.NOTE ---
Nursing Note: Pt ambulated w/ RN down the hallway while attached to portable pulse oximetry. Pt's O2 saturation decreased from mid 90s to 82%. MD aware. Per pt this is his baseline while ambulating. Pt on 5 L via NC while ambulating (also pt's baseline).
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
== END 2023-03-18 16:27 | disposition home or self-care (01) ==
PROVIDERS: Emergency Provider Emergency Medicine; PCP Nurse Practitioner Family
DX: J84.9 Interstitial pulmonary disease, unspecified (principal)
CPT/HCPCS: 99283; 71046

== ENCOUNTER 2023-03-28 02:44 | Outpatient (CLI) | payer MEDICARE, MEDICAID, SELFPAY ==
[2023-03-28] MEDS: Levalbuterol HFA 15 GM INH 4 PUFF IH (14:36)
[2023-03-28] MEDS: Inhaler, Assist Device 1 EACH MC (14:37)
--- NOTE | 2023-03-28 15:02 | W.PFT ---
Date of service: 03/28/23 Time of Service: 13:35 Pulmonary Function Test Result Indications: ILD Interpretation Spirometry: There is no airflow limitation. No bronchodilator response. There is restrictive spirometry. Lung Volumes: Moderate restrictive lung disease Diffusion Capacity: Decreased diffusion Airway Pressure: Normal airways pressure Impression Moderate restrictive lung disease with a decreased diffusion, consistent with ILD. Note: When compared to 01/30/23, the TLC and diffusion have improved significantly. Clinical Correlation therefore is recommended.
== END 2023-03-28 02:45 | disposition home or self-care (01) ==
LOC: RT 02:45
PROVIDERS: PCP Nurse Practitioner Family; Visit Provider Physician Assistant Surgical
DX: J84.9 Interstitial pulmonary disease, unspecified (principal)
CPT/HCPCS: 94060; 94726; 94729

== ENCOUNTER → 2023-05-02 10:57 | Outpatient (BNVA) | payer MEDICARE, MEDICAID, SELFPAY | PROVIDERS: PCP Nurse Practitioner Family; Referring Provider Nurse Practitioner Family; Visit Provider Physician Assistant Surgical | DX: J84.9 Interstitial pulmonary disease, unspecified (principal); J96.11 Chronic respiratory failure with hypoxia; G47.30 Sleep apnea, unspecified | CPT/HCPCS: 99214 ==

== ENCOUNTER → 2023-05-09 13:01 | Outpatient (BNVA) | payer MEDICARE, MEDICAID, SELFPAY | PROVIDERS: PCP Nurse Practitioner Family; Referring Provider Nurse Practitioner Family; Visit Provider Physician Assistant Surgical | DX: R06.02 Shortness of breath (principal); J84.9 Interstitial pulmonary disease, unspecified; U09.9 Post COVID-19 condition, unspecified | CPT/HCPCS: 99214 ==

== ENCOUNTER 2023-05-09 14:08 | Emergency (ER) | payer MEDICARE, MEDICAID, SELFPAY ==
[2023-05-09] VITALS (23 sets, daily range): BP systolic 101–146; BP diastolic 42–75; PULSE 69–91; RESP 20; TEMP 37.2; O2SAT 89–96
--- NOTE | 2023-05-09 14:15 | RT.EKG_ITS ---
APPROVED REPORT Exam: Resting ECG Reason for Exam: sob Patient Location: E HR:90 bpm ECG Measurements Heart Rate 90 AXIS [place] 172 P 33 QRSd 117 QRS 23 QT 434 T 37 QTc 533 Conclusion Sinus rhythm...normal P axis, V-rate 60- 99 Nonspecific intraventricular conduction delay...QRSd >115mS, not LBBB/RBBB Prolonged QT interval...QTc >500mS motion artifact
--- NOTE | 2023-05-09 14:30 | DI.CT_ITS ---
Exam(s) CT CHEST PE CTA EXAM: CT CHEST PE CTA CLINICAL HISTORY: dyspnea, history of PE. TECHNIQUE: Imaging Protocol: Axial CT angiography was performed with multi-slice acquisition and mu lti-planar reconstructions as well as axial, coronal and sagittal MIP reconstructions. CONTRAST MATERIAL: Intravenous: Omnipaque 350 Contrast volume:100 ml COMPARISON: CT CT CHEST PE CTA from 02/08/2023 CR XR CHEST 2V PA LATERAL from 03/06/2023 CR,XR XR CHEST 2V PA LATERAL from 03/18/2023 FINDINGS: Exam is limited by respiratory motion. Pulmonary Arteries: No evidence of filling defect to suggest pulmonary emboli. Tracheobronchial tree: Patent where visualized. Mediastinum and Ladi: No dominant adenopathy or fluid collection. Pulmonary parenchyma: None chronic interstitial changes again noted. No acute areas of consolidation . Pleura: No effusion or pneumothorax. Heart: The heart is dilated. coronary artery calcifications are seen. Aorta: Thoracic aorta non-dilated. No aneurysm. No dissection. Upper abdomen: Unremarkable. Bones: Stable mild compression fracture of the superior endplate of T7. Degenerative changes. Large Schmorl's node again noted superior endplate of T11. Tubes, Catheters, and Lines: None Soft tissues: Unremarkable. IMPRESSION: No evidence of pulmonary embolism. Chronic interstitial changes. RADIATION DOSE DELIVERED: 661.9mGy.cm Total DLP DATA REPOSITORY: All CT scans at this facility are submitted to the National Radiology Data Registry (NRDR) Dose Index Registry (DIR) with the [employer] (A[employer]). RADIATION OPTIMIZATION: All CT scans at this facility use at least one of these dose optimization te chniques: automated exposure control; mA and/or kV adjustment per patient size (includes targeted exa ms where dose is matched to clinical indication); or iterative reconstruction.
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
[2023-05-09 14:59] LABS: Abs Immature Grans 0.11 10^3/uL (0.0-0.06); Absolute Eosinophil Count 0.27 10^3/uL (0.0-0.7); Absolute Lymphocyte Count 2.03 10^3/uL (1.2-3.4); Absolute Neutrophil Count 10.21 10^3/uL (1.2-6.7); BE (Venous) 4 mmol/L (-2-3); Basophils % 0.5; HCO3 (Venous) 30 mmol/L (23-28); HCT 46.5 % (40.0-50.0); HGB 15.6 g/dL (13.5-17.5); Immature Grans % 0.8; Lymphocytes % 15.3; MCH 30.4 pg (27.0-33.0); MCHC 33.5 % (32.0-36.0); MCV 91 fL (80-95); MPV 8.7 fL (8.0-11.0); Monocytes % 4.5; Neutrophils % 76.9; O2 Sat (Venous) 70 %; Platelet Count 220 10^3/uL (130-400); RBC 5.14 10^6/uL (4.36-5.78); RDW 12.9 % (11.8-14.1); RDW-SD 42.6 fL; TCO2 (Venous) 26 mmol/L (24-29); WBC 13.28 10^3/uL (4.4-10.8); pCO2 (Venous) 54 mmHg (41-51); pH (Venous) 7.35 (7.31-7.41); pO2 (Venous) 37 mmHg
[2023-05-09 15:01] LABS: Absolute Basophil Count 0.07 10^3/uL (0.0-0.2)
[2023-05-09 15:13] LABS: INR 1.1 (0.9-1.1); PTT Activated 25.6 sec (23.6-32.8); Prothrombin Time 11.1 sec (9.1-11.1)
[2023-05-09 15:32] LABS: ALT 21 U/L (16-63); AST 53 U/L (15-37); Albumin 4.2 g/dL (3.4-5.0); Alkaline Phosphatase 104 U/L (46-116); Anion Gap 10.3 mmol/L (3-11); BUN 18 mg/dL (7-18); Bilirubin, Total 0.8 mg/dL (0.2-1.0); CO2 29.7 mmol/L (21.0-32.0); CREATININE 1.1 mg/dL (0.70-1.30); Calcium 9.7 mg/dL (8.5-10.1); Chloride 98 mmol/L (98-107); Estimated GFR 75.43 (mL/min/1.73m2); Glucose 203 mg/dL (74-106); NT-proBNP 23 pg/mL (<300); Potassium 3.7 mmol/L (3.5-5.1); Sodium 138 mmol/L (136-145); TSH (W/Ref FT4) 2.33 uIU/mL (0.36-3.74); Total Protein 8.1 g/dL (6.4-8.2); Troponin I < 50 ng/L (< or =60)
[2023-05-09 15:36] LABS: Procalcitonin < 0.1 ng/mL
[2023-05-09 15:42] LABS: COVID-19 PCR Negative (Negative); Influenza A PCR Negative (Negative); Influenza B PCR Negative (Negative); RSV PCR Negative (Negative)
[2023-05-09 15:43] LABS: Source Nasopharynx
[2023-05-09] MEDS: Normal Saline - Diluent 50 ML VIAL IJ (15:57)
[2023-05-09] MEDS: Omnipaque 350 MG/ML 100 ML BTL IJ (15:58)
[2023-05-09] MEDS: Dexamethasone 10 MG/ML VIAL IVP (16:56)
== END 2023-05-09 17:05 | disposition home or self-care (01) ==
PROVIDERS: Emergency Provider Emergency Medicine; PCP Nurse Practitioner Family
DX: R06.02 Shortness of breath (principal); J96.11 Chronic respiratory failure with hypoxia; I10 Essential (primary) hypertension; E11.9 Type 2 diabetes mellitus without complications; Z11.52 Encounter for screening for COVID-19; Z79.84 Long term (current) use of oral hypoglycemic drugs; Z79.01 Long term (current) use of anticoagulants; Z99.81 Dependence on supplemental oxygen; Z86.718 Personal history of other venous thrombosis and embolism; Z86.711 Personal history of pulmonary embolism
CPT/HCPCS: 71275; 80053; 82805; 84145; 87637; 93005; 96374; 99214; 99285; 83735; 83880; 84443; 84484; 85025; 85610; 85730; 93010; 99284; J1100; J3490

== ENCOUNTER 2023-05-17 13:20 | Emergency (ER) | payer MEDICARE, MEDICAID, SELFPAY ==
[2023-05-17 13:22] VITALS: BP 148/82; PULSE 77; RESP 17; TEMP 36.7; O2SAT 98
--- NOTE | 2023-05-17 14:15 | RT.EKG_ITS ---
APPROVED REPORT Exam: Resting ECG Reason for Exam: shortness of breath Patient Location: E HR:69 bpm ECG Measurements Heart Rate 69 AXIS AK 184 P 45 QRSd 83 QRS 43 QT 401 T 47 QTc 429 Conclusion Sinus rhythm...normal P axis, V-rate 60- 99 Low voltage, precordial leads...precordial leads <1.0mV sinus rhythm, normal axis, normal intervals, non ischemic
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
[2023-05-17 14:44] LABS: Abs Immature Grans 0.05 10^3/uL (0.0-0.06); Absolute Basophil Count 0.04 10^3/uL (0.0-0.2); Absolute Eosinophil Count 0.26 10^3/uL (0.0-0.7); Absolute Lymphocyte Count 1.54 10^3/uL (1.2-3.4); Absolute Monocyte Count 0.72 10^3/uL (0.1-0.8); Basophils % 0.3; Eosinophils % 2.2; HCT 42.6 % (40.0-50.0); HGB 13.9 g/dL (13.5-17.5); Immature Grans % 0.4; MCH 29.9 pg (27.0-33.0); MCHC 32.6 % (32.0-36.0); MCV 92 fL (80-95); MPV 8.6 fL (8.0-11.0); Monocytes % 6.1; Platelet Count 147 10^3/uL (130-400); RBC 4.65 10^6/uL (4.36-5.78); RDW 12.9 % (11.8-14.1); RDW-SD 43.3 fL; WBC 11.81 10^3/uL (4.4-10.8)
[2023-05-17 14:45] LABS: Absolute Neutrophil Count 9.21 10^3/uL (1.2-6.7)
[2023-05-17 15:04] LABS: COVID-19 PCR Negative (Negative); Influenza A PCR Negative (Negative); Influenza B PCR Negative (Negative); RSV PCR Negative (Negative)
[2023-05-17 15:06] LABS: Source Nasopharynx
[2023-05-17 15:11] LABS: ALT 21 U/L (16-63); AST 31 U/L (15-37); Albumin 3.5 g/dL (3.4-5.0); Alkaline Phosphatase 116 U/L (46-116); Anion Gap 9.4 mmol/L (3-11); BUN 10 mg/dL (7-18); Bilirubin, Total 0.6 mg/dL (0.2-1.0); CO2 33.6 mmol/L (21.0-32.0); CREATININE 0.9 mg/dL (0.70-1.30); Calcium 9.3 mg/dL (8.5-10.1); Chloride 104 mmol/L (98-107); Estimated GFR 95.97 (mL/min/1.73m2); Glucose 255 mg/dL (74-106); Magnesium 2.2 mg/dL (1.8-2.4); NT-proBNP 31 pg/mL (<300); Potassium 4.5 mmol/L (3.5-5.1); Sodium 147 mmol/L (136-145); Total Protein 7.4 g/dL (6.4-8.2); Troponin I < 50 ng/L (< or =60)
[2023-05-17 15:17] LABS: D-Dimer 337 ng/mlFEU (<500)
[2023-05-17 15:18] LABS: Procalcitonin < 0.1 ng/mL
--- NOTE | 2023-05-17 16:00 | DI.RAD_ITS ---
Exam(s) XR CHEST 2V PA LATERAL EXAM: XR CHEST 2V PA LATERAL CLINICAL HISTORY: ?PNA TECHNIQUE: 2D digital imaging was performed of the chest. Two images were obtained. PA and lateral views were obtained. COMPARISON: CR XR CHEST 2V PA LATERAL from 11/21/2022 CR XR PORTABLE CHEST AP from 02/06/2023 CR,XR XR CHEST 2V PA LATERAL from 03/18/2023 FINDINGS: MEDIASTINUM: Normal. HEART: Normal. PULMONARY VASCULATURE: Normal. LUNGS: There again seen diffuse interstitial lung markings. They have a similar appearance compared to the examination from 03/18/2023. No focal consolidating infiltrates are seen. PLEURAL SPACE: No pleural effusion or pneumothorax. BONE:Within normal limits for the patient's age. There are findings of a right shoulder replacement. Stable midthoracic compression deformity. OTHER FINDINGS:There is elevation of the right hemidiaphragm. IMPRESSION: Stable interstitial findings in the lungs which may be chronic. No acute change in the appearance of the chest x-ray. DATA REPOSITORY: RADIATION DOSE DELIVERED:
== END 2023-05-17 16:39 | disposition home or self-care (01) ==
PROVIDERS: Emergency Provider Physician Assistant; PCP Nurse Practitioner Family
DX: J44.1 Chronic obstructive pulmonary disease with (acute) exacerbation (principal); I10 Essential (primary) hypertension; E11.9 Type 2 diabetes mellitus without complications; J96.11 Chronic respiratory failure with hypoxia; J84.9 Interstitial pulmonary disease, unspecified; Z86.711 Personal history of pulmonary embolism; Z86.718 Personal history of other venous thrombosis and embolism; Z86.73 Personal history of transient ischemic attack (TIA), and cerebral infarction without residual deficits; Z79.82 Long term (current) use of aspirin; Z79.84 Long term (current) use of oral hypoglycemic drugs; Z99.81 Dependence on supplemental oxygen
CPT/HCPCS: 80053; 84145; 87637; 87880; 93005; 99284; 71046; 83605; 83735; 83880; 84484; 85025; 85379; 93010

== ENCOUNTER → 2023-05-23 15:19 | Outpatient (BNVA) | payer MEDICARE, MEDICAID, SELFPAY | PROVIDERS: PCP Nurse Practitioner Family; Referring Provider Nurse Practitioner Family; Visit Provider Student in an Organized Health Care Education/Training Program | DX: J84.9 Interstitial pulmonary disease, unspecified (principal); J96.11 Chronic respiratory failure with hypoxia; G47.30 Sleep apnea, unspecified | CPT/HCPCS: 99214 ==

== ENCOUNTER → 2023-06-27 14:36 | Outpatient (BNVA) | payer OTHER, SELFPAY | PROVIDERS: PCP Nurse Practitioner Family; Referring Provider Nurse Practitioner Family; Visit Provider Student in an Organized Health Care Education/Training Program | DX: J84.9 Interstitial pulmonary disease, unspecified (principal); R06.02 Shortness of breath; J96.11 Chronic respiratory failure with hypoxia; G47.30 Sleep apnea, unspecified ==

== ENCOUNTER 2023-08-07 14:27 | Emergency (ER) | payer OTHER, SELFPAY ==
[2023-08-07 14:40] VITALS: BP 171/87; PULSE 78; RESP 22; TEMP 36.4; O2SAT 92
--- NOTE | 2023-08-07 16:15 | RT.EKG_ITS ---
APPROVED REPORT Exam: Resting ECG Reason for Exam: dyspnea Patient Location: E HR:80 bpm ECG Measurements Heart Rate 80 AXIS CA 154 P 33 QRSd 77 QRS 5 QT 353 T 74 QTc 407 Conclusion Sinus rhythm...normal P axis, V-rate 60- 99
--- NOTE | 2023-08-07 16:45 | DI.CT_ITS ---
Exam(s) CT CHEST PE CTA EXAM: CT CHEST PE CTA CLINICAL HISTORY: dsypnea, hx of dvt. TECHNIQUE: Imaging Protocol: Axial CT angiography was performed with multi-slice acquisition and mu lti-planar reconstructions as well as axial, coronal and sagittal MIP reconstructions. CONTRAST MATERIAL: Intravenous: Omnipaque 350 Contrast volume:100 ml COMPARISON: CT CT CHEST PE CTA from 05/09/2023 FINDINGS: Pulmonary Arteries: No evidence of filling defect to suggest pulmonary emboli. Tracheobronchial tree: No mucous plugging. Mediastinum and Ladi: No dominant adenopathy or fluid collection. Pulmonary parenchyma: evaluation somewhat limited due to respiratory motion. chronic interstitial ch anges. No consolidation or dominant measurable mass. Pleura: No effusion or pneumothorax. Heart: The heart is mildly dilated. Mild coronary artery calcifications are seen. Aorta: Thoracic aorta non-dilated. No dissection. Upper abdomen: No acute findings. Liver cyst again noted. Status post cholecystectomy. Bones: stable mild midthoracic compression fracture. SCHMORL'S NOTED AGAIN NOTED AT T11. Tubes, Catheters, and Lines: None Soft tissues: Unremarkable. IMPRESSION: No evidence of pulmonary embolism. chronic pulmonary changes. RADIATION DOSE DELIVERED: 583.92mGy.cm Total DLP DATA REPOSITORY: All CT scans at this facility are submitted to the National Radiology Data Registry (NRDR) Dose Index Registry (DIR) with the [employer] (A[employer]). RADIATION OPTIMIZATION: All CT scans at this facility use at least one of these dose optimization te chniques: automated exposure control; mA and/or kV adjustment per patient size (includes targeted exa ms where dose is matched to clinical indication); or iterative reconstruction.
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
[2023-08-07] MEDS: Furosemide 40 MG/4 ML VIAL IVP (17:08)
[2023-08-07] MEDS: methylPREDNISolone SUCC 125 MG VIAL IVP (17:08)
[2023-08-07] MEDS: Albuterol/Ipratropium 3 ML UPD VIAL UPD (17:08)
[2023-08-07] MEDS: Normal Saline 10 ML VIAL IJ (17:09)
[2023-08-07 17:10] LABS: BE (Venous) 4 mmol/L (-2-3); HCO3 (Venous) 29 mmol/L (23-28); O2 Sat (Venous) 89 %; TCO2 (Venous) 26 mmol/L (24-29); pCO2 (Venous) 50 mmHg (41-51); pH (Venous) 7.37 (7.31-7.41); pO2 (Venous) 53 mmHg
[2023-08-07 17:13] LABS: Abs Immature Grans 0.15 10^3/uL (0.0-0.06); Absolute Basophil Count 0.04 10^3/uL (0.0-0.2); Absolute Eosinophil Count 0.02 10^3/uL (0.0-0.7); Absolute Lymphocyte Count 0.98 10^3/uL (1.2-3.4); Absolute Monocyte Count 0.28 10^3/uL (0.1-0.8); Absolute Neutrophil Count 8.84 10^3/uL (1.2-6.7); Basophils % 0.4; Eosinophils % 0.2; HCT 43.3 % (40.0-50.0); HGB 14.6 g/dL (13.5-17.5); Immature Grans % 1.5; Lymphocytes % 9.5; MCH 31.1 pg (27.0-33.0); MCHC 33.7 % (32.0-36.0); MCV 92 fL (80-95); MPV 9.1 fL (8.0-11.0); Monocytes % 2.7; Neutrophils % 85.7; Platelet Count 126 10^3/uL (130-400); RDW-SD 51.2 fL; WBC 10.31 10^3/uL (4.4-10.8)
[2023-08-07 17:25] LABS: PTT Activated 21.8 sec (23.6-32.8); Prothrombin Time 10.4 sec (9.1-11.1)
[2023-08-07 17:34] LABS: ALT 52 U/L (16-63); AST 42 U/L (15-37); Albumin 3.7 g/dL (3.4-5.0); Alkaline Phosphatase 93 U/L (46-116); Anion Gap 11.5 mmol/L (3-11); BUN 16 mg/dL (7-18); Bilirubin, Total 0.5 mg/dL (0.2-1.0); CO2 27.5 mmol/L (21.0-32.0); CREATININE 1.1 mg/dL (0.70-1.30); Chloride 99 mmol/L (98-107); Estimated GFR 74.96 (mL/min/1.73m2); Glucose 347 mg/dL (74-106); Magnesium 1.6 mg/dL (1.8-2.4); Potassium 4.7 mmol/L (3.5-5.1); Sodium 138 mmol/L (136-145); Total Protein 6.8 g/dL (6.4-8.2); Troponin I < 50 ng/L (< or =60)
[2023-08-07 17:52] LABS: NT-proBNP 63 pg/mL (<300)
[2023-08-07] MEDS: MAGNESIUM SULFATE 1 GM/100 ML BAG IVINF (18:13)
[2023-08-07] MEDS: Omnipaque 350 MG/ML 100 ML BTL IJ (18:15)
[2023-08-07] MEDS: Normal Saline - Diluent 50 ML VIAL IJ (18:16)
[2023-08-07 18:44] LABS: Troponin I < 50 ng/L (< or =60)
--- NOTE | 2023-08-07 19:03 | DI.VRAD_ITS ---
PROCEDURE INFORMATION: Exam: CTA Chest With Contrast Exam date and time: 08/07/2023 5:59 PM Age: 63 years old Clinical indication: Patient HX: Dyspnea, HX of dvt TECHNIQUE: Imaging protocol: Computed tomographic angiography of the chest with contrast. Exam focused on the arteries. 3D rendering (Not supervised by radiologist): MIP and/or 3D reconstructed images were created by the technologist. COMPARISON: CT CHEST PE CTA 05/09/2023 4:01 PM FINDINGS: Pulmonary arteries: No large central pulmonary emboli. Assessment of the small peripheral branch vessels was mildly limited by streak artifacts from the right shoulder arthroplasty and mild respiratory motion in the lung bases, although no suspected peripheral emboli are identified. Aorta: Borderline aneurysmal dilatation of the mid ascending aortic segment measuring 4.0 cm diameter, with motion effects likely contributing. No dissection. No mediastinal hematoma. Thyroid: The visualized thyroid gland demonstrates no gross abnormality. Lungs: No acute tracheobronchial abnormalities. No gross pulmonary infiltrates or edema pattern. Patchy bilateral peripheral alveolar densities with bandlike elements and volume loss, favor hypoventilatory changes and multifocal subsegmental atelectasis, and possibly underlying elements of chronic fibrosis. Patchy mild edema or pneumonitis considered less likely. No pulmonary mass lesions are identified. Pleural spaces: No pleural effusion. No pneumothorax. Heart: Heart size normal. Mild coronary artery calcification. No pericardial effusion. Esophagus: The esophagus is largely contracted but demonstrates no gross abnormality. Lymph nodes: No supraclavicular or axillary adenopathy. No mediastinal or hilar adenopathy. Liver: 2.7 cm probable cyst in the posterior right hepatic lobe is unchanged measuring near 0 Hounsfield units. Geographic fatty infiltration in the right hepatic lobe. Gallbladder and bile ducts: Cholecystectomy. Bones/joints: No acute osseous abnormalities are identified. Osteopenia. Chronic moderate superior endplate compression deformity of T7 unchanged. Chronic T11 superior endplate Schmorl's node unchanged. Right shoulder arthroplasty without gross hardware complication or change. Soft tissues: The soft tissues of the chest wall demonstrate no acute abnormality. IMPRESSION: 1. No evidence of pulmonary embolism or aortic dissection. 2. Hypoventilatory changes with multifocal subsegmental atelectasis and possibly underlying elements of intermixed chronic fibrosis, with pattern similar to 05/09/2023. Patchy mild edema or pneumonitis considered less likely. 3. Borderline aneurysmal dilatation of the mid ascending aortic segment at 4.0 cm diameter, with motion effects probably contributing. No dissection. 4. Additional nonemergent findings detailed above. Dictated and Authenticated by: Rosendo Smith MD. Ordering:WOLF Brown MD
[2023-08-07 19:23] VITALS: BP 143/84; PULSE 86; RESP 16; O2SAT 92
--- NOTE | 2023-08-07 19:57 | NUR.NOTE ---
Ultrasound requisition faxed to [facility] for L Leg Ultrasound, patient was not given a copy of the requisition, I called the patient and left a message with the scheduling phone number and asked that he please call the ED to confirm receiving the message.Nursing Note:
== END 2023-08-07 19:24 | disposition home or self-care (01) ==
PROVIDERS: Emergency Provider Emergency Medicine; PCP Nurse Practitioner Family
DX: R06.02 Shortness of breath (principal); J96.10 Chronic respiratory failure, unspecified whether with hypoxia or hypercapnia; U09.9 Post COVID-19 condition, unspecified; J84.9 Interstitial pulmonary disease, unspecified; R22.43 Localized swelling, mass and lump, lower limb, bilateral; E11.9 Type 2 diabetes mellitus without complications; I10 Essential (primary) hypertension; Z79.84 Long term (current) use of oral hypoglycemic drugs; Z86.711 Personal history of pulmonary embolism; Z86.718 Personal history of other venous thrombosis and embolism; Z79.01 Long term (current) use of anticoagulants
CPT/HCPCS: 36415; 71275; 80053; 82805; 93005; 93308; 94640; 96365; 96375; 99285; 83735; 83880; 84484; 85025; 85610; 85730; 93010; 99284; J1940; J2919; J3475; J3490; J7620

== ENCOUNTER 2023-08-15 13:22 | Emergency (ER) | payer OTHER, SELFPAY ==
[2023-08-15 13:44] VITALS: BP 138/84; PULSE 89; RESP 18; TEMP 37.2; O2SAT 95
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
[2023-08-15 14:05] VITALS: BP 138/84; PULSE 89; RESP 18; TEMP 37.2; O2SAT 95
== END 2023-08-15 14:38 | disposition home or self-care (01) ==
PROVIDERS: Emergency Provider Physician Assistant; PCP Nurse Practitioner Family
DX: R22.42 Localized swelling, mass and lump, left lower limb (principal); E11.9 Type 2 diabetes mellitus without complications; I10 Essential (primary) hypertension; Z86.73 Personal history of transient ischemic attack (TIA), and cerebral infarction without residual deficits; Z86.711 Personal history of pulmonary embolism; Z86.718 Personal history of other venous thrombosis and embolism; Z79.01 Long term (current) use of anticoagulants; Z79.4 Long term (current) use of insulin; Z79.84 Long term (current) use of oral hypoglycemic drugs
CPT/HCPCS: 99283

== ENCOUNTER 2023-08-24 13:42 | Inpatient (IN) | payer OTHER, SELFPAY ==
[2023-08-24] VITALS (7 sets, daily range): BP systolic 123–158; BP diastolic 78–92; PULSE 85–103; RESP 3–102; TEMP 36.9–37.4; O2SAT 90–96
--- NOTE | 2023-08-24 13:30 | RT.EKG_ITS ---
APPROVED REPORT Exam: Resting ECG Reason for Exam: SOB Patient Location: E HR:95 bpm ECG Measurements Heart Rate 95 AXIS SD 162 P 24 QRSd 80 QRS -7 QT 333 T 71 QTc 420 Conclusion Sinus rhythm...normal P axis, V-rate 60- 99 Atrial premature complex...SV complex w/ short R-R interval
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
--- NOTE | 2023-08-24 14:15 | DI.RAD_ITS ---
Exam(s) XR CHEST 2V PA LATERAL EXAM: XR CHEST 2V PA LATERAL CLINICAL HISTORY: cough and dyspnea TECHNIQUE: 2D digital imaging was performed. Two views. COMPARISON: CR XR CHEST 2V PA LATERAL from 05/17/[address] CHEST PE CTA from 08/07/2023 FINDINGS: Exam extremely limited by lack of pulmonary inflation on both views. Overlying oxygen tubing. HEART: Enlarged. Aorta: Not dilated. PULMONARY VASCULATURE: Normal. LUNGS: Interstitial changes. No gross area of consolidation. PLEURAL SPACE: No pleural effusion or pneumothorax. BONE:Spine unremarkable for age. Right shoulder prosthesis. Soft tissues: Unremarkable. IMPRESSION: Extremely limited exam. Interstitial changes.. DATA REPOSITORY: RADIATION DOSE DELIVERED:
[2023-08-24 14:28] LABS: BE (Venous) 8 mmol/L (-2-3); HCO3 (Venous) 34 mmol/L (23-28); O2 Sat (Venous) 54 %; TCO2 (Venous) 30 mmol/L (24-29); pCO2 (Venous) 59 mmHg (41-51); pH (Venous) 7.36 (7.31-7.41); pO2 (Venous) 29 mmHg
[2023-08-24 14:31] LABS: Abs Immature Grans 0.11 10^3/uL (0.0-0.06); Absolute Basophil Count 0.05 10^3/uL (0.0-0.2); Absolute Eosinophil Count 0.13 10^3/uL (0.0-0.7); Absolute Lymphocyte Count 1.45 10^3/uL (1.2-3.4); Absolute Monocyte Count 0.56 10^3/uL (0.1-0.8); Absolute Neutrophil Count 5.45 10^3/uL (1.2-6.7); Basophils % 0.6 %; Eosinophils % 1.7 %; HCT 45.3 % (40.0-50.0); HGB 14.9 g/dL (13.5-17.5); Immature Grans % 1.4 %; Lymphocytes % 18.7 %; MCH 31.4 pg (27.0-33.0); MCHC 32.9 % (32.0-36.0); MCV 95 fL (80-95); MPV 9.2 fL (8.0-11.0); Monocytes % 7.2 %; Neutrophils % 70.4 %; Platelet Count 154 10^3/uL (130-400); RBC 4.75 10^6/uL (4.36-5.78); RDW 15.2 % (11.8-14.1); RDW-SD 53.5 fL; WBC 7.75 10^3/uL (4.4-10.8)
[2023-08-24] MEDS: Furosemide 100 MG/10 ML VIAL 80 MG IVP (14:33)
[2023-08-24] MEDS: Normal Saline Flush 10 ML SYR IVP ×3 (14:34→23:58)
[2023-08-24 14:46] LABS: PTT Activated 22.7 sec (23.6-32.8)
[2023-08-24 14:52] LABS: ALT 125 U/L (16-63); AST 57 U/L (15-37); Albumin 3.7 g/dL (3.4-5.0); Alkaline Phosphatase 114 U/L (46-116); Anion Gap 7.3 mmol/L (3-11); BUN 12 mg/dL (7-18); Bilirubin, Total 0.6 mg/dL (0.2-1.0); CO2 32.7 mmol/L (21.0-32.0); CREATININE 0.9 mg/dL (0.70-1.30); Calcium 9.2 mg/dL (8.5-10.1); Chloride 103 mmol/L (98-107); Estimated GFR 95.37 (mL/min/1.73m2); Glucose 302 mg/dL (74-106); Magnesium 1.9 mg/dL (1.8-2.4); NT-proBNP 49 pg/mL (<300); Potassium 3.9 mmol/L (3.5-5.1); Sodium 143 mmol/L (136-145); Troponin I < 50 ng/L (< or =60)
[2023-08-24 15:27] LABS: Procalcitonin < 0.1 ng/mL
[2023-08-24] MEDS: Acetaminophen 500 MG TAB 1000 MG PO (16:17)
[2023-08-24 16:21] LABS: COVID-19 PCR Negative (Negative); Influenza A PCR Negative (Negative); Influenza B PCR Negative (Negative); RSV PCR Negative (Negative)
[2023-08-24 16:25] LABS: Source Nasopharynx
[2023-08-24] MEDS: Albuterol/Ipratropium 3 ML UPD VIAL UPD ×2 (17:09→21:52)
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
[2023-08-24 18:51] LABS: Troponin I < 50 ng/L (< or =60)
[2023-08-24 19:21] LABS: TSH (W/Ref FT4) 3.66 uIU/mL (0.36-3.74)
[2023-08-24] MEDS: Sucralfate 1 GM TAB PO (21:51)
[2023-08-24] MEDS: Tamsulosin 0.4 MG CAPCR PO (21:51)
[2023-08-24] MEDS: Apixaban 5 MG TAB PO (21:51)
[2023-08-24] MEDS: Pregabalin 25 MG CAP PO (21:51)
[2023-08-24] MEDS: Famotidine 20 MG TAB PO (21:51)
[2023-08-24] MEDS: Senna TAB 1 TAB PO (21:52)
[2023-08-24] MEDS: Carbidopa 25/Levodopa 100 TAB PO (21:52)
[2023-08-24] MEDS: Acetaminophen 325 MG TAB PO (22:10)
[2023-08-24] MEDS: Mirtazapine 15 MG TAB PO (22:21)
[2023-08-24 23:53] LABS: Troponin I < 50 ng/L (< or =60)
[2023-08-24] MEDS: Zolpidem 5 MG TAB PO (23:57)
[2023-08-25] VITALS (13 sets, daily range): BP systolic 107–131; BP diastolic 71–86; PULSE 83–97; RESP 5–20; TEMP 36.3–37.2; O2SAT 93–98
[2023-08-25] MEDS: Albuterol 2.5 MG/3 ML INH SOLN VIAL UPD (05:35)
[2023-08-25 05:55] LABS: HGB 14.8 g/dL (13.5-17.5); MCH 31.9 pg (27.0-33.0); MCHC 34.4 % (32.0-36.0); MCV 93 fL (80-95); MPV 9.2 fL (8.0-11.0); Platelet Count 150 10^3/uL (130-400); RBC 4.64 10^6/uL (4.36-5.78); RDW 15.2 % (11.8-14.1); RDW-SD 52.1 fL; WBC 6.89 10^3/uL (4.4-10.8)
[2023-08-25 06:08] LABS: Prothrombin Time 10.4 sec (9.1-11.1)
[2023-08-25] MEDS: Sucralfate 1 GM TAB PO ×4 (06:10→21:40)
[2023-08-25] MEDS: Carbidopa 25/Levodopa 100 TAB PO ×5 (06:10→19:40)
[2023-08-25 06:15] LABS: Troponin I < 50 ng/L (< or =60)
[2023-08-25 06:16] LABS: ALT 59 U/L (16-63); AST 54 U/L (15-37); Albumin 3.5 g/dL (3.4-5.0); Alkaline Phosphatase 100 U/L (46-116); Anion Gap 7.3 mmol/L (3-11); BUN 12 mg/dL (7-18); Bilirubin, Total 0.6 mg/dL (0.2-1.0); CO2 34.7 mmol/L (21.0-32.0); CREATININE 0.9 mg/dL (0.70-1.30); Calcium 8.6 mg/dL (8.5-10.1); Chloride 99 mmol/L (98-107); Estimated GFR 95.37 (mL/min/1.73m2); Glucose 309 mg/dL (74-106); Potassium 3.3 mmol/L (3.5-5.1); Sodium 141 mmol/L (136-145); Total Protein 6.5 g/dL (6.4-8.2)
[2023-08-25] MEDS: Albuterol/Ipratropium 3 ML UPD VIAL UPD ×3 (06:42→17:34)
[2023-08-25] MEDS: Acetaminophen 325 MG TAB PO ×2 (06:48→14:13)
[2023-08-25] MEDS: Furosemide 100 MG/10 ML VIAL 60 MG IVP ×2 (07:58→16:11)
[2023-08-25] MEDS: Senna TAB 1 TAB PO ×2 (08:02→19:39)
[2023-08-25] MEDS: predniSONE 10 MG TAB 40 MG PO (08:02)
[2023-08-25] MEDS: Cholecalciferol (Vitamin D3) 1,000 UNIT TAB 50 UNITS PO (08:02)
[2023-08-25] MEDS: Multivitamin w/Minerals TAB 1 TAB PO (08:02)
[2023-08-25] MEDS: Ascorbic Acid 500 MG TAB 1000 MG PO (08:03)
[2023-08-25] MEDS: Sulfameth/Trimeth DS TAB 1 TAB PO (08:03)
[2023-08-25] MEDS: Apixaban 5 MG TAB PO ×2 (08:03→19:39)
[2023-08-25] MEDS: Lactobacillus Acidophilus CAP 1 CAP PO ×2 (08:03→19:39)
[2023-08-25] MEDS: Magnesium Oxide 400 MG TAB PO (08:03)
[2023-08-25] MEDS: Famotidine 20 MG TAB PO ×2 (08:03→19:39)
[2023-08-25] MEDS: Potassium Chloride 20 MEQ TABCR 40 MEQ PO (08:04)
[2023-08-25] MEDS: Pregabalin 25 MG CAP PO ×3 (08:04→19:39)
[2023-08-25] MEDS: Normal Saline Flush 10 ML SYR IVP ×3 (08:05→19:42)
[2023-08-25] MEDS: Insulin Aspart 300 UNITS/3 ML PEN SC ×3 (08:19→16:55)
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
--- NOTE | 2023-08-25 11:53 | PGE_ITS ---
Date of Service Date of service: 08/25/23 Time of Service: 11:54 Assessment and Plan Assessment and plan (1) CHF (congestive heart failure): Start date: 08/24/23 Status: Acute Assessment and plan: -presented with dyspnea and tachypnea as well as increased oxygen needs at home chronically 2 L/min per nasal cannula increasing to as much is 5 L/min per nasal cannula over the last days. -also had increased cough he has status post COVID with prolonged intubation and does see pulmonology locally. -He is on a prednisone wean and this correlates with his increase in symptoms as he is weaned over the last 3 weeks which has been increased back up to 40mg daily -s/p IV lasix in ED, will continue at 60mg IV BID and increase if needed based on UOP Qualifiers: Heart failure type: diastolic Heart failure chronicity: acute on chronic Qualified Code(s): I50.33 - Acute on chronic diastolic (congestive) heart failure (2) Chronic hypoxic respiratory failure: Status: Chronic Assessment and plan: -as noted above (3) Chronic interstitial lung disease: Status: Chronic Assessment and plan: -Prednisone increased to 40 mg daily. -appeared to be secondary to his COVID infection January 2021 (4) Sleep apnea: Status: Chronic Assessment and plan: -contune home BiPAP HS (5) Diabetes mellitus: Assessment and plan: -Hold outpatient medical therapy and do glucometers before meals and bedtime with short acting insulin coverage using the moderate sliding scale. 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 Qualifiers: Encounter type: subsequent encounter Lumbar vertebra fracture level: unspecified lumbar vertebra Fracture healing: with routine healing Qualified Code(s): S32.000D - Wedge compression fracture of unspecified lumbar vertebra, subsequent encounter for fracture with routine healing Subjective Subjective Interval history since last seen: Patient states that he is feeling better today as compared to admission, but that he is continuing to feel significantly short of breath with movement. Exam Narrative Exam Narrative: well appearing gentleman laying in bed in no acute distress, on baseline 2l NC, heart RRR, lungs with crackles in bilateral bases, abdomen soft, non-tender, non-distended Objective Last Vital Signs Temp 97.9 F 08/25/23 07:49 Pulse 94 H 08/25/23 07:49 Resp 16 08/25/23 07:49 BP 131/81 08/25/23 07:49 Pulse Ox 94 08/25/23 07:49 Laboratory Results - last 24 hr 08/24/23 08/24/23 08/24/23 14:15 15:35 18:20 WBC 7.75 RBC 4.75 Hgb 14.9 Hct 45.3 MCV 95 MCH 31.4 MCHC 32.9 RDW 15.2 H Plt Count 154 MPV 9.2 Immature Gran % 1.4 Neutrophils % 70.4 Lymphocytes % 18.7 Monocytes % 7.2 Eosinophils % 1.7 Basophils % 0.6 Nucleated RBC % 0.0 Absolute Neutrophils 5.45 Absolute Lymphocytes 1.45 Absolute Monocytes 0.56 Absolute Eosinophils 0.13 Absolute Basophils 0.05 PT 10.0 INR 1.0 APTT 22.7 L VBG pH 7.36 VBG pCO2 59 H VBG pO2 29 VBG HCO3 34 H VBG Total CO2 30 H VBG O2 Saturation 54 VBG Base Excess 8 H Sodium 143 Potassium 3.9 Chloride 103 Carbon Dioxide 32.7 H Anion Gap 7.3 BUN 12 Creatinine 0.9 Est GFR (CKD-EPI 2020) 95.37 Glucose 302 H Calcium 9.2 Magnesium 1.9 Total Bilirubin 0.6 AST 57 H ALT 125 H Alkaline Phosphatase 114 Troponin I < 50 < 50 NT-Pro-B Natriuret Pep 49 Total Protein 7.0 Albumin 3.7 Procalcitonin < 0.1 TSH 3.66 COVID-19 Source Nasopharynx SARS-CoV-2 (PCR) Negative Influenza Type A (PCR) Negative Influenza Type B (PCR) Negative RSV (PCR) Negative 08/24/23 08/25/23 08/25/23 23:24 05:28 05:30 WBC 6.89 RBC 4.64 Hgb 14.8 Hct 43.0 MCV 93 MCH 31.9 MCHC 34.4 RDW 15.2 H Plt Count 150 MPV 9.2 Immature Gran % Neutrophils % Lymphocytes % Monocytes % Eosinophils % Basophils % Nucleated RBC % Absolute Neutrophils Absolute Lymphocytes Absolute Monocytes Absolute Eosinophils Absolute Basophils PT 10.4 INR 1.0 APTT VBG pH VBG pCO2 VBG pO2 VBG HCO3 VBG Total CO2 VBG O2 Saturation VBG Base Excess Sodium 141 Potassium 3.3 L Chloride 99 Carbon Dioxide 34.7 H Anion Gap 7.3 BUN 12 Creatinine 0.9 Est GFR (CKD-EPI 2020) 95.37 Glucose 309 H Calcium 8.6 Magnesium 2.0 Total Bilirubin 0.6 AST 54 H ALT 59 Alkaline Phosphatase 100 Troponin I < 50 < 50 Cancelled NT-Pro-B Natriuret Pep Total Protein 6.5 Albumin 3.5 Procalcitonin TSH COVID-19 Source SARS-CoV-2 (PCR) Influenza Type A (PCR) Influenza Type B (PCR) RSV (PCR) Time Spent with Patient Time Spent with Patient: >50 minutes Time was spent: preparing to see the patient(eg.review tests), obtaining and/or reviewing separately otained hiistory, ordering medications,tests, procedures, referring, communicating with other health after school caregiver, indepentently interpreting results, counseling the patient and care coordination
--- NOTE | 2023-08-25 14:20 | CHAPLAIN ---
Vinay and I remembered each other from a previous admission. Vinay said he hasn't been in the hospital since January, so he had a good stretch without being hospitalized, following several pneumonias. Prior to that Vinay was intubated for COVID for several months and then spent a few more months at a rehab. He continues to have respiratory issues. Vinay lives in [place] with his . He has a granddaughter with CF and would remind her that she was going to the hospital just for a tune up and that is what his granddaughter tole him when he left for the hospital this time. Vinay is very pleasant and easily engages in conversation.
[2023-08-25] MEDS: Tamsulosin 0.4 MG CAPCR PO (19:39)
[2023-08-25] MEDS: Atorvastatin 20 MG TAB PO (19:39)
[2023-08-25] MEDS: Zolpidem 5 MG TAB PO (19:41)
[2023-08-25] MEDS: Calcium Citrate 950 MG TAB 1900 MG PO (19:41)
[2023-08-25] MEDS: Mirtazapine 15 MG TAB PO (21:42)
[2023-08-26] VITALS (7 sets, daily range): BP systolic 112–128; BP diastolic 66–81; PULSE 75–98; RESP 2–18; TEMP 36.1–37; O2SAT 92–96
[2023-08-26 06:46] LABS: HCT 40.2 % (40.0-50.0); HGB 13.7 g/dL (13.5-17.5); MCH 31.5 pg (27.0-33.0); MCHC 34.1 % (32.0-36.0); MCV 92 fL (80-95); MPV 9.3 fL (8.0-11.0); Platelet Count 153 10^3/uL (130-400); RBC 4.35 10^6/uL (4.36-5.78); RDW-SD 51.1 fL; WBC 10.24 10^3/uL (4.4-10.8)
[2023-08-26 07:10] LABS: Anion Gap 6.2 mmol/L (3-11); BUN 16 mg/dL (7-18); CO2 32.8 mmol/L (21.0-32.0); Calcium 8.9 mg/dL (8.5-10.1); Chloride 100 mmol/L (98-107); Estimated GFR 84.05 (mL/min/1.73m2); Glucose 312 mg/dL (74-106); Sodium 139 mmol/L (136-145)
[2023-08-26] MEDS: Furosemide 100 MG/10 ML VIAL 60 MG IVP ×2 (08:03→16:40)
[2023-08-26] MEDS: predniSONE 10 MG TAB 40 MG PO (08:05)
[2023-08-26] MEDS: Carbidopa 25/Levodopa 100 TAB PO ×3 (08:05→21:18)
[2023-08-26] MEDS: Ascorbic Acid 500 MG TAB 1000 MG PO (08:05)
[2023-08-26] MEDS: Sucralfate 1 GM TAB PO ×4 (08:05→21:16)
[2023-08-26] MEDS: Multivitamin w/Minerals TAB 1 TAB PO (08:06)
[2023-08-26] MEDS: Calcium Citrate 950 MG TAB 1900 MG PO ×2 (08:06→21:16)
[2023-08-26] MEDS: Senna TAB 1 TAB PO ×2 (08:06→21:17)
[2023-08-26] MEDS: Lactobacillus Acidophilus CAP 1 CAP PO ×2 (08:06→21:16)
[2023-08-26] MEDS: Famotidine 20 MG TAB PO ×2 (08:07→21:18)
[2023-08-26] MEDS: Cholecalciferol (Vitamin D3) 1,000 UNIT TAB 2000 UNITS PO (08:07)
[2023-08-26] MEDS: Apixaban 5 MG TAB PO ×2 (08:07→21:16)
[2023-08-26] MEDS: Sulfameth/Trimeth DS TAB 1 TAB PO (08:07)
[2023-08-26] MEDS: Pregabalin 25 MG CAP PO ×3 (08:07→21:18)
[2023-08-26] MEDS: Magnesium Oxide 400 MG TAB PO (08:07)
[2023-08-26] MEDS: Normal Saline Flush 10 ML SYR IVP ×2 (08:08→21:53)
[2023-08-26] MEDS: Insulin Aspart 300 UNITS/3 ML PEN SC ×4 (08:09→21:39)
--- NOTE | 2023-08-26 09:37 | W.PM.PROGNOT ---
Date of Service Date of service: 08/26/23 Time of Service: 09:37 Assessment and Plan Assessment and plan (1) CHF (congestive heart failure): Status: Acute Assessment and plan: -presented with dyspnea and tachypnea as well as increased oxygen needs at home chronically 2 L/min per nasal cannula increasing to as much is 5 L/min per nasal cannula over the last days. -also had increased cough he has status post COVID with prolonged intubation and does see pulmonology locally. -He is on a prednisone wean and this correlates with his increase in symptoms as he is weaned over the last 3 weeks which has been increased back up to 40mg daily -s/p IV lasix in ED, will continue at 60mg IV BID; has been having good UOP with this regimen Qualifiers: Heart failure type: diastolic Heart failure chronicity: acute on chronic Qualified Code(s): I50.33 - Acute on chronic diastolic (congestive) heart failure (2) Chronic hypoxic respiratory failure: Status: Chronic Assessment and plan: -as noted above (3) Chronic interstitial lung disease: Status: Chronic Assessment and plan: -Prednisone increased to 40 mg daily. -appeared to be secondary to his COVID infection January 2021 (4) Sleep apnea: Status: Chronic Assessment and plan: -contune home BiPAP HS (5) Diabetes mellitus: Assessment and plan: -Hold outpatient medical therapy and do glucometers before meals and bedtime with short acting insulin coverage using the moderate sliding scale. 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 Qualifiers: Encounter type: subsequent encounter Lumbar vertebra fracture level: unspecified lumbar vertebra Fracture healing: with routine healing Qualified Code(s): S32.000D - Wedge compression fracture of unspecified lumbar vertebra, subsequent encounter for fracture with routine healing Subjective Subjective Interval history since last seen: Patient states that he is continuing to experience improvement, though he is not back to his baseline. He understands that it is delayed improvement is likely secondary to his chronic lung disease though he was encouraged that he is slowly improving each day. Otherwise he has no other complaints or concerns at this time. Exam Narrative Exam Narrative: well appearing gentleman laying in bed in no acute distress, on baseline 2l NC, heart RRR, lungs with crackles in bilateral bases, abdomen soft, non-tender, non-distended Objective Last Vital Signs Temp 97.0 F L 08/26/23 08:09 Pulse 78 08/26/23 08:09 Resp 15 08/26/23 08:09 BP 125/66 08/26/23 08:09 Pulse Ox 95 08/26/23 08:09 Laboratory Results - last 24 hr 08/26/23 06:35 WBC 10.24 RBC 4.35 L Hgb 13.7 Hct 40.2 MCV 92 MCH 31.5 MCHC 34.1 RDW 15.0 H Plt Count 153 MPV 9.3 Sodium 139 Potassium 4.0 Chloride 100 Carbon Dioxide 32.8 H Anion Gap 6.2 BUN 16 Creatinine 1.0 Est GFR (CKD-EPI 2020) 84.05 Glucose 312 H Calcium 8.9 Time Spent with Patient Time Spent with Patient: >50 minutes Time was spent: preparing to see the patient(eg.review tests), obtaining and/or reviewing separately otained hiistory, ordering medications,tests, procedures, referring, communicating with other health healthcare or medical, indepentently interpreting results, counseling the patient and care coordination
[2023-08-26] MEDS: Insulin Glargine 300 UNITS/3 ML PEN 10 UNITS SC (13:44)
[2023-08-26] MEDS: Albuterol/Ipratropium 3 ML UPD VIAL UPD ×3 (13:58→23:55)
[2023-08-26 21:06] LABS: Glucose 437 mg/dL (74-106)
[2023-08-26] MEDS: Tamsulosin 0.4 MG CAPCR PO (21:16)
[2023-08-26] MEDS: Zolpidem 5 MG TAB PO (21:16)
[2023-08-26] MEDS: Mirtazapine 15 MG TAB PO (21:17)
[2023-08-26] MEDS: Atorvastatin 20 MG TAB PO (21:17)
[2023-08-26] MEDS: Insulin Glargine 300 UNITS/3 ML PEN 22 UNITS SC (21:38)
[2023-08-27] VITALS (11 sets, daily range): BP systolic 120–143; BP diastolic 74–80; PULSE 73–91; RESP 2–19; TEMP 36.2–37.3; O2SAT 92–98
--- NOTE | 2023-08-27 | DI.RAD_ITS ---
Exam(s) XR PORTABLE CHEST AP EXAM: XR PORTABLE CHEST AP CLINICAL HISTORY: ongoing SOB despite treatment TECHNIQUE: 2D digital imaging was performed. COMPARISON: CR XR CHEST 2V PA LATERAL from 08/24/2023 FINDINGS: Exam is limited by poor pulmonary inflation and technique. Overlying oxygen tubing and monitoring le ads. LUNGS: Low lung volumes. No focal infiltrate. No pleural abnormality seen. HEART: Difficult to evaluate due to poor pulmonary inflation. AORTA: Normal diameter. BONES: Right shoulder prosthesis. Soft tissues: Unremarkable. IMPRESSION: Limited exam due to poor pulmonary inflation. No gross acute abnormality. DATA REPOSITORY: RADIATION DOSE DELIVERED:
[2023-08-27] MEDS: Sucralfate 1 GM TAB PO ×4 (07:52→21:38)
[2023-08-27] MEDS: Multivitamin w/Minerals TAB 1 TAB PO (07:52)
[2023-08-27] MEDS: Famotidine 20 MG TAB PO ×2 (07:52→21:36)
[2023-08-27] MEDS: predniSONE 10 MG TAB 40 MG PO (07:52)
[2023-08-27] MEDS: Pregabalin 25 MG CAP PO ×3 (07:52→21:37)
[2023-08-27] MEDS: Magnesium Oxide 400 MG TAB PO (07:53)
[2023-08-27] MEDS: Senna TAB 1 TAB PO ×2 (07:53→21:38)
[2023-08-27] MEDS: Cholecalciferol (Vitamin D3) 1,000 UNIT TAB 2000 UNITS PO (07:53)
[2023-08-27] MEDS: Calcium Citrate 950 MG TAB 1900 MG PO ×2 (07:53→21:35)
[2023-08-27] MEDS: Lactobacillus Acidophilus CAP 1 CAP PO ×2 (07:53→21:36)
[2023-08-27] MEDS: Ascorbic Acid 500 MG TAB 1000 MG PO (07:53)
[2023-08-27] MEDS: Apixaban 5 MG TAB PO ×2 (07:53→21:34)
[2023-08-27] MEDS: Furosemide 100 MG/10 ML VIAL 60 MG IVP ×2 (07:54→15:47)
[2023-08-27] MEDS: Sulfameth/Trimeth DS TAB 1 TAB PO (07:54)
[2023-08-27] MEDS: Carbidopa 25/Levodopa 100 TAB PO ×3 (07:54→21:35)
[2023-08-27] MEDS: Insulin Aspart 300 UNITS/3 ML PEN SC ×4 (07:57→22:05)
[2023-08-27] MEDS: Insulin Glargine 300 UNITS/3 ML PEN 22 UNITS SC ×2 (08:00→22:04)
[2023-08-27] MEDS: Normal Saline Flush 10 ML SYR IVP ×2 (09:55→21:37)
[2023-08-27 11:23] LABS: Lab Add On Test DONE
--- NOTE | 2023-08-27 11:26 | W.PM.PROGNOT ---
Date of Service Date of service: 08/27/23 Time of Service: 11:26 Assessment and Plan Assessment and plan (1) CHF (congestive heart failure): Status: Acute Assessment and plan: -presented with dyspnea and tachypnea as well as increased oxygen needs at home chronically 2 L/min per nasal cannula increasing to as much is 5 L/min per nasal cannula over the last days. -also had increased cough he has status post COVID with prolonged intubation and does see pulmonology locally. -He is on a prednisone wean and this correlates with his increase in symptoms as he is weaned over the last 3 weeks which has been increased back up to 40mg daily -s/p IV lasix in ED, will continue at 60mg IV BID; has been having good UOP with this regimen -f/u repeat CXR Qualifiers: Heart failure type: diastolic Heart failure chronicity: acute on chronic Qualified Code(s): I50.33 - Acute on chronic diastolic (congestive) heart failure (2) Chronic hypoxic respiratory failure: Status: Chronic Assessment and plan: -as noted above (3) Chronic interstitial lung disease: Status: Chronic Assessment and plan: -Prednisone increased to 40 mg daily. -appeared to be secondary to his COVID infection January 2021 (4) Sleep apnea: Status: Chronic Assessment and plan: -contune home BiPAP HS (5) Diabetes mellitus: Assessment and plan: -Hold outpatient medical therapy and do glucometers before meals and bedtime with short acting insulin coverage using the moderate sliding scale. 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 Qualifiers: Encounter type: subsequent encounter Lumbar vertebra fracture level: unspecified lumbar vertebra Fracture healing: with routine healing Qualified Code(s): S32.000D - Wedge compression fracture of unspecified lumbar vertebra, subsequent encounter for fracture with routine healing Subjective Subjective Interval history since last seen: Patient states that he is feeling overall better but still having significantly more difficulty ambulating than prior to admission. I told him we would check a magnesium level and a chest x-ray though this may be just secondary to fatigue given his chronic medical condition. Patient expressed understanding of this and had no other complaints or concerns at this time. Exam Narrative Exam Narrative: well appearing gentleman laying in bed in no acute distress, on baseline 2l NC, heart RRR, lungs with crackles in bilateral bases, abdomen soft, non-tender, non-distended Objective Last Vital Signs Temp 98.6 F 08/27/23 07:49 Pulse 74 08/27/23 07:49 Resp 17 08/27/23 07:49 BP 133/80 08/27/23 07:49 Pulse Ox 95 08/27/23 07:49 Laboratory Results - last 24 hr 08/26/23 08/27/23 20:47 11:22 Glucose 437 H Add-On Test Request DONE Time Spent with Patient Time Spent with Patient: >50 minutes Time was spent: preparing to see the patient(eg.review tests), obtaining and/or reviewing separately otained hiistory, ordering medications,tests, procedures, referring, communicating with other health healthcare associate, indepentently interpreting results, counseling the patient and care coordination
--- NOTE | 2023-08-27 11:44 | DI.VRAD_ITS ---
PROCEDURE INFORMATION: Exam: XR Chest Exam date and time: 08/27/2023 11:04 AM Age: 63 years old Clinical indication: Other: Ongoing SOB despite treatment TECHNIQUE: Imaging protocol: Radiologic exam of the chest. Views: 1 view. COMPARISON: CR XR CHEST 2V PA LATERAL 08/24/2023 3:09 PM FINDINGS: Lungs: Low lung volumes. Pulmonary vascular congestion. Increased interstitial markings may reflect low lung volumes and/or edema. Pleural spaces: No large pleural effusion seen. Heart/Mediastinum: Cardiac silhouette magnified by AP technique and low lung volumes. Bones/joints: Grossly unremarkable. IMPRESSION: Pulmonary vascular congestion. Increased interstitial markings may reflect low lung volumes and/or edema. Dictated and Authenticated by: Darline Franco MD. Ordering:RACHEL Flor MD
[2023-08-27] MEDS: Albuterol/Ipratropium 3 ML UPD VIAL UPD ×3 (13:04→23:41)
[2023-08-27] MEDS: Acetaminophen 325 MG TAB PO (16:05)
[2023-08-27] MEDS: Atorvastatin 20 MG TAB PO (21:35)
[2023-08-27] MEDS: Mirtazapine 15 MG TAB PO (21:37)
[2023-08-27] MEDS: Zolpidem 5 MG TAB PO (21:38)
[2023-08-27] MEDS: Tamsulosin 0.4 MG CAPCR PO (21:38)
[2023-08-27 21:56] LABS: Glucose 419 mg/dL (74-106)
[2023-08-28] VITALS (9 sets, daily range): BP systolic 129–138; BP diastolic 72–80; PULSE 73–84; RESP 16–18; TEMP 36.5–37.4; O2SAT 93–97
[2023-08-28] MEDS: Cholecalciferol (Vitamin D3) 1,000 UNIT TAB 2000 UNITS PO (08:09)
[2023-08-28] MEDS: predniSONE 10 MG TAB 40 MG PO (08:09)
[2023-08-28] MEDS: Calcium Citrate 950 MG TAB 1900 MG PO ×2 (08:09→20:54)
[2023-08-28] MEDS: Carbidopa 25/Levodopa 100 TAB PO ×3 (08:09→20:52)
[2023-08-28] MEDS: Ascorbic Acid 500 MG TAB 1000 MG PO (08:10)
[2023-08-28] MEDS: Senna TAB 1 TAB PO ×2 (08:10→20:54)
[2023-08-28] MEDS: Magnesium Oxide 400 MG TAB PO (08:10)
[2023-08-28] MEDS: Sucralfate 1 GM TAB PO ×4 (08:10→22:58)
[2023-08-28] MEDS: Apixaban 5 MG TAB PO ×2 (08:10→20:55)
[2023-08-28] MEDS: Multivitamin w/Minerals TAB 1 TAB PO (08:10)
[2023-08-28] MEDS: Famotidine 20 MG TAB PO ×2 (08:11→20:52)
[2023-08-28] MEDS: Lactobacillus Acidophilus CAP 1 CAP PO ×2 (08:11→20:52)
[2023-08-28] MEDS: Insulin Glargine 300 UNITS/3 ML PEN 22 UNITS SC ×2 (08:11→21:00)
[2023-08-28] MEDS: Sulfameth/Trimeth DS TAB 1 TAB PO (08:11)
[2023-08-28] MEDS: Normal Saline Flush 10 ML SYR IVP ×3 (08:11→20:55)
[2023-08-28] MEDS: Furosemide 100 MG/10 ML VIAL 60 MG IVP ×2 (08:11→17:01)
[2023-08-28] MEDS: Insulin Aspart 300 UNITS/3 ML PEN SC ×4 (08:12→20:59)
[2023-08-28] MEDS: Pregabalin 25 MG CAP PO ×3 (08:18→20:55)
[2023-08-28] MEDS: Polyethylene Glycol 3350 17 GM PACKET PO (11:16)
--- NOTE | 2023-08-28 11:38 | W.PM.PROGNOT ---
Date of Service Date of service: 08/28/23 Time of Service: 11:39 Assessment and Plan Assessment and plan (1) CHF (congestive heart failure): Status: Acute Assessment and plan: -presented with dyspnea and tachypnea as well as increased oxygen needs at home chronically 2 L/min per nasal cannula increasing to as much is 5 L/min per nasal cannula over the last days. -also had increased cough he has status post COVID with prolonged intubation and does see pulmonology locally. -He is on a prednisone wean and this correlates with his increase in symptoms as he is weaned over the last 3 weeks which has been increased back up to 40mg daily -s/p IV lasix in ED, will continue at 60mg IV BID; has been having good UOP with this regimen -repeat CXR without acute findings, may be some atelectasis -Patient encouraged to ambulate more frequently with nursing staff and is also been ordered incentive spirometry Qualifiers: Heart failure type: diastolic Heart failure chronicity: acute on chronic Qualified Code(s): I50.33 - Acute on chronic diastolic (congestive) heart failure (2) Chronic hypoxic respiratory failure: Status: Chronic Assessment and plan: -as noted above (3) Chronic interstitial lung disease: Status: Chronic Assessment and plan: -Prednisone increased to 40 mg daily. -appeared to be secondary to his COVID infection January 2021 (4) Sleep apnea: Status: Chronic Assessment and plan: -contune home BiPAP HS (5) Diabetes mellitus: Assessment and plan: -Hold outpatient medical therapy and do glucometers before meals and bedtime with short acting insulin coverage using the moderate sliding scale. 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 Qualifiers: Encounter type: subsequent encounter Lumbar vertebra fracture level: unspecified lumbar vertebra Fracture healing: with routine healing Qualified Code(s): S32.000D - Wedge compression fracture of unspecified lumbar vertebra, subsequent encounter for fracture with routine healing Subjective Subjective Interval history since last seen: Patient states that he has had very slow improvement with his exertional dyspnea. He has only been getting out of bed a few times a day. It was explained to the patient that he should ambulate more often with nursing and that he should use incentive spirometry that was also ordered as investigation up until this point has not showed any acute findings with the exception of some likely atelectasis due to minimal ambulation. Patient expresses understanding and has no other complaints or concerns at this time. Exam Narrative Exam Narrative: well appearing gentleman laying in bed in no acute distress, on baseline 2l NC, heart RRR, lungs with crackles in bilateral bases, abdomen soft, non-tender, non-distended Objective Last Vital Signs Temp 98.6 F 08/28/23 07:20 Pulse 73 08/28/23 07:20 Resp 18 08/28/23 07:20 BP 134/78 08/28/23 07:20 Pulse Ox 97 08/28/23 07:20 Laboratory Results - last 24 hr 08/27/23 08/27/23 12:20 21:37 Glucose 419 H Magnesium 2.0 Time Spent with Patient Time Spent with Patient: >50 minutes Time was spent: preparing to see the patient(eg.review tests), obtaining and/or reviewing separately otained hiistory, ordering medications,tests, procedures, referring, communicating with other health care advocate, indepentently interpreting results, counseling the patient and care coordination
[2023-08-28] MEDS: Albuterol/Ipratropium 3 ML UPD VIAL UPD ×2 (13:09→18:25)
--- NOTE | 2023-08-28 13:36 | CMPROGNOTE_ITS ---
Date of service: 08/28/23 Time of Service: 13:37 Care Management Progress Note Progress Note Text Progress Note Text: S/O: Deonte was sitting up in his chair when CM met with him. He stated that he feels that he is improving today, although he is not yet at his baseline. He described his previous hospitalizations, and stated that he is hopeful that this stay will be shorter than others. Today, he reported that he has been able to sit in his chair for a few hours, which is an improvement from yesterday. There is a PT consult placed, and at that time, he had not yet been evaluated. He stated that his is his primary caregiver at home, as he does require some support, and that she will resume caring for him at home once he is medically cleared for discharge. CM will continue to follow. A: Vinay is a 63 year old male admitted to [facility] on 08/24/23 with an acute exacerbation of CHF, chronic respiratory failure. P: Anticipate Deonte will return home with new home health, if needed. His Inogen concentrator is in his room for transport. Deonte will follow up with his community providers at the [facility] and transport with family. CM will continue to support Deonte and assess for discharge concerns. SDOH(Care Management) Screening Will the Patient Participate in the Screening?: Yes Do you worry about having a steady place to live?: yes Problems where you live: no known problems In the past 12 months, have you had to go without electric, gas, oil or water in your home?: no Have you or anyone in your house had to go without enough food to eat?: no Has lack of transportation kept you from medical appointments or from doing things needed for daily living?: no Has anyone in your support network made you feel unsafe for any reason?: no Health Related Social Needs Health related social needs: housing instability, housed, with risk of homelessness(Z59.811)
--- NOTE | 2023-08-28 13:38 | PHACLINREV_ITS ---
Pharmacy Admission Review Admission Clinical Review Admission Pharmacy Review: (Updated 08/24/23 @ 18:45 by Wild Black) CHF (congestive heart failure) (Acute) cimetidine HCl [From Tagamet] Allergy (Severe, Verified 08/15/23 13:54) Anaphylaxsis rivaroxaban [From Xarelto] Allergy (Severe, Verified 08/15/23 13:54) Other (See Comment) Latex, Natural Rubber Allergy (Intermediate, Verified 08/15/23 13:54) Skin Rash lisinopril Allergy (Intermediate, Verified 08/15/23 13:54) Other (See Comment) pantoprazole Allergy (Unknown, Verified 08/15/23 13:54) Other (See Comment) semaglutide Allergy (Unknown, Verified 08/15/23 13:54) Other (See Comment) promethazine HCl [From Phenergan] Adverse Reaction (Verified 08/15/23 13:54) Dizziness/Lightheade ancef injection Allergy (Unknown, Uncoded 08/15/23 13:54) Other (See Comment) Resuscitation Status Full Code Height 5 ft 8 in Weight 99 kg Pharmacy Admission Review Renal Dosing Renal Dosing: BUN 16 mg/dL (7-18) 08/26/23 06:35 Creatinine 1.0 mg/dL (0.70-1.30) 08/26/23 06:35 Medications needing adjustments: Reviewed (CrCl 85.1 mL/min) List of meds needing interventions: Current medications are okay Anticoagulation Anticoagulation: Hgb 13.7 g/dL (13.5-17.5) 08/26/23 06:35 Hct 40.2 % (40.0-50.0) 08/26/23 06:35 Plt Count 153 10^3/uL (130-400) 08/26/23 06:35 INR 1.0 (0.9-1.1) 08/25/23 05:28 Creatinine 1.0 mg/dL (0.70-1.30) 08/26/23 06:35 DVT Prophylaxis: Reviewed Medications: Apixaban (5mg PO BID) Opiate Usage Evaluate Pain Scale/Pains Meds: Reviewed ([facility] Contin) Scheduled Bowel Reg ordered if on Opiates?: No (PRN Miralax and docusate) Relevant Labs Relevant Labs: Sodium 139 mmol/L (136-145) 08/26/23 06:35 Potassium 4.0 mmol/L (3.5-5.1) 08/26/23 06:35 Chloride 100 mmol/L (98-107) 08/26/23 06:35 Magnesium 2.0 mg/dL (1.8-2.4) 08/27/23 12:20 Electrolytes, C-Reactive P, ESR: Reviewed (No new labs for today) DM Control DM Control: Glucose 419 mg/dL (74-106) H 08/27/23 21:37 Finger Stick Blood Glucose 395 1145 Finger Stick Blood Glucose 395 1145 Finger Stick Blood Glucose 280 0812 Finger Stick Blood Glucose 280 0811 Finger Stick Blood Glucose 280 0741 Finger Stick Blood Glucose 280 0741 DM Control: Reviewed Insulin Dosing, Diabetic Medication: Has order for SS insulin before meals and glargine 22 units at bedtime Cardiac Review Cardiac Review: Troponin I Cancelled 08/25/23 05:30 NT-Pro-B Natriuret Pep 49 pg/mL (<300) 08/24/23 14:15 BP, HR, EF%: Reviewed (HR/BP WNL) QTc Review QTc: Reviewed (420 from 08/24/23) IV to PO Switch IV Medications: Reviewed Home Meds Home Med List reviewed: Reviewed Relevent Home Meds Not ordered & why?: Alendronate (weekly), metformin (on hold per H+P) and Narcan (PRN) Confirmed Ms Contin, pregabalin and tramadol on VPMS Current Meds Current Medication Order Review: Reviewed
[2023-08-28] MEDS: Atorvastatin 20 MG TAB PO (20:54)
[2023-08-28] MEDS: Tamsulosin 0.4 MG CAPCR PO (20:55)
[2023-08-28] MEDS: Zolpidem 5 MG TAB PO (22:56)
[2023-08-28] MEDS: Mirtazapine 15 MG TAB PO (22:57)
[2023-08-29] VITALS (11 sets, daily range): BP systolic 107–138; BP diastolic 72–82; PULSE 66–90; RESP 9–19; TEMP 36.3–37; O2SAT 92–97
[2023-08-29] MEDS: Acetaminophen 325 MG TAB PO ×2 (03:36→20:38)
[2023-08-29] MEDS: Albuterol/Ipratropium 3 ML UPD VIAL UPD ×3 (05:35→17:53)
[2023-08-29] MEDS: Ascorbic Acid 500 MG TAB 1000 MG PO (08:38)
[2023-08-29] MEDS: Sulfameth/Trimeth DS TAB 1 TAB PO (08:39)
[2023-08-29] MEDS: Apixaban 5 MG TAB PO ×2 (08:39→20:39)
[2023-08-29] MEDS: Lactobacillus Acidophilus CAP 1 CAP PO ×2 (08:39→20:39)
[2023-08-29] MEDS: Senna TAB 1 TAB PO ×2 (08:39→20:39)
[2023-08-29] MEDS: Multivitamin w/Minerals TAB 1 TAB PO (08:39)
[2023-08-29] MEDS: predniSONE 10 MG TAB 40 MG PO (08:39)
[2023-08-29] MEDS: Magnesium Oxide 400 MG TAB PO (08:39)
[2023-08-29] MEDS: Cholecalciferol (Vitamin D3) 1,000 UNIT TAB 2000 UNITS PO (08:39)
[2023-08-29] MEDS: Carbidopa 25/Levodopa 100 TAB PO ×3 (08:39→20:38)
[2023-08-29] MEDS: Calcium Citrate 950 MG TAB 1900 MG PO ×2 (08:39→20:39)
[2023-08-29] MEDS: Normal Saline Flush 10 ML SYR IVP ×3 (08:40→20:41)
[2023-08-29] MEDS: Furosemide 100 MG/10 ML VIAL 60 MG IVP ×2 (08:40→16:04)
[2023-08-29] MEDS: Pregabalin 25 MG CAP PO ×3 (08:40→20:39)
[2023-08-29] MEDS: Famotidine 20 MG TAB PO ×2 (08:40→20:39)
[2023-08-29] MEDS: Sucralfate 1 GM TAB PO ×4 (08:40→22:37)
[2023-08-29] MEDS: Insulin Aspart 300 UNITS/3 ML PEN SC ×4 (08:45→22:39)
[2023-08-29] MEDS: Insulin Glargine 300 UNITS/3 ML PEN 22 UNITS SC ×2 (08:46→20:40)
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
--- NOTE | 2023-08-29 13:20 | PDOC.CMPRO ---
Date of service: 08/29/23 Time of Service: 13:21 Care Management Progress Note Progress Note Text Progress Note Text: S/O: Dwight was sitting up in bed when CM met with him. He stated that his O2 was turned down to 0.5L NC and he knew something was wrong because he felt SOB. His supplimental O2 has been increased to 2L, which is his baseline and he is starting to feel better. Dwight sat in the chair for a few hours again today and started working with PT and feels he's slowly but surely improving. PT recommends home with VNA services when medically ready. Dwight is planning on discharging home when he's able, his is his primary caregiver, as he does require some support due to his chronic conditions. CM will continue to follow. A: Vinay is a 63 year old male admitted to [facility] on 08/24/23 with an acute exacerbation of CHF, chronic respiratory failure. P: Anticipate Deonte will return home with new home health PT. His Inogen concentrator is in his room for transport. Deonte will follow up with his community providers at the [place] and transport with family. CM will continue to support Deonte and assess for discharge concerns. SDOH(Care Management) Screening Will the Patient Participate in the Screening?: Yes Do you worry about having a steady place to live?: yes Problems where you live: no known problems In the past 12 months, have you had to go without electric, gas, oil or water in your home?: no Have you or anyone in your house had to go without enough food to eat?: no Has lack of transportation kept you from medical appointments or from doing things needed for daily living?: no Has anyone in your support network made you feel unsafe for any reason?: no Health Related Social Needs Health related social needs: housing instability, housed, with risk of homelessness(Z59.811)
--- NOTE | 2023-08-29 13:50 | PGE_ITS ---
Date of Service Date of service: 08/29/23 Time of Service: 13:50 Assessment and Plan Assessment and plan (1) CHF (congestive heart failure): Status: Acute Assessment and plan: -presented with dyspnea and tachypnea as well as increased oxygen needs at home chronically 2 L/min per nasal cannula increasing to as much is 5 L/min per nasal cannula over the last days. -also had increased cough he has status post COVID with prolonged intubation and does see pulmonology locally. -He is on a prednisone wean and this correlates with his increase in symptoms as he is weaned over the last 3 weeks which has been increased back up to 40mg daily -s/p IV lasix in ED, will continue at 60mg IV BID; has been having good UOP with this regimen -repeat CXR without acute findings, may be some atelectasis -Patient encouraged to ambulate more frequently with nursing staff and is also been ordered incentive spirometry Qualifiers: Heart failure chronicity: acute on chronic Heart failure type: diastolic Qualified Code(s): I50.33 - Acute on chronic diastolic (congestive) heart failure (2) Chronic hypoxic respiratory failure: Status: Chronic Assessment and plan: -as noted above (3) Chronic interstitial lung disease: Status: Chronic Assessment and plan: -Prednisone increased to 40 mg daily. -appeared to be secondary to his COVID infection January 2021 (4) Sleep apnea: Status: Chronic Assessment and plan: -contune home BiPAP HS (5) Diabetes mellitus: Assessment and plan: -Hold outpatient medical therapy and do glucometers before meals and bedtime with short acting insulin coverage using the moderate sliding scale. Qualifiers: Diabetes mellitus complication status: with hyperglycemia Diabetes mellitus half-way insulin use: with terminal operations supervisor use Diabetes mellitus type: type 2 Qualified Code(s): E11.65 - Type 2 diabetes mellitus with hyperglycemia; Z79.4 - senior care (current) use of insulin (6) Pulmonary embolism on long-term anticoagulation therapy: Assessment and plan: -Patient is on long-term Eliquis which will be continued (7) Compression fracture of lumbar vertebra: Status: Chronic Assessment and plan: -Patient is on chronic narcotic therapy which will be continued. Qualifiers: Encounter type: subsequent encounter Fracture healing: with routine healing Lumbar vertebra fracture level: unspecified lumbar vertebra Qualified Code(s): S32.000D - Wedge compression fracture of unspecified lumbar vertebra, subsequent encounter for fracture with routine healing Objective Last Vital Signs Temp 36.8 C 08/29/23 11:33 Pulse 81 08/29/23 11:36 Resp 19 08/29/23 11:33 BP 135/81 08/29/23 11:33 Pulse Ox 93 08/29/23 11:36 Time Spent with Patient Time Spent with Patient: 35-49 minutes Time was spent: preparing to see the patient(eg.review tests), obtaining and/or reviewing separately otained hiistory, ordering medications,tests, procedures, indepentently interpreting results and counseling the patient
--- NOTE | 2023-08-29 14:39 | CHAPLAIN ---
Vinay was in bed when I visited. He said he may go home on , but he doesn't want to go home and come back quickly so he wants to make sure he is ready to be discharged when he goes. He asked for a [employer] Bible. I didn't have any [employer] bibles, but brought him what I did have. He talked about encouraging his son to attend [employer] with him and he's gave his son a graphic novel-type bible thinking that would appeal to him. Vinay attends in [employer] in [place]. He's dealing with respiratory issues going back to having COVID which put him on a vent for several months and then in a rehab. He said Dr. Kilgore recently referred him to a lung specialist in [facility] and he's looking forward to having someone take a look at his case, although he really likes and trust Dr. Kilgore. I will continue to visit.
[2023-08-29 17:20] LABS: Glucose 465 mg/dL (74-106)
[2023-08-29] MEDS: Insulin Glargine 300 UNITS/3 ML PEN 10 UNITS SC (20:39)
[2023-08-29] MEDS: Tamsulosin 0.4 MG CAPCR PO (20:39)
[2023-08-29] MEDS: Atorvastatin 20 MG TAB PO (20:39)
[2023-08-29] MEDS: Zolpidem 5 MG TAB PO (22:37)
[2023-08-29] MEDS: Mirtazapine 15 MG TAB PO (22:37)
[2023-08-30] VITALS (11 sets, daily range): BP systolic 123–140; BP diastolic 74–82; PULSE 63–98; RESP 8–18; TEMP 36.5–37.2; O2SAT 77–97
[2023-08-30] MEDS: Albuterol/Ipratropium 3 ML UPD VIAL UPD ×4 (04:33→20:33)
[2023-08-30 07:08] LABS: Abs Immature Grans 0.46 10^3/uL (0.0-0.06); Absolute Basophil Count 0.08 10^3/uL (0.0-0.2); Absolute Eosinophil Count 0.12 10^3/uL (0.0-0.7); Absolute Lymphocyte Count 3.04 10^3/uL (1.2-3.4); Basophils % 0.6 %; Eosinophils % 0.9 %; HGB 14.8 g/dL (13.5-17.5); Immature Grans % 3.5 %; Lymphocytes % 23.3 %; MCH 31.8 pg (27.0-33.0); MCHC 35.2 % (32.0-36.0); MCV 90 fL (80-95); MPV 9.3 fL (8.0-11.0); Monocytes % 8.4 %; Neutrophils % 63.3 %; Platelet Count 184 10^3/uL (130-400); RBC 4.66 10^6/uL (4.36-5.78); RDW 14.5 % (11.8-14.1); RDW-SD 47.4 fL; WBC 13.03 10^3/uL (4.4-10.8)
[2023-08-30 07:09] LABS: Absolute Monocyte Count 1.09 10^3/uL (0.1-0.8); Absolute Neutrophil Count 8.25 10^3/uL (1.2-6.7)
[2023-08-30 07:24] LABS: Anion Gap 7.3 mmol/L (3-11); BUN 32 mg/dL (7-18); CO2 35.7 mmol/L (21.0-32.0); Calcium 9.2 mg/dL (8.5-10.1); Chloride 97 mmol/L (98-107); Estimated GFR 84.05 (mL/min/1.73m2); Glucose 164 mg/dL (74-106); Sodium 140 mmol/L (136-145)
[2023-08-30] MEDS: predniSONE 10 MG TAB 40 MG PO (08:42)
[2023-08-30] MEDS: Lactobacillus Acidophilus CAP 1 CAP PO ×2 (08:42→21:36)
[2023-08-30] MEDS: Senna TAB 1 TAB PO ×2 (08:42→21:37)
[2023-08-30] MEDS: Calcium Citrate 950 MG TAB 1900 MG PO ×2 (08:42→22:14)
[2023-08-30] MEDS: Sucralfate 1 GM TAB PO ×4 (08:43→21:36)
[2023-08-30] MEDS: Multivitamin w/Minerals TAB 1 TAB PO (08:43)
[2023-08-30] MEDS: Pregabalin 25 MG CAP PO ×3 (08:43→21:36)
[2023-08-30] MEDS: Apixaban 5 MG TAB PO ×2 (08:43→21:38)
[2023-08-30] MEDS: Ascorbic Acid 500 MG TAB 1000 MG PO (08:43)
[2023-08-30] MEDS: Magnesium Oxide 400 MG TAB PO (08:43)
[2023-08-30] MEDS: Sulfameth/Trimeth DS TAB 1 TAB PO (08:43)
[2023-08-30] MEDS: Famotidine 20 MG TAB PO ×2 (08:43→21:36)
[2023-08-30] MEDS: Carbidopa 25/Levodopa 100 TAB PO ×3 (08:43→22:13)
[2023-08-30] MEDS: Cholecalciferol (Vitamin D3) 1,000 UNIT TAB 2000 UNITS PO (08:43)
[2023-08-30] MEDS: Insulin Aspart 300 UNITS/3 ML PEN SC ×4 (08:44→21:46)
[2023-08-30] MEDS: Insulin Glargine 300 UNITS/3 ML PEN 22 UNITS SC (08:45)
[2023-08-30] MEDS: Furosemide 100 MG/10 ML VIAL 60 MG IVP ×2 (08:45→15:50)
[2023-08-30] MEDS: Normal Saline Flush 10 ML SYR IVP ×3 (08:46→22:03)
--- NOTE | 2023-08-30 08:53 | TELEFU_ITS ---
Date of service: 08/29/23 Time of Service: 13:00 Nutrition Note NOTE: Pt seen yesterday afternoon 63yo male admitted for SOB, acute CHF, chronic respiratory failure. His PMH is nutritionally significant for dysphagia, diverticulitis, HTN, GERD/Cullen's esophagus, diabetes with insulin use. FBG was 164 this morning after significant hyperglycemia throughout this admission - pt has been on prednisone at home and it continues this admission at 40mg. Pt takes 22u Glargine AM and HS at home along with 500mg metformin BID. His does majority of the shopping and cooking. Good intake po this admission. Doesn't count carbs at home. typical diet low in veggies and high in animal pr oducts and starch carbs. Took his lunch order on 08/28 and declined veggies. Pt order came to 98g carbs and this was after adjusting and offering only half a burrito. Estimated energy needs : 2326kcals (REE x 1.3AF), 84g protein (1.2g/kg IBW). REcommended 2000 kcals to pt for wt mgt and 200g carbs/13servings per day. Diagnosis: Excessive CHO intake (NI-5.8.2) related to routine diet low in pro duce and high in animal products and starches, as evidenced by diet assessment/pt interview of food history. Intervention: PRovided education on receommneded kcal/carb goal. Reviewed a handout with him on carb sources and serving sizes. Encouraged pt to stay 45- 75g carb per meal with his orders to help keep his glucose in control. Recommend A1C lab Will monitor glucose and other labs and attempt diabetes education reinforcement. Pt given my card with contact info to share with and possibly get outpatient support with diabetes education and management. Time Spent in Nutritional Counseling and Treatment: 15 minutes
--- NOTE | 2023-08-30 10:57 | CMPROGNOTE_ITS ---
Date of service: 08/30/23 Time of Service: 10:57 Care Management Progress Note Progress Note Text Progress Note Text: S/O: Vinay was sitting in his chair eating lunch when CM met with him. Prior to sitting down he ambulated in the [place]ray with PT. Per pt, he still has SOB with exertion beyond his baseline. His main concern at this time is his inability to log in to his patient portal. CM provided support. Vinay requested a bible yesterday, which he received along with a visit from the N[facility]. No change to discharge plan at this time. PT recommends home with VNA services when medically ready. Dwight is planning on discharging home when he's able, his w arnold is his primary caregiver, as he does require some support due to his chronic conditions. CM will continue to follow. A: Vinay is a 63 year old male admitted to [facility] on 08/24/23 with an acute ex acerbation of CHF, chronic respiratory failure. P: Anticipate Deonte will return home with new home health PT. His Inogen concentrator is in his room for transport. Deonte will follow up with his [facility] providers at the [place] and transport with family. CM will continue to support Deonte and assess for discharge concerns. SDOH(Care Management) Screening Will the Patient Participate in the Screening?: Yes Do you worry about having a steady place to live?: yes Problems where you live: no known problems In the past 12 months, have you had to go without electric, gas, oil or water in your home?: no Have you or anyone in your house had to go without enough food to eat?: no Has lack of transportation kept you from medical appointments or from doing things needed for daily living?: no Has anyone in your support network made you feel unsafe for any reason?: no Health Related Social Needs Health related social needs: housing instability, housed, with risk of homelessness(Z59.811)
--- NOTE | 2023-08-30 13:43 | PTTR_ITS ---
PT Notes Visit Reasons: Acute Exacerbation CHF,Chronic Interstitial Lung D Date: 08/30/23 PRECAUTIONS: Fall. Standard. Activity as tolerated. SUBJECTIVE: Pt in recliner when approached for therapy session this morning, pt agreed to participating with session. OBJECTIVE: ?NC 2L 02 support? PAIN: none reported, angina with activity VITALS: telemetry in place Therapeutic Activities 14362: Direct one-on-one instruction in dynamic activities to improve functional performance. ?? BED MOBILITY/TRANSFERS? Rolling L/R: not performed Supine-sit: ?not performed ? Sit-supine: ? ?not performed ? Sit-stand: ? SBA? Stand-sit: ??SBA ? Bed-Chair:? ?SBA ? Chair-bed: SBA Provided skilled cues and instruction on performance and technique throughout. Gait Training 73604: Direct one-on-one instruction and skilled instruction in: Employing an assistive device Modified weight-bearing status Movement sequencing Turning and movement with proper form Provided verbal cues for equipment management and technique Provided instruction in gait pattern Patient education regarding pacing and breathing techniques to maximize activity tolerance? GAIT? Assistive Device: ?? rolling walker ? Weight bearing: FWB Assist: ? SBA? Distance:?? ?50' x 4 WC follow for seated rest break (am), 50' x 4 WC follow for seated rest break (pm) ? Deviation: ? Slow juan, Wide ELIGIO, low step height, short step length ? ASSESSMENT:?(am)Pt SA02 response taken during the duration of session with pt having 89% SAO2 100PR on the first 50', 88% SAO2 113PR on the second 50', 79% SAO2 107 on the third 50', 89% SAO2 106 on the fourth 50', pt SAO2 able to bounce back to low 90's after 1-2 minute rest break with cue for deep breathing to help with FORMAN. (pm)SA02 response taken during the duration of session with pt having 89% SAO2 103PR on the first 50', 89% SAO2 110PR on the second 50', 89% SAO2 106 on the third 50', 89% SAO2 109 on the fourth 50', pt SAO2 able to bounce back to low 90's after 1-2 minute rest break with cue for deep breathing to help with FORMAN. PLAN: Continue with balance training, global strengthening and general con ditioning for improved safety, mobility and activity tolerance until pt is ready for DC. TREATMENT CODE/TIME: 67911w4, 86188c2 25mins (11:00-11:25am) 16190z0, 76338l3 25mins (2:30-2:55pm)
[2023-08-30] MEDS: Potassium Chloride 20 MEQ TABCR 40 MEQ PO ×2 (14:01→18:15)
--- NOTE | 2023-08-30 16:22 | W.PM.PROGNOT ---
Date of Service Date of service: 08/30/23 Time of Service: 16:22 Assessment and Plan Assessment and plan (1) CHF (congestive heart failure): Status: Acute Assessment and plan: at baseline oxygen of 2 liters/nc. -also had increased cough he has status post COVID with prolonged intubation and does see pulmonology locally. -He is on a prednisone wean and this correlates with his increase in symptoms as he is weaned over the last 3 weeks which has been increased back up to 40mg daily, will need wean at discharge -s/p IV lasix in ED and admitted on 60mg IV BID; seems euvolemic at this point, will resume home oral insulin at this point and closely monitor -repeat CXR without acute findings, may be some atelectasis -Patient encouraged to ambulate more frequently with nursing staff I/S and acapella repeat echo in the am continue close monitoring of fluid status, I&O and daily weights previous Echo from 12/12/22 Conclusion Normal left ventricular wall thickness and chamber size. Ejection fraction is 55 to 60%. Wall motion is normal Right ventricle appears normal in size and systolic function Both atria are normal in size The aortic valve is sclerotic and trileaflet without stenosis or regurgitation Mild mitral annular calcification Right ventricular systolic pressure could not be estimated Dilated ascending aorta measuring 3.84 cm Qualifiers: Heart failure chronicity: acute on chronic Heart failure type: diastolic Qualified Code(s): I50.33 - Acute on chronic diastolic (congestive) heart failure (2) Hypokalemia: Status: Acute Assessment and plan: secondary to agressive IV diuresis. back to home oral dose replete and follow, check mag level. (3) Chronic hypoxic respiratory failure: Status: Chronic Assessment and plan: -as noted above now on baseline oxygen slowly increase activity (4) Chronic interstitial lung disease: Status: Chronic Assessment and plan: -Prednisone increased to 40 mg daily. will need taper at discharge followed by pulmonology -appeared to be secondary to his COVID infection January 2021 on chronic daily bactrim for prophylaxis, will continue (5) Sleep apnea: Status: Chronic Assessment and plan: -contune home BiPAP HS (6) Diabetes mellitus: Assessment and plan: blood sugars elevated while hospitalized secondary to steroids lantus increased to 32 units BID, will adjust as needed and will need to be reduced as steroids tapered, will resume meformin continue diabetic diet sliding scale coverage ac/hs Qualifiers: Diabetes mellitus complication status: with hyperglycemia Diabetes mellitus penitentiary insulin use: with penitentiary use Diabetes mellitus type: type 2 Qualified Code(s): E11.65 - Type 2 diabetes mellitus with hyperglycemia; Z79.4 - 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 discussed with Dr Jorge bean discharge to home once medically stable Qualifiers: Encounter type: subsequent encounter Fracture healing: with routine healing Lumbar vertebra fracture level: unspecified lumbar vertebra Qualified Code(s): S32.000D - Wedge compression fracture of unspecified lumbar vertebra, subsequent encounter for fracture with routine healing Subjective Subjective Patient reports: no new complaints, feels better, tolerating liquids well, tolerating a regular diet, shortness of breath (returning to baseline) and afebrile Interval history since last seen: at baseline oxygen, slowing increasing activity. Exam Const General: cooperative and no acute distress Nutritional Appearance: overweight Orientation: alert, awake and oriented x3 HENMT Head: normal to inspection and normocephalic Ears: external ears normal General nose exam: external nose normal Mouth: moist mucous membranes Eyes General: appearance normal, both eyes and all related structures Neck Neck: normal visual inspection and no JVD Chest Chest: normal inspection of the chest Resp Effort & Inspection: tachypneic (dyspneic with conversation) and no use of accessory muscles Auscultation: crackles (bases) bilaterally and no wheezes Cardio Rate: regular rate Heart Sounds: no murmurs GI Inspection: normal to inspection Palpation: soft Skin General skin exam: no rashes or lesions noted (flushed face) Neuro General: patient alert, patient awake, patient oriented x3 and no focal motor deficits Extrem General: normal to inspection and full ROM Psych Mental Status: mental status grossly normal Objective Last Vital Signs Temp 37.2 C 08/30/23 15:15 Pulse 84 08/30/23 15:15 Resp 18 08/30/23 15:15 BP 140/80 08/30/23 15:15 Pulse Ox 97 08/30/23 15:15 Laboratory Results - last 24 hr 08/29/23 08/30/23 16:50 06:50 WBC 13.03 H RBC 4.66 Hgb 14.8 Hct 42.0 MCV 90 MCH 31.8 MCHC 35.2 RDW 14.5 H Plt Count 184 MPV 9.3 Immature Gran % 3.5 Neutrophils % 63.3 Lymphocytes % 23.3 Monocytes % 8.4 Eosinophils % 0.9 Basophils % 0.6 Nucleated RBC % 0.0 Absolute Neutrophils 8.25 H Absolute Lymphocytes 3.04 Absolute Monocytes 1.09 H Absolute Eosinophils 0.12 Absolute Basophils 0.08 Sodium 140 Potassium 3.0 L Chloride 97 L Carbon Dioxide 35.7 H Anion Gap 7.3 BUN 32 H Creatinine 1.0 Est GFR (CKD-EPI 2020) 84.05 Glucose 465 H 164 H Calcium 9.2 Time Spent with Patient Time Spent with Patient: 25-34 minutes Time was spent: preparing to see the patient(eg.review tests), obtaining and/or reviewing separately otained hiistory, ordering medications,tests, procedures, indepentently interpreting results and counseling the patient
[2023-08-30] MEDS: Zolpidem 5 MG TAB PO (21:36)
[2023-08-30] MEDS: Tamsulosin 0.4 MG CAPCR PO (21:36)
[2023-08-30] MEDS: Atorvastatin 20 MG TAB PO (21:37)
[2023-08-30] MEDS: Insulin Glargine 300 UNITS/3 ML PEN 32 UNITS SC (21:48)
[2023-08-30] MEDS: Mirtazapine 15 MG TAB PO (22:04)
[2023-08-31] VITALS (10 sets, daily range): BP systolic 125–141; BP diastolic 76–87; PULSE 63–94; RESP 9–20; TEMP 36.2–37.1; O2SAT 90–96
--- NOTE | 2023-08-31 | DI.US_ITS ---
APPROVED REPORT EXAM: Comprehensive 2D, Doppler, and color-flow Echocardiogram Patient Location: In-Patient Room/Bed: 214 Frame Carver Spindle: Shanda Dixon RDCS (AE) Indications: CHF Other Information Study Quality: Fair. Technically limited study due to body habitus. Conclusion Normal left ventricular wall thickness and chamber size. Ejection fraction is 60%. Wall motion is n ormal Right ventricle appears mildly enlarged and hypocontractile Both atria are normal in size The aortic valve is mildly sclerotic and trileaflet without stenosis or regurgitation There is no additional significant valvular disease Ascending aorta measures 3.74 cm Estimated right ventricular systolic pressure is 32 mmHg Wall motion Left Ventricle The left ventricle is normal size. The overall left ventricular systolic function appears normal. Th ere is normal left ventricular wall thickness. Regional wall motion is grossly normal. There is no v entricular septal defect visualized. LVEF is 60%. Right Ventricle Right ventricle is mildly dilated. Right ventricle is mildly hypokinetic. Atria The left atrium size is grossly normal. The right atrium size is grosslynormal. The interatrial septu m is intact with no evidence for an atrial septal defect. Aortic Valve The Aortic valve is mildly sclerotic. Aortic valve is trileaflet. There is no aortic valvular stenosi s. No aortic regurgitation is present. Mitral Valve The mitral valve is normal in structure. No evidence of mitral valve stenosis. Trace mitral regurgita tion. Tricuspid Valve The tricuspid valve is normal in structure. There is no tricuspid valve stenosis. Trace tricuspid reg urgitation. Pulmonic Valve The pulmonary valve is normal in structure. There is no pulmonic valvular stenosis. Trace pulmonic re gurgitation. Great Vessels The aortic root is normal in size. The ascending aorta is mildly dilated. Aortic arch is not l visual ized. The IVC was not visualized. Technically limited views. Pericardium Technically very limited subcostal imaging. 2D Dimensions IVSD d PLAX 1.20 cm M: 0.6-1.2 Ao Root d 3.37 cm M: 3.1 - 3.7 LVPW d PLAX 1.20 cm M: 0.6 - 1.2 Ao Asc Diam d 3.74 cm M: 2.6 - 3.4 LVID d PLAX 4.56 cm M: 4.2 - 5.8 LVDs 3.10 cm M: 2.5 - 4.0 LV EF Teichholz 60.0 % FS 31.88 % LV EDV (Teich) 95.1 mL LV ESV (Teich) 38.0 mL M-Mode TAPSE 2.88 cm (M/F) >1.7 LV Diastology MV E' medial 0.067 (>0.07 m/s) MV E Vmax 0.58 (0.4-1.3 m/s) MV E/E' MED 8.74 (<14) MV A Vmax 0.75 (0.4-1.3 m/s) MV E' lateral 0.098 (>0.1 m/s) E/A Ratio 0.8 MV E/E' LAT 5.95 (<14) MV E' Average 0.082 m/s MV E/E'(average) 7.08 Aortic Valve AoV Vmax 1.65 m/s LVOT Vmax 0.98 m/s AoV Peak Grad 10.9 mmHg LVOT Peak Grad 3.8 mmHg AoV Area (Vmax) 1.78 cm2 LVOT VTI 0.173 m AoV VTI 0.297 m LVOT Mean Grad 1.9 mmHg AoV Mean Slava. 1.11 m/s LVOT SV 52.07 mL AoV Mean Grad 5.7 mmHg LVOT Diam s 1.95 cm AoV Area (VTI) 1.76 cm2 Velocity Ratio 0.59 Mitral Valve MV DT 111 (160-240 msec) MV Vmax TIPS 0.70 m/s MV Mean Grad 0.6 (<2mmHg) MV VTI 0.188 m Pulmonary Valve PV Vmax 1.23 (0.5-1.5 m/s) RVOT Vmax 0.75 m/s PV Peak Grad 6.1 mmHg RVOT Peak Gr. 2.2 mmHg PV Mean Slava 0.71 m/s RVOT VTI 0.138 m PV Mean Grad 2.4 mmHg RVOT Mean Gr. 1.1 mmHg Tricuspid Valve TV S' 0.21 m/s TR Vmax 2.84 m/s TR Peak Grad 32.3 mmHg
[2023-08-31] MEDS: metFORMIN 500 MG TAB PO ×3 (00:23→17:39)
[2023-08-31] MEDS: Albuterol/Ipratropium 3 ML UPD VIAL UPD ×3 (08:15→22:14)
[2023-08-31] MEDS: predniSONE 10 MG TAB 40 MG PO (09:20)
[2023-08-31] MEDS: Lactobacillus Acidophilus CAP 1 CAP PO ×2 (09:34→21:22)
[2023-08-31] MEDS: Carbidopa 25/Levodopa 100 TAB PO ×3 (09:35→21:21)
[2023-08-31] MEDS: Ascorbic Acid 500 MG TAB 1000 MG PO (09:36)
[2023-08-31] MEDS: Senna TAB 1 TAB PO (09:36)
[2023-08-31] MEDS: Cholecalciferol (Vitamin D3) 1,000 UNIT TAB 2000 UNITS PO (09:36)
[2023-08-31] MEDS: Apixaban 5 MG TAB PO ×2 (09:36→21:22)
[2023-08-31] MEDS: Furosemide 40 MG TAB PO (09:36)
[2023-08-31] MEDS: Pregabalin 25 MG CAP PO ×3 (09:37→21:21)
[2023-08-31] MEDS: Magnesium Oxide 400 MG TAB PO (09:37)
[2023-08-31] MEDS: Sulfameth/Trimeth DS TAB 1 TAB PO (09:39)
[2023-08-31] MEDS: Calcium Citrate 950 MG TAB 1900 MG PO ×2 (09:40→21:20)
[2023-08-31] MEDS: Multivitamin w/Minerals TAB 1 TAB PO (09:40)
[2023-08-31] MEDS: Sucralfate 1 GM TAB PO ×4 (09:40→21:20)
[2023-08-31] MEDS: Normal Saline Flush 10 ML SYR IVP ×2 (09:41→21:24)
[2023-08-31] MEDS: Potassium Chloride 20 MEQ TABCR PO (09:41)
[2023-08-31] MEDS: Famotidine 20 MG TAB PO ×2 (09:42→21:21)
[2023-08-31] MEDS: Insulin Glargine 300 UNITS/3 ML PEN 32 UNITS SC ×2 (09:43→21:13)
--- NOTE | 2023-08-31 09:43 | W.PM.PROGNOT ---
Date of Service Date of service: 08/31/23 Time of Service: 09:43 Assessment and Plan Assessment and plan (1) CHF (congestive heart failure): Status: Acute Assessment and plan: at Home o2 at baseline of 2 liters/nc. -In with increased cough and status post COVID with prolonged intubation and ILD in 2020. f/u by pulmonology locally -In s/p prednisone west with correlation with worsening of symptoms over the last 3 weeks which has been increased back up to 40mg daily . Will continue then wean at discharge -IV lasix in ED and admitted on 60mg IV BID, now on 40 mg oral daily, feels more congested,positive edemas to lower ext; will give additional 40 mg IV this PM -Continue lasix 40 mg po daily and closely monitor -repeat CXR without acute findings, may be some atelectasis -Ambulation with staff TID and PRN -I/S in room and acapella ordered continue close monitoring of fluid status, I&O and daily weights IVC not visualized in the echo Echo 08/31/2023 Normal left ventricular wall thickness and chamber size. Ejection fraction is 60%. Wall motion is normal Right ventricle appears mildly enlarged and hypocontractile Both atria are normal in size The aortic valve is mildly sclerotic and trileaflet without stenosis or regurgitation There is no additional significant valvular disease Ascending aorta measures 3.74 cm Estimated right ventricular systolic pressure is 32 mmHg Qualifiers: Heart failure chronicity: acute on chronic Heart failure type: diastolic Qualified Code(s): I50.33 - Acute on chronic diastolic (congestive) heart failure (2) Hypokalemia: Status: Acute Assessment and plan: Resolved secondary to aggressive IV diuresis. one dose of IV lasix given in addition to home oral dose replete and BMP in AM , Mg in AM (3) Chronic hypoxic respiratory failure: Status: Chronic Assessment and plan: Baseline 2 liters now (4) Chronic interstitial lung disease: Status: Chronic Assessment and plan: -Prednisone increased to 40 mg daily. will need taper at discharge -followed by pulmonology -appeared to be secondary to his COVID infection January 2021 Continue chronic daily bactrim for prophylaxis (5) Sleep apnea: Status: Chronic Assessment and plan: -continue home BiPAP HS (6) Diabetes mellitus: Assessment and plan: blood sugars elevated d/t to steroids Lantus increased to 32 units BID, to be adjusted as glycemia trends down with steroid taper Continue meformin continue diabetic diet sliding scale coverage ac/hs with blood sugar Qualifiers: Diabetes mellitus complication status: with hyperglycemia Diabetes mellitus long term care phlebotomist insulin use: with long term care phlebotomist use Diabetes mellitus type: type 2 Qualified Code(s): E11.65 - Type 2 diabetes mellitus with hyperglycemia; 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.4 - 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) use of insulin (7) Pulmonary embolism on long-term anticoagulation therapy: Assessment and plan: -Continue long-term anticoagulation with Eliquis (8) Compression fracture of lumbar vertebra: Status: Chronic Assessment and plan: -Continue chronic narcotic therapy Qualifiers: Encounter type: subsequent encounter Fracture healing: with routine healing Lumbar vertebra fracture level: unspecified lumbar vertebra Qualified Code(s): S32.000D - Wedge compression fracture of unspecified lumbar vertebra, subsequent encounter for fracture with routine healing (9) Discharge planning issues: Status: Acute Assessment and plan: Anticpate discharge to home once medically stable discussed with Dr Patel Subjective Subjective Patient reports: feels better, still having pain (right-sided chest pain , reproducible and exacerbated by cough), pain is less, tolerating liquids well, tolerating a regular diet, voiding w/o difficulty, flatus, no bowel movement (takes 2 senna AM and HS ), blood in stool and afebrile; denies diarrhea, nausea, vomiting or shortness of breath Exam Narrative Exam Narrative: Constitutional The patient is sitting in chair without acute distress HENMT:. Facial structures with normal appearance Neuro:alert and oriented X 4 Resp: Normal respiratory pattern, clear lung with diminshed left base > right base Cardio: regular rhythm, S1, S2, no murmur, capillary refill<3 sec., bilateral radial and dorsalis pedis pulses are positive, palpable GI: Abdomen is large not distended, soft and non tender, bowel sounds are present : Negative Costovertebral angle tenderness, no bladder distensiont Integumentary: No skin lesions or rash Psych: RASS 0, congruent mood and normal affect. Objective Last Vital Signs Temp 36.2 C L 08/31/23 04:12 Pulse 63 08/31/23 04:12 Resp 16 08/31/23 04:12 BP 134/77 08/31/23 04:12 Pulse Ox 96 08/31/23 04:12 Time Spent with Patient Time Spent with Patient: >50 minutes Time was spent: preparing to see the patient(eg.review tests), obtaining and/or reviewing separately otained hiistory, ordering medications,tests, procedures, referring, communicating with other health palliative care coordinator, indepentently interpreting results, counseling the patient and care coordination
--- NOTE | 2023-08-31 09:45 | RT.EKG_ITS ---
APPROVED REPORT Exam: Resting ECG Reason for Exam: R sided Chest Pain Patient Location: I HR:88 bpm ECG Measurements Heart Rate 88 AXIS AZ 159 P 39 QRSd 85 QRS 1 QT 349 T 67 QTc 423 Conclusion Sinus rhythm...normal P axis, V-rate 50- 99 Normal Electrocardiogram
[2023-08-31 11:14] LABS: Anion Gap 8.8 mmol/L (3-11); BUN 28 mg/dL (7-18); CO2 33.2 mmol/L (21.0-32.0); CREATININE 0.8 mg/dL (0.70-1.30); Calcium 9.2 mg/dL (8.5-10.1); Chloride 99 mmol/L (98-107); Estimated GFR 98.83 (mL/min/1.73m2); Glucose 132 mg/dL (74-106); Potassium 3.5 mmol/L (3.5-5.1); Sodium 141 mmol/L (136-145)
[2023-08-31 11:15] LABS: Magnesium 2.1 mg/dL (1.8-2.4)
[2023-08-31 11:16] LABS: HGB 14.2 g/dL (13.5-17.5); RBC 4.48 10^6/uL (4.36-5.78); WBC 11.93 10^3/uL (4.4-10.8)
[2023-08-31 11:17] LABS: Abs Immature Grans 0.49 10^3/uL (0.0-0.06); Absolute Basophil Count 0.08 10^3/uL (0.0-0.2); Absolute Eosinophil Count 0.13 10^3/uL (0.0-0.7); Absolute Lymphocyte Count 2.97 10^3/uL (1.2-3.4); Absolute Monocyte Count 0.89 10^3/uL (0.1-0.8); Absolute Neutrophil Count 7.37 10^3/uL (1.2-6.7); Basophils % 0.7 %; Eosinophils % 1.1 %; HCT 40.8 % (40.0-50.0); Immature Grans % 4.1 %; Lymphocytes % 24.9 %; MCH 31.7 pg (27.0-33.0); MCHC 34.8 % (32.0-36.0); MCV 91 fL (80-95); MPV 9.4 fL (8.0-11.0); Monocytes % 7.5 %; Neutrophils % 61.7 %; Platelet Count 195 10^3/uL (130-400); RDW 14.4 % (11.8-14.1); RDW-SD 48.6 fL
--- NOTE | 2023-08-31 11:20 | PT.INNT ---
PT Notes Visit Reasons: Acute Exacerbation CHF,Chronic Interstitial Lung D On hold, pt having angina, very clammy today, has an ECG at 11:30am this morning.
[2023-08-31] MEDS: Insulin Aspart 300 UNITS/3 ML PEN SC ×3 (12:18→21:14)
--- NOTE | 2023-08-31 14:16 | PT.INTREAT ---
PT Notes Visit Reasons: Acute Exacerbation CHF,Chronic Interstitial Lung D Physical Therapy Inpatient Treatment Note Date: 08/31/2023 Precautions: Fall. Standard. Activity as tolerated. Subjective: Has not been sleeping well past few nights. Minimally short of breath after walking about 50 feet using 4WW. Objective: General Observation: Supine in bed. Telemetry monitoring in place. In NAD. Mental Status: Alert and oriented as to person, place, time, and purpose. Able to pay attention, focus, and respond appropriately. Pain: Minimal pain in ow back Vital Signs: Oxygen saturation low of 86% on 2 L of oxygen and high of 93% with rest Bed Mobility/Transfers: Minimal cueing provided for use of B hands as needed for support, movement sequence, AD management, and posture to reduce fall risk and minimize pain report Rolling independent Supine to sit independent Sit to supine independent Sit to stand stand by assist Stand to sit stand by assist Bed to reclining chair stand by assist Reclining chair to bed stand by assist Gait: Instructed patient with level surface ambulation of 50 feet + 50 feet + 75 feet with stand by assist only. Wheelchair follow provided for needed seated rests. Oxygen saturation between 86%-93% on 2 L/minute via NC. Short of breath every after short walk but no chest pressure. Provided cueing for increased awareness with resting prior to getting into extreme fatigue and shortness of breath. Advised patient to ensure that walker is locked on B sides prior to standing up or sitting down for safety. Balance: Static Sitting: Normal Dynamic Sitting: Normal Static Standing: Good Dynamic Standing: Fair ASSESSMENT: Continues to be limited by shortness of breath but almost now at baseline. Does not need physical assistance but remains to be in need of 4-wheeled walker for energy conservation. Required 4 seated rests for this session due to shortness of breath. Oxygen saturation continuously monitored during ambulation activity. Less fatigued with walking compared to the way he was on day of evaluation. Plan of Care/Treatment Plan: Patient will highly benefit from skilled physical therapy services including functional mobility training, bed mobility/transfer training, gait and balance training, therapeutic exercises, therapeutic activity, caregiver/staff/family education and training 1x/day, 7 days/week x 1 week. DISCHARGE RECOMMENDATIONS: [] Home with no services [] [X] Home with services. Home when medically cleared by hospitalist. Recommend resumption of home health PT services in order to progress mobility level using least restrictive assistive ambulatory device, assess home safety, identify additional equipment needs, and establish a functional maintenance program that will increase ability of patient to remain at home. [] Home with outpatient PT [] [] SNF for continued rehabilitation [] [] Skilled Nursing Care [] [] SNF versus LTC based on ability to participate and progress [] TREATMENT CODE/TIME: 02284 x 24 minutes for 1 unit (13:49-14:13).
--- NOTE | 2023-08-31 14:40 | PDOC.CMPRO ---
Date of service: 08/31/23 Time of Service: 14:40 Care Management Progress Note Progress Note Text Progress Note Text: S/O: Vinay was sitting in his chair getting ready to eat lunch when CM met with him. He is feeling bad today due to chest pain. Hospitalist is aware and further medical workup is being done.Hospitalist was ready to meet with patient by the end of our conversation. ECHO results are pending. CM is following. No change to discharge plan at this time. PT recommends home with VNA services when medically ready. Dwight is planning on discharging home when he's able, his is his primary caregiver, as he does require some support due to his chronic conditions. A: Vinay is a 63 year old male admitted to [facility] on 08/24/23 with an acute exacerbation of CHF, chronic respiratory failure. P: Anticipate Deonte will return home with new home health PT. His Inogen concentrator is in his room for transport. Deonte will follow up with his community providers at the [place] and transport with family. CM will continue to support Deonte and assess for discharge concerns. SDOH(Care Management) Screening Will the Patient Participate in the Screening?: Yes Do you worry about having a steady place to live?: yes Problems where you live: no known problems In the past 12 months, have you had to go without electric, gas, oil or water in your home?: no Have you or anyone in your house had to go without enough food to eat?: no Has lack of transportation kept you from medical appointments or from doing things needed for daily living?: no Has anyone in your support network made you feel unsafe for any reason?: no Health Related Social Needs Health related social needs: housing instability, housed, with risk of homelessness(Z59.811)
[2023-08-31] MEDS: Furosemide 40 MG/4 ML VIAL IVP (15:09)
[2023-08-31 17:33] LABS: Glucose 464 mg/dL (74-106)
[2023-08-31] MEDS: Zolpidem 5 MG TAB PO (21:21)
[2023-08-31] MEDS: Mirtazapine 15 MG TAB PO (21:22)
[2023-08-31] MEDS: Atorvastatin 20 MG TAB PO (21:23)
[2023-08-31] MEDS: Tamsulosin 0.4 MG CAPCR PO (21:23)
[2023-08-31] MEDS: Senna TAB 2 TAB PO (21:28)
[2023-08-31 23:12] LABS: Troponin I < 50 ng/L (< or =60)
[2023-09-01 03:34] VITALS: BP 131/72; PULSE 62; RESP 17; TEMP 37; O2SAT 94
[2023-09-01 06:52] LABS: Abs Immature Grans 0.55 10^3/uL (0.0-0.06); Absolute Basophil Count 0.08 10^3/uL (0.0-0.2); Absolute Eosinophil Count 0.11 10^3/uL (0.0-0.7); Absolute Lymphocyte Count 2.65 10^3/uL (1.2-3.4); Absolute Monocyte Count 1.05 10^3/uL (0.1-0.8); Absolute Neutrophil Count 8.96 10^3/uL (1.2-6.7); Basophils % 0.6 %; Eosinophils % 0.8 %; HCT 39.3 % (40.0-50.0); HGB 13.6 g/dL (13.5-17.5); Immature Grans % 4.1 %; Lymphocytes % 19.8 %; MCH 31.6 pg (27.0-33.0); MCHC 34.6 % (32.0-36.0); MCV 91 fL (80-95); MPV 9.4 fL (8.0-11.0); Monocytes % 7.8 %; Neutrophils % 66.9 %; RDW 14.4 % (11.8-14.1); RDW-SD 48.2 fL
[2023-09-01 07:07] LABS: Anion Gap 6.6 mmol/L (3-11); BUN 29 mg/dL (7-18); CO2 32.4 mmol/L (21.0-32.0); CREATININE 0.8 mg/dL (0.70-1.30); Chloride 101 mmol/L (98-107); Estimated GFR 98.83 (mL/min/1.73m2); Glucose 149 mg/dL (74-106); Potassium 3.7 mmol/L (3.5-5.1); Sodium 140 mmol/L (136-145)
[2023-09-01 07:22] LABS: Diff Comment Agrees w/ Instrument; Platelet Count 175 10^3/uL (130-400); RBC Morphology Normal
[2023-09-01 07:39] VITALS: BP 140/80; PULSE 61; RESP 17; TEMP 36; O2SAT 94
[2023-09-01] MEDS: Insulin Glargine 300 UNITS/3 ML PEN 32 UNITS SC (08:15)
[2023-09-01] MEDS: Magnesium Oxide 400 MG TAB PO (08:16)
[2023-09-01] MEDS: Multivitamin w/Minerals TAB 1 TAB PO (08:16)
[2023-09-01] MEDS: metFORMIN 500 MG TAB PO (08:16)
[2023-09-01] MEDS: predniSONE 10 MG TAB 40 MG PO (08:17)
[2023-09-01] MEDS: Carbidopa 25/Levodopa 100 TAB PO ×2 (08:17→15:17)
[2023-09-01] MEDS: Calcium Citrate 950 MG TAB 1900 MG PO (08:17)
[2023-09-01] MEDS: Sucralfate 1 GM TAB PO ×2 (08:17→11:37)
[2023-09-01] MEDS: Cholecalciferol (Vitamin D3) 1,000 UNIT TAB 2000 UNITS PO (08:17)
[2023-09-01] MEDS: Lactobacillus Acidophilus CAP 1 CAP PO (08:17)
[2023-09-01] MEDS: Ascorbic Acid 500 MG TAB 1000 MG PO (08:17)
[2023-09-01] MEDS: Sulfameth/Trimeth DS TAB 1 TAB PO (08:18)
[2023-09-01] MEDS: Senna TAB 2 TAB PO (08:18)
[2023-09-01] MEDS: Pregabalin 25 MG CAP PO ×2 (08:18→15:17)
[2023-09-01] MEDS: Apixaban 5 MG TAB PO (08:18)
[2023-09-01] MEDS: Potassium Chloride 20 MEQ TABCR PO (08:18)
[2023-09-01] MEDS: Furosemide 40 MG TAB PO (08:18)
[2023-09-01] MEDS: Famotidine 20 MG TAB PO (08:18)
[2023-09-01] MEDS: Normal Saline Flush 10 ML SYR IVP (08:19)
[2023-09-01 09:01] VITALS: PULSE 62; RESP 17; RESP 9; O2SAT 94
[2023-09-01] MEDS: Albuterol/Ipratropium 3 ML UPD VIAL UPD (09:01)
[2023-09-01 09:02] VITALS: PULSE 66; RESP 17; RESP 9; O2SAT 94
--- NOTE | 2023-09-01 10:35 | PT.INTREAT ---
PT Notes Visit Reasons: Acute Exacerbation CHF,Chronic Interstitial Lung D Physical Therapy Inpatient Treatment Note Date: 09/01/2023 Precautions: Fall. Standard. Activity as tolerated. Subjective: Dwight states that he had a difficulty night. His breathing has been challenging this am. Objective: General Observation: Supine in bed. Telemetry monitoring in place. In NAD. Mental Status: Alert and oriented as to person, place, time, and purpose. Able to pay attention, focus, and respond appropriately. Vital Signs: Resting oxygen saturation at 92% on 1LPM. Increased to 2LPM for ambulation, with low of 84% and high of 93% with rest Bed Mobility/Transfers: Minimal cueing provided for use of B hands as needed for support, movement sequence, AD management, and posture to reduce fall risk and minimize pain report Rolling independent Supine to sit independent Sit to supine independent Sit to stand stand by assist Stand to sit stand by assist Bed to reclining chair stand by assist Reclining chair to bed stand by assist Gait: Instructed patient with level surface ambulation of 50 feet + 50 feet + 75 feet with stand by assist only. Wheelchair follow provided for needed seated rests. Oxygen saturation between 84%-93% on 2 L/minute via NC. Short of breath every after short walk, requiring seated recovery of 2 minutes to return to baseline saturation. Provided cueing for increased awareness with resting prior to getting into extreme fatigue and shortness of breath. Advised patient to ensure that walker is locked on B sides prior to standing up or sitting down for safety. Balance: Static Sitting: Normal Dynamic Sitting: Normal Static Standing: Good Dynamic Standing: Fair ASSESSMENT: Continues to be limited by shortness of breath but almost now at baseline. Does not need physical assistance but remains to be in need of 4-wheeled walker for energy conservation. Required 3 seated rests for this session due to shortness of breath. Oxygen saturation continuously monitored during ambulation activity. Plan of Care/Treatment Plan: Patient will highly benefit from skilled physical therapy services including functional mobility training, bed mobility/transfer training, gait and balance training, therapeutic exercises, therapeutic activity, caregiver/staff/family education and training 1x/day, 7 days/week x 1 week. DISCHARGE RECOMMENDATIONS: [] Home with no services [] [X] Home with services. Home when medically cleared by hospitalist. Recommend resumption of home health PT services in order to progress mobility level using least restrictive assistive ambulatory device, assess home safety, identify additional equipment needs, and establish a functional maintenance program that will increase ability of patient to remain at home. [] Home with outpatient PT [] [] SNF for continued rehabilitation [] [] Application Packager Care [] [] SNF versus LTC based on ability to participate and progress [] TREATMENT CODE/TIME: 50687 x 2, 35 minutes ([id number]). Sue Taylor, PT, DPT [facility]
[2023-09-01 11:12] VITALS: BP 136/82; PULSE 84; RESP 18; TEMP 36.7; O2SAT 95
[2023-09-01] MEDS: Insulin Aspart 300 UNITS/3 ML PEN SC (11:58)
--- NOTE | 2023-09-01 12:49 | CHAPLAIN ---
Earlier in the week, Vinay thought he might go home yesterday. Today he said he's likely here a few more days as he's receiving IV antibiotics. Vinay has been dealing with respiratory issues since he had COVID, he spent months sedated in a hospice on a vent, and more months in rehab. He remains friendly and cheerful most of the time. He is very close to his family, , children, and grandchildren. He lives in [place] and sees Dr. Escobedo at [facility] for respiratory. 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 I will continue to visit.
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
--- NOTE | 2023-09-01 15:26 | PDOC.HHF2F_ITS ---
Home Health Referral Home Health Orders Clinical synopsis of why skilled professionals are needed: This 63 years old male patient with a past medical history of interstitial lung disease status post COVID with prolonged intubation in 2020, pulmonary embolism on Eliquis, obstructive sleep apnea presented on 08/24/2023 in the ED at [facility] with complaints of progressive respiratory symptoms with dyspnea, tachypnea,and increased oxygen requirements in comparison to is chronic home oxygen at 2 L/min. The patient has been seen by pulmonology pulmonology locally and was on chronic Bactrim and a long taper of prednisone over the last 3 weeks prior to arrival. As per his last echocardiogram in 2022, the patient appears to have had right- sided heart failure with a normal left ventricular ejection fraction. In the ED, the patient responded well to IV Lasix treatment; he is on 40 of oral Lasix daily at home. At the time the patient denied fever, GI or cardiac symptoms. The CTA did not show any evidence of pulmonary embolism and the bedside ultrasound showed no evidence of reduced ejection fraction and no pericardial effusion. She is getting labs in the ED showed no significant abnormality. The hospitalist service was consulted and the patient will be admitted to the medical surgical floor as an inpatient for CHF exacerbation, hypoxic respiratory failure and interstitial lung disease. During the stay, the patient received IV Lasix treatment and was then transition to oral Lasix. The patient has been receiving chronic Bactrim as per pulmonary medicine at home, treatment was continued as an inpatient. Initial oxygen requirement decreased back to baseline oxygen requirement. The patient was rowan ated with aggressive pulmonary toilet with Acapella and incentive spirometer which he will continue to use at home. Basal insulin regimen with Lantus was increased to 32 units subcutaneous twice a day from his basal Lantus of 22 units subcutaneous twice daily; this increase in glucose level is most likely due to the steroid course. The prednisone is now on a long taper on which the patient will be discharged on. Blood sugars are expected to trend down. The patient is requesting a sliding scale of insulin as per is inpatient management. The patient will have sliding scale for the short-term with the specification that it should only be taken prior to meals, and to seek medical attention with blood sugars over 420. This will need to be readjusted as per primary care physician as the patient will also be discharged on a long taper on of oral steroids. The need for a continuous glucose monitor monitor discussed with patient as this would have to be pursued with further discussion with his PCP. Repeated echocardiogram showed an LVEF of 60% with mildly enlarged right ventricle and hypocontractility. The aortic valve was mildly sclerotic trileaflet without stenosis or regurgitation; estimated right ventricular systolic pressure was 32 mmHg. T he patient will need to follow-up with his primary care physician within 7 days of discharge. Recommendation from inpatient physical therapy were to continue physical therapy at home. The patient is on continuous oxygen requirement needs frequent rest. He is using a walker. The patient will be discharged home With home health nursing for decompensation in an condition and physical therapy. Medical diagnosis necessitation home health referral: Recommendation from inpatient physical therapy were to continue physical therapy at home. The patient is on continuous oxygen requirement needs frequent rest. He is using a walker. The patient will be discharged home With [facility] nursing for decompensation in an condition and physical therapy. Registered Nurse: Check all that apply Instruct on new or changed medication(s)/assess compliance: Ordered Assess for exacerbation of medical condition, instruct patient/caregivers on signs and symptoms to report for early detection: Ordered Physical Therapist: Check all that apply Increase strength & endurance for safe mobility at home: Ordered To design/establish home maintenance program: Ordered Better Breathing Program: Ordered Diesel Locomotive Crane Operator: Assist with community resources: Ordered Assist with parts counterman care planning: Ordered Home Bound Status Requires the aid of supportive device (check all that apply): Walker Use of Special Transportation (Describe transportation and medical necessity): The patient is on continuous oxygen requirement needs frequent rest. He is using a walker. Encounter Date and Reason: I certify that a FTF encounter for this patient was performed on September 01, 2023 and that such encounter was related to the primary reason the patient requires home health services. The encounter was conducted in the following manner: * By me as the certifying physician, WINDING INSPECTOR, PA or * By an inpatient physician, WINDING INSPECTOR or PA during an inpatient stay who communicated findings to me, Certification And Authentication I certify that I composed the above information based on my clinical judgment relating to this patient's medical condition and, if applicable, clinical findings communicated to me by the NPP or inpatient physician who performed the FTF encounter. Name of Provider that will be monitoring home health services: pcp
== END 2023-09-01 15:56 | disposition home health service (06) | DRG 291 ==
LOC: ER 19:01 → MS 20:11
PROVIDERS: Family Medicine; General Practice; Nurse Practitioner Acute Care; Admitting Provider Family Medicine; Emergency Provider Emergency Medicine; PCP Nurse Practitioner Family; Visit Provider Family Medicine
DX: I11.0 Hypertensive heart disease with heart failure (principal); I50.33 Acute on chronic diastolic (congestive) heart failure; J84.9 Interstitial pulmonary disease, unspecified; J96.11 Chronic respiratory failure with hypoxia; G47.30 Sleep apnea, unspecified; Z99.81 Dependence on supplemental oxygen; Z79.4 Long term (current) use of insulin; E11.65 Type 2 diabetes mellitus with hyperglycemia; Z79.01 Long term (current) use of anticoagulants; Z86.711 Personal history of pulmonary embolism; S32.000D Wedge compression fracture of unspecified lumbar vertebra, subsequent encounter for fracture with routine healing; E87.6 Hypokalemia; G47.00 Insomnia, unspecified; F32.A Depression, unspecified; R13.10 Dysphagia, unspecified; J45.909 Unspecified asthma, uncomplicated; K22.70 Barrett's esophagus without dysplasia; Z96.643 Presence of artificial hip joint, bilateral; Z86.718 Personal history of other venous thrombosis and embolism; Z86.73 Personal history of transient ischemic attack (TIA), and cerebral infarction without residual deficits; M10.9 Gout, unspecified; Z96.611 Presence of right artificial shoulder joint; Z96.651 Presence of right artificial knee joint; Z79.891 Long term (current) use of opiate analgesic; U09.9 Post COVID-19 condition, unspecified; I35.8 Other nonrheumatic aortic valve disorders; T38.0X5A Adverse effect of glucocorticoids and synthetic analogues, initial encounter; E11.42 Type 2 diabetes mellitus with diabetic polyneuropathy
CPT/HCPCS: 00123; 36415; 80048; 80053; 82805; 82947; 84145; 85027; 87040; 87637; 93005; 93308; 94640; 96374; 97116; 97162; 97530; 99285; 71045; 71046; 83735; 83880; 84443; 84484; 85025; 85610; 85730; 93010; 93306; 94667; 94760; 99223; 99231; 99232; 99233; 99239; J1815; J1940; J7512; J7613; J7620

== ENCOUNTER 2023-09-24 13:56 | Inpatient (IN) | payer OTHER, SELFPAY ==
[2023-09-24] VITALS (13 sets, daily range): BP systolic 124–152; BP diastolic 73–86; PULSE 84–102; RESP 14–30; TEMP 36.4–36.8; O2SAT 85–96
--- NOTE | 2023-09-24 13:45 | RT.EKG_ITS ---
APPROVED REPORT Exam: Resting ECG Reason for Exam: sob Patient Location: E HR:102 bpm ECG Measurements Heart Rate 102 AXIS OK 160 P 33 QRSd 72 QRS 1 QT 318 T 97 QTc 416 Conclusion Sinus tachycardia 102 no stemi
--- NOTE | 2023-09-24 14:00 | DI.RAD_ITS ---
Exam(s) XR PORTABLE CHEST AP EXAM: XR PORTABLE CHEST AP CLINICAL HISTORY: sob TECHNIQUE: 2D digital imaging was performed of the chest. One image was obtained. An AP view was ob tained. COMPARISON: CR,XR XR PORTABLE CHEST AP from 08/27/2023 FINDINGS: MEDIASTINUM: Normal. HEART: Normal. PULMONARY VASCULATURE: Normal. LUNGS: Clear. PLEURAL SPACE: No pleural effusion or pneumothorax. BONE:Within normal limits for the patient's age. The patient has a right shoulder replacement. OTHER FINDINGS:There is again seen elevation of the right hemidiaphragm. IMPRESSION: No acute pulmonary findings. DATA REPOSITORY: RADIATION DOSE DELIVERED:
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
[2023-09-24 14:24] LABS: BE (Venous) 4 mmol/L (-2-3); HCO3 (Venous) 29 mmol/L (23-28); O2 Sat (Venous) 72 %; TCO2 (Venous) 26 mmol/L (24-29); pCO2 (Venous) 51 mmHg (41-51); pH (Venous) 7.36 (7.31-7.41); pO2 (Venous) 39 mmHg
[2023-09-24 14:27] LABS: Abs Immature Grans 0.12 10^3/uL (0.0-0.06); Absolute Eosinophil Count 0.08 10^3/uL (0.0-0.7); Absolute Lymphocyte Count 1.75 10^3/uL (1.2-3.4); Basophils % 0.4 %; Eosinophils % 0.7 %; HCT 45.6 % (40.0-50.0); HGB 14.7 g/dL (13.5-17.5); Immature Grans % 1.1 %; Lymphocytes % 15.5 %; MCH 31.5 pg (27.0-33.0); MCHC 32.2 % (32.0-36.0); MCV 98 fL (80-95); MPV 9.5 fL (8.0-11.0); Monocytes % 2.7 %; Neutrophils % 79.6 %; Platelet Count 149 10^3/uL (130-400); RBC 4.67 10^6/uL (4.36-5.78); RDW 13.5 % (11.8-14.1); WBC 11.29 10^3/uL (4.4-10.8)
[2023-09-24 14:28] LABS: Absolute Basophil Count 0.05 10^3/uL (0.0-0.2); Absolute Neutrophil Count 8.99 10^3/uL (1.2-6.7)
[2023-09-24] MEDS: Furosemide 100 MG/10 ML VIAL 80 MG IVP (14:28)
[2023-09-24 14:48] LABS: ALT 60 U/L (16-63); AST 81 U/L (15-37); Albumin 3.7 g/dL (3.4-5.0); Alkaline Phosphatase 118 U/L (46-116); Anion Gap 10.8 mmol/L (3-11); BUN 15 mg/dL (7-18); Bilirubin, Total 0.5 mg/dL (0.2-1.0); CO2 28.2 mmol/L (21.0-32.0); CREATININE 1.3 mg/dL (0.70-1.30); Calcium 9.1 mg/dL (8.5-10.1); Chloride 98 mmol/L (98-107); Estimated GFR 61.35 (mL/min/1.73m2); Glucose 394 mg/dL (74-106); Magnesium 1.9 mg/dL (1.8-2.4); NT-proBNP 33 pg/mL (<300); Potassium 4.6 mmol/L (3.5-5.1); Sodium 137 mmol/L (136-145); Troponin I < 50 ng/L (< or =60)
[2023-09-24] MEDS: Aspirin 325 MG TAB PO (14:50)
[2023-09-24] MEDS: methylPREDNISolone SUCC 125 MG VIAL IVP (15:36)
--- NOTE | 2023-09-24 15:59 | W.PC.ACHO ---
Registration Status: REG ER Primary Language: Preferred Language: Khmer ED Information & Data Chief Complaint SOB 09/24/23 14:27 Chief Complaint SOB 09/24/23 14:20 Triage Note CHF exacerbation. Increased 09/24/23 14:00 diff breathing today made worse by movement. Chest pain x 1 week. Medical / Surgical History (Last Reviewed 09/24/23 @ 14:38 by Bonnie Peterson MD) Compression fracture of lumbar vertebra History of recurrent pulmonary infection Pulmonary embolism on long-term anticoagulation therapy Stroke due to vascular stenosis Unknown when suspected stroke patient was last well H/O ETOH abuse DVT (deep venous thrombosis) Gout Depression Diabetes mellitus Gastroesophageal reflux disease Benign hypertension (Last Reviewed 09/24/23 @ 14:38 by Bonnie Peterson MD) Status post replacement of right shoulder joint Status post right knee replacement Total replacement of hip (07/16/12) Most Recent Vital Signs Temperature 36.4 C 09/24/23 14:36 Temperature Source Temporal Artery Scan 09/24/23 14:36 Pulse 99 H 09/24/23 14:36 Pulse 97 H 09/24/23 14:20 Respiratory Rate 22 09/24/23 14:36 Respiratory Effort Short of Breath 09/24/23 14:36 Respiratory Depth Shallow 09/24/23 14:36 Blood Pressure 152/74 H 09/24/23 14:36 Blood Pressure Mean 92 09/24/23 14:15 Pulse Oximetry 93 09/24/23 14:36 Oxygen Delivery Method Nasal Cannula 09/24/23 14:36 Oxygen Flow Rate 4 09/24/23 14:36 Pain Level 5 09/24/23 14:36 Allergies cimetidine HCl [From Tagamet] Allergy (Severe, Verified 09/07/23 14:34) Anaphylaxsis rivaroxaban [From Xarelto] Allergy (Severe, Verified 09/24/23 14:28) Other (See Comment) bleeding Latex, Natural Rubber Allergy (Intermediate, Verified 09/24/23 14:28) Skin Rash lisinopril Allergy (Intermediate, Verified 09/24/23 14:28) Other (See Comment) cough pantoprazole Allergy (Unknown, Verified 09/24/23 14:28) Other (See Comment) unknown semaglutide Allergy (Unknown, Verified 09/24/23 14:28) Other (See Comment) unknown promethazine HCl [From Phenergan] Adverse Reaction (Verified 09/24/23 14:28) Dizziness/Lightheade ancef injection Allergy (Unknown, Uncoded 09/24/23 14:28) Other (See Comment) unknown Precautions Isolation Standard precaution 09/24/23 14:27 IV IV Catheter Type [Right Peripheral IV Forearm] IV Catheter Gauge [Right 18 Forearm] Diagnostics 09/24/23 09/24/23 Range/Units 17:10 14:15 WBC 11.29 H (4.4-10.8) 10^3/uL RBC 4.67 (4.36-5.78) 10^6/uL Hgb 14.7 (13.5-17.5) g/dL Hct 45.6 (40.0-50.0) % MCV 98 H (80-95) fL MCH 31.5 (27.0-33.0) pg MCHC 32.2 (32.0-36.0) % RDW 13.5 (11.8-14.1) % Plt Count 149 (130-400) 10^3/uL MPV 9.5 (8.0-11.0) fL Immature Gran % 1.1 % Neutrophils % 79.6 % Lymphocytes % 15.5 % Monocytes % 2.7 % Eosinophils % 0.7 % Basophils % 0.4 % Nucleated RBC % 0.0 (0.0-0.3) % Absolute Neutrophils 8.99 H (1.2-6.7) 10^3/uL Absolute Lymphocytes 1.75 (1.2-3.4) 10^3/uL Absolute Monocytes 0.30 (0.1-0.8) 10^3/uL Absolute Eosinophils 0.08 (0.0-0.7) 10^3/uL Absolute Basophils 0.05 (0.0-0.2) 10^3/uL VBG pH 7.36 (7.31-7.41) VBG pCO2 51 (41-51) mmHg VBG pO2 39 mmHg VBG HCO3 29 H (23-28) mmol/L VBG Total CO2 26 (24-29) mmol/L VBG O2 Saturation 72 % VBG Base Excess 4 H (-2-3) mmol/L Sodium 137 (136-145) mmol/L Potassium 4.6 (3.5-5.1) mmol/L Chloride 98 (98-107) mmol/L Carbon Dioxide 28.2 (21.0-32.0) mmol/L Anion Gap 10.8 (3-11) mmol/L BUN 15 (7-18) mg/dL Creatinine 1.3 (0.70-1.30) mg/dL Est GFR (CKD-EPI 2020) 61.35 (mL/min/1.73m2) Glucose 394 H (74-106) mg/dL Calcium 9.1 (8.5-10.1) mg/dL Magnesium 1.9 (1.8-2.4) mg/dL Total Bilirubin 0.5 (0.2-1.0) mg/dL AST 81 H (15-37) U/L ALT 60 (16-63) U/L Alkaline Phosphatase 118 H (46-116) U/L Troponin I Pending < 50 (< or =60) ng/L NT-Pro-B Natriuret Pep 33 (<300) pg/mL Total Protein 7.0 (6.4-8.2) g/dL Albumin 3.7 (3.4-5.0) g/dL Vjaxt-bo-Cyym Documentation Fingerstick Glucose Start: 09/24/23 14:30 Freq: Status: Active Protocol: Activity Type Activity Date Activity User E-sign Co-sign Detail Recorded Client Recorded Date Recorded By Document 09/24/23 14:29 BKG DAEMON(3) [id number] 09/24/23 14:30 BKG DAEMON(4) Intake and Output - 24 Hour Total 09/24/23 13:56 thru 09/24/23 14:00 Weight 109 kg Falls Risk Assessment History of Falls Previous History 09/24/23 14:27 Contributing Factors Medications 09/24/23 14:27 Ambulatory Aids Uses ambulatory device 09/24/23 14:27 Tubes/Lines W/no contributing factors 09/24/23 14:27 Gait Evaluation No gait disturbance 09/24/23 14:27 Cognition No cognitive impairment 09/24/23 14:27 Fall Total Score 43 09/24/23 14:27 Level of Risk Moderate Risk 09/24/23 14:27 v v v v v v v v v Sending and/or Receiving Nurses: Please use comment section below to note any information pertinent to the patient hand-off not included above. Information / Comments: Report received from: Stanley Gaona RN All questions answered
--- NOTE | 2023-09-24 16:04 | DI.VRAD_ITS ---
PROCEDURE INFORMATION: Exam: XR Chest Exam date and time: 09/24/2023 3:03 PM Age: 63 years old Clinical indication: Shortness of breath; Patient HX: SOB TECHNIQUE: Imaging protocol: Radiologic exam of the chest. Views: 1 view. COMPARISON: CR XR PORTABLE CHEST AP 08/27/2023 11:04 AM FINDINGS: Lungs: Low lung volumes. No consolidation. Pleural spaces: Unremarkable. No pleural effusion. No pneumothorax. Heart/Mediastinum: Unremarkable. No cardiomegaly. Diaphragm: Elevated right hemidiaphragm. Bones/joints: Right shoulder prosthesis. IMPRESSION: No acute cardiopulmonary findings. Dictated and Authenticated by: Ronaldo Feng MD. Ordering:[facility] Nicholas Garcia MD
[2023-09-24] MEDS: Carbidopa 25/Levodopa 100 TAB PO ×2 (16:29→21:46)
[2023-09-24] MEDS: Insulin Aspart 300 UNITS/3 ML PEN SC ×2 (16:46→21:49)
[2023-09-24] MEDS: Sucralfate 1 GM TAB PO ×2 (16:46→21:45)
--- NOTE | 2023-09-24 17:29 | RESPIRATORY ---
RT Initial Evalutation/Assessment Start: 09/24/23 15:33 Freq: .q shift and prn Status: Active Protocol: Document 09/24/23 17:18 (Rec: 09/24/23 17:29 [id number]) RT Assessment Pulmonary History Pulmonary History COPD,Pulmonary Fibrosis,Other Smoking History Smoking/Tobacco Use Status Never Tobacco: How many years used 0 Packs per Day 0 Cigarettes per Day 0 Years smoked 0 Smoking packs per day 0 OXYGEN HISTORY: Supplemental O2 At Rest 2 With Exertion 5 CPAP Can use home machine N/A BIPAP Settings 03/29 Can you home machine No: Pt used to have BiPAP 03/29 . Has not used in months. Trilogy/AVAPS Settings Unable to assess machine at this time. Can use home machine Yes: Pt uses [id number] device when he feels he needs it. DME/Compliance DME [employer] Compl[employer] Compliant Current Respiratory Symptoms Current Respiratory Symptoms Cough Activity Activity Level Used to be fairly active before March. Since then, has not been. Respiratory Breath Sounds Breath Sounds Any abnormal sounds, decreased breath sounds Response No change Pulse Rate <100 Respiratory Rate <18 Shortness of Breath On exertion Respiratory Therapy Score Total 2 Assessment and Plan RT Treatment Protocol No RT treatment protocols required at this time, re- consult if change Note Pt is currently resting on his baseline 2L continuous oxygen with SpO2 95%. Patient's baseline with exertion is 5L pulse-dose - patient states he prefers continuous. Patient used to use a 12/6 BiPAP at home, has been followed by Dr. Paniagua in Pulmonology and has been placed with a [id number] portable ventilator with nasal pillows for exertion and as needed instead of BiPAP. stated she will bring [id number] into hospital tomorrow for RT to assess and document. Patient has minimal score of 2 at this time. Recommended to continue home regimen and support patient.
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
[2023-09-24] MEDS: metFORMIN 500 MG TAB PO (17:57)
[2023-09-24 18:49] LABS: Troponin I < 50 ng/L (< or =60)
[2023-09-24] MEDS: Apixaban 5 MG TAB PO (21:45)
[2023-09-24] MEDS: Senna TAB 1 TAB PO (21:45)
[2023-09-24] MEDS: Tamsulosin 0.4 MG CAPCR PO (21:45)
[2023-09-24] MEDS: Pregabalin 25 MG CAP PO (21:45)
[2023-09-24] MEDS: Atorvastatin 20 MG TAB PO (21:45)
[2023-09-24] MEDS: Mirtazapine 15 MG TAB PO (21:47)
[2023-09-24] MEDS: Famotidine 20 MG TAB PO (21:47)
[2023-09-24] MEDS: Calcium Citrate 950 MG TAB PO (21:47)
[2023-09-24] MEDS: Insulin Glargine 300 UNITS/3 ML PEN 32 UNITS SC (21:48)
[2023-09-24] MEDS: Normal Saline Flush 10 ML SYR IVP (21:48)
[2023-09-24] MEDS: Lactobacillus Acidophilus CAP 1 CAP PO (22:01)
[2023-09-25] VITALS (7 sets, daily range): BP systolic 107–137; BP diastolic 66–78; PULSE 69–92; RESP 18–20; TEMP 36.5–36.8; O2SAT 91–95
[2023-09-25 06:07] LABS: Abs Immature Grans 0.15 10^3/uL (0.0-0.06); Absolute Monocyte Count 0.38 10^3/uL (0.1-0.8); Basophils % 0.2 %; HCT 40.2 % (40.0-50.0); HGB 13.4 g/dL (13.5-17.5); Immature Grans % 1.2 %; Lymphocytes % 10.1 %; MCH 31.6 pg (27.0-33.0); MCHC 33.3 % (32.0-36.0); MCV 95 fL (80-95); MPV 9.5 fL (8.0-11.0); Neutrophils % 85.5 %; Platelet Count 151 10^3/uL (130-400); RBC 4.24 10^6/uL (4.36-5.78); RDW 13.2 % (11.8-14.1); RDW-SD 45.5 fL; WBC 12.83 10^3/uL (4.4-10.8)
[2023-09-25 06:08] LABS: Absolute Basophil Count 0.03 10^3/uL (0.0-0.2); Absolute Neutrophil Count 10.97 10^3/uL (1.2-6.7)
[2023-09-25 06:20] LABS: Anion Gap 8.7 mmol/L (3-11); BUN 18 mg/dL (7-18); CO2 31.3 mmol/L (21.0-32.0); CREATININE 1.1 mg/dL (0.70-1.30); Calcium 8.9 mg/dL (8.5-10.1); Chloride 99 mmol/L (98-107); Estimated GFR 74.96 (mL/min/1.73m2); Glucose 264 mg/dL (74-106); Magnesium 2.1 mg/dL (1.8-2.4); Potassium 4.4 mmol/L (3.5-5.1); Sodium 139 mmol/L (136-145)
[2023-09-25] MEDS: Sucralfate 1 GM TAB PO ×4 (07:37→22:15)
[2023-09-25] MEDS: Acetaminophen 325 MG TAB PO ×3 (07:37→16:50)
--- NOTE | 2023-09-25 08:15 | RT.EKG_ITS ---
APPROVED REPORT Exam: Resting ECG Reason for Exam: chest pain Patient Location: I HR:78 bpm ECG Measurements Heart Rate 78 AXIS HI 169 P 31 QRSd 99 QRS 11 QT 367 T 52 QTc 419 Conclusion Sinus rhythm...normal P axis, V-rate 50- 99 Atrial premature complex...SV complex w/ short R-R interval Low voltage, precordial leads...precordial leads <1.0mV
[2023-09-25] MEDS: Pregabalin 25 MG CAP PO ×3 (09:13→21:42)
[2023-09-25] MEDS: Lactobacillus Acidophilus CAP 1 CAP PO ×2 (09:13→21:41)
[2023-09-25] MEDS: Multivitamin w/Minerals TAB 1 TAB PO (09:13)
[2023-09-25] MEDS: Torsemide 10 MG TAB 30 MG PO (09:13)
[2023-09-25] MEDS: predniSONE 20 MG TAB 60 MG PO (09:13)
[2023-09-25] MEDS: Famotidine 20 MG TAB PO ×2 (09:13→21:42)
[2023-09-25] MEDS: Cholecalciferol (Vitamin D3) 1,000 UNIT TAB 2000 UNITS PO (09:13)
[2023-09-25] MEDS: Apixaban 5 MG TAB PO ×2 (09:14→21:42)
[2023-09-25] MEDS: metFORMIN 500 MG TAB PO ×2 (09:14→17:28)
[2023-09-25] MEDS: Sulfameth/Trimeth DS TAB 1 TAB PO (09:14)
[2023-09-25] MEDS: Carbidopa 25/Levodopa 100 TAB PO ×3 (09:14→21:41)
[2023-09-25] MEDS: Magnesium Oxide 400 MG TAB PO (09:14)
[2023-09-25] MEDS: Ascorbic Acid 500 MG TAB 1000 MG PO (09:14)
[2023-09-25] MEDS: Normal Saline Flush 10 ML SYR IVP ×4 (09:15→22:15)
[2023-09-25 09:19] LABS: Troponin I < 50 ng/L (< or =60)
[2023-09-25] MEDS: Insulin Aspart 300 UNITS/3 ML PEN SC ×4 (09:39→21:42)
[2023-09-25] MEDS: Insulin Glargine 300 UNITS/3 ML PEN 32 UNITS SC ×2 (09:42→21:46)
--- NOTE | 2023-09-25 09:59 | W.PM.PROGNOT ---
Date of Service Date of service: 09/25/23 Time of Service: 10:00 Assessment and Plan Assessment and plan (1) Acute and chronic respiratory failure: Status: Acute Assessment and plan: patient has a Hx IDL and is seen by pumonology at [facility] Reported symptoms starting appx 1 week ago with pulmonary changing his furosemide to torsemide w/o improvement . Solumedrol IV was given in the ED Continue prednisone 60mg daily in the AM Supplemental O2 to maintain O2 sat. > 88%. (2) Chronic interstitial lung disease: Status: Chronic Assessment and plan: Continue home regimen of Spiriva and Breztri. Continue PRN Duonebs and albuterol. Pulmonary consult completed -Prednisone taper recommendation issued for discharge (3) (HFpEF) heart failure with preserved ejection fraction: Status: Acute Assessment and plan: Cardiology consult LVEF 60 % in 08/2023 Lasix 80 mg IV in the ED with improvement in resp. status Oral torsemide given this AM with worsenign of SOB; will hold Start IV lasix and monitor weight, VS , Cr, K, Mg -Follow recommendation after cardiology consult. GDMT most likely applies to HFrEF but jardiance is recommended in HFpEF -Start jardiance (4) Pulmonary embolism on long-term anticoagulation therapy: Assessment and plan: On home dose of apixiban (5) Diabetes mellitus: Assessment and plan: Continue basal home dose of lantus SSI coverage adjusted to resistant dosing. Diabetic diet. 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 Beach Subjective Subjective Patient reports: no new complaints, feels better (Initially felt better but relates increased SOB to the lack of IV Lasix this AM and reduced urinary output ), tolerating liquids well, tolerating a regular diet, voiding w/o difficulty (reports feeling bloated), bowel movement and shortness of breath; denies diarrhea, blood in stool, nausea, vomiting or fever Exam Narrative Exam Narrative: Constitutional The patient is sitting in chair, tachypnea RR around 22, speak in 5-word sentences HENMT:. Rounded facial appearance, structures well aligned Neuro:alert and oriented X 4 Resp: Clear upper lungs with diminished right base > left base Cardio: regular rhythm, S1, S2, no murmur, pulses are positive to all 4 ext., LEs with pitting edema 1+ GI: Abdomen is large not distended, soft and tender RLQ with bruising from insulin injections , bowel sounds are present : Negative Costovertebral angle tenderness, Psych: RASS 0, congruent mood and normal affect. Objective Last Vital Signs Temp 36.5 C 09/25/23 07:22 Pulse 84 09/25/23 07:22 Resp 18 09/25/23 07:22 BP 134/71 09/25/23 07:22 Pulse Ox 91 L 09/25/23 09:16 Laboratory Results - last 24 hr 09/24/23 09/24/23 09/25/23 14:15 18:00 05:50 WBC 11.29 H 12.83 H RBC 4.67 4.24 L Hgb 14.7 13.4 L Hct 45.6 40.2 MCV 98 H 95 MCH 31.5 31.6 MCHC 32.2 33.3 RDW 13.5 13.2 Plt Count 149 151 MPV 9.5 9.5 Immature Gran % 1.1 1.2 Neutrophils % 79.6 85.5 Lymphocytes % 15.5 10.1 Monocytes % 2.7 3.0 Eosinophils % 0.7 0.0 Basophils % 0.4 0.2 Nucleated RBC % 0.0 0.0 Absolute Neutrophils 8.99 H 10.97 H Absolute Lymphocytes 1.75 1.30 Absolute Monocytes 0.30 0.38 Absolute Eosinophils 0.08 0.00 Absolute Basophils 0.05 0.03 VBG pH 7.36 VBG pCO2 51 VBG pO2 39 VBG HCO3 29 H VBG Total CO2 26 VBG O2 Saturation 72 VBG Base Excess 4 H Sodium 137 139 Potassium 4.6 4.4 Chloride 98 99 Carbon Dioxide 28.2 31.3 Anion Gap 10.8 8.7 BUN 15 18 Creatinine 1.3 1.1 Est GFR (CKD-EPI 2020) 61.35 74.96 Glucose 394 H 264 H Calcium 9.1 8.9 Magnesium 1.9 2.1 Total Bilirubin 0.5 AST 81 H ALT 60 Alkaline Phosphatase 118 H Troponin I < 50 < 50 NT-Pro-B Natriuret Pep 33 Total Protein 7.0 Albumin 3.7 09/25/23 08:45 WBC RBC Hgb Hct MCV MCH MCHC RDW Plt Count MPV Immature Gran % Neutrophils % Lymphocytes % Monocytes % Eosinophils % Basophils % Nucleated RBC % Absolute Neutrophils Absolute Lymphocytes Absolute Monocytes Absolute Eosinophils Absolute Basophils VBG pH VBG pCO2 VBG pO2 VBG HCO3 VBG Total CO2 VBG O2 Saturation VBG Base Excess Sodium Potassium Chloride Carbon Dioxide Anion Gap BUN Creatinine Est GFR (CKD-EPI 2020) Glucose Calcium Magnesium Total Bilirubin AST ALT Alkaline Phosphatase Troponin I < 50 NT-Pro-B Natriuret Pep Total Protein Albumin Time Spent with Patient Time Spent with Patient: >50 minutes Time was spent: preparing to see the patient(eg.review tests), obtaining and/or reviewing separately otained hiistory, ordering medications,tests, procedures, referring, communicating with other health skin care technician, indepentently interpreting results, counseling the patient and care coordination
--- NOTE | 2023-09-25 11:26 | W.NUTRFU ---
Date of service: 09/25/23 Time of Service: 11:26 Nutrition Note NOTE: received consult order regarding: diabetes education and mgt I attempted yesterday to see Vinay wilson and he was busy with medical staff. Saw him this morning to get updates as we had discussions during his last admission earlier this month (See previous note). He related his concerns wit this CHF episode. He states he hasn't used salt for over 2 years but recently put some on his watermelon, which he think triggered his fluid problem. Says he will be on new diuretic tomorrow to see if this helps as his lasix stopped working. He relates some of his food choices like using shredded zucchini and spaghetti squash as pasta substitutes. He feels he has made some improvements in his diet since his last admission but still interested in getting together for outpt services for nutrition education. gave him my contact info again and welcomed him to call. Tolerating HH/CHO consistent diet currently with 125FBG this morning which is good to see considering currently on prednisone. Will monitor for glucose trends and work to visit again before discharge to see if we can book an outpatient visit in the future. Time Spent in Nutritional Counseling and Treatment: 15 min
--- NOTE | 2023-09-25 12:04 | PHA.REVIEW2 ---
Pharmacy Admission Review Admission Clinical Review Admission Pharmacy Review: Acute and chronic respiratory failure (Acute) cimetidine HCl [From Tagamet] Allergy (Severe, Verified 09/07/23 14:34) Anaphylaxsis rivaroxaban [From Xarelto] Allergy (Severe, Verified 09/24/23 14:28) Other (See Comment) Latex, Natural Rubber Allergy (Intermediate, Verified 09/24/23 14:28) Skin Rash lisinopril Allergy (Intermediate, Verified 09/24/23 14:28) Other (See Comment) pantoprazole Allergy (Unknown, Verified 09/24/23 14:28) Other (See Comment) semaglutide Allergy (Unknown, Verified 09/24/23 14:28) Other (See Comment) promethazine HCl [From Phenergan] Adverse Reaction (Verified 09/24/23 14:28) Dizziness/Lightheade ancef injection Allergy (Unknown, Uncoded 09/24/23 14:28) Other (See Comment) Resuscitation Status Full Code Height 5 ft 8 in Weight 104.9 kg Pharmacy Admission Review Renal Dosing Renal Dosing: BUN 18 mg/dL (7-18) 09/25/23 05:50 Creatinine 1.1 mg/dL (0.70-1.30) 09/25/23 05:50 Medications needing adjustments: Reviewed (CrCl 79.6 mL/min) List of meds needing interventions: Current medications are okay Anticoagulation Anticoagulation: Hgb 13.4 g/dL (13.5-17.5) L 09/25/23 05:50 Hct 40.2 % (40.0-50.0) 09/25/23 05:50 Plt Count 151 10^3/uL (130-400) 09/25/23 05:50 Creatinine 1.1 mg/dL (0.70-1.30) 09/25/23 05:50 DVT Prophylaxis: Reviewed Medications: Apixaban (5mg PO BID) Opiate Usage Evaluate Pain Scale/Pains Meds: Reviewed (KANE morphine) Scheduled Bowel Reg ordered if on Opiates?: No (PRN Miralax) Relevant Labs Relevant Labs: Sodium 139 mmol/L (136-145) 09/25/23 05:50 Potassium 4.4 mmol/L (3.5-5.1) 09/25/23 05:50 Chloride 99 mmol/L (98-107) 09/25/23 05:50 Magnesium 2.1 mg/dL (1.8-2.4) 09/25/23 05:50 Electrolytes, C-Reactive P, ESR: Reviewed (WBC increased from 11.29 to 12.83, Hgb decreased from 14.7 to 13.4) DM Control DM Control: Glucose 264 mg/dL (74-106) H 09/25/23 05:50 Finger Stick Blood Glucose 251 0942 Finger Stick Blood Glucose 251 0939 Finger Stick Blood Glucose 251 0725 Finger Stick Blood Glucose 251 0725 Insulin Dosing, Diabetic Medication: Has order for SS insulin, 32 units of glargine BID and metformin 500mg BID Cardiac Review Cardiac Review: Troponin I < 50 ng/L (< or =60) 09/25/23 08:45 NT-Pro-B Natriuret Pep 33 pg/mL (<300) 09/24/23 14:15 BP, HR, EF%: Reviewed (BP WNL, HR 92) QTc Review QTc: Reviewed (416 from 09/24/23) IV to PO Switch IV Medications: Reviewed (Furosemide) Home Meds Home Med List reviewed: Intervened Relevent Home Meds Not ordered & why?: Verified controls (morphine and Lyrica on VMPS) Order for morphine was put in as 45mg BID - per home med list/VPMS, patient takes 45mg in the morning and 30mg at night. Updated order. Current Meds Current Medication Order Review: Intervened Comments: Updated morphine order (see above)
[2023-09-25] MEDS: guaiFENesin 600 MG TABCR PO ×2 (12:07→21:42)
[2023-09-25] MEDS: Furosemide 40 MG/4 ML VIAL IVP (12:07)
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
[2023-09-25] MEDS: Furosemide 100 MG/10 ML VIAL 80 MG IVP (16:41)
[2023-09-25 21:37] LABS: Anion Gap 8.8 mmol/L (3-11); BUN 26 mg/dL (7-18); CO2 31.2 mmol/L (21.0-32.0); CREATININE 1.6 mg/dL (0.70-1.30); Calcium 8.4 mg/dL (8.5-10.1); Chloride 97 mmol/L (98-107); Estimated GFR 47.82 (mL/min/1.73m2); Glucose 371 mg/dL (74-106); Potassium 4.1 mmol/L (3.5-5.1); Sodium 137 mmol/L (136-145)
[2023-09-25] MEDS: Calcium Citrate 950 MG TAB PO (21:41)
[2023-09-25] MEDS: Tamsulosin 0.4 MG CAPCR PO (21:41)
[2023-09-25] MEDS: Mirtazapine 15 MG TAB PO (21:42)
[2023-09-25] MEDS: Atorvastatin 20 MG TAB PO (21:42)
[2023-09-26] VITALS (7 sets, daily range): BP systolic 114–145; BP diastolic 60–86; PULSE 61–87; RESP 15–18; TEMP 35.6–36.9; O2SAT 92–97
[2023-09-26 06:25] LABS: Abs Immature Grans 0.15 10^3/uL (0.0-0.06); Absolute Basophil Count 0.03 10^3/uL (0.0-0.2); Absolute Eosinophil Count 0.06 10^3/uL (0.0-0.7); Absolute Lymphocyte Count 2.25 10^3/uL (1.2-3.4); Basophils % 0.2 %; Eosinophils % 0.5 %; HCT 39.2 % (40.0-50.0); HGB 13.3 g/dL (13.5-17.5); Immature Grans % 1.2 %; Lymphocytes % 17.6 %; MCH 31.4 pg (27.0-33.0); MCHC 33.9 % (32.0-36.0); MCV 93 fL (80-95); MPV 9.3 fL (8.0-11.0); Neutrophils % 73.5 %; Platelet Count 148 10^3/uL (130-400); RBC 4.23 10^6/uL (4.36-5.78); RDW 13.2 % (11.8-14.1); RDW-SD 44.9 fL; WBC 12.79 10^3/uL (4.4-10.8)
[2023-09-26 06:41] LABS: Anion Gap 6.8 mmol/L (3-11); BUN 25 mg/dL (7-18); CO2 36.2 mmol/L (21.0-32.0); Calcium 8.8 mg/dL (8.5-10.1); Chloride 98 mmol/L (98-107); Estimated GFR 84.05 (mL/min/1.73m2); Glucose 125 mg/dL (74-106); Magnesium 2.1 mg/dL (1.8-2.4); Potassium 3.2 mmol/L (3.5-5.1); Sodium 141 mmol/L (136-145)
[2023-09-26] MEDS: Calcium Citrate 950 MG TAB PO ×2 (07:29→20:36)
[2023-09-26] MEDS: Lactobacillus Acidophilus CAP 1 CAP PO ×2 (07:29→20:36)
[2023-09-26] MEDS: Carbidopa 25/Levodopa 100 TAB PO ×3 (07:29→20:36)
[2023-09-26] MEDS: Multivitamin w/Minerals TAB 1 TAB PO (07:30)
[2023-09-26] MEDS: Ascorbic Acid 500 MG TAB 1000 MG PO (07:30)
[2023-09-26] MEDS: Sulfameth/Trimeth DS TAB 1 TAB PO (07:31)
[2023-09-26] MEDS: Cholecalciferol (Vitamin D3) 1,000 UNIT TAB 2000 UNITS PO (07:31)
[2023-09-26] MEDS: predniSONE 20 MG TAB 60 MG PO (07:31)
[2023-09-26] MEDS: guaiFENesin 600 MG TABCR PO ×2 (07:31→20:37)
[2023-09-26] MEDS: Magnesium Oxide 400 MG TAB PO (07:31)
[2023-09-26] MEDS: Apixaban 5 MG TAB PO ×2 (07:31→20:37)
[2023-09-26] MEDS: Pregabalin 25 MG CAP PO ×3 (07:31→20:37)
[2023-09-26] MEDS: Insulin Glargine 300 UNITS/3 ML PEN 32 UNITS SC ×2 (07:32→20:34)
[2023-09-26] MEDS: Sucralfate 1 GM TAB PO ×4 (07:32→22:24)
[2023-09-26] MEDS: Famotidine 20 MG TAB PO ×2 (07:32→20:36)
[2023-09-26] MEDS: Normal Saline Flush 10 ML SYR IVP ×4 (07:32→20:37)
[2023-09-26] MEDS: metFORMIN 500 MG TAB PO ×2 (07:32→16:33)
--- NOTE | 2023-09-26 09:35 | CMPROGNOTE_ITS ---
Date of service: 09/26/23 Time of Service: 09:35 Care Management Progress Note Progress Note Text Progress Note Text: S/O: Dwight was in bed, awake and watching TV when CM met with him. Pt reports sob with exertion, but also shares that he becomes extremely SOB just by standing up. He is still diuresing on Lasix and receiving IV potassium as we speak. Per ELIZABETH Rivas potential discharge on Monday on furosemide, if medically ready. PT consulted, awaiting recommendations. A: Vinay is a 63 year old male admitted to [facility] on 09/24/23 with an acute on chronic hypoxic respiratory failure. Discharge Potential Discharge Needs: PT Evaluation, PCP F/U Appt and Other (Cardiology, Diabetic Education, Pulmonology, Respiratory) Anticipated Barriers to Discharge: None Identified Patient/Family Education Needs: Review discharge instructions, discuss Ask Me Three Transportation: Private vehicle Plan: Vinay requires close monitoring and treatment for Acute on Chronic Respiratory Failure. See H&P. Per Hospitalist, Anticipate d/c monday on furosemide with Outpt cardio follow up. transport with using his portable inogen concentrator. CM will continue to support Deonte and assess for discharge concerns. SDOH(Care Management) Screening Will the Patient Participate in the Screening?: Unable to obtain
[2023-09-26] MEDS: Empaglifozin 10 MG TAB PO (09:38)
[2023-09-26] MEDS: Furosemide 100 MG/10 ML VIAL 80 MG IVP ×2 (09:48→16:26)
[2023-09-26] MEDS: Insulin Aspart 300 UNITS/3 ML PEN SC ×3 (11:36→22:24)
--- NOTE | 2023-09-26 12:00 | W.PM.PROGNOT ---
Date of Service Date of service: 09/26/23 Time of Service: 12:00 Assessment and Plan Assessment and plan (1) Acute and chronic respiratory failure: Status: Acute Assessment and plan: Angeli SMILEY and is seen by pulmonology at [facility] Reported symptoms starting appx 1 week ago after increased salt intake with pulmonary changing his furosemide to torsemide w/o improvement . Solumedrol IV was given in the ED now on oral prednisone 60 mg daily Prednisone taper on discharge as per Dr. Paniagua Supplemental O2 to maintain O2 sat. > 88%. (2) Chronic interstitial lung disease: Status: Chronic Assessment and plan: Continue PRN albuterol. Pulmonary consult completed and discussed -Prednisone taper recommendation issued for discharge (3) (HFpEF) heart failure with preserved ejection fraction: Status: Acute Assessment and plan: Cardiology consult -Torsemide on discharged -Additional methalozone if more diuresis needed LVEF 60 % in 08/2023 with RV hypokinesis Lasix 80 mg IV BID Oral Torsemide 50 mg BID in AM if resp. status improved Monitor weight, VS , Cr, K, Mg GDMT most likely applies to HFrEF but jardiance is recommended in HFpEF -Jardiance started s/p discussion with patient this AM re: benefit VS potential renal side effect (4) Pulmonary embolism on long-term anticoagulation therapy: Assessment and plan: Continue home apixaban (5) Diabetes mellitus: Assessment and plan: Blood sugars 112 to 247, improved Continue basal home dose of lantus Continue SSI coverage resistant dosing. On diabetic diet. 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 Beach Subjective Subjective Patient reports: feels better (but tired ), tolerating liquids well, tolerating a regular diet, no bowel movement (received laxative late ) and shortness of breath (improving ); denies diarrhea, nausea, vomiting or fever Exam Narrative Exam Narrative: Constitutional The patient is in bed less SOB during conversation, RR < 22 HENMT:.less rounded facial appearance, structures well aligned Neuro:alert and oriented X 4 Resp: Clear lungs with minimal diminished right base > left base, improving Cardio: regular rhythm, S1, S2, no murmur, pulses are positive to all 4 ext., LEs with pitting edema 1+ GI: Abdomen is large not distended, soft Psych: RASS 0, congruent mood and normal affect. Objective Last Vital Signs Temp 35.6 C L 09/26/23 11:41 Pulse 84 09/26/23 11:41 Resp 17 09/26/23 11:41 BP 145/86 H 09/26/23 11:41 Pulse Ox 92 09/26/23 11:41 Laboratory Results - last 24 hr 09/25/23 09/26/23 21:17 06:01 WBC 12.79 H RBC 4.23 L Hgb 13.3 L Hct 39.2 L MCV 93 MCH 31.4 MCHC 33.9 RDW 13.2 Plt Count 148 MPV 9.3 Immature Gran % 1.2 Neutrophils % 73.5 Lymphocytes % 17.6 Monocytes % 7.0 Eosinophils % 0.5 Basophils % 0.2 Nucleated RBC % 0.0 Absolute Neutrophils 9.40 H Absolute Lymphocytes 2.25 Absolute Monocytes 0.90 H Absolute Eosinophils 0.06 Absolute Basophils 0.03 Sodium 137 141 Potassium 4.1 3.2 L Chloride 97 L 98 Carbon Dioxide 31.2 36.2 H Anion Gap 8.8 6.8 BUN 26 H 25 H Creatinine 1.6 H 1.0 Est GFR (CKD-EPI 2020) 47.82 84.05 Glucose 371 H 125 H Calcium 8.4 L 8.8 Magnesium 2.1 Time Spent with Patient Time Spent with Patient: >50 minutes Time was spent: preparing to see the patient(eg.review tests), obtaining and/or reviewing separately otained hiistory, ordering medications,tests, procedures, referring, communicating with other health auto care center manager, indepentently interpreting results, counseling the patient and care coordination
[2023-09-26] MEDS: Potassium Chloride 20 MEQ TABCR PO ×3 (12:39→20:37)
[2023-09-26] MEDS: POTASSIUM CHLORIDE 20 MEQ/100 ML BAG 50 MEQ IVINF (12:40)
--- NOTE | 2023-09-26 16:51 | CHAPLAIN ---
Vinay and I know each other from previous admissions. He was here last month for a few days. He told Care Management that he was doing well at home until his oral lasix stopped working. Today while I was visiting his nurse was working to replace an IV. She was able to get the new one in on the first attempted. Vinay told me about his gardens at home and the raised beds he's built there with his . He had a visitor in the room with him. I will continue to visit.
[2023-09-26] MEDS: Zolpidem 5 MG TAB PO (20:35)
[2023-09-26] MEDS: Melatonin 3 MG TAB PO (20:36)
[2023-09-26] MEDS: Mirtazapine 15 MG TAB PO (20:36)
[2023-09-26] MEDS: Atorvastatin 20 MG TAB PO (20:36)
[2023-09-26] MEDS: Tamsulosin 0.4 MG CAPCR PO (20:37)
[2023-09-27] VITALS (15 sets, daily range): BP systolic 122–144; BP diastolic 60–86; PULSE 64–92; RESP 2–19; TEMP 35.9–36.7; O2SAT 89–98
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
[2023-09-27 07:25] LABS: Abs Immature Grans 0.23 10^3/uL (0.0-0.06); Absolute Basophil Count 0.06 10^3/uL (0.0-0.2); Absolute Eosinophil Count 0.07 10^3/uL (0.0-0.7); Absolute Lymphocyte Count 2.71 10^3/uL (1.2-3.4); Absolute Monocyte Count 0.85 10^3/uL (0.1-0.8); Absolute Neutrophil Count 6.69 10^3/uL (1.2-6.7); Basophils % 0.6 %; Eosinophils % 0.7 %; HCT 41.1 % (40.0-50.0); HGB 13.5 g/dL (13.5-17.5); Immature Grans % 2.2 %; Lymphocytes % 25.5 %; MCH 31.1 pg (27.0-33.0); MCHC 32.8 % (32.0-36.0); MCV 95 fL (80-95); MPV 9.5 fL (8.0-11.0); Platelet Count 141 10^3/uL (130-400); RBC 4.34 10^6/uL (4.36-5.78); RDW 13.2 % (11.8-14.1); RDW-SD 46.5 fL; WBC 10.61 10^3/uL (4.4-10.8)
[2023-09-27 07:42] LABS: Anion Gap 4.8 mmol/L (3-11); BUN 29 mg/dL (7-18); CO2 36.2 mmol/L (21.0-32.0); Calcium 9.1 mg/dL (8.5-10.1); Chloride 101 mmol/L (98-107); Estimated GFR 84.05 (mL/min/1.73m2); Glucose 114 mg/dL (74-106); Potassium 3.4 mmol/L (3.5-5.1); Sodium 142 mmol/L (136-145)
[2023-09-27] MEDS: Cholecalciferol (Vitamin D3) 1,000 UNIT TAB 2000 UNITS PO (08:47)
[2023-09-27] MEDS: Potassium Chloride 20 MEQ TABCR PO ×3 (08:47→21:21)
[2023-09-27] MEDS: predniSONE 20 MG TAB 60 MG PO (08:47)
[2023-09-27] MEDS: Magnesium Oxide 400 MG TAB PO (08:47)
[2023-09-27] MEDS: Carbidopa 25/Levodopa 100 TAB PO ×3 (08:47→21:19)
[2023-09-27] MEDS: Sucralfate 1 GM TAB PO ×4 (08:47→21:19)
[2023-09-27] MEDS: Multivitamin w/Minerals TAB 1 TAB PO (08:47)
[2023-09-27] MEDS: Ascorbic Acid 500 MG TAB 1000 MG PO (08:48)
[2023-09-27] MEDS: Lactobacillus Acidophilus CAP 1 CAP PO ×2 (08:48→21:20)
[2023-09-27] MEDS: metFORMIN 500 MG TAB PO ×2 (08:48→17:13)
[2023-09-27] MEDS: Calcium Citrate 950 MG TAB PO ×2 (08:48→21:20)
[2023-09-27] MEDS: Furosemide 100 MG/10 ML VIAL 80 MG IVP ×2 (08:49→17:12)
[2023-09-27] MEDS: Normal Saline Flush 10 ML SYR IVP ×4 (08:49→21:21)
[2023-09-27] MEDS: Pregabalin 25 MG CAP PO ×3 (08:49→21:18)
[2023-09-27] MEDS: Famotidine 20 MG TAB PO ×2 (08:49→21:18)
[2023-09-27] MEDS: Sulfameth/Trimeth DS TAB 1 TAB PO (08:49)
[2023-09-27] MEDS: Apixaban 5 MG TAB PO ×2 (08:49→21:20)
[2023-09-27] MEDS: guaiFENesin 600 MG TABCR PO ×2 (08:49→21:20)
--- NOTE | 2023-09-27 08:49 | W.PM.PROGNOT ---
Date of Service Date of service: 09/27/23 Time of Service: 08:49 Assessment and Plan Assessment and plan (1) Acute and chronic respiratory failure: Status: Acute Assessment and plan: Hx IDAdriana and is seen by pulmonology at [facility] Reported symptoms starting appx 1 week prior to admission after increased salt intake with pulmonary changing his furosemide to torsemide w/o improvement . Solumedrol IV was given in the ED Will continue oral prednisone 60 mg daily Supplemental O2 to maintain O2 sat. > 88%. (2) Chronic interstitial lung disease: Status: Chronic Assessment and plan: Continue PRN albuterol. Starting a trial of duonebs Pulmonary consult completed and discussed -Prednisone taper recommendation issued for discharge Increased sputum production with darker green color will initiate doxy as patient was already on chronic Bactrim d/t history of pneumocystis jirovecii pneumonia (3) (HFpEF) heart failure with preserved ejection fraction: Status: Acute Assessment and plan: Cardiology consult -Torsemide 50 mg BID in AM -Additional methalozone if more diuresis needed LVEF 60 % in 08/2023 with RV hypokinesis Lasix 80 mg IV BID Monitor weight, VS , Cr, K, Mg GDMT most likely applies to HFrEF but jardiance is recommended in HFpEF -Jardiance started s/p discussion with patient this AM re: benefit VS potential renal side effect (4) Pulmonary embolism on long-term anticoagulation therapy: Assessment and plan: Continue home apixaban (5) Diabetes mellitus: Assessment and plan: Blood sugars 112 to 247, improved Continue basal home dose of lantus Continue SSI coverage resistant dosing. On diabetic diet. At this time d/t gluc 118- 239 over the past 24 hours will hold of the consideration to add NPH in the setting of steroids Now on Jardiance Cr is again 1.0 stable Qualifiers: Diabetes mellitus complication status: with hyperglycemia Diabetes mellitus [facility] insulin use: with terminal operations supervisor use Diabetes mellitus type: type 2 Qualified Code(s): E11.65 - Type 2 diabetes mellitus with hyperglycemia; Z79.4 - tank terminal gauger (current) use of insulin (6) Hypokalemia: Status: Resolved Assessment and plan: K 3.4 this AM replacement in progress: Daily in the setting of schedule IV diuretic doses (7) Sleep apnea: Status: Chronic Assessment and plan: Continue home CPAP (8) Obesity (BMI 30-39.9): Status: Acute Assessment and plan: Again intellectual property counsel the patient on lifestyle modifications within the limits permitted by his chronic conditions PT consult in progress Nutrition consult in progress: -Will discuss sodium intake Lifestyle modification to be discussed further with PCP (9) Discharge planning issues: Status: Acute Assessment and plan: No new need at this time ; CM to f/u if new needs Prednisone taper on discharge as per Dr. Paniagua The patient had HH LAW OFFICE MANAGER Refer to [facility]ology Discussed with Dr. Beach Subjective Subjective Interval history since last seen: Patient reports sleeping better on ambien and melatonin despite the fact that [facility] not a good [facility] drug for him. Reports no improvement in breathing and SOB ambulating from bed to chair despite new oxygen supplementation device started last night reportedly by a [facility] RT as per patient. Reports darker green and yellow sputum production. Reports bowel movement w/o diarrhea,melena or hematochezia; slightly constipated, denies nausea, vomiting, dysuria Exam Narrative Exam Narrative: Constitutional The patient is in bed SOB with long sentences during conversation Neuro:alert and oriented X 4 Resp:Lungs sound thighter, slight exp wheezing to left mid-upper, no laryngeal wheezing, scattered velcro crackles, diminished bases Cardio: regular rhythm, S1, S2, no murmur, radial and pedal pulses are positive. LEs with pitting edema 1+left more than right GI: Abdomen is large not distended, soft Psych: RASS 0, congruent mood and normal affect. Objective Last Vital Signs Temp 36.1 C L 09/27/23 07:20 Pulse 64 09/27/23 07:20 Resp 14 09/27/23 07:20 BP 142/79 H 09/27/23 07:20 Pulse Ox 98 09/27/23 07:20 Laboratory Results - last 24 hr 09/27/23 06:50 WBC 10.61 RBC 4.34 L Hgb 13.5 Hct 41.1 MCV 95 MCH 31.1 MCHC 32.8 RDW 13.2 Plt Count 141 MPV 9.5 Immature Gran % 2.2 Neutrophils % 63.0 Lymphocytes % 25.5 Monocytes % 8.0 Eosinophils % 0.7 Basophils % 0.6 Nucleated RBC % 0.0 Absolute Neutrophils 6.69 Absolute Lymphocytes 2.71 Absolute Monocytes 0.85 H Absolute Eosinophils 0.07 Absolute Basophils 0.06 Sodium 142 Potassium 3.4 L Chloride 101 Carbon Dioxide 36.2 H Anion Gap 4.8 BUN 29 H Creatinine 1.0 Est GFR (CKD-EPI 2020) 84.05 Glucose 114 H Calcium 9.1 Time Spent with Patient Time Spent with Patient: >50 minutes Time was spent: preparing to see the patient(eg.review tests), obtaining and/or reviewing separately otained hiistory, ordering medications,tests, procedures, referring, communicating with other health acute care nurse practitioner, indepentently interpreting results, counseling the patient and care coordination
--- NOTE | 2023-09-27 08:50 | CMPROGNOTE_ITS ---
Date of service: 09/27/23 Time of Service: 08:50 Care Management Progress Note Progress Note Text Progress Note Text: S/O: Dwight was lying in bed watching TV when CM met with him. He's been coughing up yellow/green sputum and isn't feeling as well today and now on IV doxy. He also reports that he was able to sleep some last night after taking sleeping medication. Per ELIZABETH Rivas potential discharge on Monday on furosemide, if medically ready. Resumption of O/E [facility] RN/PT services. A: Vinay is a 63 year old male admitted to [facility] on 09/24/23 with an acute on chronic hypoxic respiratory failure. Discharge Potential Discharge Needs: Consult Consult Services Needed: Cardiology, Nutrition, Pulmonary and Other ( ), PT Evaluation and PCP F/U Appt Anticipated Barriers to Discharge: None Identified Patient/Family Education Needs: Review discharge instructions, discuss Ask Me Three Transportation: Private vehicle Plan: Vinay requires close monitoring and treatment for Acute on Chronic Respiratory Failure. See H&P. Per Hospitalist, Anticipate d/c monday on furosemide with Outpt cardio follow up. Resumption of [facility]E [facility] RN/PT and will transport with using his portable inogen concentrator. CM will continue to support Dwight and assess for discharge concerns. SDOH(Care Management) Screening Will the Patient Participate in the Screening?: Unable to obtain Anticipated HH Services Anticipated HH Services at Discharge [facility] Resumption.
[2023-09-27] MEDS: Insulin Glargine 300 UNITS/3 ML PEN 32 UNITS SC ×2 (08:51→21:13)
[2023-09-27] MEDS: Empaglifozin 10 MG TAB PO (08:53)
[2023-09-27] MEDS: Senna TAB 2 TAB PO (10:22)
[2023-09-27] MEDS: Albuterol/Ipratropium 3 ML UPD VIAL UPD ×3 (11:34→19:25)
[2023-09-27] MEDS: Insulin Aspart 300 UNITS/3 ML PEN SC ×3 (12:16→21:14)
[2023-09-27] MEDS: DOXYCYCLINE 100 MG in Normal Saline 100 ML IVPB ×2 (12:17→23:53)
[2023-09-27] MEDS: Melatonin 3 MG TAB PO (21:18)
[2023-09-27] MEDS: Zolpidem 5 MG TAB PO (21:19)
[2023-09-27] MEDS: Tamsulosin 0.4 MG CAPCR PO (21:19)
[2023-09-27] MEDS: Atorvastatin 20 MG TAB PO (21:19)
[2023-09-27] MEDS: Mirtazapine 15 MG TAB PO (21:19)
[2023-09-28] VITALS (12 sets, daily range): BP systolic 127–133; BP diastolic 77–90; PULSE 60–96; RESP 2–19; TEMP 36.2–36.5; O2SAT 95–98
[2023-09-28 06:49] LABS: Abs Immature Grans 0.35 10^3/uL (0.0-0.06); Absolute Basophil Count 0.06 10^3/uL (0.0-0.2); Absolute Eosinophil Count 0.08 10^3/uL (0.0-0.7); Absolute Lymphocyte Count 2.42 10^3/uL (1.2-3.4); Absolute Monocyte Count 0.95 10^3/uL (0.1-0.8); Absolute Neutrophil Count 8.87 10^3/uL (1.2-6.7); Basophils % 0.5 %; Eosinophils % 0.6 %; HCT 40.9 % (40.0-50.0); HGB 13.9 g/dL (13.5-17.5); Immature Grans % 2.7 %; MCH 32.1 pg (27.0-33.0); MCV 95 fL (80-95); MPV 9.2 fL (8.0-11.0); Monocytes % 7.5 %; Neutrophils % 69.7 %; Platelet Count 146 10^3/uL (130-400); RBC 4.33 10^6/uL (4.36-5.78); RDW 13.1 % (11.8-14.1); RDW-SD 45.5 fL; WBC 12.73 10^3/uL (4.4-10.8)
[2023-09-28 07:17] LABS: Anion Gap 7.1 mmol/L (3-11); BUN 28 mg/dL (7-18); CO2 31.9 mmol/L (21.0-32.0); CREATININE 1.1 mg/dL (0.70-1.30); Calcium 9.4 mg/dL (8.5-10.1); Chloride 99 mmol/L (98-107); Estimated GFR 74.96 (mL/min/1.73m2); Glucose 140 mg/dL (74-106); Sodium 138 mmol/L (136-145)
[2023-09-28] MEDS: Furosemide 100 MG/10 ML VIAL 80 MG IVP (07:44)
[2023-09-28] MEDS: Normal Saline Flush 10 ML SYR IVP ×2 (07:46→22:07)
[2023-09-28] MEDS: metFORMIN 500 MG TAB PO ×2 (07:47→17:05)
[2023-09-28] MEDS: Famotidine 20 MG TAB PO ×2 (07:47→21:01)
[2023-09-28] MEDS: Magnesium Oxide 400 MG TAB PO (07:47)
[2023-09-28] MEDS: Multivitamin w/Minerals TAB 1 TAB PO (07:48)
[2023-09-28] MEDS: Calcium Citrate 950 MG TAB PO ×2 (07:48→21:02)
[2023-09-28] MEDS: Apixaban 5 MG TAB PO ×2 (07:48→21:03)
[2023-09-28] MEDS: Empaglifozin 10 MG TAB PO (07:48)
[2023-09-28] MEDS: guaiFENesin 600 MG TABCR PO ×2 (07:48→21:03)
[2023-09-28] MEDS: Lactobacillus Acidophilus CAP 1 CAP PO ×2 (07:49→21:02)
[2023-09-28] MEDS: Sucralfate 1 GM TAB PO ×4 (07:49→21:03)
[2023-09-28] MEDS: Carbidopa 25/Levodopa 100 TAB PO ×3 (07:49→21:00)
[2023-09-28] MEDS: Cholecalciferol (Vitamin D3) 1,000 UNIT TAB 2000 UNITS PO (07:49)
[2023-09-28] MEDS: Ascorbic Acid 500 MG TAB 1000 MG PO (07:50)
[2023-09-28] MEDS: Albuterol/Ipratropium 3 ML UPD VIAL UPD ×4 (07:50→19:11)
[2023-09-28] MEDS: Insulin Glargine 300 UNITS/3 ML PEN 32 UNITS SC ×2 (07:51→21:11)
[2023-09-28] MEDS: Sulfameth/Trimeth DS TAB 1 TAB PO (09:14)
[2023-09-28] MEDS: Potassium Chloride 20 MEQ TABCR PO ×3 (09:14→21:03)
[2023-09-28] MEDS: Pregabalin 25 MG CAP PO ×3 (09:15→21:00)
[2023-09-28] MEDS: predniSONE 20 MG TAB 60 MG PO (09:15)
--- NOTE | 2023-09-28 09:47 | PT.INTREAT ---
PT Notes Visit Reasons: Acute on chronic hypoxic respiratory failure Inpatient Physical Therapy Treatment Note [facility] Date: 09/28/23 PRECAUTIONS:Standard SUBJECTIVE: Pt reports some mild short dizziness and a headache during his session. OBJECTIVE: VITALS: ? Pre-Treatment: 2L NC 94% During ambulation 2L at pt's request down to 88% increased to 3L low to mid 90's with oxygen. ? Therapeutic Activities ([id number][]): Direct one-on-one instruction in dynamic activities to improve functional performance. ? BED MOBILITY/TRANSFERS? Sit-stand: SBA ? Stand-sit: SBA ? Provided skilled cues and instruction on performance and technique throughout. Gait Training (82029w[]): Direct one-on-one instruction and skilled instruction in: ? Therapeutic Exercises (74691a[2]): Direct one-on-one instruction in therapeutic exercises to develop strength, endurance, range of motion and flexibility. ? Exercises ? Rowing x 10 Horz abd x 5 Shoulder flexion x 5 LAQ x 10 Hip abd x 10 Marching x 10 Ambulation ? Assistive Device: FWW with follow behind w/c 3 seated rests ? Weight bearing: Full Assist: SBA? Distance:? 30ft ? Provided skilled instruction in proper exercise performance ASSESSMENT:? Pt required frequent rest periods and cues for pursed lip breathing. PLAN: Cont as per PT POC. TREATMENT CODE/TIME: 9:15-9:45 (30) TE x2
--- NOTE | 2023-09-28 10:15 | PDOC.CMPRO ---
Date of service: 09/28/23 Time of Service: 10:15 Care Management Progress Note Progress Note Text Progress Note Text: S/O: Dwight was lying in bed watching TV when CM met with him. He is sleeping well at night and feeling much better today respiratory calderon. Discharge on Monday on PO Diuretics if he continues to improve medically. Resumption of O/E [facility] RN/PT services. A: Vinay is a 63 year old male admitted to [facility] on 09/24/23 with an acute on chronic hypoxic respiratory failure. Discharge Potential Discharge Needs: Consult Consult Services Needed: Cardiology, Nutrition and Pulmonary and PT Evaluation Anticipated Barriers to Discharge: None Identified Patient/Family Education Needs: Review discharge instructions, discuss Ask Me Three Transportation: Private vehicle Plan: Vinay requires close monitoring and treatment for Acute on Chronic Respiratory Failure. See H&P. Anticipate d/c Monday on PO Diuretics with an Outpt cardio follow up. Resumption of O/E [facility] RN/PT and will transport with using his portable inogen concentrator. CM will continue to support Dwight and assess for discharge concerns. SDOH(Care Management) Screening Will the Patient Participate in the Screening?: Unable to obtain
--- NOTE | 2023-09-28 10:42 | PGE_ITS ---
Date of Service Date of service: 09/28/23 Time of Service: 10:42 Assessment and Plan Assessment and plan (1) Acute and chronic respiratory failure: Status: Acute Assessment and plan: Hx IDL and is seen by pulmonology at [facility] Reported symptoms starting appx 1 week prior to admission after increased salt intake with pulmonary changing his furosemide to torsemide w/o improvement . Continue oral prednisone 60 mg daily Supplemental O2 to maintain O2 sat. > 88%.The patient [id number] machine seemed not as effective as her regular NC in day time (2) Chronic interstitial lung disease: Status: Chronic Assessment and plan: Continue PRN albuterol. Continue duonebs Pulmonary consult completed and discussed -Prednisone taper recommendation issued for discharge Increased sputum production with darker green, on chronic Bactrim d/t history of pneumocystis jirovecii pneumonia -Will continue doxycycline -Continue IS and Vibrapep -Continue Mucinex (3) (HFpEF) heart failure with preserved ejection fraction: Status: Acute Assessment and plan: Cardiology consult -Torsemide 50 mg BID today and discontinue Lasix 80 mg IV BID -Additional methalozone if more diuresis needed LVEF 60 % in 08/2023 with RV hypokinesis Monitor weight, VS , Cr, K, Mg weight on admit 107.1 KG now 103.4kg Cr 1.3 on admission, maxed at 1.6 now 1.1 GFR 61.35 on admission now 74.96 GDMT most likely applies to HFrEF but jardiance is recommended in HFpEF -Jardiance started s/p discussion with patient this AM re: benefit VS potential renal side effect -Also discussed with Dr Snider (4) Pulmonary embolism on long-term anticoagulation therapy: Assessment and plan: On home dose of apixaban (5) Diabetes mellitus: Assessment and plan: Blood sugars 133 to 240, improved Continue basal home insulin bolus dose Continue SSI coverage resistant dosing. On diabetic diet. At this time no need to consider adding NPH in the setting of steroids Continue Jardiance Cr is 1.1 from 1.0 Qualifiers: Diabetes mellitus complication status: with hyperglycemia Diabetes mellitus fdc insulin use: with transplanter use Diabetes mellitus type: type 2 Qualified Code(s): E11.65 - Type 2 diabetes mellitus with hyperglycemia; Z79.4 - trademark paralegal (current) use of insulin (6) Hypokalemia: Status: Resolved Assessment and plan: K 4.0 this AM On TID supplementation of Oral KCl 20 meQ BMP in AM Mag in AM (7) Sleep apnea: Status: Chronic Assessment and plan: On home CPAP at (8) Obesity (BMI 30-39.9): Status: Acute Assessment and plan: Again counselor at law the patient on lifestyle modifications within the limits permitted by his chronic conditions PT consult in progress: ambulated in [facility] today Nutrition consult in progress: -Discussed sodium intake, labels and diverse designation for Na Lifestyle modification discussed and to be discussed further with PCP (9) Discharge planning issues: Status: Acute Assessment and plan: No new need at this time ; CM to f/u if new needs Prednisone taper on discharge as per Dr. Paniagua The patient had HH EDI PROGRAMMER ANALYST Resumption of previous services discussed with CM Refer to [facility] Discussed with Dr. Beach Subjective Subjective Patient reports: feels better, tolerating liquids well, tolerating a regular diet, flatus, bowel movement and shortness of breath (improving ); denies diarrhea, blood in stool, nausea, vomiting or fever Exam Narrative Exam Narrative: Constitutional The patient is in bed SOB with long sentences during conversation Neuro:alert and oriented X 4 Resp:Clear Lungs, diminished bases improving with coughing Cardio: regular rhythm, S1, S2, no murmur, radial and pedal pulses are positive. trace LEs edema GI: Abdomen is large not distended, soft Psych: RASS 0, congruent mood and normal affect. Objective Last Vital Signs Temp 36.4 C L 09/28/23 07:15 Pulse 64 09/28/23 07:50 Resp 19 09/28/23 07:15 BP 133/80 09/28/23 07:15 Pulse Ox 98 09/28/23 07:50 Laboratory Results - last 24 hr 09/28/23 06:42 WBC 12.73 H RBC 4.33 L Hgb 13.9 Hct 40.9 MCV 95 MCH 32.1 MCHC 34.0 RDW 13.1 Plt Count 146 MPV 9.2 Immature Gran % 2.7 Neutrophils % 69.7 Lymphocytes % 19.0 Monocytes % 7.5 Eosinophils % 0.6 Basophils % 0.5 Nucleated RBC % 0.0 Absolute Neutrophils 8.87 H Absolute Lymphocytes 2.42 Absolute Monocytes 0.95 H Absolute Eosinophils 0.08 Absolute Basophils 0.06 Sodium 138 Potassium 4.0 Chloride 99 Carbon Dioxide 31.9 Anion Gap 7.1 BUN 28 H Creatinine 1.1 Est GFR (CKD-EPI 2020) 74.96 Glucose 140 H Calcium 9.4 Time Spent with Patient Time Spent with Patient: >50 minutes Time was spent: preparing to see the patient(eg.review tests), obtaining and/or reviewing separately otained hiistory, ordering medications,tests, procedures, referring, communicating with other health managed care coordinator, indepentently interpreting results, counseling the patient and care coordination
[2023-09-28] MEDS: DOXYCYCLINE 100 MG in Normal Saline 100 ML IVPB (12:22)
[2023-09-28] MEDS: Insulin Aspart 300 UNITS/3 ML PEN SC ×3 (12:23→21:14)
[2023-09-28] MEDS: Torsemide 10 MG TAB 50 MG PO (15:43)
--- NOTE | 2023-09-28 15:51 | CHAPLAIN ---
Deonte said he is feeling better today. He was sitting up in bed and easily engaged in conversation. His brother from [place] is planning on being in [place] later this month and Deonte wants very much not to be in the hospital when his brother visits. He hasn't seen him since before [facility]. Deonte was intubated with COVID for a few months and then was in a rehab for several months after that dealing with respiratory issues. He said he's on a new antibiotic today and is taking meds to get rid of some fluid. He hopes possibly go home tomorrow. Today talked about his fishing experiences. He especially likes to ice fish. Deonte was raised in [place] and [place] and spend a lot of time fishing with his brother. I will continue to visit.
[2023-09-28] MEDS: Benzonatate 200 MG CAP PO (21:01)
[2023-09-28] MEDS: Zolpidem 5 MG TAB PO (21:01)
[2023-09-28] MEDS: Tamsulosin 0.4 MG CAPCR PO (21:02)
[2023-09-28] MEDS: Melatonin 3 MG TAB PO (21:02)
[2023-09-28] MEDS: Atorvastatin 20 MG TAB PO (21:03)
[2023-09-28] MEDS: Mirtazapine 15 MG TAB PO (21:03)
[2023-09-29] VITALS (13 sets, daily range): BP systolic 132–155; BP diastolic 79–89; PULSE 65–94; RESP 2–18; TEMP 36–37; O2SAT 92–96
[2023-09-29] MEDS: DOXYCYCLINE 100 MG in Normal Saline 100 ML IVPB (00:21)
[2023-09-29 06:55] LABS: Abs Immature Grans 0.61 10^3/uL (0.0-0.06); HCT 45.3 % (40.0-50.0); MCH 31.3 pg (27.0-33.0); MCHC 33.1 % (32.0-36.0); MCV 94 fL (80-95); MPV 9.4 fL (8.0-11.0); Platelet Count 177 10^3/uL (130-400); RDW 13.2 % (11.8-14.1); RDW-SD 45.7 fL; WBC 14.92 10^3/uL (4.4-10.8)
[2023-09-29 07:13] LABS: Anion Gap 7.7 mmol/L (3-11); BUN 36 mg/dL (7-18); CO2 35.3 mmol/L (21.0-32.0); CREATININE 1.2 mg/dL (0.70-1.30); Calcium 9.5 mg/dL (8.5-10.1); Chloride 99 mmol/L (98-107); Estimated GFR 67.53 (mL/min/1.73m2); Glucose 146 mg/dL (74-106); Magnesium 2.3 mg/dL (1.8-2.4); Potassium 3.5 mmol/L (3.5-5.1); Sodium 142 mmol/L (136-145)
[2023-09-29 07:30] LABS: Absolute Lymphocyte Count 3.43 10^3/uL (1.2-3.4); Absolute Neutrophil Count 10.29 10^3/uL (1.2-6.7); Atypical Lymphocytes % 5 %; Bands % 0 %; Diff Comment Manual Differential; RBC Morphology Normal
[2023-09-29] MEDS: Apixaban 5 MG TAB PO ×2 (07:39→20:44)
[2023-09-29] MEDS: Sulfameth/Trimeth DS TAB 1 TAB PO (07:39)
[2023-09-29] MEDS: Carbidopa 25/Levodopa 100 TAB PO ×3 (07:39→20:41)
[2023-09-29] MEDS: Ascorbic Acid 500 MG TAB 1000 MG PO (07:40)
[2023-09-29] MEDS: Sucralfate 1 GM TAB PO ×4 (07:40→20:44)
[2023-09-29] MEDS: Calcium Citrate 950 MG TAB PO ×2 (07:40→20:43)
[2023-09-29] MEDS: Lactobacillus Acidophilus CAP 1 CAP PO ×2 (07:40→20:44)
[2023-09-29] MEDS: Multivitamin w/Minerals TAB 1 TAB PO (07:41)
[2023-09-29] MEDS: Famotidine 20 MG TAB PO ×2 (07:41→20:42)
[2023-09-29] MEDS: Empaglifozin 10 MG TAB PO (07:41)
[2023-09-29] MEDS: predniSONE 20 MG TAB 60 MG PO (07:41)
[2023-09-29] MEDS: Magnesium Oxide 400 MG TAB PO (07:42)
[2023-09-29] MEDS: Cholecalciferol (Vitamin D3) 1,000 UNIT TAB 2000 UNITS PO (07:42)
[2023-09-29] MEDS: Pregabalin 25 MG CAP PO ×3 (07:43→20:44)
[2023-09-29] MEDS: metFORMIN 500 MG TAB PO ×2 (07:43→16:30)
[2023-09-29] MEDS: guaiFENesin 600 MG TABCR PO ×2 (07:43→20:45)
[2023-09-29] MEDS: Torsemide 10 MG TAB 50 MG PO (07:44)
[2023-09-29] MEDS: Albuterol/Ipratropium 3 ML UPD VIAL UPD ×4 (07:44→19:53)
[2023-09-29] MEDS: Potassium Chloride 20 MEQ TABCR PO ×3 (07:44→20:43)
[2023-09-29] MEDS: Insulin Glargine 300 UNITS/3 ML PEN 32 UNITS SC ×2 (07:45→20:51)
[2023-09-29] MEDS: Normal Saline Flush 10 ML SYR IVP ×2 (07:46→20:58)
[2023-09-29] MEDS: Acetaminophen 325 MG TAB PO (08:40)
[2023-09-29] MEDS: Senna TAB 2 TAB PO (08:40)
--- NOTE | 2023-09-29 09:00 | PT.INTREAT ---
PT Notes Visit Reasons: Acute on chronic hypoxic respiratory failure Date: 09/29/23 PRECAUTIONS: Fall. Standard. Activity as tolerated. SUBJECTIVE: Pt in bed when approached for therapy session this morning, pt agreed to participating with session. OBJECTIVE: ?NC 2L 02 support? PAIN: none reported, angina with activity VITALS: telemetry in place Therapeutic Activities 96814: Direct one-on-one instruction in dynamic activities to improve functional performance. ?? BED MOBILITY/TRANSFERS? Rolling L/R: supervision Supine-sit: ?supervision ? Sit-supine: ? ?supervision? Sit-stand: ? SBA? Stand-sit: ??SBA ? Bed-Chair:? ?SBA ? Chair-bed: SBA Provided skilled cues and instruction on performance and technique throughout. Gait Training [id number]: Direct one-on-one instruction and skilled instruction in: Employing an assistive device Modified weight-bearing status Movement sequencing Turning and movement with proper form Provided verbal cues for equipment management and technique Provided instruction in gait pattern Patient education regarding pacing and breathing techniques to maximize activity tolerance? GAIT? Assistive Device: ?? FWW ? Weight bearing: FWB Assist: ? SBA? Distance:?? ?75' x 3 WC follow for seated rest break (am), Deviation: ? Slow juan, Wide ELIGIO, low step height, short step length ? ASSESSMENT:?(am)Pt SA02 response taken during the duration of session with pt having 85% SAO2 98PR on the first 75', 88% SAO2 97PR on the second 75', 80% SAO2 99PR on the third 75' able to bounce back to low 90's after 3-4 minute rest break with cue for deep breathing to help with FORMAN. PLAN: Continue with balance training, global strengthening and general conditioning for improved safety, mobility and activity tolerance until pt is ready for DC. TREATMENT CODE/TIME: [id number], [id number] 30mins (8:20-8:50am)
--- NOTE | 2023-09-29 09:08 | PGE_ITS ---
Date of Service Date of service: 09/29/23 Time of Service: 09:08 Assessment and Plan Assessment and plan (1) Acute and chronic respiratory failure: Status: Acute Assessment and plan: Hx IDL and is seen by pulmonology at [facility] Reported symptoms starting appx 1 week prior to admission after increased salt intake with pulmonary changing his furosemide to torsemide w/o improvement . Continue oral prednisone 60 mg daily Supplemental O2 to maintain O2 sat. > 88%.The patient [id number] machine seemed not as effective as her regular NC in day time (2) Chronic interstitial lung disease: Status: Chronic Assessment and plan: Continue PRN albuterol. Will continue duonebs Pulmonary consult completed and discussed with Anuj Pimentel APRN and Dr. 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 -Will continue doxycycline and change to oral form -Will continue IS and Vibrapep -Will continue Mucinex (3) (HFpEF) heart failure with preserved ejection fraction: Status: Acute Assessment and plan: Cardiology consult -Continue Torsemide but at 40 mg BID today -Additional methalozone is mostly unlikely to be needed u/o 1300ml from midnight with negative balance of 950ml LVEF 60 % in 08/2023 with RV hypokinesis Monitor weight, VS , Cr, K, Mg weight on admit 107.1 KG now 103.4kg Cr 1.3 on admission, maxed at 1.6 now 1.2 GFR 61.35 on admission now 67 GDMT most likely applies to HFrEF but jardiance is recommended in HFpEF -Jardiance started s/p discussion with patient this AM re: benefit VS potential renal side effect -Continue Jardiance -Also discussed with Dr Snider (4) Pulmonary embolism on long-term anticoagulation therapy: Assessment and plan: Continue home dose of apixaban (5) Diabetes mellitus: Assessment and plan: Blood sugars 137 to 270, improved from admission levels around 394 Continue basal home insulin bolus dose Continue SSI coverage resistant dosing. Continue diabetic diet. At this time no need to consider adding NPH in the setting of steroids Continue Jardiance, Cr is 1.2 Qualifiers: Diabetes mellitus complication status: with hyperglycemia Diabetes mellitus half-way insulin use: with supervisor intermediates use Diabetes mellitus type: type 2 Qualified Code(s): E11.65 - Type 2 diabetes mellitus with hyperglycemia; Z79.4 - supervisor intermediates (current) use of insulin (6) Hypokalemia: Status: Resolved Assessment and plan: Resolved will decrease supplementation to BID with KCl 20 meq BMP in AM (7) Sleep apnea: Status: Chronic Assessment and plan: On home CPAP with home settings at (8) Obesity (BMI 30-39.9): Status: Acute Assessment and plan: previously counseled on ifestyle modifications within the limits permitted by his chronic conditions PT consult in progress Nutrition consult in progress: -Discussed sodium intake, labels and diverse designation for Na Lifestyle modification discussed and to be discussed further with PCP (9) Discharge planning issues: Status: Acute Assessment and plan: No new need at this time ; CM to f/u if new needs Prednisone taper on discharge as per Dr. Paniagua The patient had HH [facility] Resumption of previous services discussed with CM Refer to [facility] cardiology Discussed with Dr. Beach Subjective Subjective Patient reports: no new complaints, feels better, tolerating liquids well, tolerating a regular diet, flatus, no bowel movement and shortness of breath (improved from 09/27/23); denies nausea or vomiting Exam Narrative Exam Narrative: Constitutional The patient is sitting chair, minimal WOB noticed Neuro:alert and oriented X 4 Resp:Clear Lungs, diminished bases improving with coughing Cardio:Tel in SR HR 95 S1, S2, no murmur, radial pulses are positive GI: Abdomen is large not distended, soft, bowel sounds are present Psych: RASS 0, congruent mood and normal affect. Objective Last Vital Signs Temp 36.0 C L 09/29/23 07:11 Pulse 67 09/29/23 07:44 Resp 17 09/29/23 07:11 BP 155/89 H 09/29/23 07:11 Pulse Ox 95 09/29/23 07:44 Laboratory Results - last 24 hr 09/29/23 06:30 WBC 14.92 H RBC 4.80 Hgb 15.0 Hct 45.3 MCV 94 MCH 31.3 MCHC 33.1 RDW 13.2 Plt Count 177 MPV 9.4 Immature Gran % 0.0 Neutrophils % 69.0 Band Neutrophils % 0 Lymphocytes % 18.0 Atypical Lymphs % 5 Monocytes % 6.0 Eosinophils % 2.0 Basophils % 0.0 Nucleated RBC % 0.0 Absolute Neutrophils 10.29 H Absolute Lymphocytes 3.43 H Absolute Monocytes 0.90 H Absolute Eosinophils 0.30 Absolute Basophils 0.00 RBC Morphology Normal Sodium 142 Potassium 3.5 Chloride 99 Carbon Dioxide 35.3 H Anion Gap 7.7 BUN 36 H Creatinine 1.2 Est GFR (CKD-EPI 2020) 67.53 Glucose 146 H Calcium 9.5 Magnesium 2.3 Time Spent with Patient Time Spent with Patient: >50 minutes Time was spent: preparing to see the patient(eg.review tests), obtaining and/or reviewing separately otained hiistory, ordering medications,tests, procedures, referring, communicating with other health child caregiver, indepentently interpreting results, counseling the patient and care coordination
[2023-09-29] MEDS: Doxycycline Hyclate 100 MG CAP PO ×2 (10:10→22:01)
[2023-09-29] MEDS: Insulin Aspart 300 UNITS/3 ML PEN SC ×3 (11:29→20:46)
--- NOTE | 2023-09-29 13:17 | CMPROGNOTE_ITS ---
Date of service: 09/29/23 Time of Service: 13:17 Care Management Progress Note Progress Note Text Progress Note Text: S/O: Dwight is being closely monitored and treated for respiratory failure. He is working with PT and his activity tolerance continues to progress. Tentative discharge tomorrow on PO Diuretics and neb treatments, if he continues to improve medically. Vinay already has a nebulizer at home, he would likely benefit from new tubing, which CM asked RT to provide. Dwight will be referred to outpt Cardiology and follow up with Pulmonology. [facility] is [facility] and will needed a Resumption of [facility] RN/PT services. No change to overall discharge plan. A: Vinay is a 63 year old male admitted to [facility] on 09/24/23 with an acute on chronic hypoxic respiratory failure. Discharge Potential Discharge Needs: PCP F/U Appt Anticipated Barriers to Discharge: None Identified Patient/Family Education Needs: Review discharge instructions, discuss Ask Me Three Transportation: Private vehicle Plan: Vinay requires close monitoring and treatment for Acute on Chronic Respiratory Failure. See H&P. Anticipate d/c Monday on PO Diuretics with an Outpt cardio follow up. Resumption of [facility] RN/PT and will transport with using his portable inogen concentrator. Vinay has a nebulizer for home, CM asked RT if they could supply him new tubing. CM will continue to support Dwight and assess for discharge concerns. SDOH(Care Management) Screening Will the Patient Participate in the Screening?: Unable to obtain Anticipated HH Services Anticipated HH Services at Discharge [facility] ( RN, PT) Resumption.
[2023-09-29] MEDS: Torsemide 10 MG TAB 40 MG PO (16:29)
[2023-09-29] MEDS: Mirtazapine 15 MG TAB PO (20:41)
[2023-09-29] MEDS: Tamsulosin 0.4 MG CAPCR PO (20:41)
[2023-09-29] MEDS: Zolpidem 5 MG TAB PO (20:42)
[2023-09-29] MEDS: Melatonin 3 MG TAB PO (20:43)
[2023-09-29] MEDS: Atorvastatin 20 MG TAB PO (20:45)
[2023-09-29] MEDS: Normal Saline 10 ML VIAL IJ (20:51)
[2023-09-30 02:34] VITALS: BP 131/78; PULSE 68; RESP 16; TEMP 36.4; O2SAT 96
[2023-09-30 06:24] LABS: Abs Immature Grans 0.61 10^3/uL (0.0-0.06); Absolute Basophil Count 0.08 10^3/uL (0.0-0.2); Absolute Eosinophil Count 0.17 10^3/uL (0.0-0.7); Absolute Lymphocyte Count 3.53 10^3/uL (1.2-3.4); Basophils % 0.5 %; Eosinophils % 1.1 %; HCT 45.1 % (40.0-50.0); HGB 15.2 g/dL (13.5-17.5); Immature Grans % 3.9 %; Lymphocytes % 22.8 %; MCH 31.6 pg (27.0-33.0); MCHC 33.7 % (32.0-36.0); MCV 94 fL (80-95); MPV 9.2 fL (8.0-11.0); Monocytes % 6.7 %; Platelet Count 184 10^3/uL (130-400); RBC 4.81 10^6/uL (4.36-5.78); RDW 13.3 % (11.8-14.1); RDW-SD 45.4 fL; WBC 15.47 10^3/uL (4.4-10.8)
[2023-09-30 06:29] LABS: Absolute Monocyte Count 1.04 10^3/uL (0.1-0.8); Absolute Neutrophil Count 10.06 10^3/uL (1.2-6.7)
[2023-09-30 06:40] LABS: Diff Comment Diff Reviewed; RBC Morphology Normal
[2023-09-30 06:41] LABS: Anion Gap 9.7 mmol/L (3-11); BUN 36 mg/dL (7-18); CO2 35.3 mmol/L (21.0-32.0); CREATININE 1.2 mg/dL (0.70-1.30); Calcium 9.4 mg/dL (8.5-10.1); Chloride 95 mmol/L (98-107); Estimated GFR 67.53 (mL/min/1.73m2); Glucose 139 mg/dL (74-106); Potassium 3.4 mmol/L (3.5-5.1); Sodium 140 mmol/L (136-145)
[2023-09-30] MEDS: Sucralfate 1 GM TAB PO ×2 (07:39→11:51)
[2023-09-30] MEDS: Ascorbic Acid 500 MG TAB 1000 MG PO (07:39)
[2023-09-30] MEDS: Magnesium Oxide 400 MG TAB PO (07:40)
[2023-09-30] MEDS: Calcium Citrate 950 MG TAB PO (07:40)
[2023-09-30] MEDS: Sulfameth/Trimeth DS TAB 1 TAB PO (07:40)
[2023-09-30] MEDS: Multivitamin w/Minerals TAB 1 TAB PO (07:40)
[2023-09-30] MEDS: predniSONE 20 MG TAB 60 MG PO (07:40)
[2023-09-30] MEDS: Empaglifozin 10 MG TAB PO (07:40)
[2023-09-30] MEDS: Lactobacillus Acidophilus CAP 1 CAP PO (07:40)
[2023-09-30] MEDS: Cholecalciferol (Vitamin D3) 1,000 UNIT TAB 2000 UNITS PO (07:40)
[2023-09-30] MEDS: Apixaban 5 MG TAB PO (07:40)
[2023-09-30] MEDS: metFORMIN 500 MG TAB PO (07:40)
[2023-09-30 07:41] VITALS: BP 127/77; PULSE 64; RESP 15; TEMP 36.5; O2SAT 95
[2023-09-30] MEDS: guaiFENesin 600 MG TABCR PO (07:41)
[2023-09-30] MEDS: Carbidopa 25/Levodopa 100 TAB PO ×2 (07:41→14:44)
[2023-09-30] MEDS: Potassium Chloride 20 MEQ TABCR PO ×2 (07:41→14:44)
[2023-09-30] MEDS: Pregabalin 25 MG CAP PO ×2 (07:41→14:44)
[2023-09-30] MEDS: Famotidine 20 MG TAB PO (07:41)
[2023-09-30] MEDS: Normal Saline Flush 10 ML SYR IVP (07:42)
[2023-09-30] MEDS: Torsemide 20 MG TAB 40 MG PO (09:43)
[2023-09-30] MEDS: Alendronate 70 MG TAB PO (09:43)
[2023-09-30] MEDS: Doxycycline Hyclate 100 MG CAP PO (09:44)
[2023-09-30] MEDS: Senna TAB 2 TAB PO (09:44)
[2023-09-30] MEDS: Insulin Glargine 300 UNITS/3 ML PEN 32 UNITS SC (09:44)
[2023-09-30] MEDS: Acetaminophen 325 MG TAB PO (09:44)
[2023-09-30 11:11] VITALS: BP 141/78; PULSE 80; RESP 17; TEMP 37.1; O2SAT 95
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
[2023-09-30] MEDS: Insulin Aspart 300 UNITS/3 ML PEN SC (11:50)
[2023-09-30] MEDS: Bisacodyl 5 MG TABEC PO (11:51)
[2023-09-30 11:57] VITALS: PULSE 95; RESP 16; RESP 2; RESP 9; O2SAT 92
[2023-09-30] MEDS: Albuterol/Ipratropium 3 ML UPD VIAL UPD (11:57)
--- NOTE | 2023-09-30 12:00 | PT.INNT ---
PT Notes Visit Reasons: Acute on chronic hypoxic respiratory failure d/c to home.
[2023-09-30 12:04] VITALS: PULSE 93
--- NOTE | 2023-09-30 13:33 | PDOC.CMDIS ---
Date of service: 09/30/23 Time of Service: 13:33 LACE Index Scoring Tool Questions: Length of Stay (in days): 4 - 6 Was the patient admitted via the E.D.?: Yes Comorbidities: Cerebrovascular Disease, Diabetes w/o Complication, Congestive Heart Failure and Chronic Pulmonary Disease E.D. Visits: 6 Answers: Total Score: 16 Risk of Readmission: High Risk Care Management Discharge Plan Reason for Hospitalization: acute on chronic respiratory failure Discharge Plan: Deonte will be discharged home with a resumption of home health services for nursing and PT. He will follow up with his community providers and plan of care and transport with family. Patient/Family Education Needs: Review of discharge instructions, activity, limitations, follow up plan, discuss Ask Me Three Services Needed at Discharge: Home Health Care Services SDOH Health Related Social Needs: Health related social needs risk of homeless
[2023-09-30] MEDS: Potassium Chloride 20 MEQ TABCR 40 MEQ PO (15:48)
== END 2023-09-30 16:02 | disposition home or self-care (01) | DRG 189 ==
LOC: ER 14:04 → MS 16:12
PROVIDERS: Family Medicine; General Practice; Nurse Practitioner Acute Care; Nurse Practitioner Family; Admitting Provider Internal Medicine; Emergency Provider Emergency Medicine; PCP Nurse Practitioner Family; Visit Provider Internal Medicine
DX: I50.33 Acute on chronic diastolic (congestive) heart failure; J84.9 Interstitial pulmonary disease, unspecified; I11.0 Hypertensive heart disease with heart failure; Z79.01 Long term (current) use of anticoagulants; Z86.711 Personal history of pulmonary embolism; E11.65 Type 2 diabetes mellitus with hyperglycemia; Z79.4 Long term (current) use of insulin; E66.9 Obesity, unspecified; E87.6 Hypokalemia; J96.21 Acute and chronic respiratory failure with hypoxia; G47.33 Obstructive sleep apnea (adult) (pediatric); Z99.81 Dependence on supplemental oxygen; R07.89 Other chest pain; R13.10 Dysphagia, unspecified; J45.909 Unspecified asthma, uncomplicated; K21.9 Gastro-esophageal reflux disease without esophagitis; K22.70 Barrett's esophagus without dysplasia; E11.42 Type 2 diabetes mellitus with diabetic polyneuropathy; Z86.73 Personal history of transient ischemic attack (TIA), and cerebral infarction without residual deficits; F10.11 Alcohol abuse, in remission; Z86.718 Personal history of other venous thrombosis and embolism; F32.A Depression, unspecified; Z96.643 Presence of artificial hip joint, bilateral; Z96.651 Presence of right artificial knee joint; Z96.611 Presence of right artificial shoulder joint; Z68.34 Body mass index [BMI] 34.0-34.9, adult
CPT/HCPCS: 00123; 36410; 36415; 36416; 80048; 80053; 82805; 82962; 93005; 94640; 96374; 96375; 97110; 97116; 97162; 97530; 99285; 71045; 83735; 83880; 84484; 85025; 93010; 94664; 94667; 94668; 94760; 99222; 99233; 99239; J1815; J1940; J2919; J3480; J7512; J7620

== ENCOUNTER 2023-11-30 12:56 | Emergency (ER) | payer OTHER, SELFPAY ==
--- NOTE | 2023-11-30 12:45 | RT.EKG_ITS ---
APPROVED REPORT Exam: Resting ECG Reason for Exam: sob Patient Location: E HR:86 bpm ECG Measurements Heart Rate 86 AXIS SD 168 P 30 QRSd 84 QRS 5 QT 366 T 30 QTc 437 Conclusion Sinus rhythm...normal P axis, V-rate 60- 99
[2023-11-30 12:58] VITALS: BP 160/72; PULSE 110; RESP 20; TEMP 37.1; O2SAT 89
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
[2023-11-30 13:42] VITALS: BP 160/72; PULSE 110; RESP 20; TEMP 37.1; O2SAT 894
[2023-11-30 13:45] LABS: BE (Venous) 7 mmol/L (-2-3); HCO3 (Venous) 32 mmol/L (23-28); O2 Sat (Venous) 63 %; TCO2 (Venous) 30 mmol/L (24-29); pCO2 (Venous) 56 mmHg (41-51); pH (Venous) 7.37 (7.31-7.41); pO2 (Venous) 33 mmHg
[2023-11-30 13:46] LABS: Abs Immature Grans 0.07 10^3/uL (0.0-0.06); Absolute Basophil Count 0.06 10^3/uL (0.0-0.2); Absolute Eosinophil Count 0.15 10^3/uL (0.0-0.7); Absolute Monocyte Count 0.65 10^3/uL (0.1-0.8); Absolute Neutrophil Count 8.85 10^3/uL (1.2-6.7); Basophils % 0.5 %; Eosinophils % 1.3 %; HCT 39.6 % (40.0-50.0); HGB 13.1 g/dL (13.5-17.5); Immature Grans % 0.6 %; Lymphocytes % 14.1 %; MCH 30.7 pg (27.0-33.0); MCHC 33.1 % (32.0-36.0); MCV 93 fL (80-95); MPV 8.8 fL (8.0-11.0); Monocytes % 5.7 %; Neutrophils % 77.8 %; Platelet Count 177 10^3/uL (130-400); RBC 4.27 10^6/uL (4.36-5.78); RDW-SD 47.6 fL; WBC 11.38 10^3/uL (4.4-10.8)
[2023-11-30 14:04] LABS: INR 1.1 (0.9-1.1); PTT Activated 24.1 sec (23.6-32.8); Prothrombin Time 10.8 sec (9.1-11.1)
[2023-11-30 14:09] LABS: ALT 62 U/L (16-63); AST 33 U/L (15-37); Albumin 3.1 g/dL (3.4-5.0); Alkaline Phosphatase 80 U/L (46-116); Anion Gap 6.6 mmol/L (3-11); BUN 13 mg/dL (7-18); Bilirubin, Total 0.52 mg/dL (0.2-1.0); CO2 32.4 mmol/L (21.0-32.0); CREATININE 0.9 mg/dL (0.70-1.30); Calcium 8.5 mg/dL (8.5-10.1); Chloride 106 mmol/L (98-107); Estimated GFR 95.37 (mL/min/1.73m2); Glucose 205 mg/dL (74-106); Magnesium 1.5 mg/dL (1.8-2.4); Potassium 3.7 mmol/L (3.5-5.1); Sodium 145 mmol/L (136-145); TSH (W/Ref FT4) 2.48 uIU/mL (0.36-3.74); Total Protein 6.3 g/dL (6.4-8.2); Troponin I < 50 ng/L (< or =60)
--- NOTE | 2023-11-30 14:09 | DI.RAD_ITS ---
Exam(s) XR CHEST 2V PA LATERAL EXAM: XR CHEST 2V PA LATERAL CLINICAL HISTORY: dyspnea, ?pneumonia TECHNIQUE: 2D digital imaging was performed. Two views. COMPARISON: CR XR CHEST 2V PA LATERAL from 05/17/2023 CR XR CHEST 2V PA LATERAL from 08/24/2023 CR,XR XR PORTABLE CHEST AP from 08/27/2023 CR,XR XR PORTABLE CHEST AP from 09/24/2023 FINDINGS: Exam is limited by poor pulmonary inflation and under penetration. HEART: Mildly enlarged. Aorta: Not dilated. PULMONARY VASCULATURE: Vascular crowding. MEDIASTINUM: Unremarkable. LUNGS: Increased interstitial markings. An element of this appears chronic. Mild pulmonary edema is not excluded. PLEURAL SPACE: No pleural effusion or pneumothorax. BONE:Stable mild midthoracic compression fracture. Right shoulder prosthesis. SOFT TISSUES: Unremarkable. IMPRESSION: Question of mild CHF. No visible focal area of consolidation. DATA REPOSITORY: RADIATION DOSE DELIVERED:
[2023-11-30] MEDS: Albuterol/Ipratropium 3 ML UPD VIAL UPD (14:10)
[2023-11-30] MEDS: methylPREDNISolone SUCC 125 MG VIAL IVP (14:11)
[2023-11-30 14:13] LABS: NT-proBNP 253 pg/mL (<300)
[2023-11-30 14:35] LABS: COVID-19 PCR Negative (Negative); Influenza A PCR Negative (Negative); Influenza B PCR Negative (Negative); RSV PCR Negative (Negative)
[2023-11-30 14:40] LABS: Source Nasopharynx
[2023-11-30 14:53] VITALS: BP 137/77; PULSE 78; RESP 20; TEMP 37.1; O2SAT 96
[2023-11-30 14:55] LABS: Procalcitonin < 0.1 ng/mL
[2023-11-30 15:07] VITALS: RESP 22
== END 2023-11-30 15:09 | disposition home or self-care (01) ==
PROVIDERS: Emergency Provider Emergency Medicine; PCP Nurse Practitioner Family
DX: R06.02 Shortness of breath (principal); R05.9 Cough, unspecified; J84.89 Other specified interstitial pulmonary diseases; I11.0 Hypertensive heart disease with heart failure; I50.32 Chronic diastolic (congestive) heart failure; E11.9 Type 2 diabetes mellitus without complications; Z86.73 Personal history of transient ischemic attack (TIA), and cerebral infarction without residual deficits; Z86.711 Personal history of pulmonary embolism; Z86.718 Personal history of other venous thrombosis and embolism; Z79.01 Long term (current) use of anticoagulants; Z79.4 Long term (current) use of insulin; Z79.84 Long term (current) use of oral hypoglycemic drugs; Z99.81 Dependence on supplemental oxygen
CPT/HCPCS: 36415; 80053; 82805; 84145; 87637; 93005; 94640; 96374; 99285; 71046; 83735; 83880; 84443; 84484; 85025; 85610; 85730; 93010; J2919; J7620

== ENCOUNTER 2025-02-07 14:15 | Inpatient (IN) | payer OTHER, SELFPAY ==
[2025-02-07] VITALS (45 sets, daily range): BP systolic 105–172; BP diastolic 51–147; PULSE 79–127; RESP 11–26; TEMP 36.8–37.3; O2SAT 86–98
--- NOTE | 2025-02-07 14:15 | RT.EKG_ITS ---
APPROVED REPORT Exam: Resting ECG Reason for Exam: sob Patient Location: E HR:88 bpm ECG Measurements Heart Rate 88 AXIS TX 160 P 45 QRSd 87 QRS 70 QT 358 T 32 QTc 434 Conclusion Sinus rhythm...normal P axis, V-rate 60- 99 Low voltage, precordial leads...precordial leads <1.0mV
--- NOTE | 2025-02-07 15:00 | DI.RAD_ITS ---
Exam(s) XR CHEST 2V PA LATERAL EXAM: XR CHEST 2V PA LATERAL CLINICAL HISTORY: dyspnea, cough TECHNIQUE: 2D digital imaging was performed. Two views. COMPARISON: CR,XR XR PORTABLE CHEST AP from 08/27/2023 CR,XR XR PORTABLE CHEST AP from 09/24/2023 CR XR CHEST 2V PA LATERAL from 11/30/2023 FINDINGS: HEART: Enlarged. Aorta: Not dilated. PULMONARY VASCULATURE: Normal. MEDIASTINUM: Unremarkable. LUNGS: Low lung volumes. Chronic interstitial changes. Focal infiltrate. PLEURAL SPACE: No pleural effusion or pneumothorax. BONE:Right shoulder prosthesis. SOFT TISSUES: Unremarkable. IMPRESSION: No acute abnormality. DATA REPOSITORY: RADIATION DOSE DELIVERED:
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
[2025-02-07 15:39] LABS: Glucose 100 mg/dL (Negative)
[2025-02-07 15:44] LABS: C & S Indicated? No; WBC Negative HPF (0-5)
[2025-02-07] MEDS: Albuterol/Ipratropium 3 ML UPD VIAL UPD ×3 (15:50→19:38)
[2025-02-07] MEDS: methylPREDNISolone SUCC 125 MG VIAL IVP (15:58)
[2025-02-07] MEDS: Furosemide 40 MG/4 ML VIAL IVP (15:58)
[2025-02-07 15:59] LABS: COVID-19 PCR Negative (Negative); RSV PCR Negative (Negative)
[2025-02-07 16:10] LABS: BE (Venous) 8 mmol/L (-2-3); HCO3 (Venous) 34 mmol/L (23-28); O2 Sat (Venous) 63 %; TCO2 (Venous) 32 mmol/L (24-29); pO2 (Venous) 35 mmHg
[2025-02-07 16:12] LABS: Abs Immature Grans 0.04 10^3/uL (0.0-0.06); HCT 40.8 % (40.0-50.0); HGB 12.3 g/dL (13.5-17.5); Immature Grans % 0.4 %; MCH 25.7 pg (27.0-33.0); MCHC 30.1 % (32.0-36.0); MCV 85 fL (80-95); MPV 8.6 fL (8.0-11.0); Platelet Count 163 10^3/uL (130-400); RBC 4.78 10^6/uL (4.36-5.78); RDW 14.8 % (11.8-14.1); RDW-SD 46.1 fL; WBC 10.14 10^3/uL (4.4-10.8); pCO2 (Venous) 71 mmHg (41-51)
[2025-02-07 16:28] LABS: INR 1.1 (0.9-1.1); PTT Activated 25.2 sec (20.6-30.2); Prothrombin Time 10.8 sec (9.1-11.1)
[2025-02-07 16:38] LABS: ALT 18 U/L (16-63); AST 35 U/L (15-37); Albumin 3.6 g/dL (3.4-5.0); Alkaline Phosphatase 93 U/L (46-116); Anion Gap 7.2 mmol/L (3-11); BUN 19 mg/dL (7-18); Bilirubin, Total 0.5 mg/dL (0.2-1.0); CO2 35.8 mmol/L (21.0-32.0); Calcium 9.2 mg/dL (8.5-10.1); Chloride 100 mmol/L (98-107); Estimated GFR 83.52 (mL/min/1.73m2); Glucose 184 mg/dL (74-106); Potassium 4.2 mmol/L (3.5-5.1); Sodium 143 mmol/L (136-145); Total Protein 7.5 g/dL (6.4-8.2)
[2025-02-07 16:48] LABS: Magnesium 2.0 mg/dL (1.8-2.4); NT-proBNP 77 pg/mL (<300); TSH (W/Ref FT4) 2.22 uIU/mL (0.36-3.74); Troponin I 11 ng/L (<or=76)
[2025-02-07 17:30] LABS: Troponin I 10 ng/L (<or=76)
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
--- NOTE | 2025-02-07 18:21 | W.PC.ACHO ---
Registration Status: REG ER Primary Language: Preferred Language: Setswana ED Information & Data Chief Complaint SOB 02/07/25 16:14 Chief Complaint SOB 02/07/25 15:19 Other Complaint Chest Pain 02/07/25 14:17 Triage Note cheat pain and SOB, pt 02/07/25 14:17 states he can barely walk any more his o2 dropped to 51%. pt had a bad case of covid, was intubated and in a coma for a long time, has been on oxygen since then and genuinely unwell. cp and sob has been for ~ 1 month Medical / Surgical History (Last Updated 02/07/25 @ 18:03 by Rosendo Patel) Parkinsonism BPH w urinary obs/LUTS Discharge planning issues Compression fracture of lumbar vertebra History of recurrent pulmonary infection Pulmonary embolism on long-term anticoagulation therapy Stroke due to vascular stenosis Unknown when suspected stroke patient was last well H/O ETOH abuse DVT (deep venous thrombosis) Gout Depression Diabetes mellitus Gastroesophageal reflux disease Benign hypertension (Last Reviewed 09/24/23 @ 14:38 by Bonnie Peterson MD) Status post replacement of right shoulder joint Status post right knee replacement Total replacement of hip (07/16/12) Most Recent Vital Signs Temperature 36.9 C 02/07/25 16:14 Pulse 83 02/07/25 17:40 Pulse 84 02/07/25 17:40 Respiratory Rate 16 02/07/25 17:40 Respiratory Effort Short of Breath 02/07/25 16:14 Respiratory Depth Normal 02/07/25 16:14 Respiratory Pattern Normal 02/07/25 16:14 Blood Pressure 155/74 H 02/07/25 17:16 Blood Pressure Mean 202 02/07/25 17:31 Pulse Oximetry 96 02/07/25 17:40 Oxygen Delivery Method Nasal Cannula 02/07/25 16:14 Oxygen Flow Rate 2 02/07/25 16:14 Allergies cimetidine HCl (From Tagamet) Allergy (Severe, Verified 02/07/25 14:23) Anaphylaxsis rivaroxaban (From Xarelto) Allergy (Severe, Verified 02/07/25 14:23) Other (See Comment) bleeding Latex, Natural Rubber Allergy (Intermediate, Verified 02/07/25 14:23) Skin Rash lisinopril Allergy (Intermediate, Verified 02/07/25 14:23) Other (See Comment) cough pantoprazole Allergy (Unknown, Verified 02/07/25 14:23) Other (See Comment) unknown semaglutide Allergy (Unknown, Verified 02/07/25 14:23) Other (See Comment) unknown promethazine HCl (From Phenergan) Adverse Reaction (Verified 02/07/25 14:23) Dizziness/Lightheade ancef injection Allergy (Unknown, Uncoded 02/07/25 14:23) Other (See Comment) unknown Diet Orders Category Date Time Status Diabetes Consistent CHO/Heart Healthy [DIET] Nutrition 02/07/25 Dinner Active Diagnostics 02/07/25 02/07/25 02/07/25 Range/Units 18:00 17:08 16:03 WBC 10.14 (4.4-10.8) 10^3/uL RBC 4.78 (4.36-5.78) 10^6/uL Hgb 12.3 L (13.5-17.5) g/dL Hct 40.8 (40.0-50.0) % MCV 85 (80-95) fL MCH 25.7 L (27.0-33.0) pg MCHC 30.1 L (32.0-36.0) % RDW 14.8 H (11.8-14.1) % Plt Count 163 (130-400) 10^3/uL MPV 8.6 (8.0-11.0) fL Immature Gran % 0.4 % Neutrophils % 68.4 % Lymphocytes % 22.1 % Monocytes % 6.4 % Eosinophils % 2.3 % Basophils % 0.4 % Nucleated RBC % 0.0 (0.0-0.3) % Absolute Neutrophils 6.94 H (1.2-6.7) 10^3/uL Absolute Lymphocytes 2.24 (1.2-3.4) 10^3/uL Absolute Monocytes 0.65 (0.1-0.8) 10^3/uL Absolute Eosinophils 0.23 (0.0-0.7) 10^3/uL Absolute Basophils 0.04 (0.0-0.2) 10^3/uL PT 10.8 (9.1-11.1) sec INR 1.1 (0.9-1.1) APTT 25.2 (20.6-30.2) sec VBG pH 7.29 L (7.31-7.41) VBG pCO2 71 H* (41-51) mmHg VBG pO2 35 mmHg VBG HCO3 34 H (23-28) mmol/L VBG Total CO2 32 H (24-29) mmol/L VBG O2 Saturation 63 % VBG Base Excess 8 H (-2-3) mmol/L Sodium 143 (136-145) mmol/L Potassium 4.2 (3.5-5.1) mmol/L Chloride 100 (98-107) mmol/L Carbon Dioxide 35.8 H (21.0-32.0) mmol/L Anion Gap 7.2 (3-11) mmol/L BUN 19 H (7-18) mg/dL Creatinine 1.0 (0.70-1.30) mg/dL Est GFR (CKD-EPI 2020) 83.52 (mL/min/1.73m2) Glucose 184 H (74-106) mg/dL Calcium 9.2 (8.5-10.1) mg/dL Magnesium 2.0 (1.8-2.4) mg/dL Total Bilirubin 0.5 (0.2-1.0) mg/dL AST 35 (15-37) U/L ALT 18 (16-63) U/L Alkaline Phosphatase 93 (46-116) U/L Troponin I Pending 10 11 (<or=76) ng/L NT-Pro-B Natriuret Pep 77 (<300) pg/mL Total Protein 7.5 (6.4-8.2) g/dL Albumin 3.6 (3.4-5.0) g/dL TSH 2.22 (0.36-3.74) uIU/mL Urine Color (Yellow) Urine Clarity (Clear) Urine pH (5-8) Ur Specific [place] (1.005-1.025) Urine Protein (Neg-Trace) mg/dL Urine Ketones (Negative) mg/dL Urine Blood (Negative) Urine Nitrite (Negative) Urine Bilirubin (Negative) Urine Urobilinogen (Up to 0.2) mg/dL Ur Leukocyte Esterase (Negative) Urine RBC (0-2) HPF Urine WBC (0-5) HPF Ur Epithelial Cells (Negative) HPF Urine Crystals (Negative) HPF Urine Bacteria (Negative) HPF Urine Casts (Negative) LPF Urine Mucus (Negative) Ur Culture Indicated? Urine Glucose (Negative) mg/dL COVID-19 Source SARS-CoV-2 (PCR) (Negative) Influenza Type A (PCR) (Negative) Influenza Type B (PCR) (Negative) RSV (PCR) (Negative) 02/07/25 02/07/25 Range/Units 15:35 15:10 WBC (4.4-10.8) 10^3/uL RBC (4.36-5.78) 10^6/uL Hgb (13.5-17.5) g/dL Hct (40.0-50.0) % MCV (80-95) fL MCH (27.0-33.0) pg MCHC (32.0-36.0) % RDW (11.8-14.1) % Plt Count (130-400) 10^3/uL MPV (8.0-11.0) fL Immature Gran % % Neutrophils % % Lymphocytes % % Monocytes % % Eosinophils % % Basophils % % Nucleated RBC % (0.0-0.3) % Absolute Neutrophils (1.2-6.7) 10^3/uL Absolute Lymphocytes (1.2-3.4) 10^3/uL Absolute Monocytes (0.1-0.8) 10^3/uL Absolute Eosinophils (0.0-0.7) 10^3/uL Absolute Basophils (0.0-0.2) 10^3/uL PT (9.1-11.1) sec INR (0.9-1.1) APTT (20.6-30.2) sec VBG pH (7.31-7.41) VBG pCO2 (41-51) mmHg VBG pO2 mmHg VBG HCO3 (23-28) mmol/L VBG Total CO2 (24-29) mmol/L VBG O2 Saturation % VBG Base Excess (-2-3) mmol/L Sodium (136-145) mmol/L Potassium (3.5-5.1) mmol/L Chloride (98-107) mmol/L Carbon Dioxide (21.0-32.0) mmol/L Anion Gap (3-11) mmol/L BUN (7-18) mg/dL Creatinine (0.70-1.30) mg/dL Est GFR (CKD-EPI 2020) (mL/min/1.73m2) Glucose (74-106) mg/dL Calcium (8.5-10.1) mg/dL Magnesium (1.8-2.4) mg/dL Total Bilirubin (0.2-1.0) mg/dL AST (15-37) U/L ALT (16-63) U/L Alkaline Phosphatase (46-116) U/L Troponin I (<or=76) ng/L NT-Pro-B Natriuret Pep (<300) pg/mL Total Protein (6.4-8.2) g/dL Albumin (3.4-5.0) g/dL TSH (0.36-3.74) uIU/mL Urine Color Yellow (Yellow) Urine Clarity Clear (Clear) Urine pH 7.5 (5-8) Ur Specific [place] 1.020 (1.005-1.025) Urine Protein 100 H (Neg-Trace) mg/dL Urine Ketones 15 H (Negative) mg/dL Urine Blood Negative (Negative) Urine Nitrite Negative (Negative) Urine Bilirubin Small H (Negative) Urine Urobilinogen 0.2 (Up to 0.2) mg/dL Ur Leukocyte Esterase Negative (Negative) Urine RBC 5-10 H (0-2) HPF Urine WBC Negative (0-5) HPF Ur Epithelial Cells Rare (Negative) HPF Urine Crystals Negative (Negative) HPF Urine Bacteria Rare (Negative) HPF Urine Casts Negative (Negative) LPF Urine Mucus Trace (Negative) Ur Culture Indicated? No Urine Glucose 100 H (Negative) mg/dL COVID-19 Source Nasopharynx SARS-CoV-2 (PCR) Negative (Negative) Influenza Type A (PCR) Negative (Negative) Influenza Type B (PCR) Negative (Negative) RSV (PCR) Negative (Negative) Intake and Output - 24 Hour Total 02/07/25 14:15 thru 02/07/25 18:19 Output Total 1200 Balance -1200 Weight 103.873 kg Output: Urine 1200 Other: # Voids 1 Falls Risk Assessment History of Falls No History 02/07/25 16:14 Contributing Factors No Factors 02/07/25 16:14 Ambulatory Aids Independent 02/07/25 16:14 Tubes/Lines None 02/07/25 16:14 Gait Evaluation No gait disturbance 02/07/25 16:14 Cognition No cognitive impairment 02/07/25 16:14 Fall Total Score 0 02/07/25 16:14 Level of Risk Standard/Low Risk 02/07/25 16:14 Problems (Last Updated 02/07/25 @ 18:03 by Rosendo Patel) Obesity (BMI 30-39.9) (Acute) (HFpEF) heart failure with preserved ejection fraction (Acute) Acute and chronic respiratory failure (Acute) Chronic interstitial lung disease (Chronic) v v v v v v v v v Sending and/or Receiving Nurses: Please use comment section below to note any information pertinent to the patient hand-off not included above. Information / Comments: Report received from: Julio Winters, ELVIN [id number]
[2025-02-07] MEDS: Normal Saline - Diluent 50 ML VIAL IJ (19:23)
[2025-02-07] MEDS: Normal Saline Flush 10 ML SYR IVP ×3 (19:23→20:24)
[2025-02-07] MEDS: Omnipaque 350 MG/ML 100 ML BTL IJ (19:23)
--- NOTE | 2025-02-07 19:25 | DI.CT_ITS ---
Exam(s) CT CHEST PE CTA EXAM: CT CHEST PE CTA CLINICAL HISTORY: hypoxia, dyspnea, history of PE. TECHNIQUE: Imaging Protocol: Axial CT angiography was performed with multi- slice acquisition and multi-planar reconstructions as well as axial, coronal and sagittal MIP reconstructions. Computer aided detection (CAD) was utilized. CONTRAST MATERIAL: Intravenous: Omnipaque 350 Contrast volume:100 ml COMPARISON: CT CT CHEST PE CTA from 08/07/2023 CR XR CHEST 2V PA LATERAL from 11/30/2023 CR XR CHEST 2V PA LATERAL from 02/07/2025 FINDINGS: Exam is limited by motion and streak artifact due to right shoulder prosthesis. Pulmonary Arteries: Detection of peripheral emboli limited by motion no evidence of filling defect to suggest pulmonary emboli. Mediastinum and Ladi: No dominant adenopathy or fluid collection. Pulmonary parenchyma: No consolidation or dominant measurable mass. The lungs are expiratory. There is respiratory motion. There underlying chronic interstitial Pleura: No effusion or pneumothorax. Heart: The heart is mildly dilated. Mild coronary artery calcifications are seen. Aorta: Ascending thoracic aorta measures 4 cm. No dissection. Upper abdomen: No acute findings. Cyst again noted in the liver. Cholecystectomy. Bones: Stable mild midthoracic compression fracture. Schmorl's node again noted at the superior endplate of T11. Tubes, Catheters, and Lines: None Soft tissues: Unremarkable. IMPRESSION: No evidence of pulmonary embolism. Evaluation of the lungs is limited due to expiratory changes and respiratory motion. Chronic interstitial changes. No gross area of consolidation. The preliminary [facility] report was reviewed. RADIATION DOSE DELIVERED: Total DLP DATA REPOSITORY: All CT scans at this facility are submitted to the National Radiology Data Registry (NRDR) Dose Index Registry (DIR) with the [employer] (ACR). RADIATION OPTIMIZATION: All CT scans at this facility use at least one of these dose optimization techniques: automated exposure control; mA and/or kV adjustment per patient size (includes targeted exams where dose is matched to clinical indication); or iterative reconstruction.
--- NOTE | 2025-02-07 20:05 | DI.[facility]_ITS ---
PROCEDURE INFORMATION: Exam: CTA Chest With Contrast Exam date and time: 02/07/2025 7:00 PM Age: 64 years old Clinical indication: Dyspnea; Additional info: Hypoxia, dyspnea, history of pe TECHNIQUE: Imaging protocol: Computed tomographic angiography of the chest with contrast. Exam focused on the arteries. 3D rendering (Not supervised by radiologist): MIP and/or 3D reconstructed images were created by the technologist. Contrast material: OMNIPAQUE 350; Contrast volume: 85 ml; Contrast route: INTRAVENOUS (IV); COMPARISON: CT CHEST PE CTA 08/07/2023 5:59 PM FINDINGS: Pulmonary arteries: No pulmonary emboli. Aorta: No aortic aneurysm. No aortic dissection. Lungs: Moderate chronic pulmonary fibrosis is similar to prior. Peripheral predominant linear densities and honeycombing. No new renetta airspace consolidation. Pleural spaces: No pneumothorax. No pleural effusion. Heart: Mild cardiomegaly, similar to prior. Lymph nodes: Mildly prominent mediastinal lymph nodes, dominant 12 mm subcarinal lymph node, similar to prior. Gallbladder and biliary ducts: Cholecystectomy. Bones/joints: Right glenohumeral arthroplasty, intact as visualized. Chronic mild multilevel thoracic compression deformities. No acute fracture or subluxation. Soft tissues: No focal soft tissue lesion or collection. IMPRESSION: 1. No pulmonary emboli are seen. 2. Moderate chronic pulmonary fibrosis is similar to prior. 3. Mild mediastinal adenopathy could relate to the chronic fibrosis. 4. Mild cardiomegaly, similar to prior. 5. Incidental findings as described. Dictated and Authenticated by: Susie Horn MD. Orderin Torin Brown MD
[2025-02-07 20:24] LABS: Troponin I 9 ng/L (<or=76)
[2025-02-07] MEDS: Lactobacillus Acidophilus CAP 1 CAP PO (20:28)
[2025-02-07] MEDS: Pregabalin 25 MG CAP 75 MG PO (20:28)
[2025-02-07] MEDS: DOXYCYCLINE 100 MG in Normal Saline 100 ML IVPB (20:28)
[2025-02-07] MEDS: Apixaban 5 MG TAB PO (20:28)
[2025-02-07] MEDS: Carbidopa 25/Levodopa 100 TAB PO (20:28)
[2025-02-07] MEDS: Tamsulosin 0.4 MG CAPCR PO (20:29)
[2025-02-07] MEDS: MORPHine CR 15 MG TABCR 30 MG PO (20:29)
--- NOTE | 2025-02-07 20:30 | TELEP.MEDREC ---
Date of service: 02/07/25 Time of Service: 20:30 Telepharmacy Home Med Rec Allergies Allergies: cimetidine HCl (From Tagamet) Allergy (Severe, Verified 02/07/25 14:23) Anaphylaxsis rivaroxaban (From Xarelto) Allergy (Severe, Verified 02/07/25 14:23) Other (See Comment) Latex, Natural Rubber Allergy (Intermediate, Verified 02/07/25 14:23) Skin Rash lisinopril Allergy (Intermediate, Verified 02/07/25 14:23) Other (See Comment) pantoprazole Allergy (Unknown, Verified 02/07/25 14:23) Other (See Comment) semaglutide Allergy (Unknown, Verified 02/07/25 14:23) Other (See Comment) promethazine HCl (From Phenergan) Adverse Reaction (Verified 02/07/25 14:23) Dizziness/Lightheade ancef injection Allergy (Unknown, Uncoded 02/07/25 14:23) Other (See Comment) Interview Person Interviewed: Pt Quality Quality of Interview/Accuracy of Medication List: Good Sources Sources used to compile medication list: Snapshot Interactive Medication List, Patient List and Other Changes made to Home Medication List: ADDITIONS: Acetaminophen 1000 mg qam, 500 mg pm prn, 1000 mg hs prn Atorvastatin 40 mg po qday Carvedilol 3.125 mg po bid Famotidine 20 mg po bid Fluticasone/salmeterol 100/50 mcg inhale 1 puff bid Metformin ER 1000 mg po qam and 500 mg qpm DELETIONS: Albuterol Linaclotide Metformin Mirtazapine Senna CHANGES: Insulin glargine reduced from 34 units bid to 28 units bid Morphine ER changed from 30 mg po bid to 15 mg po tid Pregabalin increased from 75 mg bid to 150 mg po tid Additional Notes Additional Notes: Pt reports that he finished a long prednisone taper (approximately 2 months) on 02/05/25. When adding pt's APAP regimen, he reports that he has to be careful about TDD due to him being on other meds that also include APAP, mentioned morphine specifically but I am not sure that exists. Recommended Changes Recommended Changes(reason for recommendation): Adjust orders for insulin glargine, metformin, morphine, pregabalin to match home regimen. Order APAP, atorvastatin, carvedilol, famotidine, fluticasone/salmeterol, and trazodone to match home regimen. Attestation: The home medication list is now updated to the best of my knowledge and is ready to be reconciled by the provider. Please contact the TelePharmacy Medication Reconciliation Pharmacist at for any questions.
[2025-02-07] MEDS: Insulin Glargine 300 UNITS/3 ML PEN 32 UNITS SC (20:57)
[2025-02-07] MEDS: traZODone 100 MG TAB PO (23:17)
[2025-02-08] VITALS (20 sets, daily range): BP systolic 98–139; BP diastolic 63–89; PULSE 64–101; RESP 11–23; TEMP 36.4; O2SAT 93–99
[2025-02-08 05:28] LABS: BE (Venous) 7 mmol/L (-2-3); HCO3 (Venous) 32 mmol/L (23-28); O2 Sat (Venous) 99 %; TCO2 (Venous) 30 mmol/L (24-29); pCO2 (Venous) 54 mmHg (41-51); pO2 (Venous) 99 mmHg
[2025-02-08 05:39] LABS: Hemoglobin A1C 8.6 % (<5.7)
[2025-02-08] MEDS: Albuterol/Ipratropium 3 ML UPD VIAL UPD (07:51)
[2025-02-08] MEDS: Lactobacillus Acidophilus CAP 1 CAP PO ×2 (08:14→20:27)
[2025-02-08] MEDS: Torsemide 20 MG TAB 40 MG PO (08:14)
[2025-02-08] MEDS: predniSONE 20 MG TAB 50 MG PO (08:14)
[2025-02-08] MEDS: Pregabalin 150 MG CAP PO ×3 (08:14→20:26)
[2025-02-08] MEDS: Apixaban 5 MG TAB PO ×2 (08:15→20:27)
[2025-02-08] MEDS: MORPHine CR 15 MG TABCR 30 MG PO ×2 (08:15→20:25)
[2025-02-08] MEDS: Carbidopa 25/Levodopa 100 TAB PO ×3 (08:15→20:26)
[2025-02-08] MEDS: Atorvastatin 40 MG TAB PO (08:15)
[2025-02-08] MEDS: Carvedilol 3.125 MG TAB PO ×2 (08:15→20:27)
[2025-02-08] MEDS: Insulin Glargine 300 UNITS/3 ML PEN 32 UNITS SC ×2 (08:15→20:37)
[2025-02-08] MEDS: Doxycycline Hyclate 100 MG CAP PO ×2 (08:15→20:36)
[2025-02-08] MEDS: Multivitamin TAB 1 TAB PO (08:15)
[2025-02-08] MEDS: Normal Saline Flush 10 ML SYR IVP (08:16)
[2025-02-08] MEDS: Insulin Aspart 300 UNITS/3 ML PEN SC ×3 (08:17→16:58)
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
--- NOTE | 2025-02-08 11:26 | PHA.REVIEW2 ---
Pharmacy Admission Review Admission Clinical Review Admission Pharmacy Review: Obesity (BMI 30-39.9) (Acute) (HFpEF) heart failure with preserved ejection fraction (Acute) Acute and chronic respiratory failure (Acute) cimetidine HCl (From Tagamet) Allergy (Severe, Verified 02/07/25 14:23) Anaphylaxsis rivaroxaban (From Xarelto) Allergy (Severe, Verified 02/07/25 14:23) Other (See Comment) Latex, Natural Rubber Allergy (Intermediate, Verified 02/07/25 14:23) Skin Rash lisinopril Allergy (Intermediate, Verified 02/07/25 14:23) Other (See Comment) cefazolin Allergy (Unknown, Unverified 02/08/25 07:19) Unknown pantoprazole Allergy (Unknown, Verified 02/07/25 14:23) Other (See Comment) semaglutide Allergy (Unknown, Verified 02/07/25 14:23) Other (See Comment) promethazine HCl (From Phenergan) Adverse Reaction (Verified 02/07/25 14:23) Dizziness/Lightheade Resuscitation Status Full Code Height 5 ft 8.5 in Weight 101.8 kg Pharmacy Admission Review Renal Dosing Renal Dosing: BUN 19 mg/dL (7-18) H 02/07/25 16:03 Creatinine 1.0 mg/dL (0.70-1.30) 02/07/25 16:03 Medications needing adjustments: Reviewed (CrCl 85.88 mL/min) List of meds needing interventions: Current medications are okay Anticoagulation Anticoagulation: Hgb 12.3 g/dL (13.5-17.5) L 02/07/25 16:03 Hct 40.8 % (40.0-50.0) 02/07/25 16:03 Plt Count 163 10^3/uL (130-400) 02/07/25 16:03 INR 1.1 (0.9-1.1) 02/07/25 16:03 Creatinine 1.0 mg/dL (0.70-1.30) 02/07/25 16:03 DVT Prophylaxis: Reviewed Medications: Apixaban (5mg BID) Opiate Usage Evaluate Pain Scale/Pains Meds: Reviewed (morphine CR 30mg BID) Scheduled Bowel Reg ordered if on Opiates?: No (PRN Miralax/Senna) Relevant Labs Relevant Labs: Sodium 143 mmol/L (136-145) 02/07/25 16:03 Potassium 4.2 mmol/L (3.5-5.1) 02/07/25 16:03 Chloride 100 mmol/L (98-107) 02/07/25 16:03 Magnesium 2.0 mg/dL (1.8-2.4) 02/07/25 16:03 Electrolytes, C-Reactive P, ESR: Reviewed (No new labs for today) DM Control DM Control: Glucose 184 mg/dL (74-106) H 02/07/25 16:03 Hemoglobin A1c 8.6 % (<5.7) H 02/08/25 05:22 Finger Stick Blood Glucose 318 0801 Finger Stick Blood Glucose 318 0801 DM Control: Reviewed Insulin Dosing, Diabetic Medication: Has orders for SS insulin and glargine 32 units twice daily. Currently on prednisone 50mg daily. Cardiac Review Cardiac Review: Troponin I 9 ng/L (<or=76) 02/07/25 19:48 NT-Pro-B Natriuret Pep 77 pg/mL (<300) 02/07/25 16:03 BP, HR, EF%: Reviewed (BP 98/64, oxygen flow rate = 2) List meds needing interventions: Has orders for carvedilol 3.125mg BID and torsemide 40mg daily QTc Review QTc: Reviewed (434 from 02/07/25) IV to PO Switch IV Medications: Reviewed Home Meds Home Med List reviewed: Intervened Relevent Home Meds Not ordered & why?: metformin (on hold per H+P), dicyclomine and Narcan (PRN) Changed Wixela inhaler to patients own (non-formulary) and asked nurse to see if this could be brought in. Waiting to hear back. Current Meds Current Medication Order Review: Intervened Comments: Changed tamsulosin timing to daily@1730 per pharmacy protocol Added 2nd PRN to Duoneb and Senna orders per pharmacy protocol Canceled duplicate Duoneb order Pharmacy Antibiotic Review Relevant Labs: WBC 10.14 10^3/uL (4.4-10.8) 02/07/25 16:03 Temperature 36.4 C Pharmacy Antibiotic Activity: Reviewed, no change Comments: Patient is on doxycycline PO, day 1, for possible interstitial pneumonia.
--- NOTE | 2025-02-08 11:45 | RT.EKG_ITS ---
APPROVED REPORT Exam: Resting ECG Reason for Exam: [facility] Patient Location: I HR:72 bpm ECG Measurements Heart Rate 72 AXIS MS 178 P 37 QRSd 78 QRS 15 QT 365 T 22 QTc 400 Conclusion Sinus rhythm...normal P axis, V-rate 50- 99 Atrial premature complex...SV complex w/ short R-R interval Otherwise normal ECG
[2025-02-08 12:35] LABS: Anion Gap 9.1 mmol/L (3-11); BUN 19 mg/dL (7-18); CO2 35.9 mmol/L (21.0-32.0); Calcium 10.0 mg/dL (8.5-10.1); Chloride 95 mmol/L (98-107); Estimated GFR 67.11 (mL/min/1.73m2); Glucose 391 mg/dL (74-106); Magnesium 1.8 mg/dL (1.8-2.4); Potassium 4.0 mmol/L (3.5-5.1); Sodium 140 mmol/L (136-145)
--- NOTE | 2025-02-08 13:26 | W.PM.PROGNOT ---
Date of Service Date of service: 02/08/25 Time of Service: 13:26 Assessment and Plan Assessment and plan (1) Acute and chronic respiratory failure: Status: Acute Assessment and plan: Acute on chronic hypercapneic respiratory failure on top of chronic hypoxic respiratory failure. CO2 back to baseline and respiratory acidosis resolved on BiPAP overnight. Stable now, to floor. Trigger seems to have been viral illness exacerbating ILD. Flu/COVID/RSV negative. He is on apixaban for h/o PE, CTA did not show PE or focal infiltrate. Will continue prednisone for ILD exacerbation as well as doxycycline for possible interstitial pneumonia. (2) (HFpEF) heart failure with preserved ejection fraction: Status: Acute Assessment and plan: He was given 40mg furosemide in ED. This doesn't not seem to be primarily CHF exacerbation. Continue home torsemide. Empagliflozin was stopped by outpatient cardiology, will stop this. (3) Chronic interstitial lung disease: Status: Chronic Assessment and plan: S/p COVID. See above. Consult pulmonloogy if he isn't getting better over weekend. (4) Pulmonary embolism on long-term anticoagulation therapy: Assessment and plan: continue apixaban. He denies missing doses. No PE on CTA 02/07. (5) Diabetes mellitus: Assessment and plan: Continue home regimen and ISS. Holding metformin after CTA. A1c 8.6% indicative of poor chronic control. Will need PCP follow up (6) Discharge planning issues: Assessment and plan: To floor status respiratory as acidosis resolved. anticipate 1-2 more days admission. I would like to see him breathing more confortably and ambulating prior to discharge. PT consult. Subjective Subjective Patient reports: tolerating a regular diet, voiding w/o difficulty and shortness of breath; denies diarrhea, nausea, vomiting or fever Interval history since last seen: Events: On BiPAP overnight He feels okay, but still more SOB than his baseline, chest tight to breath deeply. He did eat better for the first time in days. Exam Narrative Exam Narrative: GEN: Alert and oriented, NAD LUNGS: Inspiratory and expiratory dry crackles in bases, now clear superiorly, no wheeze. No distress, with O2 via NC 2 liters CV: RRR with no murmurs, gallops, or rubs. EXT: no cyanosis, clubbing. trace edema bilaterally to shins. PSYCH: normal mood and affect, nl thought process Objective Last Vital Signs Temp 36.4 C L 02/08/25 04:28 Pulse 83 02/08/25 10:01 Resp 19 02/08/25 10:01 BP 98/64 L 02/08/25 10:01 Pulse Ox 96 02/08/25 10:01 Laboratory Results - last 24 hr 02/07/25 02/07/25 02/07/25 15:10 15:35 16:03 WBC 10.14 RBC 4.78 Hgb 12.3 L Hct 40.8 MCV 85 MCH 25.7 L MCHC 30.1 L RDW 14.8 H Plt Count 163 MPV 8.6 Immature Gran % 0.4 Neutrophils % 68.4 Lymphocytes % 22.1 Monocytes % 6.4 Eosinophils % 2.3 Basophils % 0.4 Nucleated RBC % 0.0 Absolute Neutrophils 6.94 H Absolute Lymphocytes 2.24 Absolute Monocytes 0.65 Absolute Eosinophils 0.23 Absolute Basophils 0.04 PT 10.8 INR 1.1 APTT 25.2 VBG pH 7.29 L VBG pCO2 71 H* VBG pO2 35 VBG HCO3 34 H VBG Total CO2 32 H VBG O2 Saturation 63 VBG Base Excess 8 H Sodium 143 Potassium 4.2 Chloride 100 Carbon Dioxide 35.8 H Anion Gap 7.2 BUN 19 H Creatinine 1.0 Est GFR (CKD-EPI 2020) 83.52 Glucose 184 H Hemoglobin A1c Calcium 9.2 Magnesium 2.0 Total Bilirubin 0.5 AST 35 ALT 18 Alkaline Phosphatase 93 Troponin I 11 NT-Pro-B Natriuret Pep 77 Total Protein 7.5 Albumin 3.6 TSH 2.22 Urine Color Yellow Urine Clarity Clear Urine pH 7.5 Ur Specific Bonita 1.020 Urine Protein 100 H Urine Ketones 15 H Urine Blood Negative Urine Nitrite Negative Urine Bilirubin Small H Urine Urobilinogen 0.2 Ur Leukocyte Esterase Negative Urine RBC 5-10 H Urine WBC Negative Ur Epithelial Cells Rare Urine Crystals Negative Urine Bacteria Rare Urine Casts Negative Urine Mucus Trace Ur Culture Indicated? No Urine Glucose 100 H COVID-19 Source Nasopharynx SARS-CoV-2 (PCR) Negative Influenza Type A (PCR) Negative Influenza Type B (PCR) Negative RSV (PCR) Negative 02/07/25 02/07/25 02/08/25 17:08 19:48 05:22 WBC RBC Hgb Hct MCV MCH MCHC RDW Plt Count MPV Immature Gran % Neutrophils % Lymphocytes % Monocytes % Eosinophils % Basophils % Nucleated RBC % Absolute Neutrophils Absolute Lymphocytes Absolute Monocytes Absolute Eosinophils Absolute Basophils PT INR APTT VBG pH 7.38 VBG pCO2 54 H VBG pO2 99 VBG HCO3 32 H VBG Total CO2 30 H VBG O2 Saturation 99 VBG Base Excess 7 H Sodium Potassium Chloride Carbon Dioxide Anion Gap BUN Creatinine Est GFR (CKD-EPI 2020) Glucose Hemoglobin A1c 8.6 H Calcium Magnesium Total Bilirubin AST ALT Alkaline Phosphatase Troponin I 10 9 NT-Pro-B Natriuret Pep Total Protein Albumin TSH Urine Color Urine Clarity Urine pH Ur Specific Bonita Urine Protein Urine Ketones Urine Blood Urine Nitrite Urine Bilirubin Urine Urobilinogen Ur Leukocyte Esterase Urine RBC Urine WBC Ur Epithelial Cells Urine Crystals Urine Bacteria Urine Casts Urine Mucus Ur Culture Indicated? Urine Glucose COVID-19 Source SARS-CoV-2 (PCR) Influenza Type A (PCR) Influenza Type B (PCR) RSV (PCR) 02/08/25 12:12 WBC RBC Hgb Hct MCV MCH MCHC RDW Plt Count MPV Immature Gran % Neutrophils % Lymphocytes % Monocytes % Eosinophils % Basophils % Nucleated RBC % Absolute Neutrophils Absolute Lymphocytes Absolute Monocytes Absolute Eosinophils Absolute Basophils PT INR APTT VBG pH VBG pCO2 VBG pO2 VBG HCO3 VBG Total CO2 VBG O2 Saturation VBG Base Excess Sodium 140 Potassium 4.0 Chloride 95 L Carbon Dioxide 35.9 H Anion Gap 9.1 BUN 19 H Creatinine 1.2 Est GFR (CKD-EPI 2020) 67.11 Glucose 391 H Hemoglobin A1c Calcium 10.0 Magnesium 1.8 Total Bilirubin AST ALT Alkaline Phosphatase Troponin I NT-Pro-B Natriuret Pep Total Protein Albumin TSH Urine Color Urine Clarity Urine pH Ur Specific Bonita Urine Protein Urine Ketones Urine Blood Urine Nitrite Urine Bilirubin Urine Urobilinogen Ur Leukocyte Esterase Urine RBC Urine WBC Ur Epithelial Cells Urine Crystals Urine Bacteria Urine Casts Urine Mucus Ur Culture Indicated? Urine Glucose COVID-19 Source SARS-CoV-2 (PCR) Influenza Type A (PCR) Influenza Type B (PCR) RSV (PCR) Time Spent with Patient Time Spent with Patient: 35-49 minutes Time was spent: preparing to see the patient(eg.review tests), obtaining and/or reviewing separately otained hiistory, ordering medications,tests, procedures, referring, communicating with other health acute care clinical nurse specialist, indepentently interpreting results, counseling the patient and care coordination
[2025-02-08] MEDS: Acetaminophen 325 MG TAB 650 MG PO (15:33)
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
[2025-02-08] MEDS: Tamsulosin 0.4 MG CAPCR PO (17:34)
[2025-02-08] MEDS: traZODone 100 MG TAB PO (20:27)
[2025-02-08] MEDS: Famotidine 20 MG TAB PO (20:28)
[2025-02-09] VITALS (14 sets, daily range): BP systolic 108–127; BP diastolic 64–81; PULSE 58–85; RESP 10–33; TEMP 36.6; O2SAT 81–96
[2025-02-09 06:10] LABS: BE (Venous) 16 mmol/L (-2-3); HCO3 (Venous) 40 mmol/L (23-28); O2 Sat (Venous) 99 %; TCO2 (Venous) 36 mmol/L (24-29); pCO2 (Venous) 56 mmHg (41-51); pO2 (Venous) 101 mmHg
[2025-02-09 06:13] LABS: HCT 35.1 % (40.0-50.0); HGB 11.1 g/dL (13.5-17.5); MCH 26.1 pg (27.0-33.0); MCHC 31.6 % (32.0-36.0); MCV 82 fL (80-95); MPV 9.3 fL (8.0-11.0); Platelet Count 144 10^3/uL (130-400); RBC 4.26 10^6/uL (4.36-5.78); RDW 14.7 % (11.8-14.1); RDW-SD 44.0 fL; WBC 12.75 10^3/uL (4.4-10.8)
[2025-02-09 06:28] LABS: Anion Gap 4.5 mmol/L (3-11); BUN 24 mg/dL (7-18); CO2 40.5 mmol/L (21.0-32.0); Calcium 9.0 mg/dL (8.5-10.1); Chloride 95 mmol/L (98-107); Estimated GFR 98.21 (mL/min/1.73m2); Glucose 205 mg/dL (74-106); Potassium 3.4 mmol/L (3.5-5.1); Sodium 140 mmol/L (136-145)
[2025-02-09] MEDS: Insulin Aspart 300 UNITS/3 ML PEN SC ×2 (08:17→11:56)
[2025-02-09] MEDS: predniSONE 20 MG TAB 50 MG PO (08:18)
[2025-02-09] MEDS: Torsemide 20 MG TAB 40 MG PO (08:18)
[2025-02-09] MEDS: Doxycycline Hyclate 100 MG CAP PO (08:19)
[2025-02-09] MEDS: Carvedilol 3.125 MG TAB PO (08:19)
[2025-02-09] MEDS: Apixaban 5 MG TAB PO (08:19)
[2025-02-09] MEDS: Atorvastatin 40 MG TAB PO (08:19)
[2025-02-09] MEDS: Lactobacillus Acidophilus CAP 1 CAP PO (08:19)
[2025-02-09] MEDS: Pregabalin 150 MG CAP PO ×2 (08:19→13:26)
[2025-02-09] MEDS: Carbidopa 25/Levodopa 100 TAB PO ×2 (08:19→13:26)
[2025-02-09] MEDS: MORPHine CR 15 MG TABCR 30 MG PO (08:20)
[2025-02-09] MEDS: Normal Saline Flush 10 ML SYR IVP (08:20)
[2025-02-09] MEDS: Multivitamin TAB 1 TAB PO (08:20)
[2025-02-09] MEDS: Insulin Glargine 300 UNITS/3 ML PEN 32 UNITS SC (08:36)
--- NOTE | 2025-02-09 10:37 | PDOC.CMDIS ---
Date of service: 02/09/25 Time of Service: 10:37 LACE Index Scoring Tool Questions: Length of Stay (in days): 2 Was the patient admitted via the E.D.?: Yes Comorbidities: Congestive Heart Failure and Chronic Pulmonary Disease E.D. Visits: 1 Answers: Total Score: 11 Risk of Readmission: High Risk Care Management Discharge Plan Reason for Hospitalization: Hypoxic Respiratory Failure Discharge Plan: Dwight is discharged home with resumption of community supports via private vehicle with . He will follow up with community providers and continue per his discharge plan of care. No new services are indicated at the time of discharge. Patient/Family Education Needs: Review discharge instructions and plan to follow up after discharge. Discuss ask me three. SDOH Health Related Social Needs: Health related social needs lonely/isolated
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
--- NOTE | 2025-02-09 13:25 | PT.INTREAT ---
PT Notes Visit Reasons: Acute Hypoxic Hypercarbic Respiratory Failure Inpatient Physical Therapy Treatment Note [facility] Date: 02/09/25 PRECAUTIONS: On O2, fall precaution SUBJECTIVE: Pt reports that he felt better walking than he has in a long time. He felt like he could take longer steps. OBJECTIVE: On 2 liters O2 for the duration of rx ? VITALS: Monitored by nursing ? Therapeutic Activities - (73162 x[2]): instruction in dynamic activities with one on one patient contact by the provider to improve functional performance?as follows: ? a.m. : Sit to stand x 2 with CG to (S) of 1 Ambulated with front wheeled rolling walker forward and back 5 ft with CG of 1 p.m. Sit to stand and stand to sit with SBA of 1 x 2, able to shift weight side to side in sitting, able to stand with SBA with (B) UE support Provided skilled cues and instruction on performance and technique throughout. ? Therapeutic Exercises (35093u[1]): Direct one-on-one instruction in therapeutic exercises to develop strength, endurance, range of motion and flexibility. ? Exercises ? a.m.: Seated edge of bed: heel/toe raises x 10, FAQ x 10, marching x 5 ? p.m. : Ambulated with front wheeled rolling walker 40 ft x 3 with a seated rest break and standing rest breaks PRN and one seated rest break ? Provided skilled instruction in proper exercise performance ASSESSMENT:? a.m. Pt was steady with ambulation. Experienced some dizziness upon standing initially but it improved. p.m. Pt did well with increasing distance and pacing as well as taking standing rest breaks when needed. PLAN: Anticipate d/c to home with resuming pulmonary TREATMENT CODE/TIME: am 39042 x 1 total 20 minutes 10;25-10:45 pm 58900 x 1 (15 minutes), [id number] (20 minutes), Total 35 minutes 12:50-13:25 DISCHARGE RECOMMENDATION: Pulmonary rehab; no PT needed at this time
[2025-02-09] MEDS: Albuterol 2.5 MG/3 ML INH SOLN VIAL UPD (14:46)
== END 2025-02-09 17:00 | disposition home health service (06) | DRG 189 ==
LOC: ER 17:12 → ICU 18:33
PROVIDERS: Admitting Provider Family Medicine; Emergency Provider Emergency Medicine; PCP Nurse Practitioner Family; Responsible Provider Family Medicine; Visit Provider Family Medicine
DX: J96.21 Acute and chronic respiratory failure with hypoxia (principal); I50.33 Acute on chronic diastolic (congestive) heart failure; J84.9 Interstitial pulmonary disease, unspecified; N13.8 Other obstructive and reflux uropathy; J96.22 Acute and chronic respiratory failure with hypercapnia; Z86.711 Personal history of pulmonary embolism; E66.9 Obesity, unspecified; Z68.33 Body mass index [BMI] 33.0-33.9, adult; N40.1 Benign prostatic hyperplasia with lower urinary tract symptoms; G20.C Parkinsonism, unspecified; Z99.81 Dependence on supplemental oxygen; U09.9 Post COVID-19 condition, unspecified; G47.33 Obstructive sleep apnea (adult) (pediatric); I27.20 Pulmonary hypertension, unspecified; J45.909 Unspecified asthma, uncomplicated; E11.42 Type 2 diabetes mellitus with diabetic polyneuropathy; R13.12 Dysphagia, oropharyngeal phase; Z96.643 Presence of artificial hip joint, bilateral; I11.0 Hypertensive heart disease with heart failure; K21.9 Gastro-esophageal reflux disease without esophagitis; K22.70 Barrett's esophagus without dysplasia; Z86.73 Personal history of transient ischemic attack (TIA), and cerebral infarction without residual deficits; F32.A Depression, unspecified; M10.9 Gout, unspecified; Z96.651 Presence of right artificial knee joint; Z96.611 Presence of right artificial shoulder joint; Z79.4 Long term (current) use of insulin; Z79.84 Long term (current) use of oral hypoglycemic drugs
CPT/HCPCS: 00123; 36415; 71275; 80048; 80053; 82805; 85027; 87637; 93005; 94640; 96374; 96375; 97110; 97162; 97530; 99285; J3490; 71046; 81003; 81015; 83036; 83735; 83880; 84443; 84484; 85025; 85610; 85730; 93010; 94660; 94664; 94760; 99222; 99232; 99238; J1815; J1938; J2919; J7512; J7613; J7620

== ENCOUNTER 2025-03-01 10:25 | Observation (INO) | payer OTHER, SELFPAY ==
[2025-03-01] VITALS (44 sets, daily range): BP systolic 112–130; BP diastolic 62–74; PULSE 66–89; RESP 12–26; TEMP 36.6–36.8; O2SAT 78–100
--- NOTE | 2025-03-01 10:15 | RT.EKG_ITS ---
APPROVED REPORT Exam: Resting ECG Reason for Exam: chest pain Patient Location: E HR:76 bpm ECG Measurements Heart Rate 76 AXIS IA 169 P 52 QRSd 91 QRS 17 QT 376 T 28 QTc 422 Conclusion Sinus rhythm...normal P axis, V-rate 60- 99 Low voltage, precordial leads...precordial leads <1.0mV No STEMI
[2025-03-01 11:08] LABS: BE (Venous) 10 mmol/L (-2-3); HCO3 (Venous) 34 mmol/L (23-28); O2 Sat (Venous) 97 %; TCO2 (Venous) 31 mmol/L (24-29); pCO2 (Venous) 48 mmHg (41-51); pO2 (Venous) 76 mmHg
[2025-03-01] MEDS: Albuterol/Ipratropium 3 ML UPD VIAL UPD (11:19)
[2025-03-01 11:20] LABS: Abs Immature Grans 0.02 10^3/uL (0.0-0.06); HCT 37.1 % (40.0-50.0); HGB 11.4 g/dL (13.5-17.5); Immature Grans % 0.3 %; MCH 25.6 pg (27.0-33.0); MCHC 30.7 % (32.0-36.0); MCV 83 fL (80-95); MPV 8.8 fL (8.0-11.0); Platelet Count 192 10^3/uL (130-400); RBC 4.45 10^6/uL (4.36-5.78); RDW 15.2 % (11.8-14.1); RDW-SD 45.9 fL; WBC 7.72 10^3/uL (4.4-10.8)
--- NOTE | 2025-03-01 11:30 | DI.RAD_ITS ---
Exam(s) XR PORTABLE CHEST AP EXAM: XR PORTABLE CHEST AP CLINICAL HISTORY: hypoxia TECHNIQUE: 2D digital imaging was performed of the chest. One image was obtained. An AP view was obtained. COMPARISON: CR XR CHEST 2V PA LATERAL from 11/30/2023 CR XR CHEST 2V PA LATERAL from 02/07/[address] CHEST PE CTA from 02/07/2025 FINDINGS: There are low lung volumes. MEDIASTINUM: Normal. HEART: The heart is enlarged. PULMONARY VASCULATURE: Normal. LUNGS: There are stable bilateral interstitial markings in the lung, left greater than right which are chronic. No definite superimposed pneumonia is seen at this time. PLEURAL SPACE: No pleural effusion or pneumothorax. BONE:Within normal limits for the patient's age. OTHER FINDINGS:Normal. IMPRESSION: 1. Low lung volumes. 2. Stable interstitial markings in the lungs which likely reflect chronic fibrosis. 3. No definite acute pulmonary process. DATA REPOSITORY: RADIATION DOSE DELIVERED:
[2025-03-01 11:34] LABS: ALT 19 U/L (16-63); AST 68 U/L (15-37); Albumin 3.4 g/dL (3.4-5.0); Alkaline Phosphatase 106 U/L (46-116); Anion Gap 7.4 mmol/L (3-11); BUN 12 mg/dL (7-18); Bilirubin, Total 0.5 mg/dL (0.2-1.0); CO2 32.6 mmol/L (21.0-32.0); Calcium 9.1 mg/dL (8.5-10.1); Chloride 98 mmol/L (98-107); Glucose 232 mg/dL (74-106); Potassium 4.5 mmol/L (3.5-5.1); Sodium 138 mmol/L (136-145); Total Protein 7.4 g/dL (6.4-8.2); Troponin I 10 ng/L (<or=76)
--- NOTE | 2025-03-01 11:45 | DI.CT_ITS ---
Exam(s) CT CHEST PE CTA EXAM: CT CHEST PE CTA CLINICAL HISTORY: hypoxia. TECHNIQUE: Imaging Protocol: Axial CT angiography was performed with multi- slice acquisition and multi-planar and/or 3D reconstructions. Lung Computer Aided Detection (CAD) was utilized. CONTRAST MATERIAL: Intravenous: Omnipaque 350 contrast volume:90 mL COMPARISON: CT CT CHEST PE ABD PELVIS W from 07/06/[address] CHEST PE CTA from 05/09/[address] CHEST PE CTA from 08/07/[address] CHEST PE CTA from 02/07/2025 CR XR PORTABLE CHEST AP from 03/01/2025 FINDINGS: Tracheobronchial tree: Patent where visualized. No bronchiectasis. Pulmonary parenchyma: There is persistent interlobular thickening present throughout the lungs. There are persistent ground-glass opacities seen bilaterally. The ground-glass opacities have slightly worsened compared to the prior examination. There are no focal consolidating infiltrates present. No architectural distortion. Pulmonary Arteries: The peripheral pulmonary arteries are poorly opacified. There is no large central pulmonary embolism present. Mediastinum and Ladi: Stable mildly prominent mediastinal and hilar lymph nodes. The esophagus is unremarkable. Visualized thyroid gland: Unremarkable. Pleura: No effusion or pneumothorax. Heart: The heart is mildly enlarged. Coronary artery calcification is present. No pericardial effusion. Aorta: The ascending thoracic aorta measures 3.8 x 3.8 cm. No evidence of dissection. Atherosclerotic calcification is present. Upper abdomen: Status post cholecystectomy. There is a stable cyst in the liver. Soft tissues: Unremarkable. Bones: There is a question of anterior subluxation of the right shoulder prosthesis.There is unchanged lucency in the superior endplate of T11 which may represent Schmorl's node. IMPRESSION: 1. There is no evidence of a pulmonary embolism or thoracic aortic dissection. 2. Slight increase in the ground-glass opacities in the lungs. This can be seen with pulmonary edema or an infectious process. 3. Stable chronic interstitial disease. 4. Question of anterior subluxation of the right shoulder prosthesis. Correlate with physical examination. RADIATION DOSE DELIVERED: 207.36 mGy.cm Total DLP DATA REPOSITORY: All CT scans at this facility are submitted to the National Radiology Data Registry (NRDR) Dose Index Registry (DIR) with the [employer] (ACR). RADIATION OPTIMIZATION: All CT scans at this facility use at least one of these dose optimization techniques: automated exposure control; mA and/or kV adjustment per patient size (includes targeted exams where dose is matched to clinical indication); or iterative reconstruction.
[2025-03-01] MEDS: Normal Saline 500 ML 1000 ML IV (12:04)
[2025-03-01 12:16] LABS: Glucose 500 mg/dL (Negative)
[2025-03-01 12:29] LABS: C & S Indicated? No; WBC 0-2 HPF (0-5)
[2025-03-01 12:30] LABS: Troponin I 8 ng/L (<or=76)
[2025-03-01] MEDS: Normal Saline Flush 10 ML SYR IVP ×4 (13:00→23:52)
[2025-03-01] MEDS: Omnipaque 350 MG/ML 100 ML BTL IJ (13:05)
[2025-03-01] MEDS: Normal Saline - Diluent 50 ML VIAL IJ (13:05)
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
--- NOTE | 2025-03-01 16:12 | W.PC.ACHO ---
Registration Status: REG ER Primary Language: Preferred Language: Thai ED Information & Data Chief Complaint Chest Pain 03/01/25 14:27 Other Complaint SOB 03/01/25 10:30 Triage Note SOB, chest pain, low O2, was 03/01/25 10:30 here in ICU 3 weeks ago for high co2 levels Medical / Surgical History (Last Reviewed 02/07/25 @ 18:28 by Rosendo Patel) Parkinsonism BPH w urinary obs/LUTS Discharge planning issues Compression fracture of lumbar vertebra History of recurrent pulmonary infection Pulmonary embolism on long-term anticoagulation therapy Stroke due to vascular stenosis Unknown when suspected stroke patient was last well H/O ETOH abuse DVT (deep venous thrombosis) Gout Depression Diabetes mellitus Gastroesophageal reflux disease Benign hypertension (Last Reviewed 02/07/25 @ 18:28 by Rosendo Patel) Status post replacement of right shoulder joint Status post right knee replacement Total replacement of hip (07/16/12) Most Recent Vital Signs Temperature 36.6 C 03/01/25 10:30 Temperature Source Oral 03/01/25 10:30 Pulse 67 03/01/25 15:40 Pulse 84 03/01/25 15:50 Respiratory Rate 24 03/01/25 15:50 Blood Pressure 112/70 03/01/25 14:00 Blood Pressure Mean 79 03/01/25 14:00 Blood Pressure Position Sitting 03/01/25 10:30 Pulse Oximetry 96 03/01/25 15:40 Oxygen Delivery Method Nasal Cannula 03/01/25 14:55 Oxygen Flow Rate 2 03/01/25 14:55 Comment o2 turned to3 l now 88 03/01/25 10:30 Allergies cimetidine HCl (From Tagamet) Allergy (Severe, Verified 03/01/25 10:35) Anaphylaxsis rivaroxaban (From Xarelto) Allergy (Severe, Verified 03/01/25 10:35) Other (See Comment) bleeding Latex, Natural Rubber Allergy (Intermediate, Verified 03/01/25 10:35) Skin Rash lisinopril Allergy (Intermediate, Verified 03/01/25 10:35) Other (See Comment) cough cefazolin Allergy (Unknown, Unverified 03/01/25 10:35) Unknown old Ancef allergy, tolerated ceftriaxone in 2022 pantoprazole Allergy (Unknown, Verified 03/01/25 10:35) Other (See Comment) unknown semaglutide Allergy (Unknown, Verified 03/01/25 10:35) Other (See Comment) unknown promethazine HCl (From Phenergan) Adverse Reaction (Verified 03/01/25 10:35) Dizziness/Lightheade Active Medications Generic Name Dose Route Start Last Admin Trade Name Freq PRN Reason Stop Dose Admin Iohexol 100 ml 03/01/25 13:00 03/01/25 13:05 Omnipaque 350 Mg/Ml 100 Ml Btl IJ 03/31/25 23:59 100 ml DIRECTED KANE Administration Sodium Chloride 0 ml 03/01/25 13:00 03/01/25 13:00 Normal Saline Flush 10 Ml Syr IVP 10 ml PRN PRN Administration Sodium Chloride 50 ml 03/01/25 13:00 03/01/25 13:05 Normal Saline - Diluent 50 Ml Vial IJ 50 ml DIRECTED KANE Administration IV IV Catheter Type [Right Wrist] Peripheral IV IV Catheter Type [Left Saline Lock Antecubital] IV Catheter Gauge [Right Wrist 18 ] IV Catheter Gauge [Left 18 Antecubital] Diagnostics 03/01/25 03/01/25 03/01/25 Range/Units 12:05 11:55 11:12 WBC 7.72 (4.4-10.8) 10^3/uL RBC 4.45 (4.36-5.78) 10^6/uL Hgb 11.4 L (13.5-17.5) g/dL Hct 37.1 L (40.0-50.0) % MCV 83 (80-95) fL MCH 25.6 L (27.0-33.0) pg MCHC 30.7 L (32.0-36.0) % RDW 15.2 H (11.8-14.1) % Plt Count 192 (130-400) 10^3/uL MPV 8.8 (8.0-11.0) fL Immature Gran % 0.3 % Neutrophils % 68.6 % Lymphocytes % 20.6 % Monocytes % 7.6 % Eosinophils % 2.5 % Basophils % 0.4 % Nucleated RBC % 0.0 (0.0-0.3) % Absolute Neutrophils 5.30 (1.2-6.7) 10^3/uL Absolute Lymphocytes 1.59 (1.2-3.4) 10^3/uL Absolute Monocytes 0.59 (0.1-0.8) 10^3/uL Absolute Eosinophils 0.19 (0.0-0.7) 10^3/uL Absolute Basophils 0.03 (0.0-0.2) 10^3/uL VBG pH (7.31-7.41) VBG pCO2 (41-51) mmHg VBG pO2 mmHg VBG HCO3 (23-28) mmol/L VBG Total CO2 (24-29) mmol/L VBG O2 Saturation % VBG Base Excess (-2-3) mmol/L VBG Lactate (<or=2.0) mmol/L Sodium (136-145) mmol/L Potassium (3.5-5.1) mmol/L Chloride (98-107) mmol/L Carbon Dioxide (21.0-32.0) mmol/L Anion Gap (3-11) mmol/L BUN (7-18) mg/dL Creatinine (0.70-1.30) mg/dL Est GFR (CKD-EPI 2020) (mL/min/1.73m2) Glucose (74-106) mg/dL Calcium (8.5-10.1) mg/dL Total Bilirubin (0.2-1.0) mg/dL AST (15-37) U/L ALT (16-63) U/L Alkaline Phosphatase (46-116) U/L Troponin I 8 (<or=76) ng/L NT-Pro-B Natriuret Pep (<300) pg/mL Total Protein (6.4-8.2) g/dL Albumin (3.4-5.0) g/dL Urine Color Yellow (Yellow) Urine Clarity Clear (Clear) Urine pH 6.5 (5-8) Ur Specific [place] 1.025 (1.005-1.025) Urine Protein 100 H (Neg-Trace) mg/dL Urine Ketones 15 H (Negative) mg/dL Urine Blood Trace-intact H (Negative) Urine Nitrite Negative (Negative) Urine Bilirubin Negative (Negative) Urine Urobilinogen 1.0 H (Up to 0.2) mg/dL Ur Leukocyte Esterase Negative (Negative) Urine RBC 3-5 H (0-2) HPF Urine WBC 0-2 (0-5) HPF Ur Epithelial Cells Few (Negative) HPF Urine Crystals Negative (Negative) HPF Urine Bacteria Few (Negative) HPF Urine Casts Negative (Negative) LPF Urine Mucus Trace (Negative) Ur Culture Indicated? No Urine Glucose 500 H (Negative) mg/dL 03/01/25 Range/Units 11:03 WBC (4.4-10.8) 10^3/uL RBC (4.36-5.78) 10^6/uL Hgb (13.5-17.5) g/dL Hct (40.0-50.0) % MCV (80-95) fL MCH (27.0-33.0) pg MCHC (32.0-36.0) % RDW (11.8-14.1) % Plt Count (130-400) 10^3/uL MPV (8.0-11.0) fL Immature Gran % % Neutrophils % % Lymphocytes % % Monocytes % % Eosinophils % % Basophils % % Nucleated RBC % (0.0-0.3) % Absolute Neutrophils (1.2-6.7) 10^3/uL Absolute Lymphocytes (1.2-3.4) 10^3/uL Absolute Monocytes (0.1-0.8) 10^3/uL Absolute Eosinophils (0.0-0.7) 10^3/uL Absolute Basophils (0.0-0.2) 10^3/uL VBG pH 7.46 H (7.31-7.41) VBG pCO2 48 (41-51) mmHg VBG pO2 76 mmHg VBG HCO3 34 H (23-28) mmol/L VBG Total CO2 31 H (24-29) mmol/L VBG O2 Saturation 97 % VBG Base Excess 10 H (-2-3) mmol/L VBG Lactate 2.6 H* (<or=2.0) mmol/L Sodium 138 (136-145) mmol/L Potassium 4.5 (3.5-5.1) mmol/L Chloride 98 (98-107) mmol/L Carbon Dioxide 32.6 H (21.0-32.0) mmol/L Anion Gap 7.4 (3-11) mmol/L BUN 12 (7-18) mg/dL Creatinine 0.8 (0.70-1.30) mg/dL Est GFR (CKD-EPI 2020) 98.21 (mL/min/1.73m2) Glucose 232 H (74-106) mg/dL Calcium 9.1 (8.5-10.1) mg/dL Total Bilirubin 0.5 (0.2-1.0) mg/dL AST 68 H (15-37) U/L ALT 19 (16-63) U/L Alkaline Phosphatase 106 (46-116) U/L Troponin I 10 (<or=76) ng/L NT-Pro-B Natriuret Pep 40 (<300) pg/mL Total Protein 7.4 (6.4-8.2) g/dL Albumin 3.4 (3.4-5.0) g/dL Urine Color (Yellow) Urine Clarity (Clear) Urine pH (5-8) Ur Specific [place] (1.005-1.025) Urine Protein (Neg-Trace) mg/dL Urine Ketones (Negative) mg/dL Urine Blood (Negative) Urine Nitrite (Negative) Urine Bilirubin (Negative) Urine Urobilinogen (Up to 0.2) mg/dL Ur Leukocyte Esterase (Negative) Urine RBC (0-2) HPF Urine WBC (0-5) HPF Ur Epithelial Cells (Negative) HPF Urine Crystals (Negative) HPF Urine Bacteria (Negative) HPF Urine Casts (Negative) LPF Urine Mucus (Negative) Ur Culture Indicated? Urine Glucose (Negative) mg/dL Intake and Output - 24 Hour Total 03/01/25 10:25 thru 03/01/25 12:35 Intake Total 510 Balance 510 Weight 104.326 kg Intake: IV 510 Falls Risk Assessment History of Falls Previous History 03/01/25 10:52 Contributing Factors Impairments 03/01/25 10:52 Ambulatory Aids Uses ambulatory device 03/01/25 10:52 Tubes/Lines None 03/01/25 10:52 Gait Evaluation W/no contributing factors 03/01/25 10:52 Cognition No cognitive impairment 03/01/25 10:52 Fall Total Score 43 03/01/25 10:52 Level of Risk Moderate Risk 03/01/25 10:52 Problems (Last Reviewed 02/07/25 @ 18:28 by Rosendo Patel) Acidosis, lactic (Acute) Acute and chronic respiratory failure with hypoxia (Acute) Attestation Statement: By documenting the first initial, last name, and credentials of the reporting nurse below, both parties acknowledge that all relevant information regarding the patient handoff has been communicated, and that all questions have been addressed to ensure continuity and safety of care. Additional Patient Information/Comments: Report Received From: Antoinette Rosado RN
[2025-03-01] MEDS: predniSONE 20 MG TAB 60 MG PO (17:08)
[2025-03-01] MEDS: Dicyclomine 10 MG CAP PO ×2 (17:08→23:50)
[2025-03-01] MEDS: Insulin Aspart 300 UNITS/3 ML PEN SC (17:30)
[2025-03-01] MEDS: Budesonide/Formoterol 80/4.5 6.9 GM 60 PUFF INH IH (19:52)
[2025-03-01] MEDS: DOXYCYCLINE 100 MG in Normal Saline 100 ML IVPB (20:05)
[2025-03-01] MEDS: Apixaban 5 MG TAB PO (20:06)
[2025-03-01] MEDS: Tamsulosin 0.4 MG CAPCR PO (20:07)
[2025-03-01] MEDS: MORPHine CR 15 MG TABCR PO (20:07)
[2025-03-01] MEDS: guaiFENesin 600 MG TABCR PO (20:07)
[2025-03-01] MEDS: Carvedilol 3.125 MG TAB PO (20:07)
[2025-03-01] MEDS: Lactobacillus Acidophilus CAP 1 CAP PO (20:07)
[2025-03-01] MEDS: Insulin Glargine 300 UNITS/3 ML PEN 34 UNITS SC (20:07)
[2025-03-01] MEDS: Carbidopa 25/Levodopa 100 TAB PO (20:07)
[2025-03-01] MEDS: Famotidine 20 MG TAB PO (20:07)
[2025-03-01] MEDS: Pregabalin 150 MG CAP PO (20:07)
[2025-03-01] MEDS: Acetaminophen 325 MG TAB 650 MG PO (20:18)
[2025-03-01] MEDS: traZODone 100 MG TAB PO (22:52)
[2025-03-02] VITALS (7 sets, daily range): BP systolic 104–114; BP diastolic 57–72; PULSE 55–75; RESP 16–18; TEMP 36.2–36.7; O2SAT 95–97
[2025-03-02] MEDS: Acetaminophen 325 MG TAB 650 MG PO (02:16)
[2025-03-02] MEDS: DOXYCYCLINE 100 MG in Normal Saline 100 ML IVPB ×2 (06:35→17:55)
[2025-03-02] MEDS: Dicyclomine 10 MG CAP PO (06:35)
[2025-03-02] MEDS: Normal Saline Flush 10 ML SYR IVP ×4 (06:36→20:04)
[2025-03-02 06:43] LABS: Abs Immature Grans 0.05 10^3/uL (0.0-0.06); HCT 36.2 % (40.0-50.0); HGB 11.1 g/dL (13.5-17.5); Immature Grans % 0.7 %; MCH 25.1 pg (27.0-33.0); MCHC 30.7 % (32.0-36.0); MCV 82 fL (80-95); MPV 9.7 fL (8.0-11.0); Platelet Count 194 10^3/uL (130-400); RBC 4.42 10^6/uL (4.36-5.78); RDW 14.8 % (11.8-14.1); RDW-SD 43.9 fL; WBC 7.57 10^3/uL (4.4-10.8)
[2025-03-02 06:54] LABS: Anion Gap 5.4 mmol/L (3-11); BUN 11 mg/dL (7-18); CO2 33.6 mmol/L (21.0-32.0); Calcium 8.6 mg/dL (8.5-10.1); Chloride 99 mmol/L (98-107); Glucose 290 mg/dL (74-106); Potassium 4.4 mmol/L (3.5-5.1); Sodium 138 mmol/L (136-145)
[2025-03-02] MEDS: Budesonide/Formoterol 80/4.5 6.9 GM 60 PUFF INH IH ×2 (08:03→19:50)
[2025-03-02] MEDS: Insulin Glargine 300 UNITS/3 ML PEN 34 UNITS SC ×2 (08:18→20:04)
[2025-03-02] MEDS: Insulin Aspart 300 UNITS/3 ML PEN SC ×3 (08:18→17:09)
[2025-03-02] MEDS: Insulin NPH-Human 300 UNITS/3 ML PEN 10 UNIT SC (08:21)
[2025-03-02] MEDS: Multivitamin w/Minerals TAB 1 TAB PO (08:49)
[2025-03-02] MEDS: Pregabalin 150 MG CAP PO ×3 (08:49→19:47)
[2025-03-02] MEDS: Apixaban 5 MG TAB PO ×2 (08:49→19:47)
[2025-03-02] MEDS: guaiFENesin 600 MG TABCR PO ×2 (08:50→19:47)
[2025-03-02] MEDS: Lactobacillus Acidophilus CAP 1 CAP PO ×2 (08:50→19:48)
[2025-03-02] MEDS: Atorvastatin 40 MG TAB PO (08:50)
[2025-03-02] MEDS: Torsemide 20 MG TAB 40 MG PO (08:51)
[2025-03-02] MEDS: predniSONE 20 MG TAB 60 MG PO (08:51)
[2025-03-02] MEDS: Carvedilol 3.125 MG TAB PO ×2 (08:51→19:48)
[2025-03-02] MEDS: MORPHine CR 15 MG TABCR PO ×3 (08:52→19:48)
[2025-03-02] MEDS: Carbidopa 25/Levodopa 100 TAB PO ×3 (08:52→19:48)
--- NOTE | 2025-03-02 12:37 | W.PM.PROGNOT ---
Date of Service Date of service: 03/02/25 Time of Service: 12:37 Assessment and Plan Assessment and plan (1) Acute and chronic respiratory failure with hypoxia: Status: Acute Assessment and plan: was non compliant with home bipap as he didn't have proper adjustment/fit on mask resolved today with RT who will observe him tonight with application (2) Chronic interstitial lung disease: Status: Chronic Assessment and plan: Exacerbation of ILD continue doxycycline and steroid burst pulmonary follow up (3) Diabetes mellitus: Assessment and plan: Point of care glucose ACHS with SSI coverage AC with home dose bolus of Lantus Will hold metformin Add NPH as the patient will be treated with steroids and adjust as needed (4) (HFpEF) heart failure with preserved ejection fraction: Status: Acute Assessment and plan: History of appears stable as per lab values Continue home medicine regimen (5) Gastroesophageal reflux disease: Status: Active Assessment and plan: Continue home PPI (6) BPH w urinary obs/LUTS: Assessment and plan: Continue home dosing of Flomax (7) Anticoagulation adequate: Status: Acute Assessment and plan: Fully anticoagulated for history of PE on Eliquis will continue home dosing (8) Gastroesophageal reflux disease: Assessment and plan: Continue home dose PPI (9) Benign hypertension: Assessment and plan: Continue outpatient pharmacological regimen Discussed with Dr. christensen Subjective Subjective Patient reports: no new complaints, feels better, tolerating liquids well, tolerating a regular diet and afebrile Exam Const General: cooperative and no acute distress Nutritional Appearance: overweight Orientation: alert, awake and oriented x3 HENMT Head: normal to inspection and normocephalic Ears: external ears normal General nose exam: external nose normal Mouth: moist mucous membranes Eyes General: appearance normal, both eyes and all related structures Neck Neck: normal visual inspection and no JVD Chest Chest: normal inspection of the chest Resp Effort & Inspection: no use of accessory muscles Auscultation: no wheezes Cardio Rate: regular rate Heart Sounds: no murmurs GI Inspection: normal to inspection Palpation: soft Skin General skin exam: no rashes or lesions noted (flushed face) Neuro General: patient alert, patient awake, patient oriented x3 and no focal motor deficits Extrem General: normal to inspection and full ROM Psych Mental Status: mental status grossly normal Objective Last Vital Signs Temp 36.6 C 03/02/25 11:17 Pulse 69 03/02/25 11:17 Resp 16 11/09/25 11:17 BP 109/60 03/02/25 11:17 Pulse Ox 95 03/02/25 11:17 Laboratory Results - last 24 hr 03/01/25 03/02/25 03/02/25 18:10 06:15 07:19 WBC 7.57 RBC 4.42 Hgb 11.1 L Hct 36.2 L MCV 82 MCH 25.1 L MCHC 30.7 L RDW 14.8 H Plt Count 194 MPV 9.7 Immature Gran % 0.7 Neutrophils % 80.1 Lymphocytes % 16.6 Monocytes % 2.5 Eosinophils % 0.0 Basophils % 0.1 Nucleated RBC % 0.0 Absolute Neutrophils 6.06 Absolute Lymphocytes 1.26 Absolute Monocytes 0.19 Absolute Eosinophils 0.00 Absolute Basophils 0.01 VBG Lactate 3.4 H* 1.2 Sodium 138 Potassium 4.4 Chloride 99 Carbon Dioxide 33.6 H Anion Gap 5.4 BUN 11 Creatinine 0.8 Est GFR (CKD-EPI 2020) 98.21 Glucose 290 H Calcium 8.6 Time Spent with Patient Time Spent with Patient: 35-49 minutes Time was spent: preparing to see the patient(eg.review tests), obtaining and/or reviewing separately otained hiistory, ordering medications,tests, procedures, indepentently interpreting results and counseling the patient
--- NOTE | 2025-03-02 12:45 | PHA.REVIEW2 ---
Pharmacy Admission Review Admission Clinical Review Admission Pharmacy Review: Anticoagulation adequate (Acute) Acidosis, lactic (Acute) Acute and chronic respiratory failure with hypoxia (Acute) (HFpEF) heart failure with preserved ejection fraction (Acute) Gastroesophageal reflux disease (Active) cimetidine HCl (From Tagamet) Allergy (Severe, Verified 03/01/25 10:35) Anaphylaxsis rivaroxaban (From Xarelto) Allergy (Severe, Verified 03/01/25 10:35) Other (See Comment) Latex, Natural Rubber Allergy (Intermediate, Verified 03/01/25 10:35) Skin Rash lisinopril Allergy (Intermediate, Verified 03/01/25 10:35) Other (See Comment) cefazolin Allergy (Unknown, Unverified 03/01/25 10:35) Unknown pantoprazole Allergy (Unknown, Verified 03/01/25 10:35) Other (See Comment) semaglutide Allergy (Unknown, Verified 03/01/25 10:35) Other (See Comment) promethazine HCl (From Phenergan) Adverse Reaction (Verified 03/01/25 10:35) Dizziness/Lightheade Resuscitation Status Full Code Height 5 ft 8 in Weight 102.1 kg Pharmacy Admission Review Renal Dosing Renal Dosing: BUN 11 mg/dL (7-18) 03/02/25 06:15 Creatinine 0.8 mg/dL (0.70-1.30) 03/02/25 06:15 Medications needing adjustments: Reviewed (CrCl 85.29 mL/min) List of meds needing interventions: Current medications are okay Anticoagulation Anticoagulation: Hgb 11.1 g/dL (13.5-17.5) L 03/02/25 06:15 Hct 36.2 % (40.0-50.0) L 03/02/25 06:15 Plt Count 194 10^3/uL (130-400) 03/02/25 06:15 Creatinine 0.8 mg/dL (0.70-1.30) 03/02/25 06:15 DVT Prophylaxis: Reviewed Medications: Apixaban (5mg PO BID) Opiate Usage Evaluate Pain Scale/Pains Meds: Intervened (morphine CR 15mg PO TID KANE - confirmed dose with VPMS) Scheduled Bowel Reg ordered if on Opiates?: No (PRN Miralax) Relevant Labs Relevant Labs: Sodium 138 mmol/L (136-145) 03/02/25 06:15 Potassium 4.4 mmol/L (3.5-5.1) 03/02/25 06:15 Chloride 99 mmol/L (98-107) 03/02/25 06:15 Electrolytes, C-Reactive P, ESR: Reviewed DM Control DM Control: Glucose 290 mg/dL (74-106) H 03/02/25 06:15 Finger Stick Blood Glucose 369 1227 Finger Stick Blood Glucose 369 1156 Finger Stick Blood Glucose 369 1156 Finger Stick Blood Glucose 260 0821 Finger Stick Blood Glucose 260 0818 Finger Stick Blood Glucose 260 0818 Finger Stick Blood Glucose 260 0736 Finger Stick Blood Glucose 260 0736 DM Control: Reviewed Insulin Dosing, Diabetic Medication: Has orders for SS insulin, glargine 34 units BID and Humulin N 10 units daily (to cover steroid burst per H+P) Cardiac Review Cardiac Review: Troponin I 8 ng/L (<or=76) 03/01/25 12:05 NT-Pro-B Natriuret Pep 40 pg/mL (<300) 03/01/25 11:03 BP, HR, EF%: Reviewed (BP and HR WNL) List meds needing interventions: Has orders for torsemide 40mg daily and carvedilol 3.125mg BID QTc Review QTc: Reviewed (422 from 03/01/25) IV to PO Switch IV Medications: Reviewed (doxycycline) Home Meds Home Med List reviewed: Intervened Relevent Home Meds Not ordered & why?: metformin (on hold per H+P), Wixela (substituted with Symbicort per pharmacy protocol) and Narcan (PRN) Recently filled but not on home med list - pirfenidone. Asked nurse to confirm with patient. Per nurse patient states this is new and has not started yet (coming in the mail). Left off home med list for now. Current Meds Current Medication Order Review: Reviewed Pharmacy Antibiotic Review Relevant Labs: WBC 7.57 10^3/uL (4.4-10.8) 03/02/25 06:15 Temperature 36.6 C Temperature 36.4 C Temperature 36.2 C Pharmacy Antibiotic Activity: Reviewed, no change Comments: Patient is on doxycycline, day 1, for possible interstitial pneumonia (per H+P). No cultures pending at this time.
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
[2025-03-02] MEDS: Famotidine 20 MG TAB PO (19:47)
[2025-03-02] MEDS: Tamsulosin 0.4 MG CAPCR PO (19:48)
[2025-03-02] MEDS: traZODone 100 MG TAB PO (23:00)
[2025-03-03 03:04] VITALS: BP 109/59; PULSE 59; RESP 18; O2SAT 97
[2025-03-03] MEDS: Normal Saline Flush 10 ML SYR IVP ×3 (05:43→20:08)
[2025-03-03] MEDS: DOXYCYCLINE 100 MG in Normal Saline 100 ML IVPB (05:43)
[2025-03-03 06:47] LABS: Abs Immature Grans 0.07 10^3/uL (0.0-0.06); HCT 34.5 % (40.0-50.0); HGB 10.6 g/dL (13.5-17.5); Immature Grans % 0.6 %; MCH 25.3 pg (27.0-33.0); MCHC 30.7 % (32.0-36.0); MCV 82 fL (80-95); MPV 9.5 fL (8.0-11.0); Platelet Count 211 10^3/uL (130-400); RBC 4.19 10^6/uL (4.36-5.78); RDW 15.0 % (11.8-14.1); RDW-SD 45.0 fL; WBC 11.88 10^3/uL (4.4-10.8)
[2025-03-03 07:04] LABS: Anion Gap 5.0 mmol/L (3-11); BUN 19 mg/dL (7-18); CO2 38.0 mmol/L (21.0-32.0); Calcium 8.4 mg/dL (8.5-10.1); Chloride 97 mmol/L (98-107); Glucose 236 mg/dL (74-106); Potassium 3.4 mmol/L (3.5-5.1); Sodium 140 mmol/L (136-145)
[2025-03-03] MEDS: Budesonide/Formoterol 80/4.5 6.9 GM 60 PUFF INH IH ×2 (07:43→20:08)
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
[2025-03-03 08:39] VITALS: BP 114/57; PULSE 70; RESP 16; TEMP 36.5; O2SAT 93
[2025-03-03] MEDS: Lactobacillus Acidophilus CAP 1 CAP PO ×2 (09:02→20:10)
[2025-03-03] MEDS: Multivitamin w/Minerals TAB 1 TAB PO (09:02)
[2025-03-03] MEDS: Atorvastatin 40 MG TAB PO (09:02)
[2025-03-03] MEDS: Carvedilol 3.125 MG TAB PO ×2 (09:02→20:10)
[2025-03-03] MEDS: predniSONE 20 MG TAB 60 MG PO (09:02)
[2025-03-03] MEDS: Apixaban 5 MG TAB PO ×2 (09:02→20:10)
[2025-03-03] MEDS: Carbidopa 25/Levodopa 100 TAB PO ×3 (09:02→20:10)
[2025-03-03] MEDS: Pregabalin 150 MG CAP PO ×3 (09:02→20:10)
[2025-03-03] MEDS: Torsemide 20 MG TAB 40 MG PO (09:03)
[2025-03-03] MEDS: Insulin Aspart 300 UNITS/3 ML PEN SC ×3 (09:03→17:13)
[2025-03-03] MEDS: guaiFENesin 600 MG TABCR PO ×2 (09:03→20:10)
[2025-03-03] MEDS: MORPHine CR 15 MG TABCR PO ×3 (09:03→20:09)
[2025-03-03] MEDS: Insulin NPH-Human 300 UNITS/3 ML PEN 10 UNIT SC (09:04)
[2025-03-03] MEDS: Insulin Glargine 300 UNITS/3 ML PEN 34 UNITS SC (09:04)
--- NOTE | 2025-03-03 10:55 | PT.INTREAT ---
PT Notes Visit Reasons: Hypoxia, ILD Flare, Hyperlactemia Inpatient Physical Therapy Treatment Note [facility] Date: 03/03/25 SUBJECTIVE: Dwight states that he is not doing so well this am. He reports feeling a little lightheaded, and slightly SOB, this is very mild. Would like to walk and sit in recliner. PM session: Dwight reports that he still doesn't feel as good as he did yesterday. He reports that MD would like him to try to stay on the 2L of O2 even during ex. OBJECTIVE: [] PAIN: none VITALS: AM session: O2 sat dropped to 87% post amb, and back up to 94% post 30 sec sitting rest. PM session: O2 sat began at 94% then dropped to 83% post 1st round of ambulation. 30 sec sitting rest with deep breathing, sats increased to 94%. After 2nd round of ambulation, his sat dropped to 80% which continued to drop to 76% with sitting rest prior to recovery to 95%. Therapeutic Activities ([id number]): Direct one-on-one instruction in dynamic activities to improve functional performance. BED MOBILITY/TRANSFERS Supine-sit: I Sit-stand: I Stand-sit:I Bed-Chair: S Provided skilled cues and instruction on performance and technique throughout. GAIT Assistive Device: FWW in am and 4WW in pm. Weight bearing: FWB Assist: SBA Distance: AM session:15' x2 PM session: 20' x4. Deviation: slow juan. 2L of O2. ASSESSMENT: tolerated session fair despite c/o lightheadedness this am. Able to recover O2sats quickly once sitting. Able to increase his ambulation tolerance this pm with 4WW as this seemed to conserve his energy better. Tried to incorporate his deep breathing t/o session. PLAN: will look to continue ambulation, progressing energy conservation following PT POC. TREATMENT CODE/TIME: AM session: 15 min Pm session 20 min ([id number]) DISCHARGE RECOMMENDATION: home with HHPT
[2025-03-03 11:03] VITALS: BP 125/69; PULSE 67; RESP 16; TEMP 36.9; O2SAT 94
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
--- NOTE | 2025-03-03 12:36 | TELEFU_ITS ---
Date of service: 03/03/25 Time of Service: 12:37 Nutrition Note NOTE: Consult request regarding diabetes ed/mgt. Dwight with history of chronic interstitial lung disease and respiratory concerns - states he is getting ready in the near future for lung transplant. Lives with , perry and brother in law - Vinay helps with meal prep when he can but usually not on his feet too long without needing to sit. Tells me he currently takes 28units lantus BID at home and meformin (on hold cu rrently) and also has novolog at home that he uses mainly at lunch and supper if I'm having a good amount of carbs. However Dwight could not quantify the amount of insulin to carbs at these meals, making me feel like his dosing is probably not the best to keep him at glucose target. Recent A1C of 8.6% last month. currently on steroids, contributing to hyperglycemia. fasting glucose yesterday and today 290 and 236 respectively. Fingerstick majoritvely above 230 since admission. Ordered for moderate sliding scale corrective insulin at meals TID with insulin aspart, 34units glargine BID and NPH 10 units q AM. TDD seems to be 98units on current order. Swallowing can be difficult due to scarring from tracheostomy in his history. Denies need for modified textures ordered this admission - will ask for modifications as necessary when he orders With steroids and infection present would recommend continued adjustment to insulin management - would suggest increase glargine by 3 units to 37units BID and consider increasing mealtime insulin to resistant sliding scale while on steroids. I lieu of of increasing sliding scale, could also add on carb coverage at meals - 1 unit per 15g carbs to start with Will continue to follow and review glucose trends and offer diet education around trying to get glucose closer to target of 7.0% for A1c. Time Spent in Nutritional Counseling and Treatment: 10 min
[2025-03-03 15:10] VITALS: BP 126/65; PULSE 62; RESP 16; TEMP 36.6; O2SAT 97
--- NOTE | 2025-03-03 16:43 | W.PM.PROGNOT ---
Date of Service Date of service: 03/03/25 Time of Service: 15:00 Assessment and Plan Assessment and plan (1) Acute and chronic respiratory failure with hypoxia: Status: Acute Assessment and plan: Home O2 at 2-3 liters required 3.5 in the ED for sat to go from below 80% to 92 % at rest- now at baseline Hx of being non compliant with home bipap as he didn't have proper adjustment/fit on mask Resolved today with RT educating and observing application (2) Chronic interstitial lung disease: Status: Chronic Assessment and plan: Improving exacerbation of ILD continue doxycycline and steroid burst pulmonary consultation:recommendation for doxycycline and prednisone for 5 days total then discontinue, BiPAP when sleeping. Dr Guidry will outpatient follow up in clinic next month, after his next transplant visit in [facility] (3) Diabetes mellitus: Assessment and plan: Ongoing POCT glucose AC & HS with SSI coverage AC with home dose bolus of Lantus increased to 37 units Will hold metformin - to be discuss with PCP if this will be restarted - d/t metabolic acidosis discontinue NPH (4) (HFpEF) heart failure with preserved ejection fraction: Status: Acute Assessment and plan: History of appears stable as per lab values Ongoing home medicine regimen (5) Gastroesophageal reflux disease: Status: Active Assessment and plan: On home PPI (6) BPH w urinary obs/LUTS: Assessment and plan: On home dosing of Flomax (7) Anticoagulation adequate: Status: Acute Assessment and plan: Fully anticoagulated for history of PE on Eliquis will continue home dosing (8) Gastroesophageal reflux disease: Assessment and plan: On home dose PPI (9) Benign hypertension: Assessment and plan: Ongoing outpatient pharmacological regimen Discussed with Dr. Sandoval Subjective Subjective Patient reports: feels better, tolerating liquids well, tolerating a regular diet, voiding w/o difficulty and bowel movement; denies diarrhea, vomiting, shortness of breath or fever Exam Narrative Exam Narrative: 64-year-old obese male patient w/o acute distress, no acute neurological deficit, nonicteric sclera noninjected, moist mucous membranes, no JVD, clear lungs minimal Velcro-like fine crackles to left based, no wheezing, S1-S2 regular , PPP x 4, abdomen is large nondistended soft nontender, no CVA tenderness, no edema, moves all 4 extremities Objective Last Vital Signs Temp 36.6 C 11/10/25 15:10 Pulse 62 03/03/25 15:10 Resp 16 03/03/25 15:10 BP 126/65 03/03/25 15:10 Pulse Ox 97 03/03/25 15:10 Laboratory Results - last 24 hr 03/03/25 05:49 WBC 11.88 H RBC 4.19 L Hgb 10.6 L Hct 34.5 L MCV 82 MCH 25.3 L MCHC 30.7 L RDW 15.0 H Plt Count 211 MPV 9.5 Immature Gran % 0.6 Neutrophils % 69.2 Lymphocytes % 20.4 Monocytes % 9.2 Eosinophils % 0.3 Basophils % 0.3 Nucleated RBC % 0.0 Absolute Neutrophils 8.22 H Absolute Lymphocytes 2.42 Absolute Monocytes 1.09 H Absolute Eosinophils 0.04 Absolute Basophils 0.04 Sodium 140 Potassium 3.4 L D Chloride 97 L Carbon Dioxide 38.0 H Anion Gap 5.0 BUN 19 H Creatinine 1.0 Est GFR (CKD-EPI 2020) 83.52 Glucose 236 H Calcium 8.4 L Time Spent with Patient Time Spent with Patient: >50 minutes Time was spent: preparing to see the patient(eg.review tests), obtaining and/or reviewing separately otained hiistory, ordering medications,tests, procedures, referring, communicating with other health career placement specialist, indepentently interpreting results, counseling the patient, care coordination and other
[2025-03-03] MEDS: Doxycycline Hyclate 100 MG CAP PO (17:20)
[2025-03-03] MEDS: Potassium Chloride 20 MEQ TABCR 40 MEQ PO (17:20)
[2025-03-03 19:36] VITALS: BP 107/69; PULSE 71; RESP 18; TEMP 36.6; O2SAT 96
[2025-03-03] MEDS: Insulin Glargine 300 UNITS/3 ML PEN 37 UNITS SC (20:06)
[2025-03-03] MEDS: Tamsulosin 0.4 MG CAPCR PO (20:09)
[2025-03-03] MEDS: Famotidine 20 MG TAB PO (20:10)
[2025-03-03] MEDS: traZODone 100 MG TAB PO (22:04)
[2025-03-03 22:44] VITALS: BP 130/69; PULSE 69; RESP 18; TEMP 36.4; O2SAT 93
[2025-03-04 02:00] VITALS: BP 110/64; PULSE 60; RESP 18; TEMP 36.4; O2SAT 95
[2025-03-04] MEDS: Doxycycline Hyclate 100 MG CAP PO (06:43)
[2025-03-04] MEDS: Dicyclomine 10 MG CAP PO (06:43)
[2025-03-04 06:49] LABS: Abs Immature Grans 0.08 10^3/uL (0.0-0.06); HCT 34.9 % (40.0-50.0); HGB 10.7 g/dL (13.5-17.5); Immature Grans % 0.7 %; MCH 25.4 pg (27.0-33.0); MCHC 30.7 % (32.0-36.0); MCV 83 fL (80-95); MPV 9.6 fL (8.0-11.0); Platelet Count 196 10^3/uL (130-400); RBC 4.22 10^6/uL (4.36-5.78); RDW 15.1 % (11.8-14.1); RDW-SD 45.1 fL; WBC 10.96 10^3/uL (4.4-10.8)
[2025-03-04 07:23] LABS: Anion Gap 6.6 mmol/L (3-11); BUN 22 mg/dL (7-18); CO2 36.4 mmol/L (21.0-32.0); Calcium 8.1 mg/dL (8.5-10.1); Chloride 98 mmol/L (98-107); Glucose 239 mg/dL (74-106); Magnesium 1.6 mg/dL (1.8-2.4); Potassium 3.5 mmol/L (3.5-5.1); Sodium 141 mmol/L (136-145)
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
--- NOTE | 2025-03-04 07:49 | W.PULMPROG ---
Assessment and Plan Assessment and plan (1) Chronic interstitial lung disease: Status: Chronic (2) Restrictive lung disease: Status: Acute (3) Sleep apnea: Status: Chronic (4) Chronic respiratory failure: Status: Acute General Date Of Service Date of service: 03/04/25 Time of Service: 07:20 Requesting physician: Tarun Sandoval Reason for Consult: Interstitial lung disease, dyspnea, hypoxia Recommendations: Assessment: 1. Dyspnea - suspect URI / bronchitis with underlying ILD and possible pulmonary edema. Improved. Deconditioning is likely playing some role as well 2. Chronic hypoxemic respiratory failure - mainly due to underlying ILD. On 2 L O2, which is his baseline 3. Post-COVID/ARDS Interstitial lung disease - most recent PFT's unavailable. CT chest showed relatively unchanged fibrotic changes. Mild GGO, which could represent a mild viral pneumonitis or pulmonary edema. Lower suspicion for ILD exacerbation. Undergoing a transplant evaluation on [place] - next appt later this month 4. Chronic hypercapnic respiratory failure - due to ILD and OHS 5. Hx pulmonary embolism - on apixaban 6. ALEX/OHS - on BiPAP Recommendations: - can continue doxycycline and prednisone for 5 days total then discontinue. Unclear if senior care steroids have provided any benefit in the past - ambulatory oximetry study today. - continue with BiPAP when sleeping - I suspect deconditioning is contributing to his dyspnea to some degree. Discussed the importance of staying active, especially if he is undergoing a lung transplant evaluation. Can look to setup pulmonary rehab as outpatient - will arrange for outpatient follow up in clinic next month, after his next transplant visit in [place] - I will sign off Discussed with Dr. Sandoval Subjective Note Note: Patient is a 64 yo with a history of post-COVID / ARDS interstitial lung disease, chronic hypoxemic respiratory failure, HFpEF, who was admitted on 03/01 for worsening dyspnea. He reported having sinus congestion and a runny nose last week. Dyspnea gradually worsened since that time, so presented to the ED. CTa chest showed mild GGO and stable fibrotic lung changes. Was negative for acute PE. He was treated with systemic steroids, doxycycline, and diuretics with improvement. He has a complex pulmonary history that started with severe COVID pneumonia in 2020. Was hospitalized for ~ 4 months, majority of the time on mechanical ventilation. Had a tracheostomy/PEG tube for a time. Was eventually decannulated. Since that time he has had recurrent admissions for respiratory issues. Difficult to say the exact causes, but considerations were pulmonary edema, organizing pneumonia and/or infectious pneumonia. [place] [facility] [place] [facility] [place] Currently undergoing a lung transplant evaluation. He has been nonadherent with home NIV for some time. Has been wearing his home BiPAP device without issues since admission. Oxygen requirements at 2 L O2. Has ambulated around his room. Cough improved. Still has dyspnea with exertion. Smoking history: none ROS: 6 pt ROS negative except as in HPI Exam Narrative Exam Narrative: General: alert, no acute distress Head: normocephalic ENT: no stridor, trachea midline CV: normal rate, regular rhythm Respiratory: no wheezing, no crackles, no rhonchi, no prolonged expiration GI: abd soft, non-tender, non-distended Skin: no rashes Extremities: no edema, no digital clubbing Psych: normal affect Objective Last Vital Signs Temp 36.4 C L 03/04/25 02:00 Pulse 60 03/04/25 02:00 Resp 18 03/04/25 02:00 BP 110/64 03/04/25 02:00 Pulse Ox 95 03/04/25 02:00 Laboratory Results - last 24 hr 03/04/25 05:58 WBC 10.96 H RBC 4.22 L Hgb 10.7 L Hct 34.9 L MCV 83 MCH 25.4 L MCHC 30.7 L RDW 15.1 H Plt Count 196 MPV 9.6 Immature Gran % 0.7 Neutrophils % 66.7 Lymphocytes % 22.5 Monocytes % 9.5 Eosinophils % 0.3 Basophils % 0.3 Nucleated RBC % 0.0 Absolute Neutrophils 7.31 H Absolute Lymphocytes 2.47 Absolute Monocytes 1.04 H Absolute Eosinophils 0.03 Absolute Basophils 0.03 Sodium 141 Potassium 3.5 Chloride 98 Carbon Dioxide 36.4 H Anion Gap 6.6 BUN 22 H Creatinine 1.0 Est GFR (CKD-EPI 2020) 83.52 Glucose 239 H Calcium 8.1 L Magnesium 1.6 L Results Medications Medications: Active Medications Generic Name Dose Route Start Last Admin Trade Name Freq PRN Reason Stop Dose Admin Acetaminophen 650 mg 03/01/25 20:16 03/02/25 02:16 Acetaminophen 325 Mg Tab PO 650 mg Q6H PRN PRN Administration Pain or Fever Acidophilus/Pectin 1 cap 03/01/25 20:00 03/03/25 20:10 Lactobacillus Acidophilus Cap PO 1 cap BID KANE Administration Albuterol/Ipratropium 3 ml 03/01/25 16:30 Albuterol/Ipratropium 3 Ml Upd Vial IH QID PRN PRN Apixaban 5 mg 03/01/25 20:00 03/03/25 20:10 Apixaban 5 Mg Tab PO 5 mg BID KANE Administration Atorvastatin Calcium 40 mg 03/02/25 08:30 03/03/25 09:02 Atorvastatin 40 Mg Tab PO 40 mg DAILY KANE Administration Budesonide/Formoterol Fumarate 0 puff 03/01/25 20:00 03/03/25 20:08 Budesonide/Formoterol 80/4.5 6.9 Gm 60 Puff Inh IH 2 puffs BID KANE Administration Carbidopa/Levodopa 2 tab 03/01/25 20:00 03/03/25 20:10 Carbidopa 25/Levodopa 100 Tab PO 2 tab TID KANE Administration Carvedilol 3.125 mg 03/01/25 20:00 03/03/25 20:10 Carvedilol 3.125 Mg Tab PO 3.125 mg BID KANE Administration Dextrose 0 gm 03/01/25 16:30 Glucose Oral Gel 15 Gm/37.5 Gm Tube PO DIRECTED PRN Dextrose/Water 0 gm 03/01/25 16:30 Dextrose 50%-Water 25 Gm/50 Ml Syr IVP DIRECTED PRN Dicyclomine HCl 10 mg 03/01/25 18:00 03/04/25 06:43 Dicyclomine 10 Mg Cap PO 10 mg Q6H KANE Administration Doxycycline Hyclate 100 mg 03/03/25 18:00 03/04/25 06:43 Doxycycline Hyclate 100 Mg Cap PO 100 mg Q12H KANE Administration Famotidine 20 mg 03/01/25 20:00 03/03/25 20:10 Famotidine 20 Mg Tab PO 20 mg HS KANE Administration Guaifenesin 600 mg 03/01/25 20:00 03/03/25 20:10 Guaifenesin 600 Mg Tabcr PO 600 mg BID KANE Administration IV Miscellaneous Supplies 1 each 03/01/25 16:30 Iv Access IV DIRECTED [facility] Insulin Aspart 0 units 03/01/25 17:00 03/03/25 17:13 Insulin Aspart 300 Units/3 Ml Pen SC 12 units 0800,1200,1700 KANE Administration Protocol Insulin Glargine 37 units 03/03/25 20:00 03/03/25 20:06 Insulin Glargine 300 Units/3 Ml Pen SC 37 units BID KANE Administration Iron/Minerals/Multivitamins 1 tab 03/02/25 08:30 03/03/25 09:02 Multivitamin W/Minerals Tab PO 1 tab DAILY KANE Administration Morphine Sulfate 15 mg 03/01/25 20:00 03/03/25 20:09 Morphine Cr 15 Mg Tabcr PO 15 mg TID KANE Administration Polyethylene Glycol 17 gm 03/01/25 16:30 Polyethylene Glycol 3350 17 Gm Packet PO DAILY PRN PRN Constipation Prednisone 60 mg 03/01/25 16:50 03/03/25 09:02 Prednisone 20 Mg Tab PO 60 mg DAILY KANE Administration Pregabalin 150 mg 03/01/25 20:00 03/03/25 20:10 Pregabalin 150 Mg Cap PO 150 mg TID KANE Administration Sodium Chloride 0 ml 03/01/25 16:30 03/03/25 05:43 Normal Saline Flush 10 Ml Syr IVP 20 ml PRN PRN Administration Sodium Chloride 0 ml 03/01/25 20:00 03/03/25 20:08 Normal Saline Flush 10 Ml Syr IVP 10 ml BID KANE Administration Sodium Chloride 0 ml 03/01/25 16:30 Normal Saline 10 Ml Vial IJ DIRECTED PRN Tamsulosin HCl 0.4 mg 03/01/25 20:00 03/03/25 20:09 Tamsulosin 0.4 Mg Capcr PO 0.4 mg HS KANE Administration Torsemide 40 mg 03/02/25 08:30 03/03/25 09:03 Torsemide 20 Mg Tab PO 40 mg DAILY KANE Administration Trazodone HCl 100 mg 03/03/25 22:00 03/03/25 22:04 Trazodone 100 Mg Tab PO 100 mg HS KANE Administration Allergies cimetidine HCl (From Tagamet) Allergy (Severe, Verified 03/01/25 10:35) Anaphylaxsis rivaroxaban (From Xarelto) Allergy (Severe, Verified 03/01/25 10:35) Other (See Comment) Latex, Natural Rubber Allergy (Intermediate, Verified 03/01/25 10:35) Skin Rash lisinopril Allergy (Intermediate, Verified 03/01/25 10:35) Other (See Comment) cefazolin Allergy (Unknown, Unverified 03/01/25 10:35) Unknown pantoprazole Allergy (Unknown, Verified 03/01/25 10:35) Other (See Comment) semaglutide Allergy (Unknown, Verified 03/01/25 10:35) Other (See Comment) promethazine HCl (From Phenergan) Adverse Reaction (Verified 03/01/25 10:35) Dizziness/Lightheade Labs 03/04/25 05:58 03/04/25 05:58 Labs: Laboratory Tests Range/Units 03/01/25 03/01/25 03/01/25 11:03 11:12 11:55 WBC (4.4-10.8) 10^3/uL 7.72 RBC (4.36-5.78) 10^6/uL 4.45 Hgb (13.5-17.5) g/dL 11.4 L Hct (40.0-50.0) % 37.1 L MCV (80-95) fL 83 MCH (27.0-33.0) pg 25.6 L MCHC (32.0-36.0) % 30.7 L RDW (11.8-14.1) % 15.2 H Plt Count (130-400) 10^3/uL 192 MPV (8.0-11.0) fL 8.8 Immature Gran % % 0.3 Neutrophils % % 68.6 Lymphocytes % % 20.6 Monocytes % % 7.6 Eosinophils % % 2.5 Basophils % % 0.4 Nucleated RBC % (0.0-0.3) % 0.0 Absolute Neutrophils (1.2-6.7) 10^3/uL 5.30 Absolute Lymphocytes (1.2-3.4) 10^3/uL 1.59 Absolute Monocytes (0.1-0.8) 10^3/uL 0.59 Absolute Eosinophils (0.0-0.7) 10^3/uL 0.19 Absolute Basophils (0.0-0.2) 10^3/uL 0.03 VBG pH (7.31-7.41) 7.46 H VBG pCO2 (41-51) mmHg 48 VBG pO2 mmHg 76 VBG HCO3 (23-28) mmol/L 34 H VBG Total CO2 (24-29) mmol/L 31 H VBG O2 Saturation % 97 VBG Base Excess (-2-3) mmol/L 10 H VBG Lactate (<or=2.0) mmol/L 2.6 H* Sodium (136-145) mmol/L 138 Potassium (3.5-5.1) mmol/L 4.5 Chloride (98-107) mmol/L 98 Carbon Dioxide (21.0-32.0) mmol/L 32.6 H Anion Gap (3-11) mmol/L 7.4 BUN (7-18) mg/dL 12 Creatinine (0.70-1.30) mg/dL 0.8 Est GFR (CKD-EPI 2020) (mL/min/1.73m2) 98.21 Glucose (74-106) mg/dL 232 H Calcium (8.5-10.1) mg/dL 9.1 Magnesium (1.8-2.4) mg/dL Total Bilirubin (0.2-1.0) mg/dL 0.5 AST (15-37) U/L 68 H ALT (16-63) U/L 19 Alkaline Phosphatase (46-116) U/L 106 Troponin I (<or=76) ng/L 10 NT-Pro-B Natriuret Pep (<300) pg/mL 40 Total Protein (6.4-8.2) g/dL 7.4 Albumin (3.4-5.0) g/dL 3.4 Urine Color (Yellow) Yellow Urine Clarity (Clear) Clear Urine pH (5-8) 6.5 Ur Specific [place] (1.005-1.025) 1.025 Urine Protein (Neg-Trace) mg/dL 100 H Urine Ketones (Negative) mg/dL 15 H Urine Blood (Negative) Trace-intact H Urine Nitrite (Negative) Negative Urine Bilirubin (Negative) Negative Urine Urobilinogen (Up to 0.2) mg/dL 1.0 H Ur Leukocyte Esterase (Negative) Negative Urine RBC (0-2) HPF 3-5 H Urine WBC (0-5) HPF 0-2 Ur Epithelial Cells (Negative) HPF Few Urine Crystals (Negative) HPF Negative Urine Bacteria (Negative) HPF Few Urine Casts (Negative) LPF Negative Urine Mucus (Negative) Trace Ur Culture Indicated? No Urine Glucose (Negative) mg/dL 500 H Range/Units 03/01/25 03/01/25 03/02/25 12:05 18:10 06:15 WBC (4.4-10.8) 10^3/uL 7.57 RBC (4.36-5.78) 10^6/uL 4.42 Hgb (13.5-17.5) g/dL 11.1 L Hct (40.0-50.0) % 36.2 L MCV (80-95) fL 82 MCH (27.0-33.0) pg 25.1 L MCHC (32.0-36.0) % 30.7 L RDW (11.8-14.1) % 14.8 H Plt Count (130-400) 10^3/uL 194 MPV (8.0-11.0) fL 9.7 Immature Gran % % 0.7 Neutrophils % % 80.1 Lymphocytes % % 16.6 Monocytes % % 2.5 Eosinophils % % 0.0 Basophils % % 0.1 Nucleated RBC % (0.0-0.3) % 0.0 Absolute Neutrophils (1.2-6.7) 10^3/uL 6.06 Absolute Lymphocytes (1.2-3.4) 10^3/uL 1.26 Absolute Monocytes (0.1-0.8) 10^3/uL 0.19 Absolute Eosinophils (0.0-0.7) 10^3/uL 0.00 Absolute Basophils (0.0-0.2) 10^3/uL 0.01 VBG pH (7.31-7.41) VBG pCO2 (41-51) mmHg VBG pO2 mmHg VBG HCO3 (23-28) mmol/L VBG Total CO2 (24-29) mmol/L VBG O2 Saturation % VBG Base Excess (-2-3) mmol/L VBG Lactate (<or=2.0) mmol/L 3.4 H* Sodium (136-145) mmol/L 138 Potassium (3.5-5.1) mmol/L 4.4 Chloride (98-107) mmol/L 99 Carbon Dioxide (21.0-32.0) mmol/L 33.6 H Anion Gap (3-11) mmol/L 5.4 BUN (7-18) mg/dL 11 Creatinine (0.70-1.30) mg/dL 0.8 Est GFR (CKD-EPI 2020) (mL/min/1.73m2) 98.21 Glucose (74-106) mg/dL 290 H Calcium (8.5-10.1) mg/dL 8.6 Magnesium (1.8-2.4) mg/dL Total Bilirubin (0.2-1.0) mg/dL AST (15-37) U/L ALT (16-63) U/L Alkaline Phosphatase (46-116) U/L Troponin I (<or=76) ng/L 8 NT-Pro-B Natriuret Pep (<300) pg/mL Total Protein (6.4-8.2) g/dL Albumin (3.4-5.0) g/dL Urine Color (Yellow) Urine Clarity (Clear) Urine pH (5-8) Ur Specific [place] (1.005-1.025) Urine Protein (Neg-Trace) mg/dL Urine Ketones (Negative) mg/dL Urine Blood (Negative) Urine Nitrite (Negative) Urine Bilirubin (Negative) Urine Urobilinogen (Up to 0.2) mg/dL Ur Leukocyte Esterase (Negative) Urine RBC (0-2) HPF Urine WBC (0-5) HPF Ur Epithelial Cells (Negative) HPF Urine Crystals (Negative) HPF Urine Bacteria (Negative) HPF Urine Casts (Negative) LPF Urine Mucus (Negative) Ur Culture Indicated? Urine Glucose (Negative) mg/dL Range/Units 03/02/25 03/03/25 03/04/25 07:19 05:49 05:58 WBC (4.4-10.8) 10^3/uL 11.88 H 10.96 H RBC (4.36-5.78) 10^6/uL 4.19 L 4.22 L Hgb (13.5-17.5) g/dL 10.6 L 10.7 L Hct (40.0-50.0) % 34.5 L 34.9 L MCV (80-95) fL 82 83 MCH (27.0-33.0) pg 25.3 L 25.4 L MCHC (32.0-36.0) % 30.7 L 30.7 L RDW (11.8-14.1) % 15.0 H 15.1 H Plt Count (130-400) 10^3/uL 211 196 MPV (8.0-11.0) fL 9.5 9.6 Immature Gran % % 0.6 0.7 Neutrophils % % 69.2 66.7 Lymphocytes % % 20.4 22.5 Monocytes % % 9.2 9.5 Eosinophils % % 0.3 0.3 Basophils % % 0.3 0.3 Nucleated RBC % (0.0-0.3) % 0.0 0.0 Absolute Neutrophils (1.2-6.7) 10^3/uL 8.22 H 7.31 H Absolute Lymphocytes (1.2-3.4) 10^3/uL 2.42 2.47 Absolute Monocytes (0.1-0.8) 10^3/uL 1.09 H 1.04 H Absolute Eosinophils (0.0-0.7) 10^3/uL 0.04 0.03 Absolute Basophils (0.0-0.2) 10^3/uL 0.04 0.03 VBG pH (7.31-7.41) VBG pCO2 (41-51) mmHg VBG pO2 mmHg VBG HCO3 (23-28) mmol/L VBG Total CO2 (24-29) mmol/L VBG O2 Saturation % VBG Base Excess (-2-3) mmol/L VBG Lactate (<or=2.0) mmol/L 1.2 Sodium (136-145) mmol/L 140 141 Potassium (3.5-5.1) mmol/L 3.4 L D 3.5 Chloride (98-107) mmol/L 97 L 98 Carbon Dioxide (21.0-32.0) mmol/L 38.0 H 36.4 H Anion Gap (3-11) mmol/L 5.0 6.6 BUN (7-18) mg/dL 19 H 22 H Creatinine (0.70-1.30) mg/dL 1.0 1.0 Est GFR (CKD-EPI 2020) (mL/min/1.73m2) 83.52 83.52 Glucose (74-106) mg/dL 236 H 239 H Calcium (8.5-10.1) mg/dL 8.4 L 8.1 L Magnesium (1.8-2.4) mg/dL 1.6 L Total Bilirubin (0.2-1.0) mg/dL AST (15-37) U/L ALT (16-63) U/L Alkaline Phosphatase (46-116) U/L Troponin I (<or=76) ng/L NT-Pro-B Natriuret Pep (<300) pg/mL Total Protein (6.4-8.2) g/dL Albumin (3.4-5.0) g/dL Urine Color (Yellow) Urine Clarity (Clear) Urine pH (5-8) Ur Specific [place] (1.005-1.025) Urine Protein (Neg-Trace) mg/dL Urine Ketones (Negative) mg/dL Urine Blood (Negative) Urine Nitrite (Negative) Urine Bilirubin (Negative) Urine Urobilinogen (Up to 0.2) mg/dL Ur Leukocyte Esterase (Negative) Urine RBC (0-2) HPF Urine WBC (0-5) HPF Ur Epithelial Cells (Negative) HPF Urine Crystals (Negative) HPF Urine Bacteria (Negative) HPF Urine Casts (Negative) LPF Urine Mucus (Negative) Ur Culture Indicated? Urine Glucose (Negative) mg/dL Imaging CT scan - chest: report reviewed and image reviewed
[2025-03-04] MEDS: predniSONE 20 MG TAB 60 MG PO (08:04)
[2025-03-04] MEDS: Torsemide 20 MG TAB 40 MG PO (08:04)
[2025-03-04] MEDS: Multivitamin w/Minerals TAB 1 TAB PO (08:05)
[2025-03-04] MEDS: Atorvastatin 40 MG TAB PO (08:05)
[2025-03-04] MEDS: Carbidopa 25/Levodopa 100 TAB PO ×2 (08:05→14:27)
[2025-03-04] MEDS: guaiFENesin 600 MG TABCR PO (08:05)
[2025-03-04] MEDS: Carvedilol 3.125 MG TAB PO (08:05)
[2025-03-04] MEDS: Lactobacillus Acidophilus CAP 1 CAP PO (08:05)
[2025-03-04] MEDS: MORPHine CR 15 MG TABCR PO ×2 (08:05→14:27)
[2025-03-04] MEDS: Apixaban 5 MG TAB PO (08:05)
[2025-03-04] MEDS: Pregabalin 150 MG CAP PO ×2 (08:05→14:27)
[2025-03-04] MEDS: Insulin Aspart 300 UNITS/3 ML PEN SC ×2 (08:06→11:44)
[2025-03-04] MEDS: Insulin Glargine 300 UNITS/3 ML PEN 37 UNITS SC (08:06)
--- NOTE | 2025-03-04 08:24 | PT.INTREAT ---
PT Notes Visit Reasons: Hypoxia, ILD Flare, Hyperlactemia Date: 03/03/25 SUBJECTIVE: Dwight states that he is not doing so well this am. He reports feeling a little lightheaded, and slightly SOB, this is very mild. Would like to walk and sit in recliner. OBJECTIVE: [] PAIN: none VITALS: Monitored by nursing, SA02 monitored by respiratory therapy while ambulating Therapeutic Activities 85874: Direct one-on-one instruction in dynamic activities to improve functional performance. BED MOBILITY/TRANSFERS Supine-sit: I Sit-stand: I Stand-sit:I Bed-Chair: S Provided skilled cues and instruction on performance and technique throughout. GAIT Assistive Device: 4WW Weight bearing: FWB Assist: SBA Distance: 30', 20', 40', 10' WC follow Deviation: slow juan. stoop forward posture, low step height, sort step length ASSESSMENT: pt reports feeling light headed during gait training requiring seated rest break for energy conservation strategy as well as deep breathing techniques to get pt SA02 back to low to mid 90's after walking in between distances. PLAN: Possible DC this afternoon, home with HHPT TREATMENT CODE/TIME: [id number], 25mins (8:00-8:25am) DISCHARGE RECOMMENDATION: home with HHPT
[2025-03-04] MEDS: Budesonide/Formoterol 80/4.5 6.9 GM 60 PUFF INH IH (08:34)
--- NOTE | 2025-03-04 08:57 | RESPIRATORY ---
03/04/2025 This RT attended walk with Physical Therapy. Patient started on 2L O2 and then desaturated to 84%SPO2 then O2 turned up to 3L and patient maintained 87% and above SPO2. Patient states he normally uses 2L at home but sometimes goes up to 3-4L when needed. Patient took breaks and sat down during walk.
[2025-03-04 08:59] VITALS: BP 131/74; PULSE 62; RESP 16; TEMP 36.3; O2SAT 96
--- NOTE | 2025-03-04 10:50 | PDOC.CMDIS ---
Date of service: 03/04/25 Time of Service: 10:50 LACE Index Scoring Tool Questions: Length of Stay (in days): 3 Was the patient admitted via the E.D.?: Yes E.D. Visits: 2 Answers: Total Score: 8 Risk of Readmission: Low Risk Care Management Discharge Plan Reason for Hospitalization: Hypoxia, ILD Flare Discharge Plan: Dwight is discharged home with resumption of community supports via private vehicle with . He will follow up with community providers and continue per his discharge plan of care. No new services are indicated at the time of discharge. Patient/Family Education Needs: Review discharge instructions and plan to follow up after discharge. Discuss ask me three. SDOH Health Related Social Needs: Health related social needs lonely/isolated
[2025-03-04 11:26] VITALS: BP 116/77; PULSE 59; RESP 16; TEMP 36.6; O2SAT 93
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
[2025-03-04] MEDS: Magnesium Oxide 400 MG TAB 800 MG PO (12:03)
== END 2025-03-04 15:15 | disposition home or self-care (01) ==
LOC: ER 15:17 → MS 16:26
PROVIDERS: Admitting Provider Family Medicine; Emergency Provider General Practice; PCP Nurse Practitioner Family; Responsible Provider Nurse Practitioner Acute Care; Visit Provider Family Medicine
DX: J96.21 Acute and chronic respiratory failure with hypoxia (principal); J84.10 Pulmonary fibrosis, unspecified; I50.32 Chronic diastolic (congestive) heart failure; E87.20 Acidosis, unspecified; E11.65 Type 2 diabetes mellitus with hyperglycemia; J96.12 Chronic respiratory failure with hypercapnia; Z79.4 Long term (current) use of insulin; K21.9 Gastro-esophageal reflux disease without esophagitis; N40.1 Benign prostatic hyperplasia with lower urinary tract symptoms; N13.8 Other obstructive and reflux uropathy; G20.C Parkinsonism, unspecified; I11.0 Hypertensive heart disease with heart failure; Z79.01 Long term (current) use of anticoagulants; G47.30 Sleep apnea, unspecified; Z99.81 Dependence on supplemental oxygen; U09.9 Post COVID-19 condition, unspecified; Z86.711 Personal history of pulmonary embolism; G47.33 Obstructive sleep apnea (adult) (pediatric); Z91.199 Patient's noncompliance with other medical treatment and regimen due to unspecified reason; I27.20 Pulmonary hypertension, unspecified; E66.9 Obesity, unspecified; R13.12 Dysphagia, oropharyngeal phase; J45.909 Unspecified asthma, uncomplicated; K22.70 Barrett's esophagus without dysplasia; Z86.73 Personal history of transient ischemic attack (TIA), and cerebral infarction without residual deficits; E11.42 Type 2 diabetes mellitus with diabetic polyneuropathy; F32.A Depression, unspecified; Z96.651 Presence of right artificial knee joint; Z96.611 Presence of right artificial shoulder joint; Z96.643 Presence of artificial hip joint, bilateral; R45.89 Other symptoms and signs involving emotional state; Z86.718 Personal history of other venous thrombosis and embolism; Z79.84 Long term (current) use of oral hypoglycemic drugs
CPT/HCPCS: 00123; 36415; 71275; 80048; 80053; 82805; 93005; 94640; 96360; 97116; 97162; 97530; 99285; J3490; 71045; 81003; 81015; 83605; 83735; 83880; 84484; 85025; 93010; 94660; 94664; 94760; 99223; 99232; 99233; 99239; G0378; J1815; J7512; J7620